=== PATIENT | female | born 1940 | race Caucasian/White ===

== ENCOUNTER 2017-02-18 14:10 | Emergency (ER) | payer MEDICARE ==
[2017-02-18 15:15] VITALS: PULSE 80
--- NOTE | 2017-02-18 15:31 | ERPHSYRPT ---
- History of Present Illness Time Seen by Provider: 02/18/17 15:26 Historian: patient Exam Limitations: no limitations Patient Subjective Stated Complaint: PT REPORTS PAIN IN LOW ABD INCREASING TODAY -REPORTS BRIGHT RED BLOOD IN URINE-DENIES DIFFICULTY WITH BOWELS-DENIES FEVER Triage Nursing Assessment: PT PALE WARM ET [id number] QUESTIONS CORRECTLY WITH EASE-ABD TENDER TO PALP-URINE NOT ASSESSED-BOWEL SOUNDS PRESENT- PT APPEARS UNCOMFORTABLE Physician History: patient with lower abdominal pain for past 2-3 days. Describes pain as crampy, localized and intermittent, which is worse with urination. Patient noted to be having more frequency, dysuria, urgency and hematuria. Patient without any fever, chills, nausea, vomiting, diarrhea, weakness or dizziness. Patient denies any previous history of urinary tract infection. Timing/Duration: day(s) (2-3), intermittent Activities at Onset: none Quality: cramping Abdominal Pain Onset Location: suprapubic Pain Radiation: no radiation Severity of Pain-Max: mild Modifying Factors: Improves With: urinating (worsens pain) Associated Symptoms: No back, No chest pain, No fever/chills, No loss of appetite, No nausea, No weakness Previous symptoms: no prior history Allergies/Adverse Reactions: Penicillins Allergy (Verified 02/18/17 14:50) Home Medications: Aspirin/Calcium Carbonate/Mag [Aspirin Buffered 325 mg Tab] 325 mg PO DAILY 01/23 [History] Atorvastatin Calcium [Lipitor 20MG Tablet] 20 mg PO DAILY 06/20/14 [History] Bumetanide 1 mg [Bumex 1 mg] 1 mg PO DAILY PRN PRN 06/20/14 [History] Fluticasone/Salmeterol [Advair 250-50 Diskus] 1 puff IH BID 06/20/14 [History] Multivitamin [Multivitamins] 1 each PO DAILY 06/20/14 [History] Prednisone 10 mg [Deltasone 10 mg] 10 mg PO DAILY 06/20/14 [History] Hx Tetanus, Diphtheria Vaccination/Date Given: Yes Hx Influenza Vaccination/Date Given: Yes Hx Pneumococcal Vaccination/Date Given: No Immunizations Up to Date: Yes - Review of Systems Constitutional: No Fever, No Chills Eyes: No Symptoms Ears, Nose, & Throat: No Symptoms Respiratory: No Cough, No Dyspnea Cardiac: No Chest Pain, No Edema, No Syncope Abdominal/Gastrointestinal: Abdominal Pain, No Nausea, No Vomiting, No Diarrhea Genitourinary Symptoms: Dysuria, Frequency, Hematuria, Urgency Musculoskeletal: No Symptoms, No Back Pain, No Neck Pain Skin: No Symptoms, No Rash Neurological: No Symptoms, No Dizziness, No Focal Weakness, No Sensory Changes Psychological: No Symptoms Endocrine: No Symptoms All Other Systems: Reviewed and Negative - Past Medical History Pertinent Past Medical History: Yes Neurological History: No Pertinent History Cardiac History: Coronary Artery Disease Respiratory History: COPD Endocrine Medical History: No Pertinent History Musculoskeletal History: Arthritis Other Medical History: ARTIFICIAL AORTIC VALVE AND 2 STENTS, INFECTED INCISION ; 2.5 L 02 @ NIGHT - Past Surgical History Past Surgical History: Yes Cardiac: CABG, Cardiac Stent Musculoskeletal: Orthopedic Surgery Female Surgical History: Hysterectomy - Social History Smoking Status: Former smoker Exposure to second hand smoke: No Drug Use: none Patient Lives Alone: Yes - Female History Hx Now: No - Nursing Vital Signs Nursing Vital Signs: Initial Vital Signs Temperature 98.0 F 02/18/17 14:51 Pulse Rate 84 02/18/17 14:51 Respiratory Rate 20 02/18/17 14:51 Blood Pressure 122/72 02/18/17 14:51 O2 Sat by Pulse Oximetry 100 02/18/17 14:51 Pain Scale Pain Intensity 8 - Physical Exam General Appearance: no apparent distress, alert Eye Exam: PERRL/EOMI, eyes nml inspection Ears, Nose, Throat Exam: normal ENT inspection, pharynx normal, moist mucous membranes Neck Exam: normal inspection, non-tender, supple, full range of motion Respiratory Exam: normal breath sounds, lungs clear, No respiratory distress Cardiovascular Exam: regular rate/rhythm, normal heart sounds Gastrointestinal/Abdomen Exam: soft, tenderness (surrounding ostomy site), other (blood noted in ostomy vent), No mass, No guarding, No rebound, No hernia Pelvic Exam: not done Rectal Exam: deferred Back Exam: normal inspection, normal range of motion, No CVA tenderness, No vertebral tenderness Extremity Exam: normal inspection, normal range of motion, pelvis stable Neurologic Exam: alert, oriented x 3, cooperative, normal mood/affect, nml cerebellar function, sensation nml, No motor deficits Skin Exam: normal color, warm, dry Lymphatic Exam: adenopathy SpO2 Interpretation: normal SpO2: 99 Oxygen Delivery: Room Air - Course Nursing assessment & vital signs reviewed: Yes Ordered Tests: Active Orders 24 hr Category Date Time Status Clean Catch Urine Specimen STAT Care 02/18/17 15:18 Active UA W/RFX UR CULTURE Stat Lab 02/18/17 15:18 Ordered - Progress Progress: improved Progress Note: 02/18/17 15:40 Dr. Buchanan, physician from [facility] was notified about patient and he agreed to accept for further care Discussed with Dr.: Other (Dr. Buchanan) Counseled pt/family regarding: diagnosis - Departure Time of Disposition: 15:41 Departure Disposition: Transfer Clinical Impression: GI bleed Condition: Stable Critical Care Time: No Referrals: ALPHONSE PEREZ MD [Primary Care Provider] -
[2017-02-18 16:27] LABS: Appearance HAZY (CLEAR)
[2017-02-18 16:28] LABS: Bacteria FEW /HPF (NEGATIVE); Bilirubin NEGATIVE (NEGATIVE); Blood 50 Ery/ul (0-5); Epithelial Cells FEW /HPF (FEW); Glucose NEGATIVE (NEGATIVE); Ketones NEGATIVE (NEGATIVE); Leukocyte Esterase 2+ (NEGATIVE); Nitrite NEGATIVE (NEGATIVE); Protein,Urine Dip NEGATIVE (Negative); Urobilinogen NORMAL mg/dL (0-1); WBC 15-25 /HPF (0-5)
[2017-02-18 18:02] VITALS: BP 137/75; O2SAT 98
== END 2017-02-18 18:02 | disposition home or self-care (01) ==
LOC: ED 14:10
DX: N39.0 Urinary tract infection, site not specified (principal); Z79.899 Other long term (current) drug therapy
CPT/HCPCS: 81000; 87086; 99283; 99284

== ENCOUNTER 2017-10-05 11:08 | Emergency (ER) | payer MEDICARE ==
[2017-10-05 11:23] VITALS: BP 123/55; PULSE 100
--- NOTE | 2017-10-05 11:43 | ERPHSYRPT ---
- History of Present Illness Time Seen by Provider: 10/05/17 11:40 Source: patient Patient Subjective Stated Complaint: was at lab getting out of wheel chair and she it right chambers on wc, and has triangle shape skin tear to leg Triage Nursing Assessment: pt has skin tear to right shib, triangle in shape, no bleeding Physician History: skin tear right lower leg today when exiting her wheel chair, no other injury, mild ache pain, ambulates w/ walker Allergies/Adverse Reactions: Penicillins Allergy (Verified 10/05/17 11:23) Home Medications: Aspirin/Calcium Carbonate/Mag [Aspirin Buffered 325 mg Tab] 325 mg PO DAILY 01/23 [History] Atorvastatin Calcium [Lipitor 20MG Tablet] 20 mg PO DAILY 06/20/14 [History] Bumetanide 1 mg [Bumex 1 mg] 1 mg PO DAILY PRN PRN 06/20/14 [History] Fluticasone/Salmeterol [Advair 250-50 Diskus] 1 puff IH BID 06/20/14 [History] Multivitamin [Multivitamins] 1 each PO DAILY 06/20/14 [History] Prednisone 10 mg [Deltasone 10 mg] 10 mg PO DAILY 06/20/14 [History] Gabapentin 300 mg TID 10/05/17 [History] Hx Tetanus, Diphtheria Vaccination/Date Given: Yes Hx Influenza Vaccination/Date Given: No Hx Pneumococcal Vaccination/Date Given: No Immunizations Up to Date: Yes - Review of Systems Constitutional: No Fever Eyes: No Vision Changes Ears, Nose, & Throat: No Mouth Pain Respiratory: No Dyspnea Cardiac: No Chest Pain Abdominal/Gastrointestinal: No Abdominal Pain Musculoskeletal: No Back Pain Skin: Skin Lesions Neurological: No Dizziness - Past Medical History Pertinent Past Medical History: Yes Neurological History: No Pertinent History Cardiac History: Coronary Artery Disease Respiratory History: COPD Endocrine Medical History: No Pertinent History Musculoskeletal History: Arthritis Other Medical History: ARTIFICIAL AORTIC VALVE AND 2 STENTS, INFECTED INCISION ; 2.5 L 02 @ NIGHT - Past Surgical History Past Surgical History: Yes Cardiac: CABG, Cardiac Stent Musculoskeletal: Orthopedic Surgery Female Surgical History: Hysterectomy - Social History Smoking Status: Former smoker Exposure to second hand smoke: No Drug Use: none Patient Lives Alone: No - Female History Hx Last Menstrual Period: post Hx Now: No - Nursing Vital Signs Nursing Vital Signs: Initial Vital Signs Pulse Rate 100 H 10/05/17 11:15 Respiratory Rate 20 10/05/17 11:15 Blood Pressure 123/55 10/05/17 11:15 O2 Sat by Pulse Oximetry 76 L 10/05/17 11:15 Pain Scale Pain Intensity 5 - Physical Exam General Appearance: no apparent distress Neurologic Exam: alert, oriented x 3, cooperative Skin Exam: other (3cm V shape anterior mid right lower leg superficial laceration, bleeding controlled) SpO2: 76 Oxygen Delivery: Nasal Cannula - Course Nursing assessment & vital signs reviewed: Yes Ordered Tests: Active Orders 24 hr Category Date Time Status Nursing [Miscellaneous Nursing Order] ROUTINE Care 10/05/17 11:39 Active Medication Summary Discontinued Medications Generic Name Dose Route Start Last Admin Trade Name Freq PRN Reason Stop Dose Admin Diphtheria/Tetanus/Acell Pertussis 0.5 ml 10/05/17 11:39 10/05/17 11:45 Adacel Vial IM 10/05/17 11:40 0.5 ml .ONCE ONE Administration Diphtheria/Tetanus/Acell Pertussis Confirm 10/05/17 11:47 Adacel Vial Administered 10/05/17 11:48 Dose 0.5 ml IM .STK-MED ONE - Progress Progress: improved Progress Note: 10/05/17 12:17 wound care, elevation, zpak, tylenol, return if worse, see your doctor - Departure Time of Disposition: 12:18 Departure Disposition: Home Clinical Impression: Laceration Condition: Stable Critical Care Time: No Referrals: ALPHONSE PEREZ MD [Primary Care Provider] - Instructions: Wound Care (DC) Prescriptions: Azithromycin 250 mg [Zithromax 250 MG TABLET] 250 mg PO ZPACK #6 tablet
[2017-10-05] MEDS: Adacel Vial IM ONE (11:45)
[2017-10-05] MEDS ORDERED: Adacel Vial IM ONE (11:47)
[2017-10-05 12:19] VITALS: O2SAT 76
== END 2017-10-05 12:43 | disposition home or self-care (01) ==
LOC: ED 11:08
DX: S81.811A Laceration without foreign body, right lower leg, initial encounter (principal); W45.8XXA Other foreign body or object entering through skin, initial encounter; W22.8XXA Striking against or struck by other objects, initial encounter; Y93.9 Activity, unspecified; Z79.82 Long term (current) use of aspirin; Z79.899 Other long term (current) drug therapy
CPT/HCPCS: 71046; 81002; 87086; 90471; 90715; 99283

== ENCOUNTER 2017-10-06 13:15 | Inpatient (IN) | payer MEDICARE ==
[2017-10-06] MEDS ORDERED: DUONEB 0.5-3 MG/3 ml Neb IH ONE ×2 (13:28→13:45)
--- NOTE | 2017-10-06 13:33 | ERPHSYRPT ---
- History of Present Illness Time Seen by Provider: 10/06/17 13:29 Source: patient, EMS Patient Subjective Stated Complaint: Pt states "I was diagnosed with pneumonia yesterday and I have been havinga harder and harder time breathing since last night." Triage Nursing Assessment: Pt alert and oriented X 3, skin pwd. Pt able to speak in full complete sentences. Pt tachypneic, arrived with dual neb tx being administered, lung sounds: rhonchi throughout. Physician History: mild to mod shortness of breath and cough for one day, getting worse, recent pneumonia, no fever, +GOULD, home oxygen 3 liters, took her steroids today, hx chronic leg pain Allergies/Adverse Reactions: Penicillins Allergy (Verified 10/05/17 11:23) Home Medications: Aspirin/Calcium Carbonate/Mag [Aspirin Buffered 325 mg Tab] 325 mg PO DAILY 01/23 [History] Atorvastatin Calcium [Lipitor 20MG Tablet] 20 mg PO DAILY 06/20/14 [History] Bumetanide 1 mg [Bumex 1 mg] 1 mg PO DAILY PRN PRN 06/20/14 [History] Fluticasone/Salmeterol [Advair 250-50 Diskus] 1 puff IH BID 06/20/14 [History] Multivitamin [Multivitamins] 1 each PO DAILY 06/20/14 [History] Prednisone 10 mg [Deltasone 10 mg] 10 mg PO DAILY 06/20/14 [History] Gabapentin 300 mg TID 10/05/17 [History] Hx Tetanus, Diphtheria Vaccination/Date Given: Yes Hx Influenza Vaccination/Date Given: Yes Hx Pneumococcal Vaccination/Date Given: Yes Immunizations Up to Date: Yes - Review of Systems Constitutional: Weakness, No Fever Eyes: No Vision Changes Ears, Nose, & Throat: No Mouth Pain Respiratory: Cough, Dyspnea, Wheezing Cardiac: No Chest Pain Abdominal/Gastrointestinal: No Abdominal Pain Genitourinary Symptoms: No Dysuria Musculoskeletal: Other (edema), No Neck Pain Skin: No Rash Neurological: No Dizziness - Past Medical History Pertinent Past Medical History: Yes Neurological History: No Pertinent History Cardiac History: Coronary Artery Disease Respiratory History: COPD Endocrine Medical History: No Pertinent History Musculoskeletal History: Arthritis Other Medical History: ARTIFICIAL AORTIC VALVE AND 2 STENTS, INFECTED INCISION ; 2.5 L 02 @ NIGHT - Past Surgical History Past Surgical History: Yes Cardiac: CABG, Cardiac Stent Musculoskeletal: Orthopedic Surgery Female Surgical History: Hysterectomy - Social History Smoking Status: Former smoker Exposure to second hand smoke: No Drug Use: none Patient Lives Alone: Yes - Female History Hx Now: No - Nursing Vital Signs Nursing Vital Signs: Initial Vital Signs Temperature 99.5 F 10/06/17 13:20 Pulse Rate 100 H 10/06/17 13:20 Respiratory Rate 20 10/06/17 13:20 Blood Pressure 120/65 10/06/17 13:20 O2 Sat by Pulse Oximetry 94 L 10/06/17 13:20 Pain Scale Pain Intensity 6 - Physical Exam General Appearance: no apparent distress Eye Exam: eyes nml inspection Ears, Nose, Throat Exam: normal pharynx Neck Exam: non-tender Respiratory Exam: wheezing Cardiovascular/Chest Exam: regular rate/rhythm, edema Abdominal/Gastrointestinal Exam: soft, other (colostomy) Extremity Exam: swelling Neurologic Exam: alert, oriented x 3 Skin Exam: warm SpO2 Interpretation: borderline oxygenation SpO2: 97 Oxygen Delivery: Nasal Cannula - Course Nursing assessment & vital signs reviewed: Yes EKG Interpreted by Me: Other (nsr 92, rbbb, no stemi) - CT Exams Chest CT Interpretation: Discussed w/radiologist, Other (no pe, +RLL infil) Ordered Tests: Active Orders 24 hr Category Date Time Status Bedrest ROUTINE Activity 10/06/17 16:44 Ordered Accucheck ACHS Care 10/06/17 16:42 Ordered Call Admit Doctor for Orders ON ADMISSION Care 10/06/17 16:43 Ordered Supervisor Sound Technician STAT Care 10/06/17 13:27 Active Code Status Order ROUTINE Care 10/06/17 16:42 Ordered EKG-ER Only STAT Care 10/06/17 13:27 Active IV Care Q6H Care 10/06/17 16:42 Ordered IV Insertion STAT Care 10/06/17 13:27 Active Oxygen-ED Only NASAL CANNULA 3 lpm Care 10/06/17 13:[address] in Observation ROUTINE Care 10/06/17 16:42 Ordered Telemetry ROUTINE Care 10/06/17 16:42 Ordered 1800 Calorie ADA Diet 10/06/17 Dinner Ordered CHEST 1 VIEW (PORTABLE) Stat Exams 10/06/17 13:27 Completed CHEST WITH CONTRAST [CT] Stat Exams 10/06/17 15:26 Completed VENOUS BILATERAL EXTREMITY [US] Stat Exams 10/06/17 16:31 Taken BLOOD CULTURE Stat Lab 10/06/17 13:45 Received CBC W DIFF AM.LAB Lab 10/07/17 04:00 Ordered CBC W DIFF Stat Lab 10/06/17 13:45 Completed CMP Stat Lab 10/06/17 13:45 Completed D-DIMER QUANTITATION Stat Lab 10/06/17 13:45 Completed Lactic Acid Stat Lab 10/06/17 13:45 Completed NT PRO BNP Stat Lab 10/06/17 13:45 Completed PROTIME WITH INR Stat Lab 10/06/17 13:45 Completed TROPONIN Q3H Lab 10/06/17 13:45 Completed TROPONIN Q3H Lab 10/06/17 16:30 Ordered TROPONIN Q3H Lab 10/06/17 19:30 Ordered TROPONIN Q3H Lab 10/06/17 22:30 Ordered TROPONIN Q3H Lab 10/07/17 01:30 Ordered Oxygen NASAL CANNULA 2 lpm RT 10/06/17 16:42 Ordered Peak Expiratory Flow Rate ONCE RT 10/06/17 13:57 Active Respiratory Nebulizer STAT RT 10/06/17 13:29 Completed Respiratory Therapy Assessment DAILY RT 10/06/17 13:57 Active Respiratory Therapy Consult ROUTINE RT 10/06/17 16:42 Ordered Medication Summary Generic Name Dose Route Start Last Admin Trade Name Freq PRN Reason Stop Dose Admin Acetaminophen 650 mg 10/06/17 16:42 Tylenol 325 Mg PO 11/05/17 16:41 Q4H PRN PRN PAIN AND/OR FEVER Albuterol Sulfate 2.5 mg 10/06/17 16:42 Proventil 2.5 Mg/3 Ml Neb IH 11/05/17 16:41 Q2H PRN PRN SHORTNESS OF BREATH/WHEEZING Levofloxacin/Dextrose 500 mg in 100 mls @ 100 mls/hr 10/06/17 16:35 Levofloxacin 500mg/100ml D5w IV 10/06/17 17:34 STAT STA Levofloxacin/Dextrose 500 mg in 100 mls @ 100 mls/hr 10/07/17 10:00 Levofloxacin 500mg/100ml D5w IV 11/06/17 09:59 Q24H10 LAURENT Insulin Aspart 0 unit 10/06/17 16:42 Novolog Insulin SQ 11/05/17 16:41 UD PRN HYPERGLYCEMIA Discontinued Medications Generic Name Dose Route Start Last Admin Trade Name Chris PRN Reason Stop Dose Admin Hydrocodone Bitart/Acetaminophen 1 tab 10/06/17 14:02 10/06/17 14:10 [place] 5/325 Mg PO 10/06/17 14:03 1 tab STAT ONE Administration Hydrocodone Bitart/Acetaminophen Confirm 10/06/17 14:04 [place] 5/325 Mg Administered 10/06/17 14:05 Dose 1 tab .ROUTE .STK-MED ONE Albuterol/Ipratropium 3 ml 10/06/17 13:28 10/06/17 13:52 [place]one[place] 0.5-3 Mg/3 Ml Neb IH 10/06/17 13:29 3 ml STAT ONE Administration Albuterol/Ipratropium Confirm 10/06/17 13:45 Duoneb 0.5-3 Mg/3 Ml Neb Administered 10/06/17 13:46 Dose 3 ml IH .STK-MED ONE Lab/Rad Data: Laboratory Result Diagrams 10/06/17 13:45 10/06/17 13:45 Laboratory Results 10/06/17 10/06/17 10/06/17 Range/Units 13:45 13:45 13:45 WBC (4.0-10.5) K/mm3 RBC (4.1-5.4) M/mm3 Hgb (12.0-16.0) gm/dl Hct (35-47) % MCV (78-100) fl MCH (26-32) pg MCHC (32-36) g/dl RDW (11.5-14.0) % Plt Count (150-450) K/mm3 MPV (6-9.5) fl Gran % (36.0-66.0) % Eos # (Auto) (0-0.5) Absolute Lymphs (auto) (1.0-4.6) Absolute Monos (auto) (0.0-1.3) Lymphocytes % (24.0-44.0) % Monocytes % (0.0-12.0) % Eosinophils % (0.00-5.0) % Basophils % (0.0-0.4) % Absolute Granulocytes (1.4-6.9) Basophils # (0-0.4) PT 11.8 (9.95-12.35) SECONDS INR 1.01 (0.8-3.0) D-Dimer 1121 H* (215-500) ng/mL Sodium (137-145) mmol/L Potassium (3.5-5.1) mmol/L Chloride (98-107) mmol/L Carbon Dioxide (22-30) mmol/L Anion Gap (5-15) MEQ/L BUN (7-17) mg/dL Creatinine (0.52-1.04) mg/dL Estimated GFR ML/MIN Glucose (74-106) mg/dL Lactic Acid 1.5 (0.4-2.0) Calcium (8.4-10.2) mg/dL Total Bilirubin (0.2-1.3) mg/dL AST (14-36) U/L ALT (0-35) U/L Alkaline Phosphatase (38-126) U/L Troponin I < 0.012 (0.000-0.034) ng/mL NT-Pro-B Natriuret Pep (0-1800) pg/mL Serum Total Protein (6.3-8.2) g/dL Albumin (3.5-5.0) g/dL 10/06/17 10/06/17 Range/Units 13:45 13:45 WBC 13.2 H (4.0-10.5) K/mm3 RBC 3.64 L (4.1-5.4) M/mm3 Hgb 10.5 L (12.0-16.0) gm/dl Hct 35.3 (35-47) % MCV 97.0 (78-100) fl MCH 28.8 (26-32) pg MCHC 29.7 L (32-36) g/dl RDW 14.2 H (11.5-14.0) % Plt Count 207 (150-450) K/mm3 MPV 10.0 H (6-9.5) fl Gran % 88.4 H (36.0-66.0) % Eos # (Auto) 0.06 (0-0.5) Absolute Lymphs (auto) 0.78 L (1.0-4.6) Absolute Monos (auto) 0.67 (0.0-1.3) Lymphocytes % 5.9 L (24.0-44.0) % Monocytes % 5.1 (0.0-12.0) % Eosinophils % 0.5 (0.00-5.0) % Basophils % 0.1 (0.0-0.4) % Absolute Granulocytes 11.70 H (1.4-6.9) Basophils # 0.01 (0-0.4) PT (9.95-12.35) SECONDS INR (0.8-3.0) D-Dimer (215-500) ng/mL Sodium 141 (137-145) mmol/L Potassium 4.5 (3.5-5.1) mmol/L Chloride 94 L (98-107) mmol/L Carbon Dioxide 41 H (22-30) mmol/L Anion Gap 10.1 (5-15) MEQ/L BUN 15 (7-17) mg/dL Creatinine 0.64 (0.52-1.04) mg/dL Estimated GFR > 60.0 ML/MIN Glucose 128 H (74-106) mg/dL Lactic Acid (0.4-2.0) Calcium 9.0 (8.4-10.2) mg/dL Total Bilirubin 0.30 (0.2-1.3) mg/dL AST 18 (14-36) U/L ALT 16 (0-35) U/L Alkaline Phosphatase 87 (38-126) U/L Troponin I (0.000-0.034) ng/mL NT-Pro-B Natriuret Pep 431 (0-1800) pg/mL Serum Total Protein 6.3 (6.3-8.2) g/dL Albumin 3.5 (3.5-5.0) g/dL - Progress Progress: improved Air Movement: fair Blood Culture(s) Obtained: Yes Antibiotics given: Yes Discussed with : Yasir Will see patient in: hospital (observation) Counseled pt/family regarding: lab results, diagnosis, rad results - Departure Time of Disposition: 16:47 Departure Disposition: Observation Clinical Impression: Pneumonia Qualifiers: Pneumonia type: due to unspecified organism Laterality: right Lung location: lower lobe of lung Qualified Code(s): J18.1 - Lobar pneumonia, unspecified organism COPD (chronic obstructive pulmonary disease) Qualifiers: COPD type: COPD with acute exacerbation Qualified Code(s): J44.1 - Chronic obstructive pulmonary disease with (acute) exacerbation Condition: Stable Critical Care Time: No Referrals: ALPHONSE PEREZ MD [Primary Care Provider] - Instructions: Chronic Obstructive Pulmonary Disease
--- NOTE | 2017-10-06 13:56 | XRAY ---
Indication: Cough. Comparison: One day earlier. Portable chest remains hyperinflated and clear with incidental right lung/subcarinal calcified granulomas and cardiothoracic surgery. Heart is not enlarged. No new/acute findings.
[2017-10-06] MEDS ORDERED: NORCO 5/325 MG PO ONE (14:02)
[2017-10-06 14:03] LABS: BASOPHIL % 0.1 % (0.0-0.4); Basophil (Absolute #) 0.01 (0-0.4); Eosinophil % 0.5 % (0.00-5.0); Eosinophil (Absolute #) 0.06 (0-0.5); Granulocytes % 88.4 % (36.0-66.0); Hematocrit 35.3 % (35-47); Hemoglobin 10.5 gm/dl (12.0-16.0); Lymphocyte (Absolute #) 0.78 (1.0-4.6); Lymphocytes % 5.9 % (24.0-44.0); Mean Corpuscular Hemoglobin 28.8 pg (26-32); Mean Corpuscular Hgb Concent. 29.7 g/dl (32-36); Monocyte (Absolute #) 0.67 (0.0-1.3); Monocytes % 5.1 % (0.0-12.0); Platelet Count 207 K/mm3 (150-450); Red Blood Count 3.64 M/mm3 (4.1-5.4); Red Cell Distribution Width 14.2 % (11.5-14.0); White Blood Count 13.2 K/mm3 (4.0-10.5)
[2017-10-06] MEDS ORDERED: NORCO 5/325 MG ONE (14:04)
[2017-10-06 14:32] LABS: INR 1.01 (0.8-3.0)
[2017-10-06 14:47] LABS: ALBUMIN 3.5 g/dL (3.5-5.0); ALKALINE PHOSPHATASE 87 U/L (38-126); BLOOD UREA NITROGEN 15 mg/dL (7-17); CHLORIDE 94 mmol/L (98-107); Creatinine 1 0.64 mg/dL (0.52-1.04); Glucose 128 mg/dL (74-106); NT PRO BNP 431 pg/mL (0-1800); Potassium 4.5 mmol/L (3.5-5.1); SGOT/AST 18 U/L (14-36); SGPT/ALT 16 U/L (0-35); SODIUM 141 mmol/L (137-145); Total Protein 6.3 g/dL (6.3-8.2)
[2017-10-06 14:48] LABS: ANION GAP 10.1 MEQ/L (5-15); Carbon Dioxide 41 mmol/L (22-30)
[2017-10-06] MEDS ORDERED: HOLD METFORMIN PRODUCTS FOR 48 HOURS MC SCH (16:00)
--- NOTE | 2017-10-06 16:32 | XRAY ---
Indication: Short of breath. Elevated d-dimer. Multiple contiguous axial images obtained through the chest using 80 cc Isovue 370 contrast and PE protocol. Comparison: None There is satisfactory opacification of the pulmonary arteries to include the lobar and segmental branches. No filling defect or pulmonary embolus. Heart is not enlarged. Aorta is mildly arteriosclerotic without aneurysm/dissection. Previous aortic valve replacement surgery. [place] subcarinal calcified node. No pathologic mediastinal/hilar lymphadenopathy. Examination of the lung parenchyma demonstrates right lower lobe [id number] opacities favoring pneumonitis. A few of these opacities appear consolidating. No effusion. Small right middle lobe calcified granuloma and minimal fibrosis/scarring in the left lung. Bony thorax intact with mild degenerative changes throughout the spine and sternotomy wires. Superior endplates of T12 and L1 demonstrates concave deformities either remote endplate fractures versus prominent Schmorl nodes. Limited upper abdomen demonstrates mild fatty liver. Impression: 1. Negative pulmonary embolus. 2. Right lower lobe [id number] opacities favoring pneumonitis, some appearing consolidating. 3. Evidence for old granulomatous disease. 4. Incidental fatty liver and T12/L1 remote endplate fractures versus Schmorl nodes. CTDI 10.00
[2017-10-06] MEDS ORDERED: Levofloxacin 500MG/100ML D5W 500 MG/100 ML BAG IV STA (16:35)
[2017-10-06] MEDS ORDERED: PROVENTIL 2.5 MG/3 ML NEB IH PRN (16:42)
--- NOTE | 2017-10-06 16:47 | XRAY ---
Indication: Leg pain. DVT. Two-dimensional sonogram and color Doppler imaging of the major venous vessels of the left and right leg was performed. Comparison: None No thrombus seen in the examined deep venous vessels of the left and right leg including greater saphenous veins. Veins demonstrate normal compressibility. Venous waveforms are normal with and without augmentation. Impression: Left and right legs negative for DVT.
[2017-10-06] MEDS ORDERED: Levofloxacin 500MG/100ML D5W 500 MG/100 ML BAG IV ONE (17:10)
[2017-10-06] MEDS: NovoLOG Insulin SQ PRN (18:43)
[2017-10-06] MEDS ORDERED: Nitrostat 0.4 MG Tablet SL PRN (20:28)
[2017-10-06] MEDS: PROVENTIL 2.5 MG/3 ML NEB IH SCH (20:40)
[2017-10-06] MEDS: Advair Hfa 115/21 Common canister IH SCH (20:42)
[2017-10-06] MEDS: NEURONTIN 300 MG PO SCH (21:18)
[2017-10-06] MEDS: Norco 10/325 MG Tablet PO PRN (21:19)
[2017-10-06] MEDS: xanAX 0.25 MG PO PRN (21:26)
[2017-10-07 04:22] LABS: BASOPHIL % 0.1 % (0.0-0.4); Basophil (Absolute #) 0.01 (0-0.4); Eosinophil % 0.5 % (0.00-5.0); Eosinophil (Absolute #) 0.04 (0-0.5); Granulocyte Absolute (ANC) 6.92 (1.4-6.9); Granulocytes % 81.1 % (36.0-66.0); Hemoglobin 9.1 gm/dl (12.0-16.0); Lymphocyte (Absolute #) 0.79 (1.0-4.6); Lymphocytes % 9.3 % (24.0-44.0); Mean Cell Volume 95.5 fl (78-100); Mean Corpuscular Hgb Concent. 30.3 g/dl (32-36); Mean Platelet Volume 10.2 fl (6-9.5); Monocyte (Absolute #) 0.77 (0.0-1.3); Platelet Count 185 K/mm3 (150-450); Red Blood Count 3.14 M/mm3 (4.1-5.4); Red Cell Distribution Width 13.9 % (11.5-14.0); White Blood Count 8.5 K/mm3 (4.0-10.5)
[2017-10-07 05:33] LABS: Mean Corpuscular Hemoglobin 28.9 pg (26-32)
[2017-10-07] MEDS: Norco 10/325 MG Tablet PO PRN ×4 (06:24→21:19)
[2017-10-07] MEDS ORDERED: BUMEX 1 MG PO PRN (07:12)
[2017-10-07] MEDS: Advair Hfa 115/21 Common canister IH SCH ×2 (07:33→19:53)
[2017-10-07] MEDS: PROVENTIL 2.5 MG/3 ML NEB IH SCH ×4 (07:33→19:50)
--- NOTE | 2017-10-07 08:19 | PCM.HP ---
History of Present Illness - Chief Complaint Chief Complaint: Shortness of Breath History of Present Illness: is a 77 year old female who presented to the ER with pain all over, shortness of breath and feeling poorly. She was found to have early pneumonia on cta chest. Had a fall in the ER and felt unsteady, she has chronic lower extremity edema. - Review of Systems Constitutional: No Fever, No Chills Respiratory: No Cough, No Short Of Breath Cardiac: No Chest Pain, No Edema, No Syncope Abdominal/Gastrointestinal: No Symptoms Skin: Cellulitis All Other Systems: Reviewed and Negative Medications & Allergies Home Medications: Home Medication List Aspirin/Calcium Carbonate/Mag [Aspirin Buffered 325 mg Tab] 325 mg PO DAILY 01/23 [History Confirmed 10/06/17] Atorvastatin Calcium [Lipitor 20MG Tablet] 20 mg PO DAILY 06/20/14 [History Confirmed 10/06/17] Bumetanide 1 mg [Bumex 1 mg] 1 mg PO DAILY PRN PRN 06/20/14 [History Confirmed 10/06/17] Fluticasone/Salmeterol [Advair 250-50 Diskus] 1 puff IH BID 06/20/14 [History Confirmed 10/06/17] Hydrocodone/APAP 10/325 mg [[place] 10/325 MG Tablet] 1 tab PO Q4H PRN PRN # 15 tablet 06/20/14 [Rx Confirmed 10/06/17] Multivitamin [Multivitamins] 1 each PO DAILY 06/20/14 [History Confirmed ] Prednisone 10 mg [Deltasone 10 mg] 10 mg PO DAILY 06/20/14 [History Confirmed 10/06/17] Azithromycin 250 mg [Zithromax 250 MG TABLET] 250 mg PO ZPACK #6 tablet [Rx Confirmed 10/06/17] Gabapentin 300 mg TID 10/05/17 [History Confirmed 10/06/17] ALPRAZolam [Alprazolam] 0.25 mg PO Q12H PRN PRN 10/06/17 [History Confirmed ] Aspirin 81 mg PO DAILY 10/06/17 [History Confirmed 10/06/17] Calcium Carbonate/Vitamin D3 [Calcium 600 + Vit D Caplet] 1 tab PO DAILY [History Confirmed 10/06/17] Clopidogrel Bisulfate [Clopidogrel] 75 mg PO DAILY 10/06/17 [History Confirmed 10/06/17] Cyanocobalamin (Vitamin B-12) [Vitamin B-12] 500 mcg PO DAILY 10/06/17 [History Confirmed 10/06/17] Gabapentin 300 mg PO TID 10/06/17 [History Confirmed 10/06/17] Metformin HCl [Metformin HCl ER] 500 mg PO DAILY 10/06/17 [History Confirmed ] Nitroglycerin 0.4 mg Tablet [Nitrostat 0.4 MG Tablet] 0.4 mg PO Q5MIN PRN MR X 3 PRN 10/06/17 [History Confirmed 10/06/17] Potassium Chloride 20 Meq [Klor-Con 20 MEQ] 20 meq PO DAILY 10/06/17 [History Confirmed 10/06/17] Vitamin E 400 unit PO DAILY 10/06/17 [History Confirmed 10/06/17] Allergies/Adverse Reactions: Allergies Allergy/AdvReac Type Severity Reaction Status Date / Time Penicillins Allergy Verified 10/05/17 11:23 - Past Medical History Past Medical History: Yes Neurological History: No Pertinent History Cardiac History: Coronary Artery Disease Respiratory History: COPD Endocrine Medical History: No Pertinent History Musculoskelatal History: Arthritis GI Medical History: Other History: No Pertinent History Pyscho-Social History: No Pertinent History Reproductive Disorders: No Pertinent History Comment: 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, 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 - Female History Are you now?: No - Past Surgical History Past Surgical History: Yes Neuro Surgical History: No Pertinent History Cardiac History: CABG, Cardiac Stent, Valve Replacement Respiratory Surgery: No Pertinent History Musculskeletal Surgical Hx: Orthopedic Surgery Female Surgical History: Hysterectomy - Social History Smoking Status: Never smoker Exposure to second hand smoke: No Alcohol: None Drug Use: none - Physical Exam Vital Signs: Vital Signs - 24 hr Temp Pulse Resp BP Pulse Ox 10/07/17 07:36 72 18 93 L 10/07/17 07:11 97.6 F 72 16 135/61 98 10/07/17 04:00 97.6 F 79 14 118/58 100 10/07/17 00:00 97.9 F 84 16 112/59 98 10/06/17 20:40 88 22 95 10/06/17 20:00 98.9 F 93 H 17 86/52 98 10/06/17 17:51 93 L 10/06/17 17:45 98.1 F 93 H 20 109/55 93 L 10/06/17 17:06 99.0 F 92 H 22 112/59 97 10/06/17 16:48 97 10/06/17 16:05 99.0 F 88 20 114/62 95 10/06/17 14:52 99.2 F 90 23 110/56 96 10/06/17 14:08 99.5 F 104 H 20 118/62 94 L 10/06/17 13:57 96 H 22 95 10/06/17 13:20 99.5 F 100 H 20 120/65 97 Oxygen-Last 24 hours O2 Percentage 3 Liters = 32% O2 Percentage 3 Liters = 32% O2 Percentage 3 Liters = 32% O2 Percentage 2 Liters = 28% O2 Percentage 3 Liters = 32% O2 Percentage 3 Liters = 32% O2 Percentage 3 Liters = 32% O2 Percentage 3 Liters = 32% O2 Percentage 3 Liters = 32% O2 Percentage 3 Liters = 32% O2 Percentage 3 Liters = 32% O2 Percentage 3 Liters = 32% General Appearance: no apparent distress, alert Neurologic Exam: alert, oriented x 3, cooperative, normal mood/affect, nml cerebellar function, nml station & gait, sensation nml, No motor deficits Respiratory Exam: normal breath sounds, lungs clear, No respiratory distress Cardiovascular Exam: regular rate/rhythm, normal heart sounds, normal peripheral pulses Gastrointestinal/Abdomen Exam: soft, normal bowel sounds, No tenderness, No mass Extremity Exam: pedal edema, swelling, other (erythema and warmth to left lower leg to just below the knee) Results - Labs Lab/Micro Results: Accuchecks Date 10/07/17 Date 10/06/17 Time 07:34 Time 22:00 Accucheck Value: 104 Accucheck Value: 188 Lab Results-Last 24 Hours 10/06/17 10/06/17 10/06/17 Range/Units 13:45 13:45 13:45 WBC 13.2 H (4.0-10.5) K/mm3 RBC 3.64 L (4.1-5.4) M/mm3 Hgb 10.5 L (12.0-16.0) gm/dl Hct 35.3 (35-47) % MCV 97.0 (78-100) fl MCH 28.8 (26-32) pg MCHC 29.7 L (32-36) g/dl RDW 14.2 H (11.5-14.0) % Plt Count 207 (150-450) K/mm3 MPV 10.0 H (6-9.5) fl Gran % 88.4 H (36.0-66.0) % Eos # (Auto) 0.06 (0-0.5) Absolute Lymphs (auto) 0.78 L (1.0-4.6) Absolute Monos (auto) 0.67 (0.0-1.3) Lymphocytes % 5.9 L (24.0-44.0) % Monocytes % 5.1 (0.0-12.0) % Eosinophils % 0.5 (0.00-5.0) % Basophils % 0.1 (0.0-0.4) % Absolute Granulocytes 11.70 H (1.4-6.9) Basophils # 0.01 (0-0.4) PT 11.8 (9.95-12.35) SECONDS INR 1.01 (0.8-3.0) D-Dimer 1121 H* (215-500) ng/mL Sodium 141 (137-145) mmol/L Potassium 4.5 (3.5-5.1) mmol/L Chloride 94 L (98-107) mmol/L Carbon Dioxide 41 H (22-30) mmol/L Anion Gap 10.1 (5-15) MEQ/L BUN 15 (7-17) mg/dL Creatinine 0.64 (0.52-1.04) mg/dL Estimated GFR > 60.0 ML/MIN Glucose 128 H (74-106) mg/dL Hemoglobin A1c (4.5-6.0) % Lactic Acid (0.4-2.0) Calcium 9.0 (8.4-10.2) mg/dL Total Bilirubin 0.30 (0.2-1.3) mg/dL AST 18 (14-36) U/L ALT 16 (0-35) U/L Alkaline Phosphatase 87 (38-126) U/L Troponin I (0.000-0.034) ng/mL NT-Pro-B Natriuret Pep 431 (0-1800) pg/mL Serum Total Protein 6.3 (6.3-8.2) g/dL Albumin 3.5 (3.5-5.0) g/dL 10/06/17 10/06/17 10/06/17 Range/Units 13:45 13:45 16:45 WBC (4.0-10.5) K/mm3 RBC (4.1-5.4) M/mm3 Hgb (12.0-16.0) gm/dl Hct (35-47) % MCV (78-100) fl MCH (26-32) pg MCHC (32-36) g/dl RDW (11.5-14.0) % Plt Count (150-450) K/mm3 MPV (6-9.5) fl Gran % (36.0-66.0) % Eos # (Auto) (0-0.5) Absolute Lymphs (auto) (1.0-4.6) Absolute Monos (auto) (0.0-1.3) Lymphocytes % (24.0-44.0) % Monocytes % (0.0-12.0) % Eosinophils % (0.00-5.0) % Basophils % (0.0-0.4) % Absolute Granulocytes (1.4-6.9) Basophils # (0-0.4) PT (9.95-12.35) SECONDS INR (0.8-3.0) D-Dimer (215-500) ng/mL Sodium (137-145) mmol/L Potassium (3.5-5.1) mmol/L Chloride (98-107) mmol/L Carbon Dioxide (22-30) mmol/L Anion Gap (5-15) MEQ/L BUN (7-17) mg/dL Creatinine (0.52-1.04) mg/dL Estimated GFR ML/MIN Glucose (74-106) mg/dL Hemoglobin A1c (4.5-6.0) % Lactic Acid 1.5 (0.4-2.0) Calcium (8.4-10.2) mg/dL Total Bilirubin (0.2-1.3) mg/dL AST (14-36) U/L ALT (0-35) U/L Alkaline Phosphatase (38-126) U/L Troponin I < 0.012 < 0.012 (0.000-0.034) ng/mL NT-Pro-B Natriuret Pep (0-1800) pg/mL Serum Total Protein (6.3-8.2) g/dL Albumin (3.5-5.0) g/dL 10/06/17 10/06/17 10/06/17 Range/Units 18:00 19:13 22:45 WBC (4.0-10.5) K/mm3 RBC (4.1-5.4) M/mm3 Hgb (12.0-16.0) gm/dl Hct (35-47) % MCV (78-100) fl MCH (26-32) pg MCHC (32-36) g/dl RDW (11.5-14.0) % Plt Count (150-450) K/mm3 MPV (6-9.5) fl Gran % (36.0-66.0) % Eos # (Auto) (0-0.5) Absolute Lymphs (auto) (1.0-4.6) Absolute Monos (auto) (0.0-1.3) Lymphocytes % (24.0-44.0) % Monocytes % (0.0-12.0) % Eosinophils % (0.00-5.0) % Basophils % (0.0-0.4) % Absolute Granulocytes (1.4-6.9) Basophils # (0-0.4) PT (9.95-12.35) SECONDS INR (0.8-3.0) D-Dimer (215-500) ng/mL Sodium (137-145) mmol/L Potassium (3.5-5.1) mmol/L Chloride (98-107) mmol/L Carbon Dioxide (22-30) mmol/L Anion Gap (5-15) MEQ/L BUN (7-17) mg/dL Creatinine (0.52-1.04) mg/dL Estimated GFR ML/MIN Glucose (74-106) mg/dL Hemoglobin A1c 5.44 (4.5-6.0) % Lactic Acid (0.4-2.0) Calcium (8.4-10.2) mg/dL Total Bilirubin (0.2-1.3) mg/dL AST (14-36) U/L ALT (0-35) U/L Alkaline Phosphatase (38-126) U/L Troponin I < 0.012 < 0.012 (0.000-0.034) ng/mL NT-Pro-B Natriuret Pep (0-1800) pg/mL Serum Total Protein (6.3-8.2) g/dL Albumin (3.5-5.0) g/dL 10/07/17 10/07/17 Range/Units 02:12 02:12 WBC 8.5 (4.0-10.5) K/mm3 RBC 3.14 L (4.1-5.4) M/mm3 Hgb 9.1 L (12.0-16.0) gm/dl Hct 30.0 L (35-47) % MCV 95.5 (78-100) fl MCH 28.9 (26-32) pg MCHC 30.3 L (32-36) g/dl RDW 13.9 (11.5-14.0) % Plt Count 185 (150-450) K/mm3 MPV 10.2 H (6-9.5) fl Gran % 81.1 H (36.0-66.0) % Eos # (Auto) 0.04 (0-0.5) Absolute Lymphs (auto) 0.79 L (1.0-4.6) Absolute Monos (auto) 0.77 (0.0-1.3) Lymphocytes % 9.3 L (24.0-44.0) % Monocytes % 9.0 (0.0-12.0) % Eosinophils % 0.5 (0.00-5.0) % Basophils % 0.1 (0.0-0.4) % Absolute Granulocytes 6.92 H (1.4-6.9) Basophils # 0.01 (0-0.4) PT (9.95-12.35) SECONDS INR (0.8-3.0) D-Dimer (215-500) ng/mL Sodium (137-145) mmol/L Potassium (3.5-5.1) mmol/L Chloride (98-107) mmol/L Carbon Dioxide (22-30) mmol/L Anion Gap (5-15) MEQ/L BUN (7-17) mg/dL Creatinine (0.52-1.04) mg/dL Estimated GFR ML/MIN Glucose (74-106) mg/dL Hemoglobin A1c (4.5-6.0) % Lactic Acid (0.4-2.0) Calcium (8.4-10.2) mg/dL Total Bilirubin (0.2-1.3) mg/dL AST (14-36) U/L ALT (0-35) U/L Alkaline Phosphatase (38-126) U/L Troponin I < 0.012 (0.000-0.034) ng/mL NT-Pro-B Natriuret Pep (0-1800) pg/mL Serum Total Protein (6.3-8.2) g/dL Albumin (3.5-5.0) g/dL Accuchecks Date 10/07/17 Date 10/06/17 Time 07:34 Time 22:00 Accucheck Value: 104 Accucheck Value: 188 - Radiology Impressions Radiology Exams & Impressions: Radiology Procedures Category Date Time Status CHEST 1 VIEW (PORTABLE) Stat Exams 10/06/17 13:27 Completed CHEST WITH CONTRAST [CT] Stat Exams 10/06/17 15:26 Completed VENOUS BILATERAL EXTREMITY [US] Stat Exams 10/06/17 16:31 Completed - Other Procedures and Tests Respiratory Therapy 10/06/17 13:57 Peak Expiratory Flow Rate ONCE Respiratory Therapy Assessment DAILY 10/06/17 16:42 Oxygen NASAL CANNULA 2 lpm Assessment/Plan (1) Cellulitis Current Visit: Yes Status: Acute Assessment & Plan: currently on levaquin Code(s): L03.90 - CELLULITIS, UNSPECIFIED (2) COPD (chronic obstructive pulmonary disease) Current Visit: Yes Status: Acute Qualifiers: COPD type: COPD with acute exacerbation Qualified Code(s): J44.1 - Chronic obstructive pulmonary disease with (acute) exacerbation Assessment & Plan: continue levaquin and nebs (3) Pneumonia Current Visit: Yes Status: Acute Qualifiers: Pneumonia type: due to unspecified organism Laterality: right Lung location: lower lobe of lung Qualified Code(s): J18.1 - Lobar pneumonia, unspecified organism Assessment & Plan: on levaquin, nebs Code(s): J18.9 - PNEUMONIA, UNSPECIFIED ORGANISM
[2017-10-07] MEDS: Levofloxacin 500MG/100ML D5W 500 MG/100 ML BAG IV SCH (09:18)
[2017-10-07] MEDS: Pepcid 20 MG VIAL IV SCH (09:21)
[2017-10-07] MEDS: DELTASONE 10 MG PO SCH (09:22)
[2017-10-07] MEDS: NEURONTIN 300 MG PO SCH ×3 (09:22→21:20)
[2017-10-07] MEDS: PLAVIX 75 MG Tablet PO SCH (09:22)
[2017-10-07] MEDS: Calcium 500MG W/Vit D Tablet PO SCH (09:22)
[2017-10-07] MEDS: ZOCOR 20MG PO SCH (09:22)
[2017-10-07] MEDS: Klor Con 10 MEQ PO SCH (09:22)
[2017-10-07] MEDS: Vitamin B-12 500 MCG PO SCH (09:23)
[2017-10-07] MEDS: ECOTRIN 81 MG PO SCH (09:23)
[2017-10-07] MEDS: xanAX 0.25 MG PO PRN ×2 (09:25→21:19)
[2017-10-07] MEDS ORDERED: NON-FORMULARY ITEM (Calcium Carbonate/Vitamin D3 [Calcium 600 + Vit D Caplet] 1 TAB) PO SCH (10:00)
[2017-10-07] MEDS ORDERED: NON-FORMULARY ITEM (Atorvastatin Calcium 20 MG) PO SCH (10:00)
[2017-10-07] MEDS ORDERED: NON-FORMULARY ITEM (Potassium Chloride 20 Meq [Klor-Con 20 Meq] 20 MEQ) PO SCH (10:00)
[2017-10-08] MEDS: Norco 10/325 MG Tablet PO PRN ×4 (05:21→21:10)
[2017-10-08 05:48] LABS: BASOPHIL % 0.1 % (0.0-0.4); Basophil (Absolute #) 0.01 (0-0.4); Eosinophil % 1.3 % (0.00-5.0); Eosinophil (Absolute #) 0.11 (0-0.5); Granulocyte Absolute (ANC) 6.78 (1.4-6.9); Granulocytes % 78.6 % (36.0-66.0); Hematocrit 30.7 % (35-47); Hemoglobin 9.1 gm/dl (12.0-16.0); Lymphocyte (Absolute #) 1.07 (1.0-4.6); Lymphocytes % 12.4 % (24.0-44.0); Mean Cell Volume 96.5 fl (78-100); Mean Corpuscular Hemoglobin 28.6 pg (26-32); Mean Corpuscular Hgb Concent. 29.6 g/dl (32-36); Mean Platelet Volume 9.9 fl (6-9.5); Monocyte (Absolute #) 0.66 (0.0-1.3); Monocytes % 7.6 % (0.0-12.0); Platelet Count 183 K/mm3 (150-450); Red Blood Count 3.18 M/mm3 (4.1-5.4); White Blood Count 8.6 K/mm3 (4.0-10.5)
[2017-10-08 06:11] LABS: ALBUMIN 3.1 g/dL (3.5-5.0); ALKALINE PHOSPHATASE 73 U/L (38-126); BLOOD UREA NITROGEN 12 mg/dL (7-17); CHLORIDE 95 mmol/L (98-107); Calcium 8.8 mg/dL (8.4-10.2); Creatinine 1 0.67 mg/dL (0.52-1.04); Glucose 105 mg/dL (74-106); NT PRO BNP 382 pg/mL (0-1800); Potassium 4.6 mmol/L (3.5-5.1); SGOT/AST 14 U/L (14-36); SGPT/ALT 14 U/L (0-35); SODIUM 140 mmol/L (137-145); Total Protein 5.7 g/dL (6.3-8.2)
[2017-10-08 06:15] LABS: Carbon Dioxide 43 mmol/L (22-30)
[2017-10-08 06:20] LABS: ANION GAP 6.6 MEQ/L (5-15)
[2017-10-08] MEDS: PROVENTIL 2.5 MG/3 ML NEB IH SCH (07:06)
[2017-10-08] MEDS: Advair Hfa 115/21 Common canister IH SCH ×2 (07:50→19:46)
--- NOTE | 2017-10-08 08:38 | PCM.NOTE ---
Date and Time: 10/08/17835 Subjective Assessment: patient continues to complain of pain to [place] lower extremities, no better than yesterday. denies much cough, denies shortnes of breath Objective Exam General Appearance: no apparent distress, alert Respiratory Exam: wheezing Cardiovascular Exam: regular rate/rhythm, normal heart sounds Gastrointestinal/Abdomen Exam: soft, No tenderness, No mass Extremity Exam: pedal edema, other (erythema to BLE, left greater than right. warmth to palpation) OBJECTIVE DATA Vital Signs: Vital Signs - 24 hr Temp Pulse Resp BP Pulse Ox 10/08/17 07:23 97.8 F 77 18 110/58 94 L 10/08/17 07:08 74 20 90 L 10/08/17 04:00 97.9 F 65 20 115/60 96 10/08/17 00:00 98.5 F 81 18 105/51 98 10/07/17 20:00 98.0 F 73 18 107/55 97 10/07/17 19:50 77 18 100 10/07/17 16:00 98.7 F 80 16 119/59 96 10/07/17 14:44 84 18 96 10/07/17 11:28 98.1 F 88 16 104/55 97 10/07/17 10:57 87 20 99 Oxygen-Last 24 hours O2 Percentage 3 Liters = 32% O2 Percentage 3 Liters = 32% O2 Percentage 3 Liters = 32% O2 Percentage 3 Liters = 32% O2 Percentage 3 Liters = 32% O2 Percentage 3 Liters = 32% Pain Assessment - Last Documented Pain Intensity 10 Pain Scale Used 0-10 Pain Scale Intake and Output: Intake & Output 10/05/17 10/06/17 10/07/17 10/08/17 11:59 11:59 11:59 11:59 Intake Total 700 1100 Output Total 1300 1100 Balance -600 0 Weight 64.2 kg Lab Results: Accuchecks Date 10/08/17 Date 10/07/17 Date 10/07/17 Date 10/07/17 Time 07:30 Time 21:00 Time 16:25 Time 11:59 Accucheck Value: 103 Accucheck Value: 125 Accucheck Value: 153 Accucheck Value: 83 Lab Results-Last 24 Hours 10/07/17 10/08/17 10/08/17 Range/Units 05:41 05:25 05:25 WBC 8.6 (4.0-10.5) K/mm3 RBC 3.18 L (4.1-5.4) M/mm3 Hgb 9.1 L (12.0-16.0) gm/dl Hct 30.7 L (35-47) % MCV 96.5 (78-100) fl MCH 28.6 (26-32) pg MCHC 29.6 L (32-36) g/dl RDW 14.0 (11.5-14.0) % Plt Count 183 (150-450) K/mm3 MPV 9.9 H (6-9.5) fl Gran % 78.6 H (36.0-66.0) % Eos # (Auto) 0.11 (0-0.5) Absolute Lymphs (auto) 1.07 (1.0-4.6) Absolute Monos (auto) 0.66 (0.0-1.3) Lymphocytes % 12.4 L (24.0-44.0) % Monocytes % 7.6 (0.0-12.0) % Eosinophils % 1.3 (0.00-5.0) % Basophils % 0.1 (0.0-0.4) % Absolute Granulocytes 6.78 (1.4-6.9) Basophils # 0.01 (0-0.4) Sodium 140 (137-145) mmol/L Potassium 4.6 (3.5-5.1) mmol/L Chloride 95 L (98-107) mmol/L Carbon Dioxide 43 H (22-30) mmol/L Anion Gap 6.6 (5-15) MEQ/L BUN 12 (7-17) mg/dL Creatinine 0.67 (0.52-1.04) mg/dL Estimated GFR > 60.0 ML/MIN Glucose 105 (74-106) mg/dL Calcium 8.8 (8.4-10.2) mg/dL Total Bilirubin 0.10 L (0.2-1.3) mg/dL AST 14 (14-36) U/L ALT 14 (0-35) U/L Alkaline Phosphatase 73 (38-126) U/L NT-Pro-B Natriuret Pep 382 (0-1800) pg/mL Serum Total Protein 5.7 L (6.3-8.2) g/dL Albumin 3.1 L (3.5-5.0) g/dL Stool Occult Bld Scrn NEGATIVE Radiology Exams: Radiology Procedures Category Date Time Status CHEST 1 VIEW (PORTABLE) Stat Exams 10/06/17 13:27 Completed CHEST WITH CONTRAST [CT] Stat Exams 10/06/17 15:26 Completed VENOUS BILATERAL EXTREMITY [US] Stat Exams 10/06/17 16:31 Completed Assessment/Plan (1) Cellulitis Current Visit: Yes Status: Acute Onset Date: ~10/07/17 Assessment & Plan: add vancomycin, pharmacy to dose Code(s): L03.90 - CELLULITIS, UNSPECIFIED (2) COPD (chronic obstructive pulmonary disease) Current Visit: Yes Status: Acute Onset Date: ~10/06/17 Qualifiers: COPD type: COPD with acute exacerbation Qualified Code(s): J44.1 - Chronic obstructive pulmonary disease with (acute) exacerbation Assessment & Plan: on levaquin/albuterol. change to scheduled duoneb qid due to wheezing today (3) Pneumonia Current Visit: Yes Status: Acute Onset Date: ~10/06/17 Qualifiers: Pneumonia type: due to unspecified organism Laterality: right Lung location: lower lobe of lung Qualified Code(s): J18.1 - Lobar pneumonia, unspecified organism Assessment & Plan: on levaquin Code(s): J18.9 - PNEUMONIA, UNSPECIFIED ORGANISM
[2017-10-08] MEDS ORDERED: VANCOCIN 1 GM VIAL*** 1 GM in Sodium Chloride 0.9% 250 ML 250 ML IV SCH (09:00)
[2017-10-08] MEDS: Levofloxacin 500MG/100ML D5W 500 MG/100 ML BAG IV SCH (09:28)
[2017-10-08] MEDS: DELTASONE 10 MG PO SCH (09:29)
[2017-10-08] MEDS: Calcium 500MG W/Vit D Tablet PO SCH (09:29)
[2017-10-08] MEDS: Pepcid 20 MG VIAL IV SCH (09:29)
[2017-10-08] MEDS: NEURONTIN 300 MG PO SCH ×3 (09:29→21:10)
[2017-10-08] MEDS: ECOTRIN 81 MG PO SCH (09:29)
[2017-10-08] MEDS: PLAVIX 75 MG Tablet PO SCH (09:29)
[2017-10-08] MEDS: ZOCOR 20MG PO SCH (09:29)
[2017-10-08] MEDS: Klor Con 10 MEQ PO SCH (09:29)
[2017-10-08] MEDS: VANCOCIN 1 GM VIAL*** 0.75 GM in Sodium Chloride 0.9% 250 ML 250 ML IV SCH ×2 (09:30→21:10)
[2017-10-08] MEDS: xanAX 0.25 MG PO PRN ×2 (09:30→21:11)
[2017-10-08] MEDS: Vitamin B-12 500 MCG PO SCH (09:31)
[2017-10-08] MEDS: DUONEB 0.5-3 MG/3 ml Neb IH SCH ×2 (13:48→19:43)
[2017-10-09] MEDS: DUONEB 0.5-3 MG/3 ml Neb IH SCH ×4 (01:05→19:44)
[2017-10-09] MEDS: Norco 10/325 MG Tablet PO PRN ×4 (04:13→21:35)
[2017-10-09] MEDS: Advair Hfa 115/21 Common canister IH SCH ×2 (06:28→19:45)
[2017-10-09] MEDS ORDERED: TROUGH DRUG LEVELS IJ ONE (08:30)
[2017-10-09 08:55] LABS: BASOPHIL % 0.2 % (0.0-0.4); Basophil (Absolute #) 0.02 (0-0.4); Eosinophil % 1.2 % (0.00-5.0); Granulocyte Absolute (ANC) 6.17 (1.4-6.9); Granulocytes % 76.6 % (36.0-66.0); Hematocrit 30.5 % (35-47); Hemoglobin 8.8 gm/dl (12.0-16.0); Lymphocyte (Absolute #) 1.07 (1.0-4.6); Lymphocytes % 13.3 % (24.0-44.0); Mean Cell Volume 98.7 fl (78-100); Mean Corpuscular Hemoglobin 28.4 pg (26-32); Mean Corpuscular Hgb Concent. 28.9 g/dl (32-36); Mean Platelet Volume 9.8 fl (6-9.5); Monocytes % 8.7 % (0.0-12.0); Platelet Count 195 K/mm3 (150-450); Red Blood Count 3.09 M/mm3 (4.1-5.4); Red Cell Distribution Width 14.1 % (11.5-14.0); White Blood Count 8.1 K/mm3 (4.0-10.5)
[2017-10-09] MEDS: VANCOCIN 1 GM VIAL*** 0.75 GM in Sodium Chloride 0.9% 250 ML 250 ML IV SCH (09:12)
[2017-10-09] MEDS: DELTASONE 10 MG PO SCH (09:12)
[2017-10-09] MEDS: PLAVIX 75 MG Tablet PO SCH (09:13)
[2017-10-09] MEDS: Calcium 500MG W/Vit D Tablet PO SCH (09:13)
[2017-10-09] MEDS: ZOCOR 20MG PO SCH (09:13)
[2017-10-09] MEDS: NEURONTIN 300 MG PO SCH ×3 (09:13→21:31)
[2017-10-09] MEDS: ECOTRIN 81 MG PO SCH (09:13)
[2017-10-09] MEDS: Klor Con 10 MEQ PO SCH (09:13)
[2017-10-09] MEDS: Vitamin B-12 500 MCG PO SCH (09:13)
[2017-10-09] MEDS: Pepcid 20 MG VIAL IV SCH (09:14)
[2017-10-09] MEDS: Levofloxacin 500MG/100ML D5W 500 MG/100 ML BAG IV SCH (09:16)
[2017-10-09 09:46] LABS: ALKALINE PHOSPHATASE 68 U/L (38-126); BILIRUBIN,TOTAL < 0.10 mg/dL (0.2-1.3); BLOOD UREA NITROGEN 11 mg/dL (7-17); CHLORIDE 96 mmol/L (98-107); Calcium 8.2 mg/dL (8.4-10.2); Creatinine 1 0.69 mg/dL (0.52-1.04); Glucose 97 mg/dL (74-106); Potassium 4.2 mmol/L (3.5-5.1); SGOT/AST 15 U/L (14-36); SGPT/ALT 15 U/L (0-35); SODIUM 142 mmol/L (137-145); Total Protein 5.7 g/dL (6.3-8.2)
[2017-10-09 09:55] LABS: ANION GAP 9.2 MEQ/L (5-15); Carbon Dioxide 41 mmol/L (22-30)
[2017-10-09] MEDS: xanAX 0.25 MG PO PRN (13:40)
[2017-10-09] MEDS: VANCOCIN 1 GM VIAL*** 1 GM in Sodium Chloride 0.9% 250 ML 250 ML IV SCH (18:05)
[2017-10-10] MEDS: MORPHINE SULFATE 4 MG INJ IV PRN (00:42)
[2017-10-10] MEDS: DUONEB 0.5-3 MG/3 ml Neb IH SCH ×4 (01:42→19:57)
[2017-10-10] MEDS: VANCOCIN 1 GM VIAL*** 1 GM in Sodium Chloride 0.9% 250 ML 250 ML IV SCH ×2 (05:14→18:23)
[2017-10-10] MEDS: Advair Hfa 115/21 Common canister IH SCH ×2 (06:30→19:57)
[2017-10-10] MEDS: Norco 10/325 MG Tablet PO PRN ×4 (07:53→22:29)
[2017-10-10] MEDS: NEURONTIN 300 MG PO SCH ×3 (11:08→21:14)
[2017-10-10] MEDS: PLAVIX 75 MG Tablet PO SCH (11:08)
[2017-10-10] MEDS: Klor Con 10 MEQ PO SCH (11:08)
[2017-10-10] MEDS: Calcium 500MG W/Vit D Tablet PO SCH (11:08)
[2017-10-10] MEDS: ZOCOR 20MG PO SCH (11:08)
[2017-10-10] MEDS: DELTASONE 10 MG PO SCH (11:08)
[2017-10-10] MEDS: ECOTRIN 81 MG PO SCH (11:08)
[2017-10-10] MEDS: Vitamin B-12 500 MCG PO SCH (11:09)
[2017-10-10] MEDS: Pepcid 20 MG VIAL IV SCH (11:09)
[2017-10-10] MEDS: Levofloxacin 500MG/100ML D5W 500 MG/100 ML BAG IV SCH (11:25)
[2017-10-10] MEDS: xanAX 0.25 MG PO PRN (21:13)
[2017-10-10] MEDS: NovoLOG Insulin SQ PRN (21:14)
[2017-10-11] MEDS: DUONEB 0.5-3 MG/3 ml Neb IH SCH ×4 (01:46→19:54)
[2017-10-11] MEDS: MORPHINE SULFATE 4 MG INJ IV PRN (03:32)
[2017-10-11] MEDS: Norco 10/325 MG Tablet PO PRN ×3 (06:04→16:46)
[2017-10-11] MEDS: VANCOCIN 1 GM VIAL*** 1 GM in Sodium Chloride 0.9% 250 ML 250 ML IV SCH ×2 (06:05→17:43)
[2017-10-11] MEDS: Advair Hfa 115/21 Common canister IH SCH ×2 (07:42→19:58)
[2017-10-11] MEDS: ECOTRIN 81 MG PO SCH (09:59)
[2017-10-11] MEDS: NEURONTIN 300 MG PO SCH ×3 (09:59→21:15)
[2017-10-11] MEDS: ZOCOR 20MG PO SCH (09:59)
[2017-10-11] MEDS: Calcium 500MG W/Vit D Tablet PO SCH (09:59)
[2017-10-11] MEDS: Klor Con 10 MEQ PO SCH (09:59)
[2017-10-11] MEDS: PLAVIX 75 MG Tablet PO SCH (09:59)
[2017-10-11] MEDS: Vitamin B-12 500 MCG PO SCH (10:00)
[2017-10-11] MEDS: Pepcid 20 MG VIAL IV SCH (10:00)
[2017-10-11] MEDS: Levofloxacin 500MG/100ML D5W 500 MG/100 ML BAG IV SCH (10:00)
[2017-10-11] MEDS: DELTASONE 10 MG PO SCH (10:00)
[2017-10-11] MEDS: xanAX 0.25 MG PO PRN (11:05)
[2017-10-12] MEDS: DUONEB 0.5-3 MG/3 ml Neb IH SCH ×4 (01:13→19:39)
[2017-10-12] MEDS: xanAX 0.25 MG PO PRN ×2 (01:33→22:18)
[2017-10-12] MEDS: Norco 10/325 MG Tablet PO PRN ×4 (01:33→22:18)
[2017-10-12] MEDS ORDERED: TROUGH DRUG LEVELS IJ ONE (05:30)
[2017-10-12 06:15] LABS: Hematocrit 27.7 % (35-47); Mean Corpuscular Hgb Concent. 28.9 g/dl (32-36); Mean Platelet Volume 9.7 fl (6-9.5); Platelet Count 183 K/mm3 (150-450); Red Blood Count 2.77 M/mm3 (4.1-5.4); Red Cell Distribution Width 14.2 % (11.5-14.0); White Blood Count 7.4 K/mm3 (4.0-10.5)
[2017-10-12 06:18] LABS: Mean Corpuscular Hemoglobin 28.8 pg (26-32)
[2017-10-12 06:20] LABS: ALBUMIN 2.7 g/dL (3.5-5.0); ALKALINE PHOSPHATASE 58 U/L (38-126); BILIRUBIN,TOTAL < 0.10 mg/dL (0.2-1.3); BLOOD UREA NITROGEN 14 mg/dL (7-17); CHLORIDE 100 mmol/L (98-107); Calcium 8.2 mg/dL (8.4-10.2); Creatinine 1 0.72 mg/dL (0.52-1.04); Glucose 101 mg/dL (74-106); Potassium 4.4 mmol/L (3.5-5.1); SGOT/AST 17 U/L (14-36); SGPT/ALT 17 U/L (0-35); SODIUM 141 mmol/L (137-145); Total Protein 5.1 g/dL (6.3-8.2)
[2017-10-12 06:27] LABS: Carbon Dioxide 39 mmol/L (22-30)
[2017-10-12 06:28] LABS: ANION GAP 6.4 MEQ/L (5-15)
[2017-10-12 07:32] LABS: Slide Review YES
[2017-10-12] MEDS: VANCOCIN 1 GM VIAL*** 1 GM in Sodium Chloride 0.9% 250 ML 250 ML IV SCH (08:32)
[2017-10-12] MEDS: Advair Hfa 115/21 Common canister IH SCH ×2 (08:57→19:41)
[2017-10-12] MEDS: Calcium 500MG W/Vit D Tablet PO SCH (09:18)
[2017-10-12] MEDS: ECOTRIN 81 MG PO SCH (09:18)
[2017-10-12] MEDS: DELTASONE 10 MG PO SCH (09:18)
[2017-10-12] MEDS: NEURONTIN 300 MG PO SCH ×3 (09:18→22:17)
[2017-10-12] MEDS: Levofloxacin 500MG/100ML D5W 500 MG/100 ML BAG IV SCH (09:18)
[2017-10-12] MEDS: ZOCOR 20MG PO SCH (09:18)
[2017-10-12] MEDS: PLAVIX 75 MG Tablet PO SCH (09:18)
[2017-10-12] MEDS: Klor Con 10 MEQ PO SCH (09:18)
[2017-10-12] MEDS: Vitamin B-12 500 MCG PO SCH (09:18)
[2017-10-12] MEDS: Pepcid 20 MG VIAL IV SCH (09:19)
[2017-10-12] MEDS: TYLENOL 325 MG PO PRN (09:21)
[2017-10-12] MEDS: MORPHINE SULFATE 4 MG INJ IV PRN (10:57)
--- NOTE | 2017-10-12 15:22 | PCM.NOTE ---
Date and Time: 10/12/17 1518 Subjective Assessment: Pt with no new complaints. Has been requiring norco q4h. Her erythema is better in her legs. Christiano po. - Review of Systems Constitutional: No Fever Cardiac: Edema (LE bilat) Skin: Cellulitis Objective Exam General Appearance: no apparent distress, alert Neurologic Exam: oriented x 3, cooperative Skin Exam: other (erythema distal 1/3 lower legs bilat. 2+ edema LE bilat. RLE anteriorly with bandaged skin tear, steri strips intact and no active bleeding.) Neck Exam: normal inspection Respiratory Exam: diminished breath sounds (good air exchange), wheezing (faint exp wheeze RUL), No crackles/rales, No rhonchi Cardiovascular Exam: regular rate/rhythm, normal heart sounds, No murmur OBJECTIVE DATA Vital Signs: Vital Signs - 24 hr Temp Pulse Resp BP Pulse Ox 10/12/17 13:39 82 18 93 L 10/12/17 12:00 98.2 F 85 18 108/56 95 10/12/17 08:00 18 10/12/17 07:21 98.2 F 67 18 129/56 98 10/12/17 06:56 68 16 97 10/12/17 04:15 97.7 F 88 20 140/93 94 L 10/12/17 04:00 22 10/12/17 00:02 98.4 F 95 H 22 119/62 94 L 10/12/17 00:00 22 10/11/17 19:54 87 19 94 L 10/11/17 19:39 18 10/11/17 19:35 98.1 F 101 H 20 156/65 96 10/11/17 16:16 97.6 F 78 20 110/66 96 10/11/17 16:00 20 Oxygen-Last 24 hours O2 Percentage 2 Liters = 28% O2 Percentage 2 Liters = 28% O2 Percentage 2 Liters = 28% O2 Percentage 2 Liters = 28% Pain Assessment - Last Documented Pain Intensity 5 Pain Scale Used 0-10 Pain Scale Intake and Output: Intake & Output 10/10/17 10/11/17 10/12/17 10/13/17 11:59 11:59 11:59 11:59 Intake Total 2030 1480 1660 360 Output Total 950 1150 2000 Balance 1080 330 -340 360 Weight 64.2 kg Lab Results: Accuchecks Date 10/12/17 Date 10/12/17 Date 10/11/17 Date 10/11/17 Time 11:30 Time 07:30 Time 22:00 Time 16:30 Accucheck Value: 95 Accucheck Value: 103 Accucheck Value: 160 Accucheck Value: 182 Lab Results-Last 24 Hours 10/12/17 10/12/17 10/12/17 Range/Units 05:15 05:15 05:15 WBC 7.4 (4.0-10.5) K/mm3 RBC 2.77 L (4.1-5.4) M/mm3 Hgb 8.0 L (12.0-16.0) gm/dl Hct 27.7 L (35-47) % MCV 100.0 (78-100) fl MCH 28.8 (26-32) pg MCHC 28.9 L (32-36) g/dl RDW 14.2 H (11.5-14.0) % Plt Count 183 (150-450) K/mm3 MPV 9.7 H (6-9.5) fl Sodium 141 (137-145) mmol/L Potassium 4.4 (3.5-5.1) mmol/L Chloride 100 (98-107) mmol/L Carbon Dioxide 39 H (22-30) mmol/L Anion Gap 6.4 (5-15) MEQ/L BUN 14 (7-17) mg/dL Creatinine 0.72 (0.52-1.04) mg/dL Estimated GFR > 60.0 ML/MIN Glucose 101 (74-106) mg/dL Calcium 8.2 L (8.4-10.2) mg/dL Total Bilirubin < 0.10 L (0.2-1.3) mg/dL AST 17 (14-36) U/L ALT 17 (0-35) U/L Alkaline Phosphatase 58 (38-126) U/L Serum Total Protein 5.1 L (6.3-8.2) g/dL Albumin 2.7 L (3.5-5.0) g/dL Vancomycin Trough 20.32 H (10-20) ug/mL Slides for Path Review YES Assessment/Plan (1) COPD exacerbation Current Visit: Yes Status: Acute Assessment & Plan: On Levaquin day #6. Her respiratory status has improved. Her O2 requirement has decreased. Code(s): J44.1 - CHRONIC OBSTRUCTIVE PULMONARY DISEASE W (ACUTE) EXACERBATION (2) Cellulitis Current Visit: Yes Status: Acute Onset Date: ~10/07/17 Qualifiers: Site of cellulitis: extremity Site of cellulitis of extremity: lower extremity Laterality: unspecified laterality Qualified Code(s): L03.119 - Cellulitis of unspecified part of limb Assessment & Plan: On vancomycin day #4 with slow improvement. she did get up in the chair today. Code(s): L03.90 - CELLULITIS, UNSPECIFIED (3) Pneumonia Current Visit: Yes Status: Acute Onset Date: ~10/06/17 Qualifiers: Pneumonia type: due to unspecified organism Laterality: right Lung location: lower lobe of lung Qualified Code(s): J18.1 - Lobar pneumonia, unspecified organism Code(s): J18.9 - PNEUMONIA, UNSPECIFIED ORGANISM
[2017-10-12] MEDS: VANCOCIN 1 GM VIAL*** 0.75 GM in Sodium Chloride 0.9% 250 ML 250 ML IV SCH (18:35)
[2017-10-13] MEDS: MORPHINE SULFATE 4 MG INJ IV PRN (00:08)
[2017-10-13] MEDS: DUONEB 0.5-3 MG/3 ml Neb IH SCH ×4 (01:14→19:44)
[2017-10-13 05:39] LABS: BASOPHIL % 0.3 % (0.0-0.4); Basophil (Absolute #) 0.02 (0-0.4); Eosinophil (Absolute #) 0.08 (0-0.5); Granulocyte Absolute (ANC) 6.36 (1.4-6.9); Granulocytes % 80.7 % (36.0-66.0); Hematocrit 27.1 % (35-47); Hemoglobin 7.9 gm/dl (12.0-16.0); Lymphocytes % 10.2 % (24.0-44.0); Mean Cell Volume 99.3 fl (78-100); Mean Corpuscular Hemoglobin 28.9 pg (26-32); Mean Corpuscular Hgb Concent. 29.2 g/dl (32-36); Mean Platelet Volume 9.3 fl (6-9.5); Monocyte (Absolute #) 0.61 (0.0-1.3); Monocytes % 7.8 % (0.0-12.0); Platelet Count 196 K/mm3 (150-450); Red Blood Count 2.73 M/mm3 (4.1-5.4); Red Cell Distribution Width 14.4 % (11.5-14.0); White Blood Count 7.9 K/mm3 (4.0-10.5)
[2017-10-13 05:53] LABS: BLOOD UREA NITROGEN 15 mg/dL (7-17); CHLORIDE 100 mmol/L (98-107); Calcium 8.1 mg/dL (8.4-10.2); Creatinine 1 0.73 mg/dL (0.52-1.04); Glucose 106 mg/dL (74-106); Potassium 4.5 mmol/L (3.5-5.1); SODIUM 142 mmol/L (137-145)
[2017-10-13] MEDS: VANCOCIN 1 GM VIAL*** 0.75 GM in Sodium Chloride 0.9% 250 ML 250 ML IV SCH ×2 (05:58→17:33)
[2017-10-13 06:00] LABS: Carbon Dioxide 40 mmol/L (22-30)
[2017-10-13 06:04] LABS: ANION GAP 6.5 MEQ/L (5-15)
[2017-10-13] MEDS: Advair Hfa 115/21 Common canister IH SCH ×2 (06:53→19:44)
[2017-10-13] MEDS: Norco 10/325 MG Tablet PO PRN ×3 (07:15→21:37)
--- NOTE | 2017-10-13 09:11 | PCM.NOTE ---
Date and Time: 10/13/17906 Subjective Assessment: Her breathing is improved. She doesn't think her legs have improved much since yesterday. Christiano po very well. - Review of Systems Constitutional: No Fever Respiratory: Short Of Breath Objective Exam General Appearance: no apparent distress, alert Neurologic Exam: oriented x 3, cooperative Skin Exam: warm, dry, other (bilat LE wiht erythema, L>R. R ant lower leg with steri strips and dressing in place. L lower leg is quite erythematous down to the sock line, where the foot is pale/fleshy. 1+ edema bilat.) OBJECTIVE DATA Vital Signs: Vital Signs - 24 hr Temp Pulse Resp BP Pulse Ox 10/13/17 07:36 98 F 68 18 110/60 97 10/13/17 06:56 70 18 93 L 10/13/17 04:00 98.3 F 78 20 106/56 93 L 10/13/17 00:00 98.7 F 78 16 105/57 94 L 10/12/17 20:00 98.3 F 82 21 98/55 92 L 10/12/17 19:39 82 21 100 10/12/17 16:10 18 10/12/17 15:48 98.1 F 91 H 18 97/55 93 L 10/12/17 13:39 82 18 93 L 10/12/17 12:00 98.2 F 85 18 108/56 95 Oxygen-Last 24 hours O2 Percentage 2 Liters = 28% O2 Percentage 2 Liters = 28% O2 Percentage 2 Liters = 28% O2 Percentage 2 Liters = 28% Pain Assessment - Last Documented Pain Intensity 5 Pain Scale Used 0-10 Pain Scale Intake and Output: Intake & Output 10/10/17 10/11/17 10/12/17 10/13/17 11:59 11:59 11:59 11:59 Intake Total 2030 1480 1660 1800 Output Total 950 1150 2000 400 Balance 1080 330 -340 1400 Weight 64.2 kg Lab Results: Accuchecks Date 10/12/17 Date 10/12/17 Date 10/12/17 Time 16:30 Time 11:30 Accucheck Value: 159 Accucheck Value: 135 Accucheck Value: 95 Lab Results-Last 24 Hours 10/13/17 10/13/17 Range/Units 05:30 05:30 WBC 7.9 (4.0-10.5) K/mm3 RBC 2.73 L (4.1-5.4) M/mm3 Hgb 7.9 L (12.0-16.0) gm/dl Hct 27.1 L (35-47) % MCV 99.3 (78-100) fl MCH 28.9 (26-32) pg MCHC 29.2 L (32-36) g/dl RDW 14.4 H (11.5-14.0) % Plt Count 196 (150-450) K/mm3 MPV 9.3 (6-9.5) fl Gran % 80.7 H (36.0-66.0) % Eos # (Auto) 0.08 (0-0.5) Absolute Lymphs (auto) 0.80 L (1.0-4.6) Absolute Monos (auto) 0.61 (0.0-1.3) Lymphocytes % 10.2 L (24.0-44.0) % Monocytes % 7.8 (0.0-12.0) % Eosinophils % 1.0 (0.00-5.0) % Basophils % 0.3 (0.0-0.4) % Absolute Granulocytes 6.36 (1.4-6.9) Basophils # 0.02 (0-0.4) Sodium 142 (137-145) mmol/L Potassium 4.5 (3.5-5.1) mmol/L Chloride 100 (98-107) mmol/L Carbon Dioxide 40 H (22-30) mmol/L Anion Gap 6.5 (5-15) MEQ/L BUN 15 (7-17) mg/dL Creatinine 0.73 (0.52-1.04) mg/dL Estimated GFR > 60.0 ML/MIN Glucose 106 (74-106) mg/dL Calcium 8.1 L (8.4-10.2) mg/dL Assessment/Plan (1) COPD exacerbation Current Visit: Yes Status: Acute Assessment & Plan: breathing has improved. On day #7 of levaquin. Code(s): J44.1 - CHRONIC OBSTRUCTIVE PULMONARY DISEASE W (ACUTE) EXACERBATION (2) Cellulitis Current Visit: Yes Status: Acute Onset Date: ~10/07/17 Qualifiers: Site of cellulitis: extremity Site of cellulitis of extremity: lower extremity Laterality: unspecified laterality Qualified Code(s): L03.119 - Cellulitis of unspecified part of limb Assessment & Plan: Will discuss with PT, may benefit from some wrapping as I'm certain there is osme chronic venous stasis change that the cellulitis is superimposed upon. On Vancomycin day #5. Code(s): L03.90 - CELLULITIS, UNSPECIFIED (3) Pneumonia Current Visit: Yes Status: Acute Onset Date: ~10/06/17 Qualifiers: Pneumonia type: due to unspecified organism Laterality: right Lung location: lower lobe of lung Qualified Code(s): J18.1 - Lobar pneumonia, unspecified organism Code(s): J18.9 - PNEUMONIA, UNSPECIFIED ORGANISM
[2017-10-13] MEDS: Pepcid 20 MG VIAL IV SCH (10:28)
[2017-10-13] MEDS: Calcium 500MG W/Vit D Tablet PO SCH (10:34)
[2017-10-13] MEDS: ECOTRIN 81 MG PO SCH (10:34)
[2017-10-13] MEDS: NEURONTIN 300 MG PO SCH ×3 (10:34→21:37)
[2017-10-13] MEDS: Klor Con 10 MEQ PO SCH (10:34)
[2017-10-13] MEDS: PLAVIX 75 MG Tablet PO SCH (10:34)
[2017-10-13] MEDS: DELTASONE 10 MG PO SCH (10:34)
[2017-10-13] MEDS: ZOCOR 20MG PO SCH (10:34)
[2017-10-13] MEDS: Vitamin B-12 500 MCG PO SCH (10:35)
[2017-10-13] MEDS: Levofloxacin 500MG/100ML D5W 500 MG/100 ML BAG IV SCH (10:48)
[2017-10-13] MEDS: xanAX 0.25 MG PO PRN (21:39)
[2017-10-14] MEDS: DUONEB 0.5-3 MG/3 ml Neb IH SCH ×4 (01:09→19:24)
[2017-10-14] MEDS: Norco 10/325 MG Tablet PO PRN ×4 (03:27→23:32)
[2017-10-14] MEDS: TYLENOL 325 MG PO PRN (05:24)
[2017-10-14] MEDS: VANCOCIN 1 GM VIAL*** 0.75 GM in Sodium Chloride 0.9% 250 ML 250 ML IV SCH ×2 (05:28→18:05)
[2017-10-14] MEDS: Advair Hfa 115/21 Common canister IH SCH ×2 (06:03→19:25)
[2017-10-14] MEDS: ECOTRIN 81 MG PO SCH (09:16)
[2017-10-14] MEDS: PLAVIX 75 MG Tablet PO SCH (09:16)
[2017-10-14] MEDS: Calcium 500MG W/Vit D Tablet PO SCH (09:16)
[2017-10-14] MEDS: ZOCOR 20MG PO SCH (09:16)
[2017-10-14] MEDS: Vitamin B-12 500 MCG PO SCH (09:16)
[2017-10-14] MEDS: NEURONTIN 300 MG PO SCH ×3 (09:16→21:17)
[2017-10-14] MEDS: DELTASONE 10 MG PO SCH (09:16)
[2017-10-14] MEDS: Klor Con 10 MEQ PO SCH (09:16)
[2017-10-14] MEDS: Levofloxacin 500MG/100ML D5W 500 MG/100 ML BAG IV SCH (09:16)
[2017-10-14] MEDS: Pepcid 20 MG VIAL IV SCH (09:17)
--- NOTE | 2017-10-14 09:53 | PCM.NOTE ---
Date and Time: 10/14/17950 Subjective Assessment: breathing has improved, legs are still painful and red. no new complaints today Objective Exam General Appearance: no apparent distress, alert Skin Exam: normal color, warm, dry Respiratory Exam: rhonchi, No respiratory distress Cardiovascular Exam: regular rate/rhythm, normal heart sounds Extremity Exam: pedal edema, other (erythema left greater than right, warmth to just below the knee/mid-calf region) OBJECTIVE DATA Vital Signs: Vital Signs - 24 hr Temp Pulse Resp BP Pulse Ox 10/14/17 07:52 97.5 F 79 20 121/58 98 10/14/17 06:06 3 L 10/14/17 06:05 90 20 96 10/14/17 04:15 97.6 F 87 24 113/55 94 L 10/14/17 01:21 58 L 18 97 10/14/17 00:15 98.2 F 91 H 20 116/66 98 10/13/17 22:44 99 H 22 100 10/13/17 20:30 98.1 F 99 H 22 112/58 100 10/13/17 15:37 98.1 F 97 H 20 125/59 98 10/13/17 15:04 98 10/13/17 13:35 77 20 90 L 10/13/17 12:21 97.7 F 89 20 98/50 Oxygen-Last 24 hours O2 Percentage 2 Liters = 28% O2 Percentage 3 Liters = 32% O2 Percentage 3 Liters = 32% O2 Percentage 3 Liters = 32% O2 Percentage 2 Liters = 28% O2 Percentage 2 Liters = 28% Pain Assessment - Last Documented Pain Intensity 8 Pain Scale Used 0-10 Pain Scale Intake and Output: Intake & Output 10/11/17 10/12/17 10/13/17 10/14/17 11:59 11:59 11:59 11:59 Intake Total 1480 1660 1860 1360 Output Total 1150 2000 400 Balance 330 -340 1460 1360 Lab Results: Accuchecks Date 10/14/17 Time 07:30 Accucheck Value: 90 Accucheck Value: 135 Accucheck Value: 167 Accucheck Value: 88 Assessment/Plan (1) Cellulitis Current Visit: Yes Status: Acute Onset Date: ~10/07/17 Qualifiers: Site of cellulitis: extremity Site of cellulitis of extremity: lower extremity Laterality: unspecified laterality Qualified Code(s): L03.119 - Cellulitis of unspecified part of limb Assessment & Plan: continue vanc Code(s): L03.90 - CELLULITIS, UNSPECIFIED (2) COPD (chronic obstructive pulmonary disease) Current Visit: Yes Status: Acute Onset Date: ~10/06/17 Qualifiers: COPD type: COPD with acute exacerbation Qualified Code(s): J44.1 - Chronic obstructive pulmonary disease with (acute) exacerbation (3) Pneumonia Current Visit: Yes Status: Acute Onset Date: ~10/06/17 Qualifiers: Pneumonia type: due to unspecified organism Laterality: right Lung location: lower lobe of lung Qualified Code(s): J18.1 - Lobar pneumonia, unspecified organism Assessment & Plan: improved, receiving levaquin Code(s): J18.9 - PNEUMONIA, UNSPECIFIED ORGANISM
[2017-10-14] MEDS: xanAX 0.25 MG PO PRN (22:16)
[2017-10-15] MEDS: MORPHINE SULFATE 4 MG INJ IV PRN (00:16)
[2017-10-15] MEDS: Norco 10/325 MG Tablet PO PRN ×3 (03:34→19:40)
[2017-10-15] MEDS: DUONEB 0.5-3 MG/3 ml Neb IH SCH ×4 (03:59→20:10)
[2017-10-15 05:42] LABS: Granulocyte Absolute (ANC) 5.65 (1.4-6.9); Hematocrit 28.6 % (35-47); Hemoglobin 8.1 gm/dl (12.0-16.0); Mean Cell Volume 100.4 fl (78-100); Mean Corpuscular Hemoglobin 28.4 pg (26-32); Mean Corpuscular Hgb Concent. 28.3 g/dl (32-36); Mean Platelet Volume 9.6 fl (6-9.5); Platelet Count 218 K/mm3 (150-450); Red Blood Count 2.85 M/mm3 (4.1-5.4); Red Cell Distribution Width 14.5 % (11.5-14.0); White Blood Count 7.3 K/mm3 (4.0-10.5)
[2017-10-15 06:04] LABS: BLOOD UREA NITROGEN 17 mg/dL (7-17); CHLORIDE 98 mmol/L (98-107); Calcium 8.2 mg/dL (8.4-10.2); Creatinine 1 0.68 mg/dL (0.52-1.04); Glucose 101 mg/dL (74-106); Potassium 4.8 mmol/L (3.5-5.1); SODIUM 141 mmol/L (137-145)
[2017-10-15 06:07] LABS: Carbon Dioxide > 40 mmol/L (22-30)
[2017-10-15] MEDS: VANCOCIN 1 GM VIAL*** 0.75 GM in Sodium Chloride 0.9% 250 ML 250 ML IV SCH ×2 (06:20→19:39)
[2017-10-15] MEDS ORDERED: HYLENEX 150 UNITS INJECTION SQ ONE (07:38)
[2017-10-15 08:18] LABS: Eosinophil 1 % (0.00-3.0); Lymphocytes 11 % (24-44); Monocyte 1 % (0.0-12.0); Neutrophils 87 % (36.0-66.0); Total Cells Counted 100
[2017-10-15 08:19] LABS: Platelet Estimate NORMAL (NORMAL); Toxic Granulation 1+
[2017-10-15] MEDS: Klor Con 10 MEQ PO SCH (08:56)
[2017-10-15] MEDS: Calcium 500MG W/Vit D Tablet PO SCH (08:56)
[2017-10-15] MEDS: ZOCOR 20MG PO SCH (08:56)
[2017-10-15] MEDS: NEURONTIN 300 MG PO SCH ×3 (08:57→21:53)
[2017-10-15] MEDS: DELTASONE 10 MG PO SCH (08:57)
[2017-10-15] MEDS: ECOTRIN 81 MG PO SCH (08:57)
[2017-10-15] MEDS: PLAVIX 75 MG Tablet PO SCH (08:57)
[2017-10-15] MEDS: Vitamin B-12 500 MCG PO SCH (08:57)
[2017-10-15] MEDS: Advair Hfa 115/21 Common canister IH SCH ×2 (09:19→20:10)
[2017-10-15] MEDS: Pepcid 20 MG VIAL IV SCH ×2 (09:19→13:47)
[2017-10-15] MEDS: Levofloxacin 500MG/100ML D5W 500 MG/100 ML BAG IV SCH ×2 (09:19→13:47)
--- NOTE | 2017-10-15 09:35 | PCM.NOTE ---
Date and Time: 10/15/17933 Subjective Assessment: patient continues to complain of pain in her legs, redness seems improved. she feels swelling is worse today Objective Exam General Appearance: no apparent distress, alert Respiratory Exam: normal breath sounds, lungs clear, No respiratory distress Cardiovascular Exam: regular rate/rhythm, normal heart sounds Gastrointestinal/Abdomen Exam: soft, No tenderness, No mass Extremity Exam: other (redness, warmth to left calf to mid-level) OBJECTIVE DATA Vital Signs: Vital Signs - 24 hr Temp Pulse Resp BP Pulse Ox 10/15/17 09:33 96 10/15/17 08:00 20 10/15/17 07:54 97.9 F 72 20 121/58 98 10/15/17 07:00 77 16 96 10/15/17 04:00 98.5 F 84 24 122/62 95 10/15/17 00:05 98.2 F 83 20 117/58 98 10/14/17 20:10 98.7 F 91 H 22 128/63 96 10/14/17 19:27 96 H 20 91 L 10/14/17 16:00 97.8 F 89 20 107/55 93 L 10/14/17 13:11 72 20 97 10/14/17 12:00 97.6 F 93 H 20 110/56 96 Oxygen-Last 24 hours O2 Percentage 3 Liters = 32% O2 Percentage 3 Liters = 32% O2 Percentage 3 Liters = 32% O2 Percentage 3 Liters = 32% Pain Assessment - Last Documented Pain Intensity 3 Pain Scale Used 0-10 Pain Scale Intake and Output: Intake & Output 10/12/17 10/13/17 10/14/17 10/15/17 11:59 11:59 11:59 11:59 Intake Total 1660 1860 1360 1820 Output Total 2000 400 Balance -340 1460 1360 1820 Lab Results: Accuchecks Date 10/15/17 Date 10/14/17 Date 10/14/17 Time 07:30 Time 16:30 Time 11:30 Accucheck Value: 98 Accucheck Value: 136 Accucheck Value: 168 Accucheck Value: 72 Lab Results-Last 24 Hours 10/15/17 10/15/17 Range/Units 05:05 05:05 WBC 7.3 (4.0-10.5) K/mm3 RBC 2.85 L (4.1-5.4) M/mm3 Hgb 8.1 L (12.0-16.0) gm/dl Hct 28.6 L (35-47) % MCV 100.4 H (78-100) fl MCH 28.4 (26-32) pg MCHC 28.3 L (32-36) g/dl RDW 14.5 H (11.5-14.0) % Plt Count 218 (150-450) K/mm3 MPV 9.6 H (6-9.5) fl Absolute Granulocytes 5.65 (1.4-6.9) Segmented Neutrophils 87 H (36.0-66.0) % Lymphocytes (Manual) 11 L (24-44) % Monocytes (Manual) 1 (0.0-12.0) % Eosinophils (Manual) 1 (0.00-3.0) % Toxic Granulation 1+ Platelet Estimate NORMAL (NORMAL) RBC Morphology NORMAL Sodium 141 (137-145) mmol/L Potassium 4.8 (3.5-5.1) mmol/L Chloride 98 (98-107) mmol/L Carbon Dioxide > 40 H (22-30) mmol/L BUN 17 (7-17) mg/dL Creatinine 0.68 (0.52-1.04) mg/dL Estimated GFR > 60.0 ML/MIN Glucose 101 (74-106) mg/dL Calcium 8.2 L (8.4-10.2) mg/dL Multi-Disciplinary Progress Notes: Multi-Disciplinary Progress Notes 10/14/17 10:25 (created 10/14/17 13:06) Case Management Note by Amira Thompson VISITED WITH PT AND REVIEWED DISCHARGE PLAN. PT HAD PREVIOUSLY BEEN INTERESTED IN POSSIBLY HAVING SOME REHAB PRIOR TO RETURNING HOME, OR AT THE VERY LEAST [facility] FOR NURSING AND P.T. TODAY, PT VERBALIZED THAT HER PLAN WILL BE TO RETURN HOME. REPORTS THAT SHE HAS A VERY GOOD FRIEND AND NEIGHBOR THAT HAS BEEN A NURSE FOR 20+ YEARS, AND THAT HER NEIGHBOR HAS OFFERED TO STAY WITH HER FOR A FEW DAYS ONCE SHE IS DISCHARGED TO HOME. REPORTS THAT SHE HAS ALSO OFFERED TO DO ALL SKIN/CARE AND DRESSING CHANGES TO BLE THAT IS ORDERED/NEEDED. ALSO, PT REPORTS THAT SHE IS FEELING STRONGER, HAS BEEN UP WALKING WITH WALKER. PT HAS ALL NECESSARY DME AT HOME AND USES A ROLLATOR WALKER, WHEELCHAIR , AND CANE PRN. ALSO, HAS [employer] THAT SUPPLIES ALL HOME OXYGEN EQUIPMENT. DENIES [facility] NEEDS FOR DISCHARGE. REPORTS THAT SHE IS NORMALLY INDEPENDENT AND DRIVES, BUT HAD NOT BEEN DRIVING PRIOR TO COMING TO THE HOSPITAL BECAUSE HER LEGS HAD BEEN SO TENDER. REPORTS PRIOR TO COMING IN SHE HAD NOT BEEN GETTING AROUND WELL AT ALL. PT FEELS CONFIDENT AT THIS TIME, THAT WITH THE HELP OF HER FRIEND SHE WILL NOT REQUIRE ANY [facility] SERVICES ON DISCHARGE. Initialized on 10/14/17 13:06 - END OF NOTE Assessment/Plan (1) Cellulitis Current Visit: Yes Status: Acute Onset Date: ~10/07/17 Qualifiers: Site of cellulitis: extremity Site of cellulitis of extremity: lower extremity Laterality: unspecified laterality Qualified Code(s): L03.119 - Cellulitis of unspecified part of limb Assessment & Plan: continue vanc Code(s): L03.90 - CELLULITIS, UNSPECIFIED (2) COPD (chronic obstructive pulmonary disease) Current Visit: Yes Status: Acute Onset Date: ~10/06/17 Qualifiers: COPD type: COPD with acute exacerbation Qualified Code(s): J44.1 - Chronic obstructive pulmonary disease with (acute) exacerbation Assessment & Plan: on erin rawls (3) Pneumonia Current Visit: Yes Status: Acute Onset Date: ~10/06/17 Qualifiers: Pneumonia type: due to unspecified organism Laterality: right Lung location: lower lobe of lung Qualified Code(s): J18.1 - Lobar pneumonia, unspecified organism Code(s): J18.9 - PNEUMONIA, UNSPECIFIED ORGANISM
[2017-10-15] MEDS: xanAX 0.25 MG PO PRN (21:53)
[2017-10-16] MEDS: Norco 10/325 MG Tablet PO PRN ×3 (00:02→10:09)
[2017-10-16] MEDS: DUONEB 0.5-3 MG/3 ml Neb IH SCH ×2 (01:24→07:44)
[2017-10-16] MEDS: MORPHINE SULFATE 4 MG INJ IV PRN (01:41)
[2017-10-16] MEDS: VANCOCIN 1 GM VIAL*** 0.75 GM in Sodium Chloride 0.9% 250 ML 250 ML IV SCH (05:56)
[2017-10-16] MEDS: Advair Hfa 115/21 Common canister IH SCH (07:43)
--- NOTE | 2017-10-16 08:00 | PCM.DS ---
Discharge Summary Date of Admission: 10/08/17 08:36 Admitting Physician: ALPHONSE PEREZ Primary Care Provider: ALPHONSE PEREZ Allergies Allergies Penicillins Allergy (Verified 10/05/17 11:23) Hospital Summary - Hospital Course Hospital Course: patient was admitted with pneumonia, cellulitis left lower extremity. has had complications following knee replacments. she has improved, her function is not great but she refuses rehab stay adamantly. has received 9 days of antibiotics for pneumonia and cellulitis. has severe pain in the knees - Vitals & Intake/Output Vital Signs: Vital Signs Temperature 97.8 F 10/16/17 04:00 Pulse Rate 81 10/16/17 04:00 Respiratory Rate 20 10/16/17 04:00 Blood Pressure 118/55 10/16/17 04:00 O2 Sat by Pulse Oximetry 96 10/16/17 04:00 Oxygen-Last Documented O2 Percentage 3 Liters = 32% Intake & Output: Intake & Output 10/13/17 10/14/17 10/15/17 10/16/17 11:59 11:59 11:59 11:59 Intake Total 1860 1360 1820 1400 Output Total 400 Balance 1460 1360 1820 1400 - Lab Result Diagrams: 10/15/17 05:05 10/15/17 05:05 Lab Results-Last 24 Hrs: Accuchecks Date 10/15/17 Date 10/15/17 Time 16:30 Time 11:30 Accucheck Value: 137 Accucheck Value: 121 Accucheck Value: 98 Lab Results-Last 24 Hours 10/15/17 Range/Units 05:05 Segmented Neutrophils 87 H (36.0-66.0) % Lymphocytes (Manual) 11 L (24-44) % Monocytes (Manual) 1 (0.0-12.0) % Eosinophils (Manual) 1 (0.00-3.0) % Toxic Granulation 1+ Platelet Estimate NORMAL (NORMAL) RBC Morphology NORMAL Micro Results-Entire Visit: Microbiology 10/06/17 14:00 Blood Culture Gram Stain - Final Blood Not Reportable Blood Culture - Final NO GROWTH 10/06/17 13:45 Blood Culture Gram Stain - Final Blood Not Reportable Blood Culture - Final NO GROWTH Accuchecks Date 10/15/17 Date 10/15/17 Time 16:30 Time 11:30 Accucheck Value: 137 Accucheck Value: 121 Accucheck Value: 98 - Procedures and Test Procedures and Tests throughout Hospitalization: Therapy Orders & Screens 10/06/17 13:29 Respiratory Nebulizer STAT Comment: Diagnosis: Shortness of Breath 10/06/17 13:57 Peak Expiratory Flow Rate ONCE Comment: Reason For Exam: Diagnosis: Shortness of Breath Respiratory Therapy Assessment DAILY Comment: Diagnosis: Shortness of Breath 10/06/17 16:42 Oxygen NASAL CANNULA 2 lpm Comment: Diagnosis: Shortness of Breath Respiratory Therapy Consult ROUTINE Comment: Reason For Exam: Diagnosis: Shortness of Breath 10/06/17 18:25 OT Screen per Nursing Assess Comment: Protocol Order Physician Instructions: Greater than 3 points order OT Admission Screening Reason For Exam: Triggered on Admission Diagnosis: Shortness of Breath Open Wound/Cellutlitis/Pressure Ulcers: No Acute Fx/ORIF/Change in wt bearing status: No Severe MUSCULOSKELETAL pain: No ADL Dysfunction: Yes Acute CVA w/Hemiparesis/Hemiplegia: No Decreased Functional Mobility/Strength: Yes Total Points: 4 PT Screen per Nursing Assess Comment: Protocol Order Physician Instructions: Greater than 3 points order PT Admission Screenin Reason For Exam: Triggered on Admission Diagnosis: Shortness of Breath Open Wound/Cellutlitis/Pressure Ulcers: No Acute Fx/ORIF/Change in wt bearing status: No Severe MUSCULOSKELETAL pain: No ADL Dysfunction: Yes Acute CVA w/Hemiparesis/Hemiplegia: No Decreased Functional Mobility/Strength: Yes Total Points: 4 RT Screen per Nursing Assess ONCE Comment: Protocol Order Physician Instructions: Greater than 3 points order RT Admission Screen Reason For Exam: Triggered on Admission Diagnosis: Shortness of Breath Diagnosis: Shortness of Breath Pneumonia: No Home O2: Yes Asthma: No CHF: No Home CPAP/BIPAP: No Home Nebs/MDI: Yes Total Points: 10 10/06/17 19:00 Respiratory MDI BID Comment: ADV 115/21 BID Diagnosis: Shortness of Breath 10/10/17 11:01 OT Eval and Treat ( Order) ROUTINE Comment: Consulting Provider: Physician Instructions: Reason For Exam: Diagnosis: SOB, PNEUMONIA RLL, FAILED OUTPATIENT PT Eval & Treat (MD Order) ROUTINE Reason for Eval:: cellulitis bilateral lower legs skin tears to right leg difficulty ambulating Diagnosis: SOB, PNEUMONIA RLL, FAILED OUTPATIENT Discharge Exam General Appearance: no apparent distress, alert Skin Exam: normal color, warm, dry Respiratory Exam: normal breath sounds, lungs clear, No respiratory distress Cardiovascular Exam: regular rate/rhythm, normal heart sounds Gastrointestinal/Abdomen Exam: soft, No tenderness, No mass Extremity Exam: other (mild erythme LLE, warmth improved) Final Diagnosis/Problem List - Final Discharge Diagnosis/Problem (1) Cellulitis Current Visit: Yes Status: Acute Onset Date: ~10/07/17 Assessment & Plan: home on doxycycline x 5 more days (2) COPD (chronic obstructive pulmonary disease) Current Visit: Yes Status: Acute Onset Date: ~10/06/17 (3) Pneumonia Current Visit: Yes Status: Acute Onset Date: ~10/06/17 - Discharge Disposition: Home, Self-Care Condition: Stable Prescriptions: New Doxycycline Hyclate 100 mg PO BID #10 tablet Hydrocodone/APAP 10/325 mg [[place]co[place] 10/325 MG Tablet] 1 tab PO Q4H PRN PRN #30 tablet MDD 6 PRN Reason: Pain Continue Bumetanide 1 mg [Bumex 1 mg] 1 mg PO DAILY PRN PRN PRN Reason: WATER Atorvastatin Calcium [Lipitor 20MG Tablet] 20 mg PO DAILY Aspirin/Calcium Carbonate/Mag [Aspirin Buffered 325 mg Tab] 325 mg PO DAILY Prednisone 10 mg [Deltasone 10 mg] 10 mg PO DAILY Multivitamin [Multivitamins] 1 each PO DAILY Fluticasone/Salmeterol [Advair 250-50 Diskus] 1 puff IH BID Hydrocodone/APAP 10/325 mg [[place]a 10/325 MG Tablet] 1 tab PO Q4H PRN PRN #15 tablet PRN Reason: Pain Gabapentin 300 mg TID Metformin HCl [Metformin HCl ER] 500 mg PO DAILY Clopidogrel Bisulfate [Clopidogrel] 75 mg PO DAILY ALPRAZolam [Alprazolam] 0.25 mg PO Q12H PRN PRN PRN Reason: Anxiety Nitroglycerin 0.4 mg Tablet [Nitrostat 0.4 MG Tablet] 0.4 mg PO Q5MIN PRN MR X 3 PRN PRN Reason: Chest Pain Aspirin 81 mg PO DAILY Potassium Chloride 20 Meq [Klor-Con 20 MEQ] 20 meq PO DAILY Gabapentin 300 mg PO TID Cyanocobalamin (Vitamin B-12) [Vitamin B-12] 500 mcg PO DAILY Vitamin E 400 unit PO DAILY Calcium Carbonate/Vitamin D3 [Calcium 600 + Vit D Caplet] 1 tab PO DAILY Discontinued Azithromycin 250 mg [Zithromax 250 MG TABLET] 250 mg PO ZPACK #6 tablet Follow up with: ALPHONES PEREZ MD [Primary Care Provider] - 1 Week
[2017-10-16] MEDS: Klor Con 10 MEQ PO SCH (08:50)
[2017-10-16] MEDS: ZOCOR 20MG PO SCH (08:50)
[2017-10-16] MEDS: PLAVIX 75 MG Tablet PO SCH (08:50)
[2017-10-16] MEDS: ECOTRIN 81 MG PO SCH (08:50)
[2017-10-16] MEDS: NEURONTIN 300 MG PO SCH (08:50)
[2017-10-16] MEDS: Calcium 500MG W/Vit D Tablet PO SCH (08:50)
[2017-10-16] MEDS: Pepcid 20 MG VIAL IV SCH (08:50)
[2017-10-16] MEDS: DELTASONE 10 MG PO SCH (08:50)
[2017-10-16] MEDS: Vitamin B-12 500 MCG PO SCH (08:51)
[2017-10-16 12:51] VITALS: BP 127/59; PULSE 91; O2SAT 94
== END 2017-10-16 13:50 | disposition home or self-care (01) | DRG 190 ==
LOC: ED 13:15 → MED SURG 17:31 → OBSVTOIN 10-08 08:36
PROVIDERS: ADMIT Family Medicine; ATTEND Family Medicine
DX: J44.1 Chronic obstructive pulmonary disease with (acute) exacerbation (principal); J18.1 Lobar pneumonia, unspecified organism; I25.810 Atherosclerosis of coronary artery bypass graft(s) without angina pectoris; L03.90 Cellulitis, unspecified; M19.90 Unspecified osteoarthritis, unspecified site; F41.9 Anxiety disorder, unspecified; Z93.3 Colostomy status; M79.605 Pain in left leg; M79.604 Pain in right leg; Z79.899 Other long term (current) drug therapy; Z23 Encounter for immunization; I25.10 Atherosclerotic heart disease of native coronary artery without angina pectoris
CPT/HCPCS: 36000; 36415; 71045; 71260; 80048; 80053; 80202; 82270; 82962; 83036; 83605; 83880; 84484; 85025; 85027; 85379; 85610; 87040; 93005; 93041; 93268; 93970; 94150; 94640; 94760; 96365; 97110; 97161; 97165; 97530; 99285; J7609; 90686; A6457; G0008; J1956; J2270; J3370; J3470; A9270-GY; G0378

== ENCOUNTER 2018-03-14 10:30 | Inpatient (IN) | payer MEDICARE ==
[2018-03-14] MEDS ORDERED: DUONEB 0.5-3 MG/3 ml Neb IH ONE ×2 (11:17→11:36)
[2018-03-14] MEDS ORDERED: solu-MEDROL 125 MG IV ONE (11:17)
[2018-03-14 11:26] LABS: BASOPHIL % 0.1 % (0.0-0.4); Basophil (Absolute #) 0.02 (0-0.4); Eosinophil % 1.6 % (0.00-5.0); Eosinophil (Absolute #) 0.24 (0-0.5); Granulocyte Absolute (ANC) 13.14 (1.4-6.9); Granulocytes % 88.7 % (36.0-66.0); Hematocrit 37.5 % (35-47); Hemoglobin 10.5 gm/dl (12.0-16.0); Lymphocyte (Absolute #) 0.74 (1.0-4.6); Mean Cell Volume 92.4 fl (78-100); Mean Platelet Volume 9.8 fl (6-9.5); Monocyte (Absolute #) 0.68 (0.0-1.3); Monocytes % 4.6 % (0.0-12.0); Platelet Count 251 K/mm3 (150-450); Red Blood Count 4.06 M/mm3 (4.1-5.4); Red Cell Distribution Width 17.8 % (11.5-14.0); White Blood Count 14.8 K/mm3 (4.0-10.5)
[2018-03-14] MEDS ORDERED: Sodium Chloride 0.9% 1000 ML 1,000 ML IV SCH (11:30)
[2018-03-14 11:39] LABS: ALBUMIN 3.3 g/dL (3.5-5.0); ALKALINE PHOSPHATASE 118 U/L (38-126); BLOOD UREA NITROGEN 23 mg/dL (7-17); CHLORIDE 91 mmol/L (98-107); Calcium 8.6 mg/dL (8.4-10.2); Creatinine 1 0.65 mg/dL (0.52-1.04); Glucose 75 mg/dL (74-106); MAGNESIUM 1.8 mg/dL (1.6-2.3); NT PRO BNP 624 pg/mL (0-1800); Potassium 5.2 mmol/L (3.5-5.1); SGOT/AST 47 U/L (14-36); SGPT/ALT 14 U/L (0-35); SODIUM 138 mmol/L (137-145); Total Protein 6.5 g/dL (6.3-8.2)
[2018-03-14] MEDS ORDERED: Sodium Chloride 0.9% 1000 ML 1,000 ML ONE (11:49)
[2018-03-14] MEDS ORDERED: solu-MEDROL 125 MG ONE (11:49)
--- NOTE | 2018-03-14 11:58 | ERPHSYRPT ---
- History of Present Illness Time Seen by Provider: 03/14/18 10:45 Source: patient Patient Subjective Stated Complaint: Pt states "I started to have trouble breathing last night and now I have this horrible cough. My legs are really hurting now as well." Triage Nursing Assessment: Pt alert and oriented X 3, skin pwd Pt able to speak in clear full sentences. PT in no apparent respiratory distress at this time. Pt has intermittant wet cough, not coughing anything up. pt has +2 pitting edema noted to bilat lower extremeties. Physician History: PATIENT WITH A HISTORY OF PNEUMONIA, COPD, CHF, AORTIC VALVE REPLACEMENT COMPLAINS OF DIFFICULTY BREATHING SINCE LAST NIGHT, A NONPRODUCTIVE COUGH FOR 1 WEEK, ASSOCIATED WITH DYSPNEA. DENIES CHEST PAIN, FEVER, DIAPHORESIS. Timing/Duration: day(s) Activities at Onset: none Severity of Dyspnea-Max: moderate Severity of Dyspnea-Current: moderate Possible Cause: occasional episodes Modifying Factors: Improves With: activity, coughing Associated Symptoms: constant (WEAKNESS) International travel in last 2 weeks: No Allergies/Adverse Reactions: Penicillins Allergy (Verified 10/05/17 11:23) Home Medications: Aspirin/Calcium Carbonate/Mag [Aspirin Buffered 325 mg Tab] 325 mg PO DAILY 01/23 [History] Atorvastatin Calcium [Lipitor 20MG Tablet] 20 mg PO DAILY 06/20/14 [History] Bumetanide 1 mg [Bumex 1 mg] 1 mg PO DAILY PRN PRN 06/20/14 [History] Fluticasone/Salmeterol [Advair 250-50 Diskus] 1 puff IH BID 06/20/14 [History] Multivitamin [Multivitamins] 1 each PO DAILY 06/20/14 [History] Prednisone 10 mg [Deltasone 10 mg] 10 mg PO DAILY 06/20/14 [History] Gabapentin 600 mg PO HS 10/05/17 [History] Aspirin 81 mg PO DAILY 10/06/17 [History] Calcium Carbonate/Vitamin D3 [Calcium 600 + Vit D Caplet] 1 tab PO DAILY [History] Clopidogrel Bisulfate [Clopidogrel] 75 mg PO DAILY 10/06/17 [History] Cyanocobalamin (Vitamin B-12) [Vitamin B-12] 500 mcg PO DAILY 10/06/17 [History] Gabapentin 300 mg PO BID 10/06/17 [History] Metformin HCl [Metformin ER Osmotic] 500 mg PO DAILY 10/06/17 [History] Nitroglycerin 0.4 mg Tablet [Nitrostat 0.4 MG Tablet] 0.4 mg PO Q5MIN PRN MR X 3 PRN 10/06/17 [History] Potassium Chloride 20 Meq [Klor-Con 20 MEQ] 20 meq PO DAILY 10/06/17 [History] Vitamin E 400 unit PO DAILY 10/06/17 [History] Hydroxyzine HCl 25 mg [Atarax 25 mg] 25 mg PO DAILY 03/14/18 [History] Hx Tetanus, Diphtheria Vaccination/Date Given: Yes Hx Influenza Vaccination/Date Given: Yes Hx Pneumococcal Vaccination/Date Given: Yes Immunizations Up to Date: Yes - Review of Systems Constitutional: No Fever, No Chills Eyes: No Symptoms Ears, Nose, & Throat: No Symptoms Respiratory: Cough, Dyspnea Cardiac: No Symptoms, No Chest Pain, No Edema, No Syncope Abdominal/Gastrointestinal: No Symptoms, No Abdominal Pain, No Nausea, No Vomiting, No Diarrhea Genitourinary Symptoms: No Symptoms, No Dysuria Musculoskeletal: No Symptoms, No Back Pain, No Neck Pain Skin: No Rash Neurological: No Dizziness, No Focal Weakness, No Sensory Changes Psychological: No Symptoms Endocrine: No Symptoms All Other Systems: Reviewed and Negative - Past Medical History Pertinent Past Medical History: Yes Neurological History: No Pertinent History Cardiac History: Coronary Artery Disease Respiratory History: COPD Endocrine Medical History: No Pertinent History Musculoskeletal History: Arthritis GI Medical History: Other History: No Pertinent History Psycho-Social History: No Pertinent History Female Reproductive Disorders: No Pertinent History 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, 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 - Past Surgical History Past Surgical History: Yes Neuro Surgical History: No Pertinent History Cardiac: CABG, Cardiac Stent, Valve Replacement Respiratory: No Pertinent History Musculoskeletal: Orthopedic Surgery Female Surgical History: Hysterectomy - Social History Smoking Status: Former smoker Exposure to second hand smoke: Yes Drug Use: none Patient Lives Alone: Yes - Female History Hx Now: No - Nursing Vital Signs Nursing Vital Signs: Initial Vital Signs Temperature 98.8 F 03/14/18 10:33 Pulse Rate 96 H 03/14/18 10:33 Respiratory Rate 21 03/14/18 10:33 Blood Pressure 138/69 03/14/18 10:33 O2 Sat by Pulse Oximetry 94 L 03/14/18 10:33 Pain Scale Pain Intensity 8 - Physical Exam General Appearance: no apparent distress, alert Eye Exam: PERRL/EOMI Ears, Nose, Throat Exam: hearing grossly normal Neck Exam: normal inspection, supple Respiratory Exam: diminished breath sounds (RIGHT BASE WITH INSPIRATORY CRACKLES , TERMINAL EXPIRATORY WHEEZES) Cardiovascular/Chest Exam: normal heart sounds, regular rate/rhythm Abdominal/Gastrointestinal Exam: soft, normal bowel sounds, No tenderness, No distention, No mass Extremity Exam: non-tender, normal range of motion, normal inspection, no calf tenderness, no pedal edema Peripheral Pulses Exam: carotid (R): 2+, carotid (L): 2+, femoral (R): 2+, femoral (L): 2+, dorsalis-pedis (R): 2+, dorsalis-pedis (L): 2+ Neurologic Exam: alert, oriented x 3, cooperative, animal nurse II-XII nml as tested, sensation nml, No motor deficits Skin Exam: normal color, warm, No dry SpO2 Interpretation: borderline oxygenation SpO2: 90 - Course EKG Interpreted by Me: RATE, Sinus Rhythm, Left [place] Deviation, Right Bundle Branch Block - Radiology Exams Chest X-ray Interpretation: Interpreted by me (RIGHT MIDDLE/LOWER LOBE INFILTRATES) Ordered Tests: Active Orders 24 hr Category Date Time Status Up With Assistance ROUTINE Activity 03/14/18 13:21 Ordered Accucheck ACHS Care 03/14/18 13:21 Ordered Coverage Specialist STAT Care 03/14/18 11:18 Active Clean Catch Urine Specimen STAT Care 03/14/18 11:17 Active Code Status Order ROUTINE Care 03/14/18 13:21 Ordered EKG-ER Only STAT Care 03/14/18 11:17 Active IV Care Q6H Care 03/14/18 13:21 Ordered IV Insertion STAT Care 03/14/18 11:17 Active Intake and Output Q12H Care 03/14/18 13:21 Ordered Oxygen-ED Only Nasal Cannula 2 lpm Care 03/14/18 11:[address] in Observation ROUTINE Care 03/14/18 13:22 Ordered [place] Hose, Apply ROUTINE Care 03/14/18 13:21 Ordered Vital Signs Q4H Care 03/14/18 13:21 Ordered Weight,Daily 0600 Care 03/14/18 13:21 Ordered 1800 Calorie ADA Diet 03/14/18 Dinner Ordered CHEST 1 VIEW (PORTABLE) Stat Exams 03/14/18 11:18 Taken BLOOD CULTURE Stat Lab 03/14/18 11:59 Received BMP Stat Lab 03/14/18 21:00 Ordered BMP Stat Lab 03/15/18 07:00 Ordered CBC W DIFF Stat Lab 03/14/18 11:17 Completed CMP Stat Lab 03/14/18 11:17 Completed MAGNESIUM Stat Lab 03/14/18 11:17 Completed NT PRO BNP Stat Lab 03/14/18 11:17 Completed PROTIME WITH INR Stat Lab 03/14/18 11:17 Completed TROPONIN Q3H Lab 03/14/18 11:30 Completed TROPONIN Q3H Lab 03/14/18 14:30 Ordered TROPONIN Q3H Lab 03/14/18 17:30 Ordered TROPONIN Q3H Lab 03/14/18 20:30 Ordered TROPONIN Q3H Lab 03/14/18 23:30 Ordered UA W/RFX UR CULTURE Stat Lab 03/14/18 11:36 Completed Oxygen Nasal Cannula 2 lpm RT 03/14/18 13:21 Ordered Peak Expiratory Flow Rate ONCE RT 03/14/18 11:34 Completed Pulse Oximetry CONTINUOUS RT 03/14/18 13:24 Ordered Respiratory Nebulizer Q4H RT 03/14/18 13:21 Ordered Respiratory Therapy Assessment DAILY RT 03/14/18 11:34 Completed Respiratory Therapy Consult ROUTINE RT 03/14/18 13:21 Ordered Transfer Order Routine Transfer 03/14/18 Ordered Medication Summary Generic Name Dose Route Start Last Admin Trade Name Freq PRN Reason Stop Dose Admin Sodium Chloride 1,000 mls @ 20 mls/hr 03/14/18 11:30 03/14/18 11:50 Sodium Chloride 0.9% 1000 Ml IV 04/13/18 11:29 20 mls/hr .Q24H LAURENT Administration Sodium Chloride 100 mls @ 100 mls/hr 03/14/18 13:02 03/14/18 13:03 Sodium Chloride 0.9% 100 Ml Ivpb IV 03/14/18 14:01 100 mls/hr STAT ONE Administration Discontinued Medications Generic Name Dose Route Start Last Admin Trade Name Freq PRN Reason Stop Dose Admin Albuterol/Ipratropium 3 ml 03/14/18 11:17 03/14/18 11:40 Duoneb 0.5-3 Mg/3 Ml Neb IH 03/14/18 11:18 3 ml STAT ONE Administration Albuterol/Ipratropium Confirm 03/14/18 11:36 Duoneb 0.5-3 Mg/3 Ml Neb Administered 03/14/18 11:37 Dose 3 ml IH .STK-MED ONE Calcium Gluconate 1,000 mg 03/14/18 12:23 03/14/18 13:01 Calcium Gluconate 10% 1000 Mg IV 03/14/18 12:24 1,000 mg STAT ONE Administration Calcium Gluconate Confirm 03/14/18 12:24 Calcium Gluconate 10% 1000 Mg Administered 03/14/18 12:25 Dose 1,000 mg IV .STK-MED ONE Levofloxacin/Dextrose 500 mg in 100 mls @ 100 mls/hr 03/14/18 12:22 03/14/18 13:01 Levofloxacin 500mg/100ml D5w IV 03/14/18 13:21 100 mls/hr STAT STA 100 mls/hr Administration Sodium Chloride Confirm 03/14/18 12:32 Sodium Chloride 0.9% 100 Ml Ivpb Administered 03/14/18 12:33 Dose 100 mls @ ud IV .STK-MED ONE Levofloxacin/Dextrose Confirm 03/14/18 12:33 Levofloxacin 500mg/100ml D5w Administered 03/14/18 12:34 Dose 500 mg in 100 mls @ ud IV .STK-MED ONE Methylprednisolone Sodium Succinate 125 mg 03/14/18 11:17 03/14/18 11:50 Solu-Medrol 125 Mg IV 03/14/18 11:18 125 mg STAT ONE Administration Methylprednisolone Sodium Succinate Confirm 03/14/18 11:49 Solu-Medrol 125 Mg Administered 03/14/18 11:50 Dose 125 mg .ROUTE .STK-MED ONE Sodium Polystyrene Sulfonate 15 g 03/14/18 12:23 03/14/18 13:01 Kayexylate 15 Gm/60 Ml PO 03/14/18 12:24 15 g STAT ONE Administration Lab/Rad Data: Laboratory Result Diagrams 03/14/18 11:17 03/14/18 11:17 Laboratory Results 03/14/18 03/14/18 03/14/18 Range/Units 12:00 11:36 11:30 WBC (4.0-10.5) K/mm3 RBC (4.1-5.4) M/mm3 Hgb (12.0-16.0) gm/dl Hct (35-47) % MCV (78-100) fl MCH (26-32) pg MCHC (32-36) g/dl RDW (11.5-14.0) % Plt Count (150-450) K/mm3 MPV (6-9.5) fl Gran % (36.0-66.0) % Eos # (Auto) (0-0.5) Absolute Lymphs (auto) (1.0-4.6) Absolute Monos (auto) (0.0-1.3) Lymphocytes % (24.0-44.0) % Monocytes % (0.0-12.0) % Eosinophils % (0.00-5.0) % Basophils % (0.0-0.4) % Absolute Granulocytes (1.4-6.9) Basophils # (0-0.4) PT (9.95-12.35) SECONDS INR (0.8-3.0) Sodium (137-145) mmol/L Potassium (3.5-5.1) mmol/L Chloride (98-107) mmol/L Carbon Dioxide (22-30) mmol/L Anion Gap (5-15) MEQ/L BUN (7-17) mg/dL Creatinine (0.52-1.04) mg/dL Estimated GFR ML/MIN Glucose (74-106) mg/dL Calcium (8.4-10.2) mg/dL Magnesium (1.6-2.3) mg/dL Total Bilirubin (0.2-1.3) mg/dL AST (14-36) U/L ALT (0-35) U/L Alkaline Phosphatase (38-126) U/L Troponin I < 0.012 (0.000-0.034) ng/mL NT-Pro-B Natriuret Pep (0-1800) pg/mL Serum Total Protein (6.3-8.2) g/dL Albumin (3.5-5.0) g/dL Urine Color STRAW (YELLOW) Urine Appearance CLEAR (CLEAR) Urine pH 6.0 (5-6) Ur Specific [place] 1.005 (1.005-1.025) Urine Protein NEGATIVE (Negative) Urine Ketones SMALL (NEGATIVE) Urine Blood NEGATIVE (0-5) Paul/ul Urine Nitrite NEGATIVE (NEGATIVE) Urine Bilirubin NEGATIVE (NEGATIVE) Urine Urobilinogen NEGATIVE (0-1) mg/dL Ur Leukocyte Esterase NEGATIVE (NEGATIVE) Urine WBC (Auto) 3-5 (0-5) /HPF Urine RBC (Auto) NONE (0-2) /HPF U Epithel Cells (Auto) NONE (FEW) /HPF Urine Bacteria (Auto) FEW (NEGATIVE) /HPF Urine Mucus (Auto) SLIGHT (NEGATIVE) /HPF Urine Culture Reflexed NO (NO) Urine Glucose NEGATIVE (NEGATIVE) mg/dL Influenza Type A Ag NEGATIVE (NEGATIVE) Influenza Type B Ag NEGATIVE (NEGATIVE) RSV (PCR) NEGATIVE (Negative) Slides for Path Review 03/14/18 03/14/18 03/14/18 Range/Units 11:17 11:17 11:17 WBC 14.8 H (4.0-10.5) K/mm3 RBC 4.06 L (4.1-5.4) M/mm3 Hgb 10.5 L (12.0-16.0) gm/dl Hct 37.5 (35-47) % MCV 92.4 (78-100) fl MCH 25.8 L (26-32) pg MCHC 28.0 L (32-36) g/dl RDW 17.8 H (11.5-14.0) % Plt Count 251 (150-450) K/mm3 MPV 9.8 H (6-9.5) fl Gran % 88.7 H (36.0-66.0) % Eos # (Auto) 0.24 (0-0.5) Absolute Lymphs (auto) 0.74 L (1.0-4.6) Absolute Monos (auto) 0.68 (0.0-1.3) Lymphocytes % 5.0 L (24.0-44.0) % Monocytes % 4.6 (0.0-12.0) % Eosinophils % 1.6 (0.00-5.0) % Basophils % 0.1 (0.0-0.4) % Absolute Granulocytes 13.14 H (1.4-6.9) Basophils # 0.02 (0-0.4) PT 13.4 H (9.95-12.35) SECONDS INR 1.15 (0.8-3.0) Sodium 138 (137-145) mmol/L Potassium 5.2 H (3.5-5.1) mmol/L Chloride 91 L (98-107) mmol/L Carbon Dioxide 39 H (22-30) mmol/L Anion Gap 13.2 (5-15) MEQ/L BUN 23 H (7-17) mg/dL Creatinine 0.65 (0.52-1.04) mg/dL Estimated GFR > 60.0 ML/MIN Glucose 75 (74-106) mg/dL Calcium 8.6 (8.4-10.2) mg/dL Magnesium 1.8 (1.6-2.3) mg/dL Total Bilirubin 0.70 (0.2-1.3) mg/dL AST 47 H (14-36) U/L ALT 14 (0-35) U/L Alkaline Phosphatase 118 (38-126) U/L Troponin I (0.000-0.034) ng/mL NT-Pro-B Natriuret Pep 624 (0-1800) pg/mL Serum Total Protein 6.5 (6.3-8.2) g/dL Albumin 3.3 L (3.5-5.0) g/dL Urine Color (YELLOW) Urine Appearance (CLEAR) Urine pH (5-6) Ur Specific [place] (1.005-1.025) Urine Protein (Negative) Urine Ketones (NEGATIVE) Urine Blood (0-5) Paul/ul Urine Nitrite (NEGATIVE) Urine Bilirubin (NEGATIVE) Urine Urobilinogen (0-1) mg/dL Ur Leukocyte Esterase (NEGATIVE) Urine WBC (Auto) (0-5) /HPF Urine RBC (Auto) (0-2) /HPF U Epithel Cells (Auto) (FEW) /HPF Urine Bacteria (Auto) (NEGATIVE) /HPF Urine Mucus (Auto) (NEGATIVE) /HPF Urine Culture Reflexed (NO) Urine Glucose (NEGATIVE) mg/dL Influenza Type A Ag (NEGATIVE) Influenza Type B Ag (NEGATIVE) RSV (PCR) (Negative) Slides for Path Review YES - Progress Progress Note: 03/14/18 13:16 IV NORMAL SALINE 30ML/HR, CALCIUM GLUCONATE 1GM INFUSED OVER 1 HOUR ADMINISTERED , FOR SERUM K-5.2 FOLLOWED BY NA POLYSYRENE 15GM ORALLY, AFTER 2 SETS OF BLOOD CULTURE ADMINISTERED LEVAQUIN 500MG IVPB Blood Culture(s) Obtained: Yes Antibiotics given: Yes Discussed with Dr.: Marrufo (DISCUSSED WITH DR MARRUFO AT 1320 FOR OBSERVATION) - Departure Time of Disposition: 13:35 Departure Disposition: Observation Clinical Impression: COMMUNITY ACQUIRED PNEUMONIA, HYPERKALEMIA Condition: Stable Critical Care Time: No Referrals: ALPHONSE PEREZ MD [Primary Care Provider] -
[2018-03-14 12:01] LABS: Mean Corpuscular Hemoglobin 25.8 pg (26-32)
[2018-03-14 12:04] LABS: INR 1.15 (0.8-3.0); PROTIME 13.4 SECONDS (9.95-12.35)
[2018-03-14 12:06] LABS: Slide Review 1 YES
[2018-03-14 12:08] LABS: Carbon Dioxide 39 mmol/L (22-30)
[2018-03-14 12:09] LABS: ANION GAP 13.2 MEQ/L (5-15)
[2018-03-14 12:18] LABS: Appearance CLEAR (CLEAR); Bacteria FEW /HPF (NEGATIVE); Bilirubin NEGATIVE (NEGATIVE); Blood NEGATIVE Ery/ul (0-5); Glucose NEGATIVE (NEGATIVE); Ketones SMALL (NEGATIVE); Leukocyte Esterase NEGATIVE (NEGATIVE); Mucus SLIGHT /HPF (NEGATIVE); Nitrite NEGATIVE (NEGATIVE); Protein,Urine Dip NEGATIVE (Negative); Specific Gravity 1.005 (1.005-1.025); Urobilinogen NEGATIVE mg/dL (0-1)
[2018-03-14] MEDS ORDERED: Levofloxacin 500MG/100ML D5W 500 MG/100 ML BAG IV STA (12:22)
[2018-03-14] MEDS ORDERED: Calcium Gluconate 10% 1000 MG IV ONE ×2 (12:23→12:24)
[2018-03-14] MEDS ORDERED: Kayexylate 15 GM/60 ML PO ONE (12:23)
[2018-03-14] MEDS ORDERED: Sodium Chloride 0.9% 100 ML IVPB 100 ML IV ONE ×2 (12:32→13:02)
[2018-03-14] MEDS ORDERED: Levofloxacin 500MG/100ML D5W 500 MG/100 ML BAG IV ONE (12:33)
[2018-03-14 12:34] LABS: INFLUENZA A NEGATIVE (NEGATIVE); INFLUENZA B NEGATIVE (NEGATIVE); RESPIRATORY SYNCTIAL VIRUS NEGATIVE (Negative)
[2018-03-14] MEDS ORDERED: DUONEB 0.5-3 MG/3 ml Neb IH PRN (13:25)
[2018-03-14] MEDS ORDERED: Nitrostat 0.4 MG Tablet SL PRN (13:26)
[2018-03-14] MEDS ORDERED: TYLENOL 325 MG PO PRN (15:02)
--- NOTE | 2018-03-14 16:07 | XRAY ---
Indication: Cough. Comparison: October 06, 2017. Portable chest demonstrates new right mid to lower base infiltrate/atelectasis with small effusion. Remaining heart and lungs unremarkable again with mediastinal calcified nodes and previous cardiothoracic surgery.
[2018-03-14] MEDS: Norco 10/325 MG Tablet PO PRN ×2 (16:16→23:48)
[2018-03-14] MEDS: solu-MEDROL 125 MG IV SCH ×2 (17:16→23:49)
[2018-03-14] MEDS ORDERED: Kayexylate 15 GM/60 ML PO SCH (18:00)
[2018-03-14] MEDS: DUONEB 0.5-3 MG/3 ml Neb IH SCH ×2 (19:01→23:23)
[2018-03-14] MEDS: Advair Hfa 115/21 Common canister IH SCH (19:04)
[2018-03-14] MEDS: ATARAX 25 MG PO SCH (21:26)
[2018-03-14] MEDS ORDERED: NEURONTIN 300 MG PO SCH (22:00)
[2018-03-15] MEDS: DUONEB 0.5-3 MG/3 ml Neb IH SCH ×6 (03:14→23:14)
[2018-03-15] MEDS: solu-MEDROL 125 MG IV SCH ×3 (05:31→18:14)
[2018-03-15] MEDS: Norco 10/325 MG Tablet PO PRN ×5 (05:46→22:44)
[2018-03-15] MEDS ORDERED: Norco 10/325 MG Tablet ONE (05:46)
[2018-03-15] MEDS ORDERED: DUONEB 0.5-3 MG/3 ml Neb IH ONE (06:33)
[2018-03-15] MEDS: Advair Hfa 115/21 Common canister IH SCH ×2 (06:37→20:16)
[2018-03-15 07:32] LABS: BLOOD UREA NITROGEN 24 mg/dL (7-17); CHLORIDE 87 mmol/L (98-107); Calcium 8.1 mg/dL (8.4-10.2); Creatinine 1 0.85 mg/dL (0.52-1.04); Glucose 176 mg/dL (74-106); Potassium 4.1 mmol/L (3.5-5.1); SODIUM 135 mmol/L (137-145)
[2018-03-15 07:39] LABS: ANION GAP 10.1 MEQ/L (5-15); Carbon Dioxide 42 mmol/L (22-30)
[2018-03-15] MEDS ORDERED: Glucophage 500 MG PO SCH (08:00)
[2018-03-15] MEDS: NEURONTIN 300 MG PO SCH ×3 (08:12→21:56)
[2018-03-15] MEDS: Glucophage XR 500 MG PO SCH (08:12)
--- NOTE | 2018-03-15 08:27 | PCM.HP ---
History of Present Illness - Chief Complaint Chief Complaint: pneumonia. Hyperkalemia. History of Present Illness: is a 77 year old female who reported to the ER with acute onset of shortness of breath, she also complains of leg pain which is chronic. She has chronic lower extremity edema. She denies chest pain, has had some cough but not much, no fever. - Review of Systems Constitutional: No Fever, No Chills Respiratory: Cough, Short Of Breath Cardiac: Edema, No Chest Pain, No Syncope Abdominal/Gastrointestinal: No Abdominal Pain, No Nausea, No Vomiting, No Diarrhea Genitourinary Symptoms: No Dysuria Skin: No Rash All Other Systems: Reviewed and Negative Medications & Allergies Home Medications: Home Medication List Bumetanide 1 mg [Bumex 1 mg] 1 mg PO DAILY 06/20/14 [History Confirmed 04/27] Fluticasone/Salmeterol [Advair 250-50 Diskus] 1 puff IH BID 06/20/14 [History Confirmed 03/14/18] Multivitamin [Multivitamins] 1 each PO DAILY 06/20/14 [History Confirmed ] Prednisone 10 mg [Deltasone 10 mg] 10 mg PO DAILY 06/20/14 [History Confirmed 03/14/18] Gabapentin 600 mg PO BID 10/05/17 [History Confirmed 03/14/18] Aspirin 81 mg PO DAILY 10/06/17 [History Confirmed 03/14/18] Calcium Carbonate/Vitamin D3 [Calcium 600 + Vit D Caplet] 1 tab PO DAILY [History Confirmed 03/14/18] Clopidogrel Bisulfate [Clopidogrel] 75 mg PO DAILY 10/06/17 [History Confirmed 03/14/18] Cyanocobalamin (Vitamin B-12) [Vitamin B-12] 500 mcg PO DAILY 10/06/17 [History Confirmed 03/14/18] Gabapentin 300 mg PO DAILY 10/06/17 [History Confirmed 03/14/18] Metformin HCl [Metformin ER Osmotic] 500 mg PO DAILY 10/06/17 [History Confirmed 03/14/18] Nitroglycerin 0.4 mg Tablet [Nitrostat 0.4 MG Tablet] 0.4 mg PO Q5MIN PRN MR X 3 PRN 10/06/17 [History Confirmed 03/14/18] Potassium Chloride 20 Meq [Klor-Con 20 MEQ] 20 meq PO DAILY 10/06/17 [History Confirmed 03/14/18] Vitamin E 400 unit PO DAILY 10/06/17 [History Confirmed 03/14/18] Hydrocodone/APAP 10/325 mg [[place] 10/325 MG Tablet] 1 tab PO Q4H PRN PRN # 30 tablet MDD 6 10/16/17 [Rx Confirmed 03/14/18] Hydroxyzine Pamoate [Vistaril] 25 mg PO HS 03/14/18 [History Confirmed 03/14/18] Ipratropium/Albuterol Sulfate [Combivent Respimat 20-100 Mcg] 4 gm IH BID PRN PRN 03/14/18 [History Confirmed 03/14/18] Allergies/Adverse Reactions: Allergies Allergy/AdvReac Type Severity Reaction Status Date / Time Penicillins Allergy Verified 10/05/17 11:23 - Past Medical History Past Medical History: Yes Neurological History: No Pertinent History ENT History: No Pertinent History Cardiac History: Coronary Artery Disease Respiratory History: COPD Endocrine Medical History: Diabetes Type II Musculoskelatal History: Arthritis GI Medical History: Other History: No Pertinent History Pyscho-Social History: No Pertinent History Reproductive Disorders: No Pertinent History Comment: 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, 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 - Female History Are you now?: No - Past Surgical History Past Surgical History: Yes Neuro Surgical History: No Pertinent History Cardiac History: CABG, Cardiac Stent, Valve Replacement Respiratory Surgery: No Pertinent History Musculskeletal Surgical Hx: Orthopedic Surgery Female Surgical History: Hysterectomy - Social History Smoking Status: Former smoker Exposure to second hand smoke: Yes Alcohol: None Drug Use: none - Physical Exam Vital Signs: Vital Signs - 24 hr Temp Pulse Resp BP Pulse Ox 03/15/18 07:43 98.7 F 89 18 103/57 92 L 03/15/18 06:43 86 20 90 L 03/15/18 04:00 99 F 94 H 22 108/53 92 L 03/15/18 03:14 94 H 22 92 L 03/15/18 00:13 98.2 F 97 H 20 102/58 91 L 03/15/18 00:00 20 03/14/18 23:23 97 H 20 91 L 03/14/18 20:00 20 03/14/18 19:49 98/52 03/14/18 19:34 98.7 F 101 H 20 87/54 95 03/14/18 19:01 101 H 20 95 03/14/18 16:00 106 H 20 105/57 94 L 03/14/18 15:16 76 22 94 L 03/14/18 14:33 99.3 F 105 H 22 103/55 88 L 03/14/18 13:33 90 L 03/14/18 13:24 88 L 03/14/18 13:23 98.1 F 100 H 22 104/60 96 03/14/18 12:39 98.0 F 94 H 18 101/64 90 L 03/14/18 11:43 92 H 18 90 L 03/14/18 11:36 98.1 F 98 H 20 101/64 90 L 03/14/18 10:33 98.8 F 96 H 21 138/69 94 L Oxygen-Last 24 hours O2 Percentage 4 Liters = 36% O2 Percentage 4 Liters = 36% O2 Percentage 4 Liters = 36% O2 Percentage 4 Liters = 36% O2 Percentage 4 Liters = 36% O2 Percentage 4 Liters = 36% O2 Percentage 4 Liters = 36% O2 Percentage 4 Liters = 36% O2 Percentage 3 Liters = 32% O2 Percentage 3 Liters = 32% General Appearance: no apparent distress, alert Neurologic Exam: alert, oriented x 3 Eye Exam: PERRL/EOMI, eyes nml inspection Respiratory Exam: rhonchi (right) Cardiovascular Exam: regular rate/rhythm, normal heart sounds, normal peripheral pulses Gastrointestinal/Abdomen Exam: soft, normal bowel sounds, No tenderness, No mass Extremity Exam: pedal edema (1+ edema BLE to knee) Results - Labs Lab/Micro Results: Accuchecks Date 03/14/18 Date 03/14/18 Time 22:00 Time 16:30 Accucheck Value: 125 Accucheck Value: 87 Lab Results-Last 24 Hours 03/14/18 03/14/18 03/14/18 Range/Units 11:00 11:17 11:17 WBC 14.8 H (4.0-10.5) K/mm3 RBC 4.06 L (4.1-5.4) M/mm3 Hgb 10.5 L (12.0-16.0) gm/dl Hct 37.5 (35-47) % MCV 92.4 (78-100) fl MCH 25.8 L (26-32) pg MCHC 28.0 L (32-36) g/dl RDW 17.8 H (11.5-14.0) % Plt Count 251 (150-450) K/mm3 MPV 9.8 H (6-9.5) fl Gran % 88.7 H (36.0-66.0) % Eos # (Auto) 0.24 (0-0.5) Absolute Lymphs (auto) 0.74 L (1.0-4.6) Absolute Monos (auto) 0.68 (0.0-1.3) Lymphocytes % 5.0 L (24.0-44.0) % Monocytes % 4.6 (0.0-12.0) % Eosinophils % 1.6 (0.00-5.0) % Basophils % 0.1 (0.0-0.4) % Absolute Granulocytes 13.14 H (1.4-6.9) Basophils # 0.02 (0-0.4) PT (9.95-12.35) SECONDS INR (0.8-3.0) Sodium 138 (137-145) mmol/L Potassium 5.2 H (3.5-5.1) mmol/L Chloride 91 L (98-107) mmol/L Carbon Dioxide 39 H (22-30) mmol/L Anion Gap 13.2 (5-15) MEQ/L BUN 23 H (7-17) mg/dL Creatinine 0.65 (0.52-1.04) mg/dL Estimated GFR > 60.0 ML/MIN Glucose 75 (74-106) mg/dL Hemoglobin A1c 5.65 (4.5-6.0) % Calcium 8.6 (8.4-10.2) mg/dL Magnesium 1.8 (1.6-2.3) mg/dL Total Bilirubin 0.70 (0.2-1.3) mg/dL AST 47 H (14-36) U/L ALT 14 (0-35) U/L Alkaline Phosphatase 118 (38-126) U/L Troponin I (0.000-0.034) ng/mL NT-Pro-B Natriuret Pep 624 (0-1800) pg/mL Serum Total Protein 6.5 (6.3-8.2) g/dL Albumin 3.3 L (3.5-5.0) g/dL Urine Color (YELLOW) Urine Appearance (CLEAR) Urine pH (5-6) Ur Specific [place] (1.005-1.025) Urine Protein (Negative) Urine Ketones (NEGATIVE) Urine Blood (0-5) Paul/ul Urine Nitrite (NEGATIVE) Urine Bilirubin (NEGATIVE) Urine Urobilinogen (0-1) mg/dL Ur Leukocyte Esterase (NEGATIVE) Urine WBC (Auto) (0-5) /HPF Urine RBC (Auto) (0-2) /HPF U Epithel Cells (Auto) (FEW) /HPF Urine Bacteria (Auto) (NEGATIVE) /HPF Urine Mucus (Auto) (NEGATIVE) /HPF Urine Culture Reflexed (NO) Urine Glucose (NEGATIVE) mg/dL Influenza Type A Ag (NEGATIVE) Influenza Type B Ag (NEGATIVE) RSV (PCR) (Negative) Slides for Path Review YES 03/14/18 03/14/18 03/14/18 Range/Units 11:17 11:30 11:36 WBC (4.0-10.5) K/mm3 RBC (4.1-5.4) M/mm3 Hgb (12.0-16.0) gm/dl Hct (35-47) % MCV (78-100) fl MCH (26-32) pg MCHC (32-36) g/dl RDW (11.5-14.0) % Plt Count (150-450) K/mm3 MPV (6-9.5) fl Gran % (36.0-66.0) % Eos # (Auto) (0-0.5) Absolute Lymphs (auto) (1.0-4.6) Absolute Monos (auto) (0.0-1.3) Lymphocytes % (24.0-44.0) % Monocytes % (0.0-12.0) % Eosinophils % (0.00-5.0) % Basophils % (0.0-0.4) % Absolute Granulocytes (1.4-6.9) Basophils # (0-0.4) PT 13.4 H (9.95-12.35) SECONDS INR 1.15 (0.8-3.0) Sodium (137-145) mmol/L Potassium (3.5-5.1) mmol/L Chloride (98-107) mmol/L Carbon Dioxide (22-30) mmol/L Anion Gap (5-15) MEQ/L BUN (7-17) mg/dL Creatinine (0.52-1.04) mg/dL Estimated GFR ML/MIN Glucose (74-106) mg/dL Hemoglobin A1c (4.5-6.0) % Calcium (8.4-10.2) mg/dL Magnesium (1.6-2.3) mg/dL Total Bilirubin (0.2-1.3) mg/dL AST (14-36) U/L ALT (0-35) U/L Alkaline Phosphatase (38-126) U/L Troponin I < 0.012 (0.000-0.034) ng/mL NT-Pro-B Natriuret Pep (0-1800) pg/mL Serum Total Protein (6.3-8.2) g/dL Albumin (3.5-5.0) g/dL Urine Color STRAW (YELLOW) Urine Appearance CLEAR (CLEAR) Urine pH 6.0 (5-6) Ur Specific [place] 1.005 (1.005-1.025) Urine Protein NEGATIVE (Negative) Urine Ketones SMALL (NEGATIVE) Urine Blood NEGATIVE (0-5) Paul/ul Urine Nitrite NEGATIVE (NEGATIVE) Urine Bilirubin NEGATIVE (NEGATIVE) Urine Urobilinogen NEGATIVE (0-1) mg/dL Ur Leukocyte Esterase NEGATIVE (NEGATIVE) Urine WBC (Auto) 3-5 (0-5) /HPF Urine RBC (Auto) NONE (0-2) /HPF U Epithel Cells (Auto) NONE (FEW) /HPF Urine Bacteria (Auto) FEW (NEGATIVE) /HPF Urine Mucus (Auto) SLIGHT (NEGATIVE) /HPF Urine Culture Reflexed NO (NO) Urine Glucose NEGATIVE (NEGATIVE) mg/dL Influenza Type A Ag (NEGATIVE) Influenza Type B Ag (NEGATIVE) RSV (PCR) (Negative) Slides for Path Review 03/14/18 03/14/18 03/14/18 Range/Units 12:00 14:18 17:20 WBC (4.0-10.5) K/mm3 RBC (4.1-5.4) M/mm3 Hgb (12.0-16.0) gm/dl Hct (35-47) % MCV (78-100) fl MCH (26-32) pg MCHC (32-36) g/dl RDW (11.5-14.0) % Plt Count (150-450) K/mm3 MPV (6-9.5) fl Gran % (36.0-66.0) % Eos # (Auto) (0-0.5) Absolute Lymphs (auto) (1.0-4.6) Absolute Monos (auto) (0.0-1.3) Lymphocytes % (24.0-44.0) % Monocytes % (0.0-12.0) % Eosinophils % (0.00-5.0) % Basophils % (0.0-0.4) % Absolute Granulocytes (1.4-6.9) Basophils # (0-0.4) PT (9.95-12.35) SECONDS INR (0.8-3.0) Sodium (137-145) mmol/L Potassium (3.5-5.1) mmol/L Chloride (98-107) mmol/L Carbon Dioxide (22-30) mmol/L Anion Gap (5-15) MEQ/L BUN (7-17) mg/dL Creatinine (0.52-1.04) mg/dL Estimated GFR ML/MIN Glucose (74-106) mg/dL Hemoglobin A1c (4.5-6.0) % Calcium (8.4-10.2) mg/dL Magnesium (1.6-2.3) mg/dL Total Bilirubin (0.2-1.3) mg/dL AST (14-36) U/L ALT (0-35) U/L Alkaline Phosphatase (38-126) U/L Troponin I < 0.012 < 0.012 (0.000-0.034) ng/mL NT-Pro-B Natriuret Pep (0-1800) pg/mL Serum Total Protein (6.3-8.2) g/dL Albumin (3.5-5.0) g/dL Urine Color (YELLOW) Urine Appearance (CLEAR) Urine pH (5-6) Ur Specific [place] (1.005-1.025) Urine Protein (Negative) Urine Ketones (NEGATIVE) Urine Blood (0-5) Paul/ul Urine Nitrite (NEGATIVE) Urine Bilirubin (NEGATIVE) Urine Urobilinogen (0-1) mg/dL Ur Leukocyte Esterase (NEGATIVE) Urine WBC (Auto) (0-5) /HPF Urine RBC (Auto) (0-2) /HPF U Epithel Cells (Auto) (FEW) /HPF Urine Bacteria (Auto) (NEGATIVE) /HPF Urine Mucus (Auto) (NEGATIVE) /HPF Urine Culture Reflexed (NO) Urine Glucose (NEGATIVE) mg/dL Influenza Type A Ag NEGATIVE (NEGATIVE) Influenza Type B Ag NEGATIVE (NEGATIVE) RSV (PCR) NEGATIVE (Negative) Slides for Path Review 03/14/18 03/14/18 03/15/18 Range/Units 21:00 23:30 07:10 WBC (4.0-10.5) K/mm3 RBC (4.1-5.4) M/mm3 Hgb (12.0-16.0) gm/dl Hct (35-47) % MCV (78-100) fl MCH (26-32) pg MCHC (32-36) g/dl RDW (11.5-14.0) % Plt Count (150-450) K/mm3 MPV (6-9.5) fl Gran % (36.0-66.0) % Eos # (Auto) (0-0.5) Absolute Lymphs (auto) (1.0-4.6) Absolute Monos (auto) (0.0-1.3) Lymphocytes % (24.0-44.0) % Monocytes % (0.0-12.0) % Eosinophils % (0.00-5.0) % Basophils % (0.0-0.4) % Absolute Granulocytes (1.4-6.9) Basophils # (0-0.4) PT (9.95-12.35) SECONDS INR (0.8-3.0) Sodium 135 L (137-145) mmol/L Potassium 4.1 D (3.5-5.1) mmol/L Chloride 87 L (98-107) mmol/L Carbon Dioxide 42 H (22-30) mmol/L Anion Gap 10.1 (5-15) MEQ/L BUN 24 H (7-17) mg/dL Creatinine 0.85 (0.52-1.04) mg/dL Estimated GFR > 60.0 ML/MIN Glucose 176 H (74-106) mg/dL Hemoglobin A1c (4.5-6.0) % Calcium 8.1 L (8.4-10.2) mg/dL Magnesium (1.6-2.3) mg/dL Total Bilirubin (0.2-1.3) mg/dL AST (14-36) U/L ALT (0-35) U/L Alkaline Phosphatase (38-126) U/L Troponin I < 0.012 < 0.012 (0.000-0.034) ng/mL NT-Pro-B Natriuret Pep (0-1800) pg/mL Serum Total Protein (6.3-8.2) g/dL Albumin (3.5-5.0) g/dL Urine Color (YELLOW) Urine Appearance (CLEAR) Urine pH (5-6) Ur Specific [place] (1.005-1.025) Urine Protein (Negative) Urine Ketones (NEGATIVE) Urine Blood (0-5) Paul/ul Urine Nitrite (NEGATIVE) Urine Bilirubin (NEGATIVE) Urine Urobilinogen (0-1) mg/dL Ur Leukocyte Esterase (NEGATIVE) Urine WBC (Auto) (0-5) /HPF Urine RBC (Auto) (0-2) /HPF U Epithel Cells (Auto) (FEW) /HPF Urine Bacteria (Auto) (NEGATIVE) /HPF Urine Mucus (Auto) (NEGATIVE) /HPF Urine Culture Reflexed (NO) Urine Glucose (NEGATIVE) mg/dL Influenza Type A Ag (NEGATIVE) Influenza Type B Ag (NEGATIVE) RSV (PCR) (Negative) Slides for Path Review Accuchecks Date 03/14/18 Date 03/14/18 Time 22:00 Time 16:30 Accucheck Value: 125 Accucheck Value: 87 - Radiology Impressions Radiology Exams & Impressions: Radiology Procedures Category Date Time Status CHEST 1 VIEW (PORTABLE) Stat Exams 03/14/18 11:18 Completed - Other Procedures and Tests Respiratory Therapy 03/14/18 14:26 Oxygen Nasal Cannula 4 lpm Respiratory Therapy Assessment DAILY 03/14/18 15:14 Peak Expiratory Flow Rate ONCE 03/15/18 06:43 Flutter Therapy UD Assessment/Plan (1) Pneumonia Current Visit: No Status: Acute Onset Date: ~10/06/17 Assessment & Plan: continue levaquin and nebulizer therapy at this time Code(s): J18.9 - PNEUMONIA, UNSPECIFIED ORGANISM (2) Lymphedema Current Visit: Yes Status: Acute Code(s): I89.0 - LYMPHEDEMA, NOT ELSEWHERE CLASSIFIED (3) SOB (shortness of breath) Current Visit: No Status: Acute Code(s): R06.02 - SHORTNESS OF BREATH
[2018-03-15] MEDS: Levofloxacin 500MG/100ML D5W 500 MG/100 ML BAG IV SCH (09:50)
[2018-03-15] MEDS: BUMEX 1 MG PO SCH (09:51)
[2018-03-15] MEDS: ECOTRIN 81 MG PO SCH (09:51)
[2018-03-15] MEDS: Calcium 500MG W/Vit D Tablet PO SCH (09:51)
[2018-03-15] MEDS: THERAGRAN MULTIVITAMIN PO SCH (09:52)
[2018-03-15] MEDS: PLAVIX 75 MG Tablet PO SCH (09:52)
[2018-03-15] MEDS: Vitamin E 400 UNIT SOFTGEL PO SCH (09:53)
[2018-03-15] MEDS: Vitamin B-12 500 MCG PO SCH (09:53)
[2018-03-15] MEDS ORDERED: NON-FORMULARY ITEM (Potassium Chloride 20 Meq [Klor-Con 20 Meq] 20 MEQ) PO SCH (10:00)
[2018-03-15] MEDS ORDERED: NON-FORMULARY ITEM (Multivitamin [Multivitamins] 1 EACH) PO SCH (10:00)
[2018-03-15] MEDS ORDERED: NON-FORMULARY ITEM (Calcium Carbonate/Vitamin D3 [Calcium 600 + Vit D Caplet] 1 TAB) PO SCH (10:00)
[2018-03-15] MEDS: ATARAX 25 MG PO SCH (21:56)
[2018-03-16] MEDS: Norco 10/325 MG Tablet PO PRN ×5 (02:51→22:23)
[2018-03-16] MEDS: DUONEB 0.5-3 MG/3 ml Neb IH SCH ×6 (03:20→22:57)
[2018-03-16] MEDS: solu-MEDROL 125 MG IV SCH ×4 (06:10→22:24)
[2018-03-16 06:15] LABS: Basophil (Absolute #) 0 (0-0.4); Eosinophil % 0.1 % (0.00-5.0); Eosinophil (Absolute #) 0.01 (0-0.5); Granulocyte Absolute (ANC) 10.38 (1.4-6.9); Granulocytes % 94.7 % (36.0-66.0); Hemoglobin 8.6 gm/dl (12.0-16.0); Lymphocyte (Absolute #) 0.18 (1.0-4.6); Lymphocytes % 1.6 % (24.0-44.0); Mean Cell Volume 90.1 fl (78-100); Mean Corpuscular Hemoglobin 25.8 pg (26-32); Mean Corpuscular Hgb Concent. 28.7 g/dl (32-36); Mean Platelet Volume 10.2 fl (6-9.5); Monocyte (Absolute #) 0.39 (0.0-1.3); Monocytes % 3.6 % (0.0-12.0); Platelet Count 233 K/mm3 (150-450); Red Blood Count 3.33 M/mm3 (4.1-5.4); Red Cell Distribution Width 17.4 % (11.5-14.0)
[2018-03-16 06:23] LABS: ALBUMIN 2.9 g/dL (3.5-5.0); BILIRUBIN,TOTAL 0.3 mg/dL (0.2-1.3); Creatinine 1 1.02 mg/dL (0.52-1.04); Potassium 3.7 mmol/L (3.5-5.1); Total Protein 5.8 g/dL (6.3-8.2)
[2018-03-16 06:36] LABS: ANION GAP 8.7 MEQ/L (5-15)
[2018-03-16] MEDS: Advair Hfa 115/21 Common canister IH SCH ×2 (06:41→19:02)
[2018-03-16] MEDS: NEURONTIN 300 MG PO SCH ×3 (07:55→22:30)
[2018-03-16] MEDS: Glucophage XR 500 MG PO SCH (07:55)
[2018-03-16 08:19] LABS: Slide Review 1 YES
[2018-03-16] MEDS: THERAGRAN MULTIVITAMIN PO SCH (09:14)
[2018-03-16] MEDS: PLAVIX 75 MG Tablet PO SCH (09:14)
[2018-03-16] MEDS: Levofloxacin 500MG/100ML D5W 500 MG/100 ML BAG IV SCH (09:15)
[2018-03-16] MEDS: Vitamin E 400 UNIT SOFTGEL PO SCH (09:15)
[2018-03-16] MEDS: Calcium 500MG W/Vit D Tablet PO SCH (09:15)
[2018-03-16] MEDS: Vitamin B-12 500 MCG PO SCH (09:15)
[2018-03-16] MEDS: BUMEX 1 MG PO SCH (09:15)
[2018-03-16] MEDS: ECOTRIN 81 MG PO SCH (09:19)
[2018-03-16] MEDS: NovoLOG Insulin SQ PRN ×2 (11:55→22:25)
--- NOTE | 2018-03-16 14:32 | PCM.NOTE ---
Date and Time: 03/16/181426 Subjective Assessment: Pt's cough is non-productive. She c/o 6/10 leg pain but it is her chronic leg pain. She is alvin po well. - Review of Systems Constitutional: No Fever Respiratory: Cough Objective Exam General Appearance: no apparent distress, alert Neurologic Exam: oriented x 3, cooperative Skin Exam: normal color, warm, dry, No rash Ears, Nose, Throat Exam: moist mucous membranes Respiratory Exam: normal breath sounds, lungs clear, No crackles/rales, No rhonchi, No wheezing Cardiovascular Exam: regular rate/rhythm, normal heart sounds, No murmur Gastrointestinal/Abdomen Exam: soft, normal bowel sounds, No tenderness, No distention, No mass, No guarding, No rebound Extremity Exam: other (LE wrapped bilat (Unna boot)) OBJECTIVE DATA Vital Signs: Vital Signs - 24 hr Temp Pulse Resp BP Pulse Ox 03/16/18 11:41 98.5 F 85 18 91/54 92 L 03/16/18 11:16 80 18 94 L 03/16/18 07:16 98.5 F 82 18 100/54 85 L 03/16/18 06:42 72 16 95 03/16/18 04:00 98.7 F 92 H 18 105/83 91 L 03/16/18 03:21 87 19 90 L 03/16/18 00:00 98.6 F 89 21 101/53 93 L 03/15/18 23:15 91 H 18 90 L 03/15/18 20:17 77 18 92 L 03/15/18 19:33 98.4 F 78 18 90/52 97 03/15/18 16:00 97.9 F 85 18 105/56 94 L 03/15/18 14:58 78 20 95 Oxygen-Last 24 hours O2 Percentage 4 Liters = 36% O2 Percentage 4 Liters = 36% O2 Percentage 4 Liters = 36% O2 Percentage 4 Liters = 36% O2 Percentage 4 Liters = 36% O2 Percentage 4 Liters = 36% Pain Assessment - Last Documented Pain Intensity 6 Pain Scale Used 0-10 Pain Scale Intake and Output: Intake & Output 03/14/18 03/15/18 03/16/18 03/17/18 11:59 11:59 11:59 11:59 Intake Total 1140 1860 240 Output Total 1850 1475 550 Balance -710 385 -310 Weight 58.967 kg 59.6 kg 59.8 kg Lab Results: Accuchecks Date 03/15/18 Time 16:30 Accucheck Value: 166 Accucheck Value: 185 Accucheck Value: 178 Lab Results-Last 24 Hours 03/16/18 03/16/18 Range/Units 05:35 05:35 WBC 11.0 H (4.0-10.5) K/mm3 RBC 3.33 L (4.1-5.4) M/mm3 Hgb 8.6 L (12.0-16.0) gm/dl Hct 30.0 L (35-47) % MCV 90.1 (78-100) fl MCH 25.8 L (26-32) pg MCHC 28.7 L (32-36) g/dl RDW 17.4 H (11.5-14.0) % Plt Count 233 (150-450) K/mm3 MPV 10.2 H (6-9.5) fl Gran % 94.7 H (36.0-66.0) % Eos # (Auto) 0.01 (0-0.5) Absolute Lymphs (auto) 0.18 L (1.0-4.6) Absolute Monos (auto) 0.39 (0.0-1.3) Lymphocytes % 1.6 L (24.0-44.0) % Monocytes % 3.6 (0.0-12.0) % Eosinophils % 0.1 (0.00-5.0) % Basophils % 0.0 (0.0-0.4) % Absolute Granulocytes 10.38 H (1.4-6.9) Basophils # 0 (0-0.4) Sodium 136 L (137-145) mmol/L Potassium 3.7 (3.5-5.1) mmol/L Chloride 88 L (98-107) mmol/L Carbon Dioxide 43 H (22-30) mmol/L Anion Gap 8.7 (5-15) MEQ/L BUN 28 H (7-17) mg/dL Creatinine 1.02 (0.52-1.04) mg/dL Estimated GFR 56.0 ML/MIN Glucose 166 H (74-106) mg/dL Calcium 8.0 L (8.4-10.2) mg/dL Total Bilirubin 0.30 (0.2-1.3) mg/dL AST 23 (14-36) U/L ALT 14 (0-35) U/L Alkaline Phosphatase 103 (38-126) U/L Serum Total Protein 5.8 L (6.3-8.2) g/dL Albumin 2.9 L (3.5-5.0) g/dL Slides for Path Review YES Assessment/Plan (1) Pneumonia Current Visit: No Status: Acute Onset Date: ~10/06/17 Qualifiers: Pneumonia type: due to unspecified organism Laterality: left Lung location: lower lobe of lung Qualified Code(s): J18.1 - Lobar pneumonia, unspecified organism Assessment & Plan: On Levaquin IV day #3. Still c/o cough but unable to bring up any sputum. Add mucinex. Code(s): J18.9 - PNEUMONIA, UNSPECIFIED ORGANISM (2) Lymphedema Current Visit: Yes Status: Chronic Code(s): I89.0 - LYMPHEDEMA, NOT ELSEWHERE CLASSIFIED (3) SOB (shortness of breath) Current Visit: No Status: Acute Code(s): R06.02 - SHORTNESS OF BREATH (4) Anemia Current Visit: Yes Status: Acute Qualifiers: Anemia type: iron deficiency Iron deficiency anemia type: chronic blood loss Qualified Code(s): D50.0 - Iron deficiency anemia secondary to blood loss (chronic) Assessment & Plan: Hgb 8.6 today, down from 10.5. WIll recheck again in the morning. Code(s): D64.9 - ANEMIA, UNSPECIFIED
[2018-03-16] MEDS: Mucinex 600MG ER Tabs PO SCH ×2 (15:49→22:23)
[2018-03-16] MEDS: ATARAX 25 MG PO SCH (22:23)
[2018-03-17] MEDS: Norco 10/325 MG Tablet PO PRN ×3 (02:36→23:06)
[2018-03-17] MEDS: DUONEB 0.5-3 MG/3 ml Neb IH SCH ×6 (03:03→23:38)
[2018-03-17] MEDS: solu-MEDROL 125 MG IV SCH (06:12)
[2018-03-17] MEDS: Advair Hfa 115/21 Common canister IH SCH ×2 (06:43→19:25)
[2018-03-17] MEDS: Glucophage XR 500 MG PO SCH (07:48)
[2018-03-17] MEDS: NEURONTIN 300 MG PO SCH ×3 (07:48→21:31)
--- NOTE | 2018-03-17 09:09 | PCM.NOTE ---
Date and Time: 03/17/18907 Subjective Assessment: patient reports improvement in her breathing, not having much cough. tolerating po, leg pain is controlled with norco currently. Objective Exam General Appearance: no apparent distress, alert Skin Exam: normal color, warm, dry Respiratory Exam: rhonchi Cardiovascular Exam: regular rate/rhythm, normal heart sounds Gastrointestinal/Abdomen Exam: soft, No tenderness, No mass Extremity Exam: pedal edema, swelling OBJECTIVE DATA Vital Signs: Vital Signs - 24 hr Temp Pulse Resp BP Pulse Ox 03/17/18 07:11 97.8 F 74 20 119/59 98 03/17/18 07:00 20 03/17/18 06:47 74 20 98 03/17/18 03:47 97.3 F 77 18 115/57 99 03/17/18 03:05 75 18 95 03/16/18 23:52 98.5 F 83 20 109/53 94 L 03/16/18 23:00 83 18 94 L 03/16/18 19:15 98.6 F 77 20 121/56 99 03/16/18 19:08 77 20 99 03/16/18 16:19 97.6 F 69 20 107/57 98 03/16/18 15:20 77 18 94 L 03/16/18 11:41 98.5 F 85 18 91/54 92 L 03/16/18 11:16 80 18 94 L Oxygen-Last 24 hours O2 Percentage 4 Liters = 36% O2 Percentage 4 Liters = 36% O2 Percentage 4 Liters = 36% O2 Percentage 4 Liters = 36% O2 Percentage 4 Liters = 36% O2 Percentage 4 Liters = 36% Pain Assessment - Last Documented Pain Intensity 7 Pain Scale Used 0-10 Pain Scale Intake and Output: Intake & Output 03/14/18 03/15/18 03/16/18 03/17/18 11:59 11:59 11:59 11:59 Intake Total 1140 1860 1720 Output Total 1850 1475 2500 Balance -710 385 -780 Weight 58.967 kg 59.6 kg 59.8 kg 60.6 kg Lab Results: Accuchecks Date 03/17/18 Time 07:30 Accucheck Value: 178 Accucheck Value: 223 Accucheck Value: 187 Accucheck Value: 277 Assessment/Plan (1) Pneumonia Current Visit: No Status: Acute Onset Date: ~10/06/17 Qualifiers: Pneumonia type: due to unspecified organism Laterality: left Lung location: lower lobe of lung Qualified Code(s): J18.1 - Lobar pneumonia, unspecified organism Assessment & Plan: continue levaquin Code(s): J18.9 - PNEUMONIA, UNSPECIFIED ORGANISM (2) COPD exacerbation Current Visit: No Status: Acute Assessment & Plan: wheezing not heart today, will wean steroids Code(s): J44.1 - CHRONIC OBSTRUCTIVE PULMONARY DISEASE W (ACUTE) EXACERBATION (3) Lymphedema Current Visit: Yes Status: Chronic Code(s): I89.0 - LYMPHEDEMA, NOT ELSEWHERE CLASSIFIED (4) SOB (shortness of breath) Current Visit: No Status: Acute Code(s): R06.02 - SHORTNESS OF BREATH
[2018-03-17] MEDS: Vitamin B-12 500 MCG PO SCH (09:16)
[2018-03-17] MEDS: ECOTRIN 81 MG PO SCH (09:16)
[2018-03-17] MEDS: Calcium 500MG W/Vit D Tablet PO SCH (09:16)
[2018-03-17] MEDS: THERAGRAN MULTIVITAMIN PO SCH (09:17)
[2018-03-17] MEDS: BUMEX 1 MG PO SCH (09:17)
[2018-03-17] MEDS: PLAVIX 75 MG Tablet PO SCH (09:17)
[2018-03-17] MEDS: Mucinex 600MG ER Tabs PO SCH ×2 (09:18→21:28)
[2018-03-17] MEDS: Vitamin E 400 UNIT SOFTGEL PO SCH (09:18)
[2018-03-17] MEDS: Levofloxacin 500MG/100ML D5W 500 MG/100 ML BAG IV SCH (09:19)
[2018-03-17] MEDS: NovoLOG Insulin SQ PRN ×2 (11:45→21:28)
[2018-03-17] MEDS: solu-MEDROL 40 MG IV SCH ×2 (12:57→21:28)
[2018-03-17] MEDS: ATARAX 25 MG PO SCH (21:28)
[2018-03-18] MEDS: DUONEB 0.5-3 MG/3 ml Neb IH SCH ×6 (03:32→22:48)
[2018-03-18] MEDS: Norco 10/325 MG Tablet PO PRN ×3 (05:49→21:51)
[2018-03-18] MEDS: solu-MEDROL 40 MG IV SCH (05:49)
[2018-03-18 05:54] LABS: Hemoglobin 8.2 gm/dl (12.0-16.0); Mean Cell Volume 90.9 fl (78-100); Mean Corpuscular Hemoglobin 25.7 pg (26-32); Mean Corpuscular Hgb Concent. 28.3 g/dl (32-36); Mean Platelet Volume 9.2 fl (6-9.5); Platelet Count 212 K/mm3 (150-450); Red Blood Count 3.19 M/mm3 (4.1-5.4); Red Cell Distribution Width 17.9 % (11.5-14.0); White Blood Count 11.8 K/mm3 (4.0-10.5)
[2018-03-18 06:17] LABS: ALBUMIN 2.7 g/dL (3.5-5.0); ALKALINE PHOSPHATASE 75 U/L (38-126); BLOOD UREA NITROGEN 27 mg/dL (7-17); CHLORIDE 90 mmol/L (98-107); Calcium 7.9 mg/dL (8.4-10.2); Creatinine 1 0.69 mg/dL (0.52-1.04); Glucose 136 mg/dL (74-106); Potassium 3.5 mmol/L (3.5-5.1); SGOT/AST 23 U/L (14-36); SGPT/ALT 17 U/L (0-35); SODIUM 140 mmol/L (137-145); Total Protein 5.3 g/dL (6.3-8.2)
[2018-03-18 06:27] LABS: ANION GAP 8.5 MEQ/L (5-15); Carbon Dioxide 45 mmol/L (22-30)
[2018-03-18 06:32] LABS: Lymphocytes 2 % (24-44); Neutrophils 98 % (36.0-66.0); Platelet Estimate NORMAL (NORMAL); Total Cells Counted 100
[2018-03-18] MEDS: Advair Hfa 115/21 Common canister IH SCH ×2 (06:40→18:59)
[2018-03-18] MEDS: NEURONTIN 300 MG PO SCH ×3 (08:05→21:51)
[2018-03-18] MEDS: Glucophage XR 500 MG PO SCH (08:05)
--- NOTE | 2018-03-18 08:46 | PCM.NOTE ---
Date and Time: 03/18/18 0845 Subjective Assessment: patient reports her breathing is improving, she is tolerating po but concerned per nursing about decreased ostomy output. overall she is feeling better today Objective Exam General Appearance: no apparent distress, alert Respiratory Exam: rhonchi Cardiovascular Exam: regular rate/rhythm, normal heart sounds Gastrointestinal/Abdomen Exam: soft, No tenderness, No mass Extremity Exam: normal inspection, normal range of motion OBJECTIVE DATA Vital Signs: Vital Signs - 24 hr Temp Pulse Resp BP Pulse Ox 03/18/18 08:00 98.6 F 68 18 132/59 98 03/18/18 07:00 18 03/18/18 06:53 74 20 97 03/18/18 04:04 98.3 F 77 20 139/63 98 03/18/18 03:32 72 18 95 03/17/18 23:30 98.6 F 79 20 119/59 96 03/17/18 23:15 76 18 96 03/17/18 19:35 98.8 F 88 20 107/54 95 03/17/18 19:29 86 18 94 L 03/17/18 18:47 20 03/17/18 16:14 98.2 F 86 20 146/67 95 03/17/18 15:00 18 03/17/18 14:41 78 16 96 03/17/18 12:06 98 F 78 20 120/62 96 03/17/18 11:00 20 03/17/18 10:31 96 H 20 92 L Oxygen-Last 24 hours O2 Percentage 3 Liters = 32% O2 Percentage 4 Liters = 36% O2 Percentage 4 Liters = 36% O2 Percentage 4 Liters = 36% O2 Percentage 4 Liters = 36% O2 Percentage 4 Liters = 36% Pain Assessment - Last Documented Pain Intensity 6 Pain Scale Used 0-10 Pain Scale Intake and Output: Intake & Output 03/15/18 03/16/18 03/17/18 03/18/18 11:59 11:59 11:59 11:59 Intake Total 1140 1860 1720 1400 Output Total 1850 1475 2500 1550 Balance -710 842 -835 -006 Weight 59.6 kg 59.8 kg 60.6 kg 61.5 kg Lab Results: Accuchecks Date 03/18/18 Date 03/17/18 Date 03/17/18 Date 02/06/19 Time 07:30 Time 22:00 Time 16:30 Time 11:30 Accucheck Value: 233 Accucheck Value: 136 Accucheck Value: 295 Lab Results-Last 24 Hours 03/18/18 03/18/18 Range/Units 05:42 05:42 WBC 11.8 H (4.0-10.5) K/mm3 RBC 3.19 L (4.1-5.4) M/mm3 Hgb 8.2 L (12.0-16.0) gm/dl Hct 29.0 L (35-47) % MCV 90.9 (78-100) fl MCH 25.7 L (26-32) pg MCHC 28.3 L (32-36) g/dl RDW 17.9 H (11.5-14.0) % Plt Count 212 (150-450) K/mm3 MPV 9.2 (6-9.5) fl Segmented Neutrophils 98 H (36.0-66.0) % Lymphocytes (Manual) 2 L (24-44) % Platelet Estimate NORMAL (NORMAL) RBC Morphology NORMAL Sodium 140 (137-145) mmol/L Potassium 3.5 (3.5-5.1) mmol/L Chloride 90 L (98-107) mmol/L Carbon Dioxide 45 H (22-30) mmol/L Anion Gap 8.5 (5-15) MEQ/L BUN 27 H (7-17) mg/dL Creatinine 0.69 (0.52-1.04) mg/dL Estimated GFR > 60.0 ML/MIN Glucose 136 H (74-106) mg/dL Calcium 7.9 L (8.4-10.2) mg/dL Total Bilirubin 0.30 (0.2-1.3) mg/dL AST 23 (14-36) U/L ALT 17 (0-35) U/L Alkaline Phosphatase 75 (38-126) U/L Serum Total Protein 5.3 L (6.3-8.2) g/dL Albumin 2.7 L (3.5-5.0) g/dL Radiology Exams: Radiology Procedures Category Date Time Status KUB Urgent Exams 03/18/18 Ordered Assessment/Plan (1) Pneumonia Current Visit: No Status: Acute Onset Date: ~10/06/17 Qualifiers: Pneumonia type: due to unspecified organism Laterality: left Lung location: lower lobe of lung Qualified Code(s): J18.1 - Lobar pneumonia, unspecified organism Assessment & Plan: continue levaquin, nebs, improving oxygenation Code(s): J18.9 - PNEUMONIA, UNSPECIFIED ORGANISM (2) COPD exacerbation Current Visit: No Status: Acute Assessment & Plan: d/c solu medrol and change to po prednisone Code(s): J44.1 - CHRONIC OBSTRUCTIVE PULMONARY DISEASE W (ACUTE) EXACERBATION (3) Lymphedema Current Visit: Yes Status: Chronic Code(s): I89.0 - LYMPHEDEMA, NOT ELSEWHERE CLASSIFIED (4) SOB (shortness of breath) Current Visit: No Status: Acute Code(s): R06.02 - SHORTNESS OF BREATH
--- NOTE | 2018-03-18 09:34 | XRAY ---
Indication: No bowel movement for days. Comparison: None KUB demonstrates nonspecific nonobstructed bowel gas pattern with little scattered colonic fecal debris. Solid organs unremarkable. Heavy scattered vascular calcifications. Osseous structures intact with moderate/advanced multilevel degenerative spondylosis and right hip advanced degenerative arthropathy. Small right lung base effusion. Impression: 1. Nonacute nonobstructed abdomen with chronic features. 2. Small right effusion.
[2018-03-18] MEDS: Levofloxacin 500MG/100ML D5W 500 MG/100 ML BAG IV SCH (10:27)
[2018-03-18] MEDS: BUMEX 1 MG PO SCH (10:27)
[2018-03-18] MEDS: Vitamin B-12 500 MCG PO SCH (10:27)
[2018-03-18] MEDS: Vitamin E 400 UNIT SOFTGEL PO SCH (10:27)
[2018-03-18] MEDS: Mucinex 600MG ER Tabs PO SCH ×2 (10:28→21:51)
[2018-03-18] MEDS: PLAVIX 75 MG Tablet PO SCH (10:28)
[2018-03-18] MEDS: THERAGRAN MULTIVITAMIN PO SCH (10:29)
[2018-03-18] MEDS: Calcium 500MG W/Vit D Tablet PO SCH (10:29)
[2018-03-18] MEDS: ECOTRIN 81 MG PO SCH (10:29)
[2018-03-18] MEDS: DELTASONE 20 MG PO SCH (12:11)
[2018-03-18] MEDS: ATARAX 25 MG PO SCH (21:51)
[2018-03-19] MEDS: DUONEB 0.5-3 MG/3 ml Neb IH SCH ×3 (02:55→10:45)
[2018-03-19] MEDS: Norco 10/325 MG Tablet PO PRN ×2 (03:57→08:06)
[2018-03-19 06:04] LABS: Hematocrit 31.7 % (35-47); Hemoglobin 8.9 gm/dl (12.0-16.0); Mean Cell Volume 91.1 fl (78-100); Mean Corpuscular Hgb Concent. 28.1 g/dl (32-36); Mean Platelet Volume 9.6 fl (6-9.5); Platelet Count 229 K/mm3 (150-450); Red Blood Count 3.48 M/mm3 (4.1-5.4); Red Cell Distribution Width 17.9 % (11.5-14.0); White Blood Count 11.3 K/mm3 (4.0-10.5)
[2018-03-19 06:05] LABS: Mean Corpuscular Hemoglobin 25.5 pg (26-32)
[2018-03-19 06:10] LABS: ALBUMIN 2.8 g/dL (3.5-5.0); ALKALINE PHOSPHATASE 75 U/L (38-126); BLOOD UREA NITROGEN 27 mg/dL (7-17); CHLORIDE 89 mmol/L (98-107); Creatinine 1 0.72 mg/dL (0.52-1.04); Glucose 86 mg/dL (74-106); Potassium 3.5 mmol/L (3.5-5.1); SGOT/AST 23 U/L (14-36); SGPT/ALT 19 U/L (0-35); SODIUM 140 mmol/L (137-145); Total Protein 5.6 g/dL (6.3-8.2)
[2018-03-19 06:38] LABS: Carbon Dioxide 51 mmol/L (22-30)
[2018-03-19 06:39] LABS: ANION GAP 3.5 MEQ/L (5-15)
[2018-03-19] MEDS: Advair Hfa 115/21 Common canister IH SCH (06:40)
[2018-03-19 06:44] VITALS: O2SAT 98
[2018-03-19 07:12] LABS: ANISOCYTOSIS 1+; BAND 2 % (0.0-2.0); Hypochromia 1+; Lymphocytes 6 % (24-44); Monocyte 7 % (0.0-12.0); Neutrophils 85 % (36.0-66.0); Platelet Estimate NORMAL (NORMAL); Total Cells Counted 100
[2018-03-19 07:13] LABS: Granulocyte Absolute (ANC) 9.6 (1.4-6.9)
[2018-03-19] MEDS: Glucophage XR 500 MG PO SCH (07:58)
[2018-03-19] MEDS: Calcium 500MG W/Vit D Tablet PO SCH (08:01)
[2018-03-19] MEDS: BUMEX 1 MG PO SCH (08:01)
[2018-03-19] MEDS: PLAVIX 75 MG Tablet PO SCH (08:02)
[2018-03-19] MEDS: Mucinex 600MG ER Tabs PO SCH (08:02)
[2018-03-19] MEDS: ECOTRIN 81 MG PO SCH (08:02)
[2018-03-19] MEDS: Vitamin B-12 500 MCG PO SCH (08:03)
[2018-03-19] MEDS: THERAGRAN MULTIVITAMIN PO SCH (08:03)
[2018-03-19] MEDS: NEURONTIN 300 MG PO SCH ×2 (08:04→11:54)
[2018-03-19] MEDS: Vitamin E 400 UNIT SOFTGEL PO SCH (08:05)
[2018-03-19] MEDS: DELTASONE 20 MG PO SCH (08:09)
--- NOTE | 2018-03-19 08:40 | PCM.DS ---
Discharge Summary Date of Admission: 03/15/18 08:24 Admitting Physician: LINA MARRUFO Primary Care Provider: ALPHONSE PEREZ FLO Allergies Allergies Penicillins Allergy (Verified 10/05/17 11:23) Hospital Summary - Hospital Course Hospital Course: patient was admitted with a fall and altered mental status, found to have pneumonia. she is doing much better now, tolerating po, pneumonia is clearing, cough improved, no fever and oxygen requirement has decreased during stay. she is back to her baseline functional status and wants to return to home. - Vitals & Intake/Output Vital Signs: Vital Signs Temperature 98.8 F 03/19/18 06:44 Pulse Rate 73 03/19/18 06:44 Respiratory Rate 18 03/19/18 06:44 Blood Pressure 144/63 03/19/18 06:44 O2 Sat by Pulse Oximetry 98 03/19/18 06:44 Oxygen-Last Documented O2 Percentage 3 Liters = 32% Intake & Output: Intake & Output 03/16/18 03/17/18 03/18/18 03/19/18 11:59 11:59 11:59 11:59 Intake Total 1860 1720 1880 1720 Output Total 1475 2500 2125 2075 Balance 332 -989 -536 -182 Weight 59.8 kg 60.6 kg 61.5 kg 59.6 kg - Lab Result Diagrams: 03/19/18 05:40 03/19/18 05:40 Lab Results-Last 24 Hrs: Accuchecks Date 03/18/18 Date 03/18/18 Date 03/18/18 Time 22:00 Time 16:30 Time 11:30 Accucheck Value: 176 Accucheck Value: 140 Accucheck Value: 172 Lab Results-Last 24 Hours 03/19/18 03/19/18 Range/Units 05:40 05:40 WBC 11.3 H (4.0-10.5) K/mm3 RBC 3.48 L (4.1-5.4) M/mm3 Hgb 8.9 L (12.0-16.0) gm/dl Hct 31.7 L (35-47) % MCV 91.1 (78-100) fl MCH 25.5 L (26-32) pg MCHC 28.1 L (32-36) g/dl RDW 17.9 H (11.5-14.0) % Plt Count 229 (150-450) K/mm3 MPV 9.6 H (6-9.5) fl Absolute Granulocytes 9.6 H (1.4-6.9) Segmented Neutrophils 85 H (36.0-66.0) % Band Neutrophils 2 (0.0-2.0) % Lymphocytes (Manual) 6 L (24-44) % Monocytes (Manual) 7 (0.0-12.0) % Hypochromia 1+ Platelet Estimate NORMAL (NORMAL) RBC Morphology ABNORMAL Anisocytosis 1+ Sodium 140 (137-145) mmol/L Potassium 3.5 (3.5-5.1) mmol/L Chloride 89 L (98-107) mmol/L Carbon Dioxide 51 H (22-30) mmol/L Anion Gap 3.5 L (5-15) MEQ/L BUN 27 H (7-17) mg/dL Creatinine 0.72 (0.52-1.04) mg/dL Estimated GFR > 60.0 ML/MIN Glucose 86 (74-106) mg/dL Calcium 8.0 L (8.4-10.2) mg/dL Total Bilirubin 0.40 (0.2-1.3) mg/dL AST 23 (14-36) U/L ALT 19 (0-35) U/L Alkaline Phosphatase 75 (38-126) U/L Serum Total Protein 5.6 L (6.3-8.2) g/dL Albumin 2.8 L (3.5-5.0) g/dL Micro Results-Entire Visit: Microbiology 03/14/18 11:59 Blood Culture Gram Stain - Final Blood Not Reportable Blood Culture - Final NO GROWTH 03/14/18 10:50 Blood Culture Gram Stain - Final Blood Not Reportable Blood Culture - Final NO GROWTH Accuchecks Date 03/18/18 Date 03/18/18 Date 03/18/18 Time 22:00 Time 16:30 Time 11:30 Accucheck Value: 176 Accucheck Value: 140 Accucheck Value: 172 - Radiology Exams Ordered Rad Exams-Entire Visit: Radiology Procedures Category Date Time Status KUB Urgent Exams 03/18/18 09:20 Completed - Procedures and Test Procedures and Tests throughout Hospitalization: Therapy Orders & Screens 03/14/18 11:34 Peak Expiratory Flow Rate ONCE Comment: Reason For Exam: Diagnosis: Shortness of Breath Respiratory Therapy Assessment DAILY Comment: Diagnosis: Shortness of Breath 03/14/18 13:21 Respiratory Therapy Consult ROUTINE Comment: Reason For Exam: Diagnosis: Shortness of Breath 03/14/18 14:26 Oxygen Nasal Cannula 4 lpm Comment: Diagnosis: Shortness of Breath Respiratory Therapy Assessment DAILY Comment: Diagnosis: Shortness of Breath 03/14/18 14:52 OT Screen per Nursing Assess Comment: Protocol Order Physician Instructions: Greater than 3 points order OT Admission Screening Reason For Exam: Triggered on Admission Diagnosis: pneumonia. Hyperkalemia. Open Wound/Cellutlitis/Pressure Ulcers: Yes Acute Fx/ORIF/Change in wt bearing status: Yes Severe MUSCULOSKELETAL pain: Yes ADL Dysfunction: Yes Acute CVA w/Hemiparesis/Hemiplegia: No Sprain/Strain: No Acute Post-op Mobility Dysfunction: No Total Points: 18 PT Screen per Nursing Assess Comment: Protocol Order Physician Instructions: Greater than 3 points order PT Admission Screenin Reason For Exam: Triggered on Admission Diagnosis: pneumonia. Hyperkalemia. Open Wound/Cellutlitis/Pressure Ulcers: Yes Acute Fx/ORIF/Change in wt bearing status: Yes Severe MUSCULOSKELETAL pain: Yes ADL Dysfunction: Yes Acute CVA w/Hemiparesis/Hemiplegia: No Sprain/Strain: No Acute Post-op Mobility Dysfunction: No Total Points: 18 03/14/18 15:14 Peak Expiratory Flow Rate ONCE Comment: Reason For Exam: Diagnosis: pneumonia. Hyperkalemia. 03/15/18 06:43 Flutter Therapy UD Comment: Diagnosis: pneumonia. Hyperkalemia. Discharge Exam General Appearance: no apparent distress, alert Neurologic Exam: alert, oriented x 3 Respiratory Exam: normal breath sounds, lungs clear, No respiratory distress Cardiovascular Exam: regular rate/rhythm, normal heart sounds Gastrointestinal/Abdomen Exam: soft, No tenderness, No mass Extremity Exam: normal inspection, normal range of motion, swelling Final Diagnosis/Problem List - Final Discharge Diagnosis/Problem (1) Pneumonia Current Visit: No Status: Acute Onset Date: ~10/06/17 (2) COPD exacerbation Current Visit: No Status: Acute (3) Lymphedema Current Visit: Yes Status: Chronic (4) SOB (shortness of breath) Current Visit: No Status: Acute - Discharge Disposition: Home, Self-Care Condition: Stable Prescriptions: New Levofloxacin [Levofloxacin 500 MG Tablet] 500 mg PO DAILY #5 tablet Continue Bumetanide 1 mg [Bumex 1 mg] 1 mg PO DAILY Prednisone 10 mg [Deltasone 10 mg] 10 mg PO DAILY Multivitamin [Multivitamins] 1 each PO DAILY Fluticasone/Salmeterol [Advair 250-50 Diskus] 1 puff IH BID Gabapentin 600 mg PO BID Metformin HCl [Metformin ER Osmotic] 500 mg PO DAILY Clopidogrel Bisulfate [Clopidogrel] 75 mg PO DAILY Nitroglycerin 0.4 mg Tablet [Nitrostat 0.4 MG Tablet] 0.4 mg PO Q5MIN PRN MR X 3 PRN PRN Reason: Chest Pain Aspirin 81 mg PO DAILY Potassium Chloride 20 Meq [Klor-Con 20 MEQ] 20 meq PO DAILY Gabapentin 300 mg PO DAILY Cyanocobalamin (Vitamin B-12) [Vitamin B-12] 500 mcg PO DAILY Vitamin E 400 unit PO DAILY Calcium Carbonate/Vitamin D3 [Calcium 600 + Vit D Caplet] 1 tab PO DAILY Hydrocodone/APAP 10/325 mg [Gaylord 10/325 MG Tablet] 1 tab PO Q4H PRN PRN #30 tablet MDD 6 PRN Reason: Pain Hydroxyzine Pamoate [Vistaril] 25 mg PO HS Ipratropium/Albuterol Sulfate [Combivent Respimat 20-100 Mcg] 4 gm IH BID PRN PRN PRN Reason: Shortness Of Breath Instructions: Pneumonia, Adult (DC), Lymphedema (DC) Follow up with: ALPHONSE PEREZ MD [Primary Care Provider] - 1 Week Forms: Discharge Instructions
[2018-03-19] MEDS: Levofloxacin 500MG/100ML D5W 500 MG/100 ML BAG IV SCH (10:42)
[2018-03-19 11:31] VITALS: BP 124/86; PULSE 88
== END 2018-03-19 13:30 | disposition home or self-care (01) | DRG 194 ==
LOC: ED 10:30 → MED SURG 13:45 → OBSVTOIN 03-15 08:24
PROVIDERS: ADMIT Internal Medicine; ATTEND Family Medicine
DX: J18.9 Pneumonia, unspecified organism (principal); J44.1 Chronic obstructive pulmonary disease with (acute) exacerbation; D64.9 Anemia, unspecified; J44.9 Chronic obstructive pulmonary disease, unspecified; E87.5 Hyperkalemia; I89.0 Lymphedema, not elsewhere classified; E11.9 Type 2 diabetes mellitus without complications; R41.82 Altered mental status, unspecified; R53.1 Weakness; Z79.899 Other long term (current) drug therapy; Z79.84 Long term (current) use of oral hypoglycemic drugs; W19.XXXA Unspecified fall, initial encounter; I25.810 Atherosclerosis of coronary artery bypass graft(s) without angina pectoris; R06.02 Shortness of breath
CPT/HCPCS: 36000; 36415; 71045; 74018; 80048; 80053; 81001; 82962; 83036; 83735; 83880; 84484; 85025; 85610; 87040; 87631; 93005; 93041; 94150; 94640; 94667; 94668; 94760; 96360; 96361; 96365; 96367; 96374; 99285; G0378; 96375; A6457; J0610; J1956; J2920; J2930; A9270-GY

== ENCOUNTER 2018-03-25 21:49 | Inpatient (IN) | payer MEDICARE ==
[2018-03-25] MEDS ORDERED: LEVOFLOXACIN 750MG/150ML D5W 750 MG/150 ML BAG IV STA (22:43)
[2018-03-25] MEDS ORDERED: DUONEB 0.5-3 MG/3 ml Neb IH ONE (22:46)
[2018-03-25] MEDS ORDERED: LEVOFLOXACIN 750MG/150ML D5W 750 MG/150 ML BAG IV ONE (22:58)
[2018-03-25 23:11] LABS: BASOPHIL % 0.1 % (0.0-0.4); Basophil (Absolute #) 0.02 (0-0.4); Eosinophil % 0.6 % (0.00-5.0); Eosinophil (Absolute #) 0.11 (0-0.5); Granulocyte Absolute (ANC) 15.39 (1.4-6.9); Granulocytes % 87.5 % (36.0-66.0); Hematocrit 31.1 % (35-47); Hemoglobin 8.8 gm/dl (12.0-16.0); Lymphocyte (Absolute #) 0.84 (1.0-4.6); Lymphocytes % 4.8 % (24.0-44.0); Mean Cell Volume 91.2 fl (78-100); Mean Corpuscular Hemoglobin 25.8 pg (26-32); Mean Corpuscular Hgb Concent. 28.3 g/dl (32-36); Mean Platelet Volume 9.3 fl (6-9.5); Monocyte (Absolute #) 1.24 (0.0-1.3); Platelet Count 227 K/mm3 (150-450); Red Blood Count 3.41 M/mm3 (4.1-5.4); Red Cell Distribution Width 17.7 % (11.5-14.0); White Blood Count 17.6 K/mm3 (4.0-10.5)
[2018-03-25 23:23] LABS: ALKALINE PHOSPHATASE 82 U/L (38-126); BLOOD UREA NITROGEN 19 mg/dL (7-17); CHLORIDE 84 mmol/L (98-107); Calcium 8.7 mg/dL (8.4-10.2); Creatinine 1 0.86 mg/dL (0.52-1.04); Glucose 72 mg/dL (74-106); Potassium 4.8 mmol/L (3.5-5.1); SGOT/AST 15 U/L (14-36); SGPT/ALT 14 U/L (0-35); SODIUM 136 mmol/L (137-145)
[2018-03-25 23:32] LABS: Carbon Dioxide 44 mmol/L (22-30)
[2018-03-25 23:33] LABS: ANION GAP 12.8 MEQ/L (5-15)
[2018-03-25 23:45] LABS: Group A Strep NEGATIVE (NEGATIVE); INFLUENZA A NEGATIVE (NEGATIVE); INFLUENZA B NEGATIVE (NEGATIVE); RESPIRATORY SYNCTIAL VIRUS NEGATIVE (Negative)
[2018-03-25] MEDS ORDERED: Vancomycin 1GM/ Ns 250ML*** 1 GM/250 ML IVPB IV ONE (23:46)
[2018-03-26] MEDS ORDERED: MORPHINE SULFATE 2 MG INJ IV ONE
[2018-03-26] MEDS ORDERED: MORPHINE SULFATE 2 MG INJ ONE (00:01)
[2018-03-26 01:07] LABS: A-aADO2 113; ABG HEMOGLOBIN 8.3; ABG POTASSIUM 4.3 (3.5-5.1); ABG SITE RIGHT BRACHIAL; ARTERIAL BLD GAS O2 SATURATION 90.8 % (95-100); ARTERIAL BLOOD GAS BASE EXCESS 23.2 (-2.0-2.0); ARTERIAL BLOOD GAS FIO2 36 %; ARTERIAL BLOOD GAS PCO2 74 mmHg (35-45); ARTERIAL BLOOD GAS PO2 51 mmHg (75-100); ARTERIAL BLOOD GAS pH 7.44 (7.35-7.45); CARBOXYHEMOGLOBIN 2.5 % THgb (0.0-6.9); HCO3- 50.3 (22-28); HGB O2 SAT 87.6 g/dF (94-100); paO2 pAO1 0.31
[2018-03-26] MEDS ORDERED: DUONEB 0.5-3 MG/3 ml Neb IH ONE (01:13)
[2018-03-26 01:32] LABS: Appearance CLEAR (CLEAR); Bacteria RARE /HPF (NEGATIVE); Bilirubin NEGATIVE (NEGATIVE); Blood NEGATIVE Ery/ul (0-5); Epithelial Cells RARE /HPF (FEW); Glucose NEGATIVE (NEGATIVE); Hyaline Casts 0-2 /LPF (0-2); Ketones SMALL (NEGATIVE); Leukocyte Esterase TRACE (NEGATIVE); Mucus SLIGHT /HPF (NEGATIVE); Nitrite NEGATIVE (NEGATIVE); Protein,Urine Dip NEGATIVE (Negative); RBC 0-2 /HPF (0-2); Specific Gravity 1.015 (1.005-1.025); Urobilinogen NEGATIVE mg/dL (0-1)
--- NOTE | 2018-03-26 01:32 | ERPHSYRPT ---
- History of Present Illness Source: patient Exam Limitations: no limitations Patient Subjective Stated Complaint: pt is alert and oriented x3. pt comes in via ambulance. pt has been having increased SOB since 3-4 hours ago after waking up. pt was just admitted inpatient with pneumonia. pt lung sounds coarse anteriorly. lung songs rubbing and coarse bilat lower and middle (right) lobe, right slightly worse than left. pt has colostomy LLQ. pt is on 4L all the time. pt denies chest pain, nausea, vomiting, dizziness. pt states her mucous is "orange-josé". pt has bilat 4+ pitting edema to lower legs. lower legs are red and warm. Triage Nursing Assessment: see above Physician History: Pt is a 77 y/o female that presented to the ED secondary to SOB. Pt was hospitalized in the hospital for 3 days, for PNA and was d/c to home. Pt is living alone, and today got very SOB, and called EMS. Pt states, coughing and SOB, having a wheeze. Pt is on 3 lit NC 01/09. Pt complains of severe leg pain b/l, and has echimosis on both LEs, as well as edema and erythema. Timing/Duration: day(s) Activities at Onset: none Severity of Dyspnea-Max: severe Severity of Dyspnea-Current: severe Possible Cause: frequent episodes, chronic episodes Modifying Factors: Improves With: albuterol nebulizer, exertion, oxygen Associated Symptoms: cough, wheezing, weakness, ankle swelling, leg swelling International travel in last 2 weeks: Yes (Pt was d/c about 10D) Allergies/Adverse Reactions: Penicillins Allergy (Verified 10/05/17 11:23) Home Medications: Bumetanide 1 mg [Bumex 1 mg] 1 mg PO DAILY 06/20/14 [History] Fluticasone/Salmeterol [Advair 250-50 Diskus] 1 puff IH BID 06/20/14 [History] Multivitamin [Multivitamins] 1 each PO DAILY 06/20/14 [History] Prednisone 10 mg [Deltasone 10 mg] 10 mg PO DAILY 06/20/14 [History] Gabapentin 600 mg PO BID 10/05/17 [History] Aspirin 81 mg PO DAILY 10/06/17 [History] Calcium Carbonate/Vitamin D3 [Calcium 600 + Vit D Caplet] 1 tab PO DAILY [History] Clopidogrel Bisulfate [Clopidogrel] 75 mg PO DAILY 10/06/17 [History] Cyanocobalamin (Vitamin B-12) [Vitamin B-12] 500 mcg PO DAILY 10/06/17 [History] Gabapentin 300 mg PO DAILY 10/06/17 [History] Metformin HCl [Metformin ER Osmotic] 500 mg PO DAILY 10/06/17 [History] Nitroglycerin 0.4 mg Tablet [Nitrostat 0.4 MG Tablet] 0.4 mg PO Q5MIN PRN MR X 3 PRN 10/06/17 [History] Potassium Chloride 20 Meq [Klor-Con 20 MEQ] 20 meq PO DAILY 10/06/17 [History] Vitamin E 400 unit PO DAILY 10/06/17 [History] Hydroxyzine Pamoate [Vistaril] 25 mg PO HS 03/14/18 [History] Ipratropium/Albuterol Sulfate [Combivent Respimat 20-100 Mcg] 4 gm IH BID PRN PRN 03/14/18 [History] Hx Tetanus, Diphtheria Vaccination/Date Given: Yes Hx Influenza Vaccination/Date Given: Yes Hx Pneumococcal Vaccination/Date Given: Yes Immunizations Up to Date: Yes - Review of Systems Constitutional: Fatigue, Lethargy, Malaise Eyes: No Symptoms Ears, Nose, & Throat: No Symptoms Respiratory: Cough, Dyspnea, Wheezing Cardiac: Chest Pain, Edema, Orthopnea Abdominal/Gastrointestinal: No Abdominal Pain, No Nausea, No Vomiting, No Diarrhea Genitourinary Symptoms: No Dysuria Musculoskeletal: Arthralgias, Myalgias (LEs b/l) Skin: Other (venous stasis vs Cellulitis) Neurological: No Dizziness, No Focal Weakness, No Sensory Changes - Past Medical History Pertinent Past Medical History: Yes Neurological History: No Pertinent History ENT History: No Pertinent History Cardiac History: Coronary Artery Disease Respiratory History: COPD Endocrine Medical History: Diabetes Type II Musculoskeletal History: Arthritis GI Medical History: Other History: No Pertinent History Psycho-Social History: No Pertinent History Female Reproductive Disorders: No Pertinent History 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, 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 - Past Surgical History Past Surgical History: Yes Neuro Surgical History: No Pertinent History Cardiac: CABG, Cardiac Stent, Valve Replacement Respiratory: No Pertinent History Musculoskeletal: Orthopedic Surgery Female Surgical History: Hysterectomy - Social History Smoking Status: Former smoker Exposure to second hand smoke: Yes Drug Use: none Patient Lives Alone: Yes - Nursing Vital Signs Nursing Vital Signs: Initial Vital Signs Temperature 99.1 F 03/25/18 21:52 Pulse Rate 101 H 03/25/18 21:52 Respiratory Rate 28 H 03/25/18 21:52 Blood Pressure 108/64 03/25/18 21:52 O2 Sat by Pulse Oximetry 98 03/25/18 21:52 Pain Scale Pain Intensity 10 - Physical Exam General Appearance: severe distress Eye Exam: PERRL/EOMI Ears, Nose, Throat Exam: hearing grossly normal, normal ENT inspection Neck Exam: normal inspection, supple Respiratory Exam: respiratory distress, accessory muscle use, rhonchi, wheezing Cardiovascular/Chest Exam: normal heart sounds, regular rate/rhythm, edema Abdominal/Gastrointestinal Exam: soft, No tenderness, No distention, No mass Extremity Exam: inflammation, pedal edema Neurologic Exam: alert, oriented x 3, cooperative, bacteriology research assistant II-XII nml as tested, sensation nml, No motor deficits Skin Exam: decubitus (sacrum), ecchymosis SpO2 Interpretation: hypoxic, O2 applied SpO2: 96 O2 Delivery: Venti-Mask - Course Nursing assessment & vital signs reviewed: Yes EKG Interpreted by Me: RATE (95bpm), prolonged QT interval, Right Bundle Branch Block Ordered Tests: Active Orders 24 hr Category Date Time Status Oxygen-ED Only Nasal Cannula 3 lpm Care 03/25/18 22:43 Active CHEST WITH CONTRAST [CT] Stat Exams 03/25/18 23:45 Taken ABG [ARTERIAL BLOOD GASES] Stat Lab 03/25/18 23:48 Completed BLOOD CULTURE Stat Lab 03/25/18 23:07 Received CBC W DIFF Stat Lab 03/25/18 23:07 Completed CMP Stat Lab 03/25/18 23:07 Completed CULTURE,URINE Stat Lab 03/26/18 00:00 Received D-DIMER QUANTITATION Stat Lab 03/25/18 23:07 Completed Lactic Acid Stat Lab 03/25/18 22:43 Completed Sputum Culture [CULTURE,SPUTUM] Stat Lab 03/26/18 01:33 Received UA W/RFX UR CULTURE Stat Lab 03/26/18 00:00 Completed Oxygen Oxymask LPM 6% RT 03/26/18 01:39 Active Respiratory Nebulizer STAT RT 03/25/18 22:46 Completed Respiratory Therapy Assessment DAILY RT 03/26/18 01:34 Active Medication Summary Discontinued Medications Generic Name Dose Route Start Last Admin Trade Name Chris PRN Reason Stop Dose Admin Albuterol/Ipratropium 3 ml 03/25/18 22:46 03/26/18 01:16 Duoneb 0.5-3 Mg/3 Ml Neb IH 03/25/18 22:47 3 ml STAT ONE Administration Albuterol/Ipratropium Confirm 03/26/18 01:13 Duoneb 0.5-3 Mg/3 Ml Neb Administered 03/26/18 01:14 Dose 3 ml IH .STK-MED ONE Levofloxacin/Dextrose 750 mg in 150 mls @ 100 mls/hr 03/25/18 22:43 03/25/18 23:03 Levofloxacin 750mg/150ml D5w IV 03/26/18 00:12 100 mls/hr STAT STA 100 mls/hr Administration Levofloxacin/Dextrose Confirm 03/25/18 22:58 Levofloxacin 750mg/150ml D5w Administered 03/25/18 22:59 Dose 750 mg in 150 mls @ ud IV .STK-MED ONE Vancomycin HCl 1 gm in 250 mls @ 167 mls/hr 03/25/18 23:46 03/26/18 01:38 Vancomycin 1gm/ Ns 250ml IV 03/26/18 01:15 167 mls/hr STAT ONE Administration Vancomycin HCl Confirm 03/26/18 01:33 Vancomycin 1gm/ Ns 250ml Administered 03/26/18 01:34 Dose 250 mls @ ud IV .STK-MED ONE Morphine Sulfate 2 mg 03/26/18 00:00 03/26/18 00:57 Morphine Sulfate 2 Mg Inj IV 03/26/18 00:01 2 mg STAT ONE Administration Morphine Sulfate Confirm 03/26/18 00:01 Morphine Sulfate 2 Mg Inj Administered 03/26/18 00:02 Dose 2 mg .ROUTE .STK-MED ONE Lab/Rad Data: Laboratory Result Diagrams 03/25/18 23:07 03/25/18 23:07 Laboratory Results 03/26/18 03/26/18 03/26/18 Range/Units 01:00 01:00 00:00 WBC (4.0-10.5) K/mm3 RBC (4.1-5.4) M/mm3 Hgb (12.0-16.0) gm/dl Hct (35-47) % MCV (78-100) fl MCH (26-32) pg MCHC (32-36) g/dl RDW (11.5-14.0) % Plt Count (150-450) K/mm3 MPV (6-9.5) fl Gran % (36.0-66.0) % Eos # (Auto) (0-0.5) Absolute Lymphs (auto) (1.0-4.6) Absolute Monos (auto) (0.0-1.3) Lymphocytes % (24.0-44.0) % Monocytes % (0.0-12.0) % Eosinophils % (0.00-5.0) % Basophils % (0.0-0.4) % Absolute Granulocytes (1.4-6.9) Basophils # (0-0.4) D-Dimer (215-500) ng/mL Puncture Site RIGHT BRACHIAL pCO2 74 H* (35-45) mmHg pO2 51 L (75-100) mmHg Base Excess 23.2 H (-2.0-2.0) O2 Saturation 87.6 L (94-100) g/dF ABG pH 7.44 (7.35-7.45) ABG HCO3 50.3 H* (22-28) ABG O2 Sat (Measured) 90.8 L (95-100) % Charli Test NOT APPLICABLE A-a Gradient 113 a/A Ratio 0.31 Hemoglobin 8.3 Carboxyhemoglobin 2.5 (0.0-6.9) % THgb Methemoglobin 1.0 L (1.4-1.5) % Temperature 37.0 C POC O2 Flow Rate 36 % Sodium (137-145) mmol/L Potassium 4.3 (3.5-5.1) mmol/L Chloride (98-107) mmol/L Carbon Dioxide (22-30) mmol/L Anion Gap (5-15) MEQ/L BUN (7-17) mg/dL Creatinine (0.52-1.04) mg/dL Estimated GFR ML/MIN Glucose (74-106) mg/dL Lactic Acid 0.5 (0.4-2.0) Calcium (8.4-10.2) mg/dL Total Bilirubin (0.2-1.3) mg/dL AST (14-36) U/L ALT (0-35) U/L Alkaline Phosphatase (38-126) U/L Serum Total Protein (6.3-8.2) g/dL Albumin (3.5-5.0) g/dL Urine Color YELLOW (YELLOW) Urine Appearance CLEAR (CLEAR) Urine pH 8.0 (5-6) Ur Specific Gilman 1.015 (1.005-1.025) Urine Protein NEGATIVE (Negative) Urine Ketones SMALL (NEGATIVE) Urine Blood NEGATIVE (0-5) Paul/ul Urine Nitrite NEGATIVE (NEGATIVE) Urine Bilirubin NEGATIVE (NEGATIVE) Urine Urobilinogen NEGATIVE (0-1) mg/dL Ur Leukocyte Esterase TRACE (NEGATIVE) Urine WBC (Auto) 16-25 (0-5) /HPF Urine RBC (Auto) 0-2 (0-2) /HPF U Hyaline Cast (Auto) 0-2 (0-2) /LPF U Epithel Cells (Auto) RARE (FEW) /HPF Urine Bacteria (Auto) RARE (NEGATIVE) /HPF Other Casts (Auto) NEGATIVE (NEGATIVE) /LPF Urine Mucus (Auto) SLIGHT (NEGATIVE) /HPF Urine Culture Reflexed YES (NO) Urine Glucose NEGATIVE (NEGATIVE) mg/dL Influenza Type A Ag (NEGATIVE) Influenza Type B Ag (NEGATIVE) RSV (PCR) (Negative) Group A Strep Antibody (NEGATIVE) 03/25/18 03/25/18 03/25/18 Range/Units 23:07 23:07 23:07 WBC (4.0-10.5) K/mm3 RBC (4.1-5.4) M/mm3 Hgb (12.0-16.0) gm/dl Hct (35-47) % MCV (78-100) fl MCH (26-32) pg MCHC (32-36) g/dl RDW (11.5-14.0) % Plt Count (150-450) K/mm3 MPV (6-9.5) fl Gran % (36.0-66.0) % Eos # (Auto) (0-0.5) Absolute Lymphs (auto) (1.0-4.6) Absolute Monos (auto) (0.0-1.3) Lymphocytes % (24.0-44.0) % Monocytes % (0.0-12.0) % Eosinophils % (0.00-5.0) % Basophils % (0.0-0.4) % Absolute Granulocytes (1.4-6.9) Basophils # (0-0.4) D-Dimer 783 H* (215-500) ng/mL Puncture Site pCO2 (35-45) mmHg pO2 (75-100) mmHg Base Excess (-2.0-2.0) O2 Saturation (94-100) g/dF ABG pH (7.35-7.45) ABG HCO3 (22-28) ABG O2 Sat (Measured) (95-100) % Charli Test A-a Gradient a/A Ratio Hemoglobin Carboxyhemoglobin (0.0-6.9) % THgb Methemoglobin (1.4-1.5) % Temperature C POC O2 Flow Rate % Sodium 136 L (137-145) mmol/L Potassium 4.8 (3.5-5.1) mmol/L Chloride 84 L (98-107) mmol/L Carbon Dioxide 44 H (22-30) mmol/L Anion Gap 12.8 (5-15) MEQ/L BUN 19 H (7-17) mg/dL Creatinine 0.86 (0.52-1.04) mg/dL Estimated GFR > 60.0 ML/MIN Glucose 72 L (74-106) mg/dL Lactic Acid (0.4-2.0) Calcium 8.7 (8.4-10.2) mg/dL Total Bilirubin 0.60 (0.2-1.3) mg/dL AST 15 (14-36) U/L ALT 14 (0-35) U/L Alkaline Phosphatase 82 (38-126) U/L Serum Total Protein 6.0 L (6.3-8.2) g/dL Albumin 3.0 L (3.5-5.0) g/dL Urine Color (YELLOW) Urine Appearance (CLEAR) Urine pH (5-6) Ur Specific Gilman (1.005-1.025) Urine Protein (Negative) Urine Ketones (NEGATIVE) Urine Blood (0-5) Paul/ul Urine Nitrite (NEGATIVE) Urine Bilirubin (NEGATIVE) Urine Urobilinogen (0-1) mg/dL Ur Leukocyte Esterase (NEGATIVE) Urine WBC (Auto) (0-5) /HPF Urine RBC (Auto) (0-2) /HPF U Hyaline Cast (Auto) (0-2) /LPF U Epithel Cells (Auto) (FEW) /HPF Urine Bacteria (Auto) (NEGATIVE) /HPF Other Casts (Auto) (NEGATIVE) /LPF Urine Mucus (Auto) (NEGATIVE) /HPF Urine Culture Reflexed (NO) Urine Glucose (NEGATIVE) mg/dL Influenza Type A Ag NEGATIVE (NEGATIVE) Influenza Type B Ag NEGATIVE (NEGATIVE) RSV (PCR) NEGATIVE (Negative) Group A Strep Antibody NEGATIVE (NEGATIVE) 03/25/18 Range/Units 23:07 WBC 17.6 H (4.0-10.5) K/mm3 RBC 3.41 L (4.1-5.4) M/mm3 Hgb 8.8 L (12.0-16.0) gm/dl Hct 31.1 L (35-47) % MCV 91.2 (78-100) fl MCH 25.8 L (26-32) pg MCHC 28.3 L (32-36) g/dl RDW 17.7 H (11.5-14.0) % Plt Count 227 (150-450) K/mm3 MPV 9.3 (6-9.5) fl Gran % 87.5 H (36.0-66.0) % Eos # (Auto) 0.11 (0-0.5) Absolute Lymphs (auto) 0.84 L (1.0-4.6) Absolute Monos (auto) 1.24 (0.0-1.3) Lymphocytes % 4.8 L (24.0-44.0) % Monocytes % 7.0 (0.0-12.0) % Eosinophils % 0.6 (0.00-5.0) % Basophils % 0.1 (0.0-0.4) % Absolute Granulocytes 15.39 H (1.4-6.9) Basophils # 0.02 (0-0.4) D-Dimer (215-500) ng/mL Puncture Site pCO2 (35-45) mmHg pO2 (75-100) mmHg Base Excess (-2.0-2.0) O2 Saturation (94-100) g/dF ABG pH (7.35-7.45) ABG HCO3 (22-28) ABG O2 Sat (Measured) (95-100) % Charli Test A-a Gradient a/A Ratio Hemoglobin Carboxyhemoglobin (0.0-6.9) % THgb Methemoglobin (1.4-1.5) % Temperature C POC O2 Flow Rate % Sodium (137-145) mmol/L Potassium (3.5-5.1) mmol/L Chloride (98-107) mmol/L Carbon Dioxide (22-30) mmol/L Anion Gap (5-15) MEQ/L BUN (7-17) mg/dL Creatinine (0.52-1.04) mg/dL Estimated GFR ML/MIN Glucose (74-106) mg/dL Lactic Acid (0.4-2.0) Calcium (8.4-10.2) mg/dL Total Bilirubin (0.2-1.3) mg/dL AST (14-36) U/L ALT (0-35) U/L Alkaline Phosphatase (38-126) U/L Serum Total Protein (6.3-8.2) g/dL Albumin (3.5-5.0) g/dL Urine Color (YELLOW) Urine Appearance (CLEAR) Urine pH (5-6) Ur Specific Gilman (1.005-1.025) Urine Protein (Negative) Urine Ketones (NEGATIVE) Urine Blood (0-5) Paul/ul Urine Nitrite (NEGATIVE) Urine Bilirubin (NEGATIVE) Urine Urobilinogen (0-1) mg/dL Ur Leukocyte Esterase (NEGATIVE) Urine WBC (Auto) (0-5) /HPF Urine RBC (Auto) (0-2) /HPF U Hyaline Cast (Auto) (0-2) /LPF U Epithel Cells (Auto) (FEW) /HPF Urine Bacteria (Auto) (NEGATIVE) /HPF Other Casts (Auto) (NEGATIVE) /LPF Urine Mucus (Auto) (NEGATIVE) /HPF Urine Culture Reflexed (NO) Urine Glucose (NEGATIVE) mg/dL Influenza Type A Ag (NEGATIVE) Influenza Type B Ag (NEGATIVE) RSV (PCR) (Negative) Group A Strep Antibody (NEGATIVE) - Progress Progress: unchanged Air Movement: poor Progress Note: Pt is a 77 y/o female that presented to the ED with exacerbation of her previous PNA. Her labs show hypercapnea, PNA, leukocytosis. She is on a venti mask. Pt did get Levaquin and Vancomycin, as well as a neb treatment. Dr Hess was contacted, and accepted pt as an admit. 03/26/18 02:30 Blood Culture(s) Obtained: Yes Antibiotics given: Yes Discussed with .: Deshawn Will see patient in: hospital (full admit) - Departure Time of Disposition: 02:32 Departure Disposition: In-patient Admission Clinical Impression: HCAP (healthcare-associated pneumonia), Pneumonia Condition: Poor Critical Care Time: No Referrals: ALPHONSE PEREZ MD [Primary Care Provider] - Additional Instructions: Pt will be admitted to tele. Dr Hess accepted.
[2018-03-26] MEDS ORDERED: Vancomycin 1GM/ Ns 250ML*** 250 ML IV ONE (01:33)
[2018-03-26] MEDS ORDERED: Zofran 4 MG/2 ML VIAL IV PRN (02:34)
[2018-03-26] MEDS ORDERED: PHARMACY DOSING REQUIRED: VANCOMYCIN IV ONE (02:34)
[2018-03-26] MEDS ORDERED: MORPHINE SULFATE 2 MG INJ IV PRN (02:34)
[2018-03-26] MEDS ORDERED: solu-MEDROL 125 MG IV SCH (03:00)
[2018-03-26] MEDS: Norco 10/325 MG Tablet PO PRN ×4 (03:25→22:08)
[2018-03-26] MEDS: DUONEB 0.5-3 MG/3 ml Neb IH SCH ×6 (03:39→23:22)
[2018-03-26 06:05] LABS: BASOPHIL % 0.1 % (0.0-0.4); Basophil (Absolute #) 0.02 (0-0.4); Eosinophil % 0.7 % (0.00-5.0); Eosinophil (Absolute #) 0.09 (0-0.5); Granulocyte Absolute (ANC) 11.43 (1.4-6.9); Granulocytes % 83.2 % (36.0-66.0); Hematocrit 32.6 % (35-47); Hemoglobin 9.1 gm/dl (12.0-16.0); Lymphocyte (Absolute #) 1.29 (1.0-4.6); Lymphocytes % 9.4 % (24.0-44.0); Mean Cell Volume 91.8 fl (78-100); Mean Corpuscular Hemoglobin 25.6 pg (26-32); Mean Corpuscular Hgb Concent. 27.9 g/dl (32-36); Mean Platelet Volume 9.3 fl (6-9.5); Monocytes % 6.6 % (0.0-12.0); Platelet Count 241 K/mm3 (150-450); Red Blood Count 3.55 M/mm3 (4.1-5.4); Red Cell Distribution Width 17.5 % (11.5-14.0); White Blood Count 13.7 K/mm3 (4.0-10.5)
[2018-03-26 06:20] LABS: BLOOD UREA NITROGEN 17 mg/dL (7-17); CHLORIDE 84 mmol/L (98-107); Calcium 8.6 mg/dL (8.4-10.2); Creatinine 1 0.85 mg/dL (0.52-1.04); Glucose 63 mg/dL (74-106); Potassium 4.8 mmol/L (3.5-5.1); SODIUM 134 mmol/L (137-145)
[2018-03-26 06:49] LABS: ANION GAP 14.8 MEQ/L (5-15); Carbon Dioxide 42 mmol/L (22-30)
[2018-03-26] MEDS: Advair Hfa 115/21 Common canister IH SCH ×2 (06:54→20:02)
--- NOTE | 2018-03-26 08:59 | PCM.HP ---
History of Present Illness - Chief Complaint Chief Complaint: Shortness of Breath History of Present Illness: is a 77 year old female who was recently admitted and treated for pneumonia, she had improved and went home on oral antibiotics and has gradually worsened. She is coughing with little sputum production, no known fever but progressively more short of breath. aching and has no energy. - Review of Systems Constitutional: No Symptoms Respiratory: Cough, Short Of Breath Cardiac: No Chest Pain, No Edema, No Syncope Abdominal/Gastrointestinal: No Abdominal Pain, No Nausea, No Vomiting, No Diarrhea Musculoskeletal: Arthralgias Skin: No Rash All Other Systems: Reviewed and Negative Medications & Allergies Home Medications: Home Medication List Bumetanide 1 mg [Bumex 1 mg] 1 mg PO DAILY 06/20/14 [History Confirmed ] Fluticasone/Salmeterol [Advair 250-50 Diskus] 1 puff IH BID 06/20/14 [History Confirmed 03/26/18] Multivitamin [Multivitamins] 1 each PO DAILY 06/20/14 [History Confirmed ] Prednisone 10 mg [Deltasone 10 mg] 10 mg PO DAILY 06/20/14 [History Confirmed 03/26/18] Gabapentin 600 mg PO BID 10/05/17 [History Confirmed 03/26/18] Aspirin 81 mg PO DAILY 10/06/17 [History Confirmed 03/26/18] Calcium Carbonate/Vitamin D3 [Calcium 600 + Vit D Caplet] 1 tab PO DAILY [History Confirmed 03/26/18] Clopidogrel Bisulfate [Clopidogrel] 75 mg PO DAILY 10/06/17 [History Confirmed 03/26/18] Cyanocobalamin (Vitamin B-12) [Vitamin B-12] 500 mcg PO DAILY 10/06/17 [History Confirmed 03/26/18] Gabapentin 300 mg PO DAILY 10/06/17 [History Confirmed 03/26/18] Metformin HCl [Metformin ER Osmotic] 500 mg PO DAILY 10/06/17 [History Confirmed 03/26/18] Nitroglycerin 0.4 mg Tablet [Nitrostat 0.4 MG Tablet] 0.4 mg PO Q5MIN PRN MR X 3 PRN 10/06/17 [History Confirmed 03/26/18] Potassium Chloride 20 Meq [Klor-Con 20 MEQ] 20 meq PO DAILY 10/06/17 [History Confirmed 03/26/18] Vitamin E 400 unit PO DAILY 10/06/17 [History Confirmed 03/26/18] Hydrocodone/APAP 10/325 mg [[place] 10/325 MG Tablet] 1 tab PO Q4H PRN PRN # 30 tablet MDD 6 10/16/17 [Rx Confirmed 03/26/18] Hydroxyzine Pamoate [Vistaril] 25 mg PO HS 03/14/18 [History Confirmed 03/26/18] Ipratropium/Albuterol Sulfate [Combivent Respimat 20-100 Mcg] 4 gm IH BID PRN PRN 03/14/18 [History Confirmed 03/26/18] Allergies/Adverse Reactions: Allergies Allergy/AdvReac Type Severity Reaction Status Date / Time Penicillins Allergy Verified 10/05/17 11:23 - Past Medical History Past Medical History: Yes Neurological History: No Pertinent History ENT History: No Pertinent History Cardiac History: Coronary Artery Disease Respiratory History: COPD Endocrine Medical History: Diabetes Type II Musculoskelatal History: Arthritis GI Medical History: Other History: No Pertinent History Pyscho-Social History: No Pertinent History Reproductive Disorders: No Pertinent History Comment: 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, 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 - Female History Are you now?: No - Past Surgical History Past Surgical History: Yes Neuro Surgical History: No Pertinent History Cardiac History: CABG, Cardiac Stent, Valve Replacement Respiratory Surgery: No Pertinent History Genitourinary Surgical Hx: No Pertinent History Musculskeletal Surgical Hx: Orthopedic Surgery Female Surgical History: Hysterectomy Other Surgical History: beverly knees replaced, beverly wrist, beverly ankles, colostomy - Social History Smoking Status: Former smoker Exposure to second hand smoke: Yes Alcohol: None Drug Use: none - Physical Exam Vital Signs: Vital Signs - 24 hr Temp Pulse Resp BP Pulse Ox 03/26/18 08:00 20 03/26/18 07:15 98 F 84 20 122/68 96 03/26/18 07:00 94 H 20 96 03/26/18 03:42 95 H 20 95 03/26/18 03:31 97.9 F 88 18 102/58 95 03/26/18 02:34 96 03/26/18 01:40 84 20 110/57 91 L 03/26/18 01:16 94 H 22 91 L 03/26/18 00:50 90 18 98 03/25/18 23:50 94 H 17 96 03/25/18 23:29 94 H 28 H 93/53 94 L 03/25/18 22:39 97 H 16 96/59 91 L 03/25/18 21:52 99.1 F 101 H 28 H 108/64 94 L Oxygen-Last 24 hours O2 Percentage 50% O2 Percentage 6 Liters = 44% O2 Percentage 4 Liters = 36% O2 Percentage 4 Liters = 36% O2 Percentage 4 Liters = 36% O2 Percentage 4 Liters = 36% O2 Percentage 4 Liters = 36% O2 Percentage 4 Liters = 36% Oxygen Flowrate (L/min)-RT 6 General Appearance: no apparent distress Neurologic Exam: alert, oriented x 3 Respiratory Exam: crackles/rales, rhonchi Cardiovascular Exam: regular rate/rhythm, normal heart sounds, normal peripheral pulses Gastrointestinal/Abdomen Exam: soft, normal bowel sounds, No tenderness, No mass Extremity Exam: swelling (chronic lymphedema, venous stasis changes. no redness) Results - Labs Lab/Micro Results: Lab Results-Last 24 Hours 03/25/18 03/25/18 03/25/18 Range/Units 23:07 23:07 23:07 WBC 17.6 H (4.0-10.5) K/mm3 RBC 3.41 L (4.1-5.4) M/mm3 Hgb 8.8 L (12.0-16.0) gm/dl Hct 31.1 L (35-47) % MCV 91.2 (78-100) fl MCH 25.8 L (26-32) pg MCHC 28.3 L (32-36) g/dl RDW 17.7 H (11.5-14.0) % Plt Count 227 (150-450) K/mm3 MPV 9.3 (6-9.5) fl Gran % 87.5 H (36.0-66.0) % Eos # (Auto) 0.11 (0-0.5) Absolute Lymphs (auto) 0.84 L (1.0-4.6) Absolute Monos (auto) 1.24 (0.0-1.3) Lymphocytes % 4.8 L (24.0-44.0) % Monocytes % 7.0 (0.0-12.0) % Eosinophils % 0.6 (0.00-5.0) % Basophils % 0.1 (0.0-0.4) % Absolute Granulocytes 15.39 H (1.4-6.9) Basophils # 0.02 (0-0.4) D-Dimer (215-500) ng/mL Puncture Site pCO2 (35-45) mmHg pO2 (75-100) mmHg Base Excess (-2.0-2.0) O2 Saturation (94-100) g/dF ABG pH (7.35-7.45) ABG HCO3 (22-28) ABG O2 Sat (Measured) (95-100) % Charli Test A-a Gradient a/A Ratio Hemoglobin Carboxyhemoglobin (0.0-6.9) % THgb Methemoglobin (1.4-1.5) % Temperature C POC O2 Flow Rate % Sodium 136 L (137-145) mmol/L Potassium 4.8 (3.5-5.1) mmol/L Chloride 84 L (98-107) mmol/L Carbon Dioxide 44 H (22-30) mmol/L Anion Gap 12.8 (5-15) MEQ/L BUN 19 H (7-17) mg/dL Creatinine 0.86 (0.52-1.04) mg/dL Estimated GFR > 60.0 ML/MIN Glucose 72 L (74-106) mg/dL Lactic Acid (0.4-2.0) Calcium 8.7 (8.4-10.2) mg/dL Total Bilirubin 0.60 (0.2-1.3) mg/dL AST 15 (14-36) U/L ALT 14 (0-35) U/L Alkaline Phosphatase 82 (38-126) U/L Serum Total Protein 6.0 L (6.3-8.2) g/dL Albumin 3.0 L (3.5-5.0) g/dL Urine Color (YELLOW) Urine Appearance (CLEAR) Urine pH (5-6) Ur Specific [place] (1.005-1.025) Urine Protein (Negative) Urine Ketones (NEGATIVE) Urine Blood (0-5) Paul/ul Urine Nitrite (NEGATIVE) Urine Bilirubin (NEGATIVE) Urine Urobilinogen (0-1) mg/dL Ur Leukocyte Esterase (NEGATIVE) Urine WBC (Auto) (0-5) /HPF Urine RBC (Auto) (0-2) /HPF U Hyaline Cast (Auto) (0-2) /LPF U Epithel Cells (Auto) (FEW) /HPF Urine Bacteria (Auto) (NEGATIVE) /HPF Other Casts (Auto) (NEGATIVE) /LPF Urine Mucus (Auto) (NEGATIVE) /HPF Urine Culture Reflexed (NO) Urine Glucose (NEGATIVE) mg/dL Influenza Type A Ag NEGATIVE (NEGATIVE) Influenza Type B Ag NEGATIVE (NEGATIVE) RSV (PCR) NEGATIVE (Negative) Group A Strep Antibody NEGATIVE (NEGATIVE) Slides for Path Review 03/25/18 03/26/18 03/26/18 Range/Units 23:07 00:00 01:00 WBC (4.0-10.5) K/mm3 RBC (4.1-5.4) M/mm3 Hgb (12.0-16.0) gm/dl Hct (35-47) % MCV (78-100) fl MCH (26-32) pg MCHC (32-36) g/dl RDW (11.5-14.0) % Plt Count (150-450) K/mm3 MPV (6-9.5) fl Gran % (36.0-66.0) % Eos # (Auto) (0-0.5) Absolute Lymphs (auto) (1.0-4.6) Absolute Monos (auto) (0.0-1.3) Lymphocytes % (24.0-44.0) % Monocytes % (0.0-12.0) % Eosinophils % (0.00-5.0) % Basophils % (0.0-0.4) % Absolute Granulocytes (1.4-6.9) Basophils # (0-0.4) D-Dimer 783 H* (215-500) ng/mL Puncture Site pCO2 (35-45) mmHg pO2 (75-100) mmHg Base Excess (-2.0-2.0) O2 Saturation (94-100) g/dF ABG pH (7.35-7.45) ABG HCO3 (22-28) ABG O2 Sat (Measured) (95-100) % Charli Test A-a Gradient a/A Ratio Hemoglobin Carboxyhemoglobin (0.0-6.9) % THgb Methemoglobin (1.4-1.5) % Temperature C POC O2 Flow Rate % Sodium (137-145) mmol/L Potassium (3.5-5.1) mmol/L Chloride (98-107) mmol/L Carbon Dioxide (22-30) mmol/L Anion Gap (5-15) MEQ/L BUN (7-17) mg/dL Creatinine (0.52-1.04) mg/dL Estimated GFR ML/MIN Glucose (74-106) mg/dL Lactic Acid 0.5 (0.4-2.0) Calcium (8.4-10.2) mg/dL Total Bilirubin (0.2-1.3) mg/dL AST (14-36) U/L ALT (0-35) U/L Alkaline Phosphatase (38-126) U/L Serum Total Protein (6.3-8.2) g/dL Albumin (3.5-5.0) g/dL Urine Color YELLOW (YELLOW) Urine Appearance CLEAR (CLEAR) Urine pH 8.0 (5-6) Ur Specific [place] 1.015 (1.005-1.025) Urine Protein NEGATIVE (Negative) Urine Ketones SMALL (NEGATIVE) Urine Blood NEGATIVE (0-5) Paul/ul Urine Nitrite NEGATIVE (NEGATIVE) Urine Bilirubin NEGATIVE (NEGATIVE) Urine Urobilinogen NEGATIVE (0-1) mg/dL Ur Leukocyte Esterase TRACE (NEGATIVE) Urine WBC (Auto) 16-25 (0-5) /HPF Urine RBC (Auto) 0-2 (0-2) /HPF U Hyaline Cast (Auto) 0-2 (0-2) /LPF U Epithel Cells (Auto) RARE (FEW) /HPF Urine Bacteria (Auto) RARE (NEGATIVE) /HPF Other Casts (Auto) NEGATIVE (NEGATIVE) /LPF Urine Mucus (Auto) SLIGHT (NEGATIVE) /HPF Urine Culture Reflexed YES (NO) Urine Glucose NEGATIVE (NEGATIVE) mg/dL Influenza Type A Ag (NEGATIVE) Influenza Type B Ag (NEGATIVE) RSV (PCR) (Negative) Group A Strep Antibody (NEGATIVE) Slides for Path Review 03/26/18 03/26/18 03/26/18 Range/Units 01:00 05:42 05:42 WBC 13.7 H (4.0-10.5) K/mm3 RBC 3.55 L (4.1-5.4) M/mm3 Hgb 9.1 L (12.0-16.0) gm/dl Hct 32.6 L (35-47) % MCV 91.8 (78-100) fl MCH 25.6 L (26-32) pg MCHC 27.9 L (32-36) g/dl RDW 17.5 H (11.5-14.0) % Plt Count 241 (150-450) K/mm3 MPV 9.3 (6-9.5) fl Gran % 83.2 H (36.0-66.0) % Eos # (Auto) 0.09 (0-0.5) Absolute Lymphs (auto) 1.29 (1.0-4.6) Absolute Monos (auto) 0.90 (0.0-1.3) Lymphocytes % 9.4 L (24.0-44.0) % Monocytes % 6.6 (0.0-12.0) % Eosinophils % 0.7 (0.00-5.0) % Basophils % 0.1 (0.0-0.4) % Absolute Granulocytes 11.43 H (1.4-6.9) Basophils # 0.02 (0-0.4) D-Dimer (215-500) ng/mL Puncture Site RIGHT BRACHIAL pCO2 74 H* (35-45) mmHg pO2 51 L (75-100) mmHg Base Excess 23.2 H (-2.0-2.0) O2 Saturation 87.6 L (94-100) g/dF ABG pH 7.44 (7.35-7.45) ABG HCO3 50.3 H* (22-28) ABG O2 Sat (Measured) 90.8 L (95-100) % Charli Test NOT APPLICABLE A-a Gradient 113 a/A Ratio 0.31 Hemoglobin 8.3 Carboxyhemoglobin 2.5 (0.0-6.9) % THgb Methemoglobin 1.0 L (1.4-1.5) % Temperature 37.0 C POC O2 Flow Rate 36 % Sodium 134 L (137-145) mmol/L Potassium 4.3 4.8 (3.5-5.1) mmol/L Chloride 84 L (98-107) mmol/L Carbon Dioxide 42 H (22-30) mmol/L Anion Gap 14.8 (5-15) MEQ/L BUN 17 (7-17) mg/dL Creatinine 0.85 (0.52-1.04) mg/dL Estimated GFR > 60.0 ML/MIN Glucose 63 L (74-106) mg/dL Lactic Acid (0.4-2.0) Calcium 8.6 (8.4-10.2) mg/dL Total Bilirubin (0.2-1.3) mg/dL AST (14-36) U/L ALT (0-35) U/L Alkaline Phosphatase (38-126) U/L Serum Total Protein (6.3-8.2) g/dL Albumin (3.5-5.0) g/dL Urine Color (YELLOW) Urine Appearance (CLEAR) Urine pH (5-6) Ur Specific [place] (1.005-1.025) Urine Protein (Negative) Urine Ketones (NEGATIVE) Urine Blood (0-5) Paul/ul Urine Nitrite (NEGATIVE) Urine Bilirubin (NEGATIVE) Urine Urobilinogen (0-1) mg/dL Ur Leukocyte Esterase (NEGATIVE) Urine WBC (Auto) (0-5) /HPF Urine RBC (Auto) (0-2) /HPF U Hyaline Cast (Auto) (0-2) /LPF U Epithel Cells (Auto) (FEW) /HPF Urine Bacteria (Auto) (NEGATIVE) /HPF Other Casts (Auto) (NEGATIVE) /LPF Urine Mucus (Auto) (NEGATIVE) /HPF Urine Culture Reflexed (NO) Urine Glucose (NEGATIVE) mg/dL Influenza Type A Ag (NEGATIVE) Influenza Type B Ag (NEGATIVE) RSV (PCR) (Negative) Group A Strep Antibody (NEGATIVE) Slides for Path Review - Radiology Impressions Radiology Exams & Impressions: Radiology Procedures Category Date Time Status CHEST WITH CONTRAST [CT] Stat Exams 03/25/18 23:45 Taken - Other Procedures and Tests Respiratory Therapy 03/26/18 01:34 Respiratory Therapy Assessment DAILY 03/26/18 01:39 Oxygen Oxymask LPM 6% 03/26/18 02:34 Oxygen Venti-Mask 35% 03/26/18 06:59 Peak Expiratory Flow Rate ONCE 03/26/18 07:00 Respiratory MDI BID 03/26/18 08:00 RT Screen per Nursing Assess ONCE Assessment/Plan (1) HCAP (healthcare-associated pneumonia) Current Visit: Yes Status: Acute Assessment & Plan: patient with recent admission, will treat with levaquin and vanc at this time, nebs and IV steroids ordered. prognosis is guarded, code status SCO Code(s): J18.9 - PNEUMONIA, UNSPECIFIED ORGANISM (2) Pneumonia Current Visit: Yes Status: Acute Onset Date: ~10/06/17 Qualifiers: Code(s): J18.9 - PNEUMONIA, UNSPECIFIED ORGANISM (3) COPD (chronic obstructive pulmonary disease) Current Visit: No Status: Acute Onset Date: ~10/06/17 (4) Failure of outpatient treatment Current Visit: No Status: Acute Code(s): Z78.9 - OTHER SPECIFIED HEALTH STATUS
--- NOTE | 2018-03-26 09:25 | XRAY ---
Indication: Short of breath. Elevated d-dimer. COPD. Multiple contiguous axial images obtained through the chest using 80 cc Isovue 370 contrast and PE protocol. Comparison: October 06, 2017. There is satisfactory opacification of the pulmonary arteries including lobar and segmental branches. Again no filling defect or pulmonary embolus. Heart is not enlarged again with aortic valve replacement surgery. Aorta remains mildly arteriosclerotic without aneurysm/dissection. Stable chunky subcarinal calcified node. No pathologic mediastinal/hilar lymphadenopathy. Examination of the lung parenchyma demonstrates worsening right mid to lower lung [id number] opacities again favor pneumonitis. Also new small right effusion, medial right middle lobe subsegmental atelectasis, and moderate right base dependent atelectasis. Stable right middle lobe calcified granuloma and left lung fibrosis/scarring. Bony thorax intact again with mild degenerative changes throughout the spine, T12/L1 superior endplate concave deformities, and sternotomy wires. Limited upper abdomen again demonstrates mild fatty liver. Impression: 1. Again negative pulmonary embolus. 2. Worsening right mid to lower lung [id number] opacities again favor pneumonitis. Also new right mid to lower lung subsegmental atelectasis and small right effusion. 3. Again evidence for old granulomatous disease. Comment: Preliminary interpretation was made by [facility]. No discrepancy. CTDI 10.00
[2018-03-26] MEDS ORDERED: Nitrostat 0.4 MG Tablet SL PRN (09:42)
[2018-03-26] MEDS ORDERED: Vancomycin 1GM/ Ns 250ML*** 1 GM/250 ML IVPB IV SCH (10:00)
[2018-03-26] MEDS ORDERED: NEURONTIN 300 MG PO SCH ×2 (10:00)
[2018-03-26] MEDS ORDERED: NON-FORMULARY ITEM (Potassium Chloride 20 Meq [Klor-Con 20 Meq] 20 MEQ) PO SCH (10:00)
[2018-03-26] MEDS: VANCOCIN 500 MG VIAL*** 500 MG in Sodium Chloride 100ML MINI-BAG PLUS 100 ML IV SCH ×2 (10:08→21:08)
[2018-03-26] MEDS: ECOTRIN 81 MG PO SCH (11:54)
[2018-03-26] MEDS: Klor Con 10 MEQ PO SCH (11:54)
[2018-03-26] MEDS: PLAVIX 75 MG Tablet PO SCH (11:54)
[2018-03-26] MEDS: BUMEX 1 MG PO SCH (11:54)
[2018-03-26] MEDS: ENOXAPARIN SODIUM SQ SCH (11:55)
[2018-03-26] MEDS: solu-MEDROL 125 MG IV SCH ×3 (11:55→23:11)
[2018-03-26] MEDS: NovoLOG Insulin SQ PRN ×2 (16:32→21:09)
[2018-03-26] MEDS: NEURONTIN 300 MG PO SCH ×2 (16:33→21:08)
[2018-03-26] MEDS ORDERED: NovoLOG Insulin SQ PRN (17:00)
[2018-03-26] MEDS: Levofloxacin 500MG/100ML D5W 500 MG/100 ML BAG IV SCH (22:08)
[2018-03-27] MEDS: DUONEB 0.5-3 MG/3 ml Neb IH SCH ×6 (03:31→23:51)
[2018-03-27] MEDS: solu-MEDROL 125 MG IV SCH ×4 (05:08→23:45)
[2018-03-27 05:16] LABS: Hematocrit 30.1 % (35-47); Hemoglobin 8.6 gm/dl (12.0-16.0); Mean Cell Volume 90.1 fl (78-100); Mean Corpuscular Hemoglobin 25.7 pg (26-32); Mean Corpuscular Hgb Concent. 28.6 g/dl (32-36); Mean Platelet Volume 9.6 fl (6-9.5); Platelet Count 247 K/mm3 (150-450); Red Blood Count 3.34 M/mm3 (4.1-5.4); Red Cell Distribution Width 17.4 % (11.5-14.0); White Blood Count 16.1 K/mm3 (4.0-10.5)
[2018-03-27 05:17] LABS: BASOPHIL % 0.1 % (0.0-0.4); Basophil (Absolute #) 0.02 (0-0.4); Eosinophil (Absolute #) 0 (0-0.5); Granulocyte Absolute (ANC) 15.66 (1.4-6.9); Granulocytes % 97.2 % (36.0-66.0); Lymphocyte (Absolute #) 0.26 (1.0-4.6); Lymphocytes % 1.6 % (24.0-44.0); Monocyte (Absolute #) 0.18 (0.0-1.3); Monocytes % 1.1 % (0.0-12.0)
[2018-03-27 05:40] LABS: ALBUMIN 3.2 g/dL (3.5-5.0); ALKALINE PHOSPHATASE 84 U/L (38-126); BLOOD UREA NITROGEN 19 mg/dL (7-17); CHLORIDE 86 mmol/L (98-107); Calcium 8.5 mg/dL (8.4-10.2); Creatinine 1 0.84 mg/dL (0.52-1.04); Glucose 161 mg/dL (74-106); Potassium 4.7 mmol/L (3.5-5.1); SGOT/AST 14 U/L (14-36); SGPT/ALT 15 U/L (0-35); SODIUM 137 mmol/L (137-145); Total Protein 6.3 g/dL (6.3-8.2)
[2018-03-27 05:47] LABS: ANION GAP 13.7 MEQ/L (5-15); Carbon Dioxide 42 mmol/L (22-30)
[2018-03-27 07:35] LABS: Slide Review 1 YES
[2018-03-27] MEDS: Norco 10/325 MG Tablet PO PRN ×4 (08:19→23:46)
[2018-03-27] MEDS: Advair Hfa 115/21 Common canister IH SCH ×2 (08:36→20:25)
[2018-03-27] MEDS: ECOTRIN 81 MG PO SCH (10:05)
[2018-03-27] MEDS: BUMEX 1 MG PO SCH (10:05)
[2018-03-27] MEDS: Klor Con 10 MEQ PO SCH (10:05)
[2018-03-27] MEDS: NEURONTIN 300 MG PO SCH ×3 (10:05→21:34)
[2018-03-27] MEDS: PLAVIX 75 MG Tablet PO SCH ×2 (10:06→10:45)
[2018-03-27] MEDS: ENOXAPARIN SODIUM SQ SCH (10:45)
[2018-03-27] MEDS: VANCOCIN 500 MG VIAL*** 500 MG in Sodium Chloride 100ML MINI-BAG PLUS 100 ML IV SCH ×2 (11:19→21:34)
[2018-03-27] MEDS: NovoLOG Insulin SQ PRN ×2 (12:10→23:46)
--- NOTE | 2018-03-27 15:07 | PCM.NOTE ---
Date and Time: 03/27/18 1501 Subjective Assessment: Pt states she is doing "terrible - I still have this croupy cough" but states her breathing is OK. Appetite is decreased but tolerating po. Still has leg pain, this is chronic, but it is somewhat better. She does NOT want to be on a low salt diet. Objective Exam General Appearance: no apparent distress, alert Neurologic Exam: oriented x 3, cooperative Skin Exam: warm, dry, No rash Respiratory Exam: diminished breath sounds (fair air exchange), rhonchi ( throughout), No crackles/rales, No wheezing Cardiovascular Exam: regular rate/rhythm, normal heart sounds, No murmur Gastrointestinal/Abdomen Exam: soft, normal bowel sounds, No tenderness, No distention, No mass, No guarding, No rebound Extremity Exam: swelling (bilat LE edema - 2+ on L, 1+ on R. there is erythema of the mid lower legs bilat but sparing the feet.) OBJECTIVE DATA Vital Signs: Vital Signs - 24 hr Temp Pulse Resp BP Pulse Ox 03/27/18 12:12 90 18 91 L 03/27/18 11:43 98.4 F 91 H 18 91/52 91 L 03/27/18 08:43 101 H 18 93 L 03/27/18 08:00 97.8 F 78 19 122/58 90 L 03/27/18 04:00 97.7 F 87 20 131/61 91 L 03/27/18 03:36 72 18 87 L 03/27/18 00:09 98.6 F 84 18 125/61 93 L 03/27/18 00:00 18 03/26/18 23:00 84 18 88 L 03/26/18 20:15 87 18 94 L 03/26/18 20:00 18 03/26/18 19:15 98.9 F 85 20 101/58 94 L 03/26/18 16:24 98 F 97 H 20 98/52 91 L 03/26/18 16:00 20 Oxygen-Last 24 hours O2 Percentage 6 Liters = 44% O2 Percentage 6 Liters = 44% O2 Percentage 6 Liters = 44% O2 Percentage 6 Liters = 44% O2 Percentage 6 Liters = 44% O2 Percentage 50% Pain Assessment - Last Documented Pain Intensity 6 Pain Scale Used 0-10 Pain Scale Intake and Output: Intake & Output 0203/26/18 03/27/18 03/28/18 11:59 11:59 11:59 11:59 Intake Total 510 1580 240 Output Total 1800 300 Balance 510 -220 -60 Weight 56.8 kg Lab Results: Accuchecks Date 03/26/18 Date 03/26/18 Time 21:30 Time 16:30 Accucheck Value: 323 Accucheck Value: 290 Accucheck Value: 268 Lab Results-Last 24 Hours 03/27/18 03/27/18 Range/Units 05:00 05:00 WBC 16.1 H (4.0-10.5) K/mm3 RBC 3.34 L (4.1-5.4) M/mm3 Hgb 8.6 L (12.0-16.0) gm/dl Hct 30.1 L (35-47) % MCV 90.1 (78-100) fl MCH 25.7 L (26-32) pg MCHC 28.6 L (32-36) g/dl RDW 17.4 H (11.5-14.0) % Plt Count 247 (150-450) K/mm3 MPV 9.6 H (6-9.5) fl Gran % 97.2 H (36.0-66.0) % Eos # (Auto) 0 (0-0.5) Absolute Lymphs (auto) 0.26 L (1.0-4.6) Absolute Monos (auto) 0.18 (0.0-1.3) Lymphocytes % 1.6 L (24.0-44.0) % Monocytes % 1.1 (0.0-12.0) % Eosinophils % 0.0 (0.00-5.0) % Basophils % 0.1 (0.0-0.4) % Absolute Granulocytes 15.66 H (1.4-6.9) Basophils # 0.02 (0-0.4) Sodium 137 (137-145) mmol/L Potassium 4.7 (3.5-5.1) mmol/L Chloride 86 L (98-107) mmol/L Carbon Dioxide 42 H (22-30) mmol/L Anion Gap 13.7 (5-15) MEQ/L BUN 19 H (7-17) mg/dL Creatinine 0.84 (0.52-1.04) mg/dL Estimated GFR > 60.0 ML/MIN Glucose 161 H (74-106) mg/dL Calcium 8.5 (8.4-10.2) mg/dL Total Bilirubin 0.30 (0.2-1.3) mg/dL AST 14 (14-36) U/L ALT 15 (0-35) U/L Alkaline Phosphatase 84 (38-126) U/L Serum Total Protein 6.3 (6.3-8.2) g/dL Albumin 3.2 L (3.5-5.0) g/dL Slides for Path Review YES Radiology Exams: Radiology Procedures Category Date Time Status CHEST WITH CONTRAST [CT] Stat Exams 03/25/18 23:45 Completed Assessment/Plan (1) HCAP (healthcare-associated pneumonia) Current Visit: Yes Status: Acute Assessment & Plan: On IV vancomycin and levaquin, day #3. Also on solumedrol IV 80mg q6h - will not change currently as her lung exam is still only fair. Code(s): J18.9 - PNEUMONIA, UNSPECIFIED ORGANISM (2) COPD (chronic obstructive pulmonary disease) Current Visit: No Status: Acute Onset Date: ~10/06/17 Qualifiers: COPD type: unspecified COPD Qualified Code(s): J44.9 - Chronic obstructive pulmonary disease, unspecified (3) Lymphedema Current Visit: No Status: Chronic Code(s): I89.0 - LYMPHEDEMA, NOT ELSEWHERE CLASSIFIED (4) Leg pain Current Visit: Yes Status: Acute Qualifiers: Laterality: bilateral Qualified Code(s): M79.604 - Pain in right leg; M79.605 - Pain in left leg Assessment & Plan: In light of her recent elevated d-dimer, will go ahead and check u/s veins on legs bilat to r/o DVT.
[2018-03-27] MEDS: Levofloxacin 500MG/100ML D5W 500 MG/100 ML BAG IV SCH (22:44)
--- NOTE | 2018-03-28 00:13 | XRAY ---
Indication: Bilateral leg pain. Swelling. Elevated d-dimer. Two-dimensional sonogram and color Doppler imaging of the major venous vessels of the left and right leg was performed. Comparison: October 06, 2017. No thrombus seen in the examined deep venous vessels of the left and right leg including greater saphenous veins. Veins demonstrate normal compressibility. Venous waveforms are normal with and without augmentation. Incidental new 2.0 x 1.1 x 1.4 cm curvilinear right Yang's cyst. Impression: Left and right legs again negative for DVT. Incidental new right Yang cyst. Comment: Preliminary report was given.
[2018-03-28] MEDS: DUONEB 0.5-3 MG/3 ml Neb IH SCH ×6 (03:26→23:37)
[2018-03-28] MEDS: Norco 10/325 MG Tablet PO PRN ×5 (03:53→23:35)
[2018-03-28] MEDS: solu-MEDROL 125 MG IV SCH ×4 (05:56→23:34)
[2018-03-28] MEDS: Advair Hfa 115/21 Common canister IH SCH ×2 (07:21→19:09)
[2018-03-28] MEDS ORDERED: TROUGH DRUG LEVELS IJ ONE (09:30)
[2018-03-28 09:56] LABS: Hematocrit 30.1 % (35-47); Hemoglobin 8.5 gm/dl (12.0-16.0); Mean Cell Volume 90.7 fl (78-100); Mean Corpuscular Hemoglobin 25.6 pg (26-32); Mean Corpuscular Hgb Concent. 28.2 g/dl (32-36); Platelet Count 280 K/mm3 (150-450); Red Blood Count 3.32 M/mm3 (4.1-5.4); Red Cell Distribution Width 17.7 % (11.5-14.0); White Blood Count 21.4 K/mm3 (4.0-10.5)
[2018-03-28 10:03] LABS: BLOOD UREA NITROGEN 23 mg/dL (7-17); CHLORIDE 89 mmol/L (98-107); Calcium 8.6 mg/dL (8.4-10.2); Glucose 216 mg/dL (74-106); Potassium 4.4 mmol/L (3.5-5.1); SODIUM 138 mmol/L (137-145)
[2018-03-28 10:09] LABS: Carbon Dioxide 39 mmol/L (22-30)
[2018-03-28 10:14] LABS: ANION GAP 14.4 MEQ/L (5-15)
[2018-03-28] MEDS: ECOTRIN 81 MG PO SCH (10:15)
[2018-03-28] MEDS: NEURONTIN 300 MG PO SCH ×3 (10:15→21:46)
[2018-03-28] MEDS: PLAVIX 75 MG Tablet PO SCH (10:15)
[2018-03-28] MEDS: Klor Con 10 MEQ PO SCH (10:15)
[2018-03-28] MEDS: BUMEX 1 MG PO SCH (10:15)
[2018-03-28] MEDS: ENOXAPARIN SODIUM SQ SCH (10:15)
[2018-03-28 11:27] LABS: BAND 7 % (0.0-2.0); Lymphocytes 1 % (24-44); Monocyte 1 % (0.0-12.0); Neutrophils 91 % (36.0-66.0); Platelet Estimate NORMAL (NORMAL); Total Cells Counted 100
[2018-03-28 11:28] LABS: Hypochromia 2+; Polychromasia 1+; Toxic Granulation 1+
[2018-03-28] MEDS: VANCOCIN 500 MG VIAL*** 500 MG in Sodium Chloride 100ML MINI-BAG PLUS 100 ML IV SCH (11:50)
[2018-03-28] MEDS: NovoLOG Insulin SQ PRN (11:52)
--- NOTE | 2018-03-28 12:50 | PCM.NOTE ---
Date and Time: 03/28/18 1246 Subjective Assessment: Pt's sputum culture returned E. coli, susceptible to rocephin, resistant to levaquin. She is feeling somewhat better, using her flutter falve, coughing up a lot of sputum. Her O2 was just decreased from 6L NC to 5L NC. She is tolerating po. Her IV is leaking from her L arm. - Review of Systems Constitutional: No Fever Respiratory: Cough, Short Of Breath Objective Exam General Appearance: no apparent distress, alert, thin Neurologic Exam: oriented x 3, cooperative Skin Exam: normal color, warm, dry, No rash Respiratory Exam: diminished breath sounds (poor air exchange), rhonchi (mild, scattered), No crackles/rales, No wheezing Cardiovascular Exam: regular rate/rhythm, normal heart sounds, No murmur Gastrointestinal/Abdomen Exam: soft, normal bowel sounds, No tenderness, No distention, No mass, No guarding, No rebound Extremity Exam: pedal edema, swelling (bilat. legs covered in lotion bilat.) Back Exam: normal inspection, No rash OBJECTIVE DATA Vital Signs: Vital Signs - 24 hr Temp Pulse Resp BP Pulse Ox 03/28/18 11:58 18 03/28/18 11:34 98.0 F 87 18 104/54 98 03/28/18 10:45 79 20 98 03/28/18 08:00 16 03/28/18 07:59 78 16 95 03/28/18 07:35 97.7 F 74 18 122/58 93 L 03/28/18 04:11 97.6 F 94 H 18 127/62 98 03/28/18 04:00 18 03/28/18 03:27 81 18 98 03/28/18 00:15 97.7 F 77 18 103/51 99 03/28/18 00:00 18 03/27/18 23:51 77 18 99 03/27/18 20:27 82 18 95 03/27/18 20:00 98.5 F 93 H 18 116/57 95 03/27/18 16:00 97.9 F 87 18 112/57 90 L 03/27/18 15:53 88 18 91 L Oxygen-Last 24 hours O2 Percentage 6 Liters = 44% O2 Percentage 6 Liters = 44% O2 Percentage 6 Liters = 44% O2 Percentage 6 Liters = 44% O2 Percentage 6 Liters = 44% O2 Percentage 6 Liters = 44% Pain Assessment - Last Documented Pain Intensity 3 Pain Scale Used 0-10 Pain Scale Intake and Output: Intake & Output 03/26/18 03/27/18 03/28/18 03/29/18 11:59 11:59 11:59 11:59 Intake Total 510 1580 1870 Output Total 1800 1250 Balance 510 -220 620 Weight 56.8 kg Lab Results: Accuchecks Date 03/28/18 Date 03/28/18 Date 03/27/18 Time 11:30 Time 07:30 Time 22:00 Accucheck Value: 229 Accucheck Value: 187 Accucheck Value: 275 Accucheck Value: 147 Lab Results-Last 24 Hours 03/28/18 03/28/18 03/28/18 Range/Units 09:30 09:30 09:30 WBC 21.4 H (4.0-10.5) K/mm3 RBC 3.32 L (4.1-5.4) M/mm3 Hgb 8.5 L (12.0-16.0) gm/dl Hct 30.1 L (35-47) % MCV 90.7 (78-100) fl MCH 25.6 L (26-32) pg MCHC 28.2 L (32-36) g/dl RDW 17.7 H (11.5-14.0) % Plt Count 280 (150-450) K/mm3 MPV 10.0 H (6-9.5) fl Segmented Neutrophils 91 H (36.0-66.0) % Band Neutrophils 7 H (0.0-2.0) % Lymphocytes (Manual) 1 L (24-44) % Monocytes (Manual) 1 (0.0-12.0) % Hypochromia 2+ Toxic Granulation 1+ Platelet Estimate NORMAL (NORMAL) RBC Morphology ABNORMAL Polychromasia 1+ Sodium 138 (137-145) mmol/L Potassium 4.4 (3.5-5.1) mmol/L Chloride 89 L (98-107) mmol/L Carbon Dioxide 39 H (22-30) mmol/L Anion Gap 14.4 (5-15) MEQ/L BUN 23 H (7-17) mg/dL Creatinine 0.80 (0.52-1.04) mg/dL Estimated GFR > 60.0 ML/MIN Glucose 216 H (74-106) mg/dL Calcium 8.6 (8.4-10.2) mg/dL Vancomycin Trough 13.36 (10-20) ug/mL Radiology Exams: Radiology Procedures Category Date Time Status CHEST 2 VIEWS (PA AND LAT) Routine Exams 03/28/18 Ordered VENOUS BILATERAL EXTREMITY [US] Stat Exams 03/27/18 17:09 Completed Assessment/Plan (1) HCAP (healthcare-associated pneumonia) Current Visit: Yes Status: Acute Assessment & Plan: She was empirically on IV vancomycin and levaquin, day #4, but after sputum culture results I have discontinued those and started IV rocephin. Will leave her on current dose of steroid for now, IV solumedrol 80mg q6h. She is being tried on 5L [place] O2 instead of 6L. Her home O2 is 4L [place]. Code(s): J18.9 - PNEUMONIA, UNSPECIFIED ORGANISM (2) COPD (chronic obstructive pulmonary disease) Current Visit: No Status: Chronic Onset Date: ~10/06/17 Qualifiers: COPD type: unspecified COPD Qualified Code(s): J44.9 - Chronic obstructive pulmonary disease, unspecified (3) Lymphedema Current Visit: No Status: Chronic Code(s): I89.0 - LYMPHEDEMA, NOT ELSEWHERE CLASSIFIED (4) Leg pain Current Visit: Yes Status: Chronic Qualifiers: Laterality: bilateral Qualified Code(s): M79.604 - Pain in right leg; M79.605 - Pain in left leg
[2018-03-28] MEDS: ROCEPHIN 1 Gm-D5w 50 ml Bag** 1 G/50 ML IVPB IV SCH (15:15)
[2018-03-29] MEDS: DUONEB 0.5-3 MG/3 ml Neb IH SCH ×6 (03:47→23:12)
[2018-03-29] MEDS: Norco 10/325 MG Tablet PO PRN ×5 (03:48→23:48)
[2018-03-29] MEDS: solu-MEDROL 125 MG IV SCH (05:32)
[2018-03-29 06:03] LABS: Basophil (Absolute #) 0 (0-0.4); Eosinophil (Absolute #) 0 (0-0.5); Granulocyte Absolute (ANC) 15.31 (1.4-6.9); Hematocrit 25.9 % (35-47); Lymphocyte (Absolute #) 0.15 (1.0-4.6); Mean Cell Volume 90.2 fl (78-100); Mean Corpuscular Hgb Concent. 28.6 g/dl (32-36); Mean Platelet Volume 9.9 fl (6-9.5); Monocyte (Absolute #) 0.31 (0.0-1.3); Platelet Count 247 K/mm3 (150-450); Red Blood Count 2.87 M/mm3 (4.1-5.4); White Blood Count 15.8 K/mm3 (4.0-10.5)
[2018-03-29 06:15] LABS: BLOOD UREA NITROGEN 25 mg/dL (7-17); CHLORIDE 93 mmol/L (98-107); Calcium 8.1 mg/dL (8.4-10.2); Creatinine 1 0.69 mg/dL (0.52-1.04); Glucose 161 mg/dL (74-106); Potassium 4.1 mmol/L (3.5-5.1); SODIUM 139 mmol/L (137-145)
[2018-03-29 06:31] LABS: Carbon Dioxide 42 mmol/L (22-30)
[2018-03-29 06:32] LABS: ANION GAP 8.1 MEQ/L (5-15)
[2018-03-29 06:33] LABS: Mean Corpuscular Hemoglobin 25.7 pg (26-32)
[2018-03-29 06:34] LABS: Hemoglobin 7.4 gm/dl (12.0-16.0)
[2018-03-29] MEDS: Advair Hfa 115/21 Common canister IH SCH ×2 (07:27→18:59)
[2018-03-29 07:41] LABS: Slide Review 1 YES
--- NOTE | 2018-03-29 08:39 | XRAY ---
Indication: Follow-up pneumonia. Comparison: March 14, 2018. Portable chest demonstrates mild improvement of the previous right base infiltrate/atelectasis again with small effusion. Remaining heart and left lung unremarkable with stable mediastinal calcified nodes and cardiothoracic surgery.
--- NOTE | 2018-03-29 09:01 | PCM.NOTE ---
Date and Time: 03/29/18 08 Subjective Assessment: patient feeling better, leg pain improving. she is less short of breath and has had some decrease in oxygen requirement. Objective Exam General Appearance: no apparent distress, alert Skin Exam: normal color, warm, dry Respiratory Exam: rhonchi Cardiovascular Exam: regular rate/rhythm, normal heart sounds Gastrointestinal/Abdomen Exam: soft, No tenderness, No mass Extremity Exam: normal inspection, normal range of motion OBJECTIVE DATA Vital Signs: Vital Signs - 24 hr Temp Pulse Resp BP Pulse Ox 03/29/18 07:57 97.8 F 93 H 20 97/54 90 L 03/29/18 07:28 88 20 90 L 03/29/18 04:20 98.0 F 86 20 129/62 96 03/29/18 04:00 20 03/29/18 03:49 87 20 96 03/28/18 23:52 98.5 F 85 19 112/55 92 L 03/28/18 23:38 85 19 92 L 03/28/18 23:30 19 03/28/18 20:00 98.1 F 81 18 121/66 92 L 03/28/18 19:11 81 18 92 L 03/28/18 16:00 98.4 F 83 18 119/56 93 L 03/28/18 15:45 54 L 20 98 03/28/18 11:58 18 03/28/18 11:34 98.0 F 87 18 104/54 98 03/28/18 10:45 79 20 98 Oxygen-Last 24 hours O2 Percentage 4 Liters = 36% O2 Percentage 4 Liters = 36% O2 Percentage 4 Liters = 36% O2 Percentage 4 Liters = 36% O2 Percentage 6 Liters = 44% Oxygen Flowrate (L/min)-RT 4 Pain Assessment - Last Documented Pain Intensity 9 Pain Scale Used 0-10 Pain Scale Intake and Output: Intake & Output 03/26/18 03/27/18 03/28/18 03/29/18 11:59 11:59 11:59 11:59 Intake Total 510 1580 1870 1010 Output Total 1800 1250 1050 Balance 510 -220 620 -40 Weight 56.8 kg Lab Results: Accuchecks Date 03/28/18 Date 03/28/18 Date 03/28/18 Time 21:00 Time 16:30 Time 11:30 Accucheck Value: 223 Accucheck Value: 182 Accucheck Value: 229 Lab Results-Last 24 Hours 03/28/18 03/28/18 03/28/18 Range/Units 09:30 09:30 09:30 WBC 21.4 H (4.0-10.5) K/mm3 RBC 3.32 L (4.1-5.4) M/mm3 Hgb 8.5 L (12.0-16.0) gm/dl Hct 30.1 L (35-47) % MCV 90.7 (78-100) fl MCH 25.6 L (26-32) pg MCHC 28.2 L (32-36) g/dl RDW 17.7 H (11.5-14.0) % Plt Count 280 (150-450) K/mm3 MPV 10.0 H (6-9.5) fl Gran % (36.0-66.0) % Eos # (Auto) (0-0.5) Absolute Lymphs (auto) (1.0-4.6) Absolute Monos (auto) (0.0-1.3) Lymphocytes % (24.0-44.0) % Monocytes % (0.0-12.0) % Eosinophils % (0.00-5.0) % Basophils % (0.0-0.4) % Absolute Granulocytes (1.4-6.9) Segmented Neutrophils 91 H (36.0-66.0) % Band Neutrophils 7 H (0.0-2.0) % Lymphocytes (Manual) 1 L (24-44) % Monocytes (Manual) 1 (0.0-12.0) % Basophils # (0-0.4) Hypochromia 2+ Toxic Granulation 1+ Platelet Estimate NORMAL (NORMAL) RBC Morphology ABNORMAL Polychromasia 1+ Sodium 138 (137-145) mmol/L Potassium 4.4 (3.5-5.1) mmol/L Chloride 89 L (98-107) mmol/L Carbon Dioxide 39 H (22-30) mmol/L Anion Gap 14.4 (5-15) MEQ/L BUN 23 H (7-17) mg/dL Creatinine 0.80 (0.52-1.04) mg/dL Estimated GFR > 60.0 ML/MIN Glucose 216 H (74-106) mg/dL Calcium 8.6 (8.4-10.2) mg/dL Vancomycin Trough 13.36 (10-20) ug/mL Slides for Path Review 03/29/18 03/29/18 Range/Units 05:27 05:27 WBC 15.8 H (4.0-10.5) K/mm3 RBC 2.87 L (4.1-5.4) M/mm3 Hgb 7.4 L (12.0-16.0) gm/dl Hct 25.9 L (35-47) % MCV 90.2 (78-100) fl MCH 25.7 L (26-32) pg MCHC 28.6 L (32-36) g/dl RDW 18.0 H (11.5-14.0) % Plt Count 247 (150-450) K/mm3 MPV 9.9 H (6-9.5) fl Gran % 97.0 H (36.0-66.0) % Eos # (Auto) 0 (0-0.5) Absolute Lymphs (auto) 0.15 L (1.0-4.6) Absolute Monos (auto) 0.31 (0.0-1.3) Lymphocytes % 1.0 L (24.0-44.0) % Monocytes % 2.0 (0.0-12.0) % Eosinophils % 0.0 (0.00-5.0) % Basophils % 0.0 (0.0-0.4) % Absolute Granulocytes 15.31 H (1.4-6.9) Segmented Neutrophils (36.0-66.0) % Band Neutrophils (0.0-2.0) % Lymphocytes (Manual) (24-44) % Monocytes (Manual) (0.0-12.0) % Basophils # 0 (0-0.4) Hypochromia Toxic Granulation Platelet Estimate (NORMAL) RBC Morphology Polychromasia Sodium 139 (137-145) mmol/L Potassium 4.1 (3.5-5.1) mmol/L Chloride 93 L (98-107) mmol/L Carbon Dioxide 42 H (22-30) mmol/L Anion Gap 8.1 (5-15) MEQ/L BUN 25 H (7-17) mg/dL Creatinine 0.69 (0.52-1.04) mg/dL Estimated GFR > 60.0 ML/MIN Glucose 161 H (74-106) mg/dL Calcium 8.1 L (8.4-10.2) mg/dL Vancomycin Trough (10-20) ug/mL Slides for Path Review YES Radiology Exams: Radiology Procedures Category Date Time Status CHEST 2 VIEWS (PA AND LAT) Routine Exams 03/28/18 14:35 Completed VENOUS BILATERAL EXTREMITY [US] Stat Exams 03/27/18 17:09 Completed Assessment/Plan (1) HCAP (healthcare-associated pneumonia) Current Visit: Yes Status: Acute Assessment & Plan: sputum e coli, on rocephin Code(s): J18.9 - PNEUMONIA, UNSPECIFIED ORGANISM (2) Pneumonia Current Visit: Yes Status: Acute Onset Date: ~10/06/17 Qualifiers: Assessment & Plan: improving, continue current management Code(s): J18.9 - PNEUMONIA, UNSPECIFIED ORGANISM (3) COPD (chronic obstructive pulmonary disease) Current Visit: No Status: Chronic Onset Date: ~10/06/17 Qualifiers: COPD type: unspecified COPD Qualified Code(s): J44.9 - Chronic obstructive pulmonary disease, unspecified (4) Failure of outpatient treatment Current Visit: No Status: Acute Code(s): Z78.9 - OTHER SPECIFIED HEALTH STATUS
[2018-03-29] MEDS: ENOXAPARIN SODIUM SQ SCH (09:17)
[2018-03-29] MEDS: PLAVIX 75 MG Tablet PO SCH (09:18)
[2018-03-29] MEDS: Klor Con 10 MEQ PO SCH (09:18)
[2018-03-29] MEDS: BUMEX 1 MG PO SCH (09:18)
[2018-03-29] MEDS: ECOTRIN 81 MG PO SCH (09:18)
[2018-03-29] MEDS: NEURONTIN 300 MG PO SCH ×3 (09:18→21:01)
[2018-03-29] MEDS: ROCEPHIN 1 Gm-D5w 50 ml Bag** 1 G/50 ML IVPB IV SCH (11:25)
[2018-03-29] MEDS: solu-MEDROL 40 MG IV SCH ×4 (11:37→23:48)
[2018-03-29] MEDS: NovoLOG Insulin SQ PRN (11:37)
[2018-03-30] MEDS: DUONEB 0.5-3 MG/3 ml Neb IH SCH ×6 (03:14→23:32)
[2018-03-30] MEDS: Norco 10/325 MG Tablet PO PRN ×4 (04:12→20:02)
[2018-03-30] MEDS: solu-MEDROL 40 MG IV SCH ×3 (05:58→18:04)
[2018-03-30 06:10] LABS: Hematocrit 27.1 % (35-47); Hemoglobin 7.7 gm/dl (12.0-16.0); Mean Corpuscular Hgb Concent. 28.4 g/dl (32-36); Mean Platelet Volume 9.7 fl (6-9.5); Platelet Count 246 K/mm3 (150-450); Red Blood Count 3.01 M/mm3 (4.1-5.4); Red Cell Distribution Width 18.4 % (11.5-14.0); White Blood Count 12.6 K/mm3 (4.0-10.5)
[2018-03-30 06:13] LABS: Mean Corpuscular Hemoglobin 25.5 pg (26-32)
[2018-03-30] MEDS: Advair Hfa 115/21 Common canister IH SCH ×2 (06:32→18:46)
[2018-03-30 06:34] LABS: ALBUMIN 2.8 g/dL (3.5-5.0); ALKALINE PHOSPHATASE 58 U/L (38-126); BLOOD UREA NITROGEN 28 mg/dL (7-17); CHLORIDE 93 mmol/L (98-107); Glucose 149 mg/dL (74-106); Potassium 4.4 mmol/L (3.5-5.1); SGOT/AST 17 U/L (14-36); SGPT/ALT 17 U/L (0-35); SODIUM 137 mmol/L (137-145); Total Protein 5.3 g/dL (6.3-8.2)
[2018-03-30 07:05] LABS: Carbon Dioxide 41 mmol/L (22-30)
[2018-03-30 07:06] LABS: ANION GAP 7.4 MEQ/L (5-15)
[2018-03-30 07:22] LABS: ANISOCYTOSIS 1+; BAND 2 % (0.0-2.0); Hypochromia 1+; Lymphocytes 2 % (24-44); Neutrophils 96 % (36.0-66.0); Platelet Estimate NORMAL (NORMAL); Total Cells Counted 100; Toxic Granulation 2+
--- NOTE | 2018-03-30 09:22 | PCM.NOTE ---
Date and Time: 03/30/18919 Subjective Assessment: Pt has been coughing up sputum. Feeling better. Still c/o leg pain. Christiano po. - Review of Systems Constitutional: No Fever Respiratory: Cough, Short Of Breath Objective Exam General Appearance: no apparent distress, alert Neurologic Exam: oriented x 3, cooperative Skin Exam: warm, dry, No rash Respiratory Exam: diminished breath sounds (fair air exchange), wheezing ( throughout), No crackles/rales, No rhonchi Cardiovascular Exam: regular rate/rhythm, normal heart sounds, No murmur Extremity Exam: other (bilat LE edema, nonpitting, with mild erythema of lower legs bilat) OBJECTIVE DATA Vital Signs: Vital Signs - 24 hr Temp Pulse Resp BP Pulse Ox 03/30/18 08:00 98.1 F 81 19 136/62 92 L 03/30/18 06:33 77 20 94 L 03/30/18 04:00 97.8 F 78 18 134/62 96 03/30/18 03:00 71 18 96 03/29/18 23:54 18 03/29/18 23:40 98.3 F 75 18 133/62 94 L 03/29/18 23:00 75 18 94 L 03/29/18 20:00 26 H 03/29/18 19:02 98.3 F 84 26 H 95/53 92 L 03/29/18 19:00 84 18 96 03/29/18 16:00 98.2 F 92 H 18 139/62 98 03/29/18 15:14 77 18 96 03/29/18 12:00 98.4 F 81 20 127/58 98 03/29/18 11:22 73 20 97 Oxygen-Last 24 hours O2 Percentage 4 Liters = 36% O2 Percentage 4 Liters = 36% O2 Percentage 4 Liters = 36% O2 Percentage 4 Liters = 36% O2 Percentage 4 Liters = 36% Pain Assessment - Last Documented Pain Intensity 7 Pain Scale Used 0-10 Pain Scale Intake and Output: Intake & Output 03/27/18 03/28/18 03/29/18 03/30/18 11:59 11:59 11:59 11:59 Intake Total 1580 1870 1010 1400 Output Total 1800 1250 1250 1300 Balance -220 620 -240 100 Lab Results: Accuchecks Date 03/29/18 Date 03/29/18 Date 03/29/18 Time 21:50 Time 16:49 Time 11:40 Accucheck Value: 149 Accucheck Value: 186 Accucheck Value: 149 Accucheck Value: 283 Lab Results-Last 24 Hours 03/30/18 03/30/18 Range/Units 05:50 05:50 WBC 12.6 H (4.0-10.5) K/mm3 RBC 3.01 L (4.1-5.4) M/mm3 Hgb 7.7 L (12.0-16.0) gm/dl Hct 27.1 L (35-47) % MCV 90.0 (78-100) fl MCH 25.5 L (26-32) pg MCHC 28.4 L (32-36) g/dl RDW 18.4 H (11.5-14.0) % Plt Count 246 (150-450) K/mm3 MPV 9.7 H (6-9.5) fl Segmented Neutrophils 96 H (36.0-66.0) % Band Neutrophils 2 (0.0-2.0) % Lymphocytes (Manual) 2 L (24-44) % Hypochromia 1+ Toxic Granulation 2+ Platelet Estimate NORMAL (NORMAL) RBC Morphology ABNORMAL Anisocytosis 1+ Sodium 137 (137-145) mmol/L Potassium 4.4 (3.5-5.1) mmol/L Chloride 93 L (98-107) mmol/L Carbon Dioxide 41 H (22-30) mmol/L Anion Gap 7.4 (5-15) MEQ/L BUN 28 H (7-17) mg/dL Creatinine 0.70 (0.52-1.04) mg/dL Estimated GFR > 60.0 ML/MIN Glucose 149 H (74-106) mg/dL Calcium 8.0 L (8.4-10.2) mg/dL Total Bilirubin 0.30 (0.2-1.3) mg/dL AST 17 (14-36) U/L ALT 17 (0-35) U/L Alkaline Phosphatase 58 (38-126) U/L Serum Total Protein 5.3 L (6.3-8.2) g/dL Albumin 2.8 L (3.5-5.0) g/dL Radiology Exams: Radiology Procedures Category Date Time Status CHEST 2 VIEWS (PA AND LAT) Routine Exams 03/28/18 14:35 Completed Assessment/Plan (1) HCAP (healthcare-associated pneumonia) Current Visit: Yes Status: Acute Assessment & Plan: on rocephin day #3. sputum culture E. coli + Code(s): J18.9 - PNEUMONIA, UNSPECIFIED ORGANISM (2) COPD (chronic obstructive pulmonary disease) Current Visit: No Status: Chronic Onset Date: ~10/06/17 Qualifiers: COPD type: unspecified COPD Qualified Code(s): J44.9 - Chronic obstructive pulmonary disease, unspecified Assessment & Plan: Her steroids were decreased yesterday to 40mg IV q6h - no decrease today, she is quite wheezy on exam. O2 at 5L NC. (3) Lymphedema Current Visit: No Status: Chronic Code(s): I89.0 - LYMPHEDEMA, NOT ELSEWHERE CLASSIFIED (4) Leg pain Current Visit: Yes Status: Chronic Qualifiers: Laterality: bilateral Qualified Code(s): M79.604 - Pain in right leg; M79.605 - Pain in left leg
[2018-03-30] MEDS: PLAVIX 75 MG Tablet PO SCH (09:31)
[2018-03-30] MEDS: ECOTRIN 81 MG PO SCH (09:31)
[2018-03-30] MEDS: ENOXAPARIN SODIUM SQ SCH (09:31)
[2018-03-30] MEDS: NEURONTIN 300 MG PO SCH ×3 (09:31→22:13)
[2018-03-30] MEDS: BUMEX 1 MG PO SCH (09:31)
[2018-03-30] MEDS: Klor Con 10 MEQ PO SCH (09:31)
[2018-03-30] MEDS: ROCEPHIN 1 Gm-D5w 50 ml Bag** 1 G/50 ML IVPB IV SCH (09:31)
[2018-03-30] MEDS: NovoLOG Insulin SQ PRN ×2 (11:50→23:10)
[2018-03-31] MEDS: Norco 10/325 MG Tablet PO PRN ×4 (00:05→20:05)
[2018-03-31] MEDS: solu-MEDROL 40 MG IV SCH ×4 (00:05→17:28)
[2018-03-31] MEDS: DUONEB 0.5-3 MG/3 ml Neb IH SCH ×6 (03:25→23:02)
[2018-03-31] MEDS: Advair Hfa 115/21 Common canister IH SCH ×2 (06:53→20:02)
--- NOTE | 2018-03-31 08:40 | PCM.NOTE ---
Date and Time: 03/31/18837 Subjective Assessment: patient continues to improve, still requiring oxygen at 4L, cough persists but improving and she is less short of breath Objective Exam General Appearance: no apparent distress Neurologic Exam: alert, oriented x 3 Skin Exam: normal color, warm, dry Respiratory Exam: crackles/rales, rhonchi Gastrointestinal/Abdomen Exam: soft Extremity Exam: normal range of motion, swelling OBJECTIVE DATA Vital Signs: Vital Signs - 24 hr Temp Pulse Resp BP Pulse Ox 03/31/18 07:28 98 F 84 20 135/61 96 03/31/18 07:00 95 H 18 94 L 03/31/18 04:10 98.1 F 86 20 125/62 96 03/31/18 03:25 20 03/30/18 23:32 94 H 21 94 L 03/30/18 23:31 98.6 F 104 H 20 123/63 94 L 03/30/18 19:38 98.3 F 74 20 123/58 96 03/30/18 18:44 84 20 95 03/30/18 16:00 98.3 F 85 19 138/63 95 03/30/18 15:02 92 H 20 92 L 03/30/18 12:00 98.3 F 98 H 18 126/60 97 03/30/18 10:45 90 20 94 L Oxygen-Last 24 hours O2 Percentage 4 Liters = 36% O2 Percentage 4 Liters = 36% O2 Percentage 4 Liters = 36% O2 Percentage 4 Liters = 36% O2 Percentage 4 Liters = 36% O2 Percentage 4 Liters = 36% Pain Assessment - Last Documented Pain Intensity 4 Pain Scale Used 0-10 Pain Scale Intake and Output: Intake & Output 03/28/18 03/29/18 03/30/18 03/31/18 11:59 11:59 11:59 11:59 Intake Total 1870 1010 1400 1320 Output Total 1250 1250 1300 1100 Balance 620 -240 100 220 Lab Results: Accuchecks Accucheck Value: 240 Accucheck Value: 196 Accucheck Value: 224 Assessment/Plan (1) HCAP (healthcare-associated pneumonia) Current Visit: Yes Status: Acute Code(s): J18.9 - PNEUMONIA, UNSPECIFIED ORGANISM (2) Pneumonia Current Visit: Yes Status: Acute Onset Date: ~10/06/17 Qualifiers: Assessment & Plan: continue rocephin, e coli in sputum Code(s): J18.9 - PNEUMONIA, UNSPECIFIED ORGANISM (3) COPD (chronic obstructive pulmonary disease) Current Visit: No Status: Chronic Onset Date: ~10/06/17 Qualifiers: COPD type: unspecified COPD Qualified Code(s): J44.9 - Chronic obstructive pulmonary disease, unspecified Assessment & Plan: continue nebs, IV solu medrol and fluids. improving. (4) Failure of outpatient treatment Current Visit: No Status: Acute Code(s): Z78.9 - OTHER SPECIFIED HEALTH STATUS
[2018-03-31] MEDS: ENOXAPARIN SODIUM SQ SCH (09:34)
[2018-03-31] MEDS: NEURONTIN 300 MG PO SCH ×3 (09:35→21:10)
[2018-03-31] MEDS: BUMEX 1 MG PO SCH (09:35)
[2018-03-31] MEDS: Klor Con 10 MEQ PO SCH (09:35)
[2018-03-31] MEDS: PLAVIX 75 MG Tablet PO SCH (09:35)
[2018-03-31] MEDS: ECOTRIN 81 MG PO SCH (09:35)
[2018-03-31] MEDS: ROCEPHIN 1 Gm-D5w 50 ml Bag** 1 G/50 ML IVPB IV SCH (09:35)
[2018-03-31] MEDS: NovoLOG Insulin SQ PRN (21:41)
[2018-04-01] MEDS: Norco 10/325 MG Tablet PO PRN ×3 (00:06→08:30)
[2018-04-01] MEDS: solu-MEDROL 40 MG IV SCH ×3 (00:06→11:55)
[2018-04-01] MEDS: DUONEB 0.5-3 MG/3 ml Neb IH SCH ×3 (03:30→10:42)
[2018-04-01 05:38] LABS: Hematocrit 27.7 % (35-47); Hemoglobin 7.9 gm/dl (12.0-16.0); Mean Cell Volume 90.8 fl (78-100); Mean Corpuscular Hemoglobin 25.9 pg (26-32); Mean Corpuscular Hgb Concent. 28.5 g/dl (32-36); Mean Platelet Volume 9.5 fl (6-9.5); Platelet Count 231 K/mm3 (150-450); Red Blood Count 3.05 M/mm3 (4.1-5.4); Red Cell Distribution Width 18.4 % (11.5-14.0); White Blood Count 11.7 K/mm3 (4.0-10.5)
[2018-04-01 06:26] LABS: BLOOD UREA NITROGEN 30 mg/dL (7-17); CHLORIDE 91 mmol/L (98-107); Calcium 7.7 mg/dL (8.4-10.2); Creatinine 1 0.59 mg/dL (0.52-1.04); Glucose 122 mg/dL (74-106); Potassium 4.9 mmol/L (3.5-5.1); SODIUM 138 mmol/L (137-145)
[2018-04-01] MEDS: Advair Hfa 115/21 Common canister IH SCH (06:32)
[2018-04-01 06:55] LABS: ANION GAP 9.9 MEQ/L (5-15); Carbon Dioxide 42 mmol/L (22-30)
[2018-04-01 07:45] VITALS: BP 121/60
--- NOTE | 2018-04-01 08:27 | PCM.DS ---
Discharge Summary Date of Admission: 03/26/18 02:58 Admitting Physician: ALPHONSE PEREZ Primary Care Provider: ALPHONSE PEREZ Allergies Allergies Penicillins Allergy (Verified 10/05/17 11:23) Hospital Summary - Hospital Course Hospital Course: patient was admitted with recurrent pneumonia, readmitted after discharge. she is tolerating po and feeling better but weak. she is taking rocephin at this time - Vitals & Intake/Output Vital Signs: Vital Signs Temperature 98 F 04/01/18 07:44 Pulse Rate 87 04/01/18 07:44 Respiratory Rate 15 04/01/18 07:44 Blood Pressure 121/60 04/01/18 07:44 O2 Sat by Pulse Oximetry 97 04/01/18 07:44 Oxygen-Last Documented O2 Percentage 4 Liters = 36% Intake & Output: Intake & Output 03/29/18 03/30/18 03/31/18 04/01/18 11:59 11:59 11:59 11:59 Intake Total 1010 1400 1320 1220 Output Total 1250 1300 1100 1600 Balance -240 100 220 -380 - Lab Result Diagrams: 04/01/18 05:08 04/01/18 05:08 Lab Results-Last 24 Hrs: Accuchecks Date 03/31/18 Date 03/31/18 Time 16:30 Time 11:30 Accucheck Value: 282 Accucheck Value: 190 Accucheck Value: 224 Lab Results-Last 24 Hours 04/01/18 04/01/18 Range/Units 05:08 05:08 WBC 11.7 H (4.0-10.5) K/mm3 RBC 3.05 L (4.1-5.4) M/mm3 Hgb 7.9 L (12.0-16.0) gm/dl Hct 27.7 L (35-47) % MCV 90.8 (78-100) fl MCH 25.9 L (26-32) pg MCHC 28.5 L (32-36) g/dl RDW 18.4 H (11.5-14.0) % Plt Count 231 (150-450) K/mm3 MPV 9.5 (6-9.5) fl Sodium 138 (137-145) mmol/L Potassium 4.9 (3.5-5.1) mmol/L Chloride 91 L (98-107) mmol/L Carbon Dioxide 42 H (22-30) mmol/L Anion Gap 9.9 (5-15) MEQ/L BUN 30 H (7-17) mg/dL Creatinine 0.59 (0.52-1.04) mg/dL Estimated GFR > 60.0 ML/MIN Glucose 122 H (74-106) mg/dL Calcium 7.7 L (8.4-10.2) mg/dL Micro Results-Entire Visit: Microbiology 03/25/18 23:07 Blood Culture Gram Stain - Final Blood Not Reportable Blood Culture - Final NO GROWTH 03/25/18 23:07 Blood Culture Gram Stain - Final Blood Not Reportable Blood Culture - Final NO GROWTH 03/26/18 00:00 Urine Culture - Final Urine, Void MIXED ERNESTO; 3 OR MORE TYPES. NO PREDOMINANT ORGANISM. NO FURTHER WORKUP. PLEASE RESUBMIT IF CLINICALLY INDICATED. 03/26/18 01:33 Gram Stain - Final Sputum - Expectorant Sputum Culture - Final Escherichia Coli Accuchecks Date 03/31/18 Date 03/31/18 Time 16:30 Time 11:30 Accucheck Value: 282 Accucheck Value: 190 Accucheck Value: 224 - Procedures and Test Procedures and Tests throughout Hospitalization: Therapy Orders & Screens 03/25/18 22:46 Respiratory Nebulizer STAT Comment: Diagnosis: Shortness of Breath 03/26/18 01:34 Respiratory Therapy Assessment DAILY Comment: Diagnosis: Shortness of Breath 03/26/18 01:39 Oxygen Oxymask LPM 6% Comment: Diagnosis: Shortness of Breath 03/26/18 02:34 Oxygen Venti-Mask 35% Comment: Diagnosis: Shortness of Breath 03/26/18 06:59 Peak Expiratory Flow Rate ONCE Comment: Reason For Exam: Diagnosis: Shortness of Breath 03/26/18 07:00 Respiratory MDI Comment: Diagnosis: Shortness of Breath 03/26/18 08:00 OT Screen per Nursing Assess ONCE Comment: Protocol Order Physician Instructions: Greater than 3 points order OT Admission Screening Reason For Exam: Triggered on Admission Diagnosis: Shortness of Breath Open Wound/Cellutlitis/Pressure Ulcers: Yes Acute Fx/ORIF/Change in wt bearing status: No Severe MUSCULOSKELETAL pain: No ADL Dysfunction: No Acute CVA w/Hemiparesis/Hemiplegia: No Decreased Functional Mobility/Strength: No Sprain/Strain: No Acute Post-op Mobility Dysfunction: No Total Points: 5 PT Screen per Nursing Assess ONCE Comment: Protocol Order Physician Instructions: Greater than 3 points order PT Admission Screenin Reason For Exam: Triggered on Admission Diagnosis: Shortness of Breath Open Wound/Cellutlitis/Pressure Ulcers: Yes Acute Fx/ORIF/Change in wt bearing status: No Severe MUSCULOSKELETAL pain: No ADL Dysfunction: No Acute CVA w/Hemiparesis/Hemiplegia: No Decreased Functional Mobility/Strength: No Sprain/Strain: No Acute Post-op Mobility Dysfunction: No Total Points: 5 RT Screen per Nursing Assess Comment: Protocol Order Physician Instructions: Greater than 3 points order RT Admission Screen Reason For Exam: Triggered on Admission Diagnosis: Shortness of Breath Diagnosis: Shortness of Breath Pneumonia: Yes Home O2: Yes Asthma: No CHF: No Home CPAP/BIPAP: No Home Nebs/MDI: Yes Total Points: 13 03/26/18 23:00 Flutter Therapy Q4H Comment: Diagnosis: Shortness of Breath 03/30/18 15:02 Oxygen NASAL CANNULA 4 lpm Comment: Diagnosis: Shortness of Breath Discharge Exam General Appearance: no apparent distress, alert Neurologic Exam: alert, oriented x 3, cooperative, normal mood/affect, nml cerebellar function, sensation nml, No motor deficits Skin Exam: normal color, warm, dry Respiratory Exam: rhonchi, No respiratory distress Cardiovascular Exam: regular rate/rhythm, normal heart sounds Gastrointestinal/Abdomen Exam: soft, No tenderness, No mass Extremity Exam: normal inspection, normal range of motion Final Diagnosis/Problem List - Final Discharge Diagnosis/Problem (1) Pneumonia Current Visit: Yes Status: Acute Onset Date: ~10/06/17 Assessment & Plan: continue rocephin (2) HCAP (healthcare-associated pneumonia) Current Visit: Yes Status: Acute (3) COPD (chronic obstructive pulmonary disease) Current Visit: No Status: Chronic Onset Date: ~10/06/17 (4) Failure of outpatient treatment Current Visit: No Status: Acute - Discharge Disposition: Swing Bed @ [facility] Condition: Fair Prescriptions: New Enoxaparin Sodium [Enoxaparin Sodium] 40 mg SQ DAILY #10 ml Ceftriaxone 1 GM/50 ML PREMIX* [ROCEPHIN 1 Gm-D5w 50 ml Bag] 1 g IV Q24H10 #10 ivpb Continue Bumetanide 1 mg [Bumex 1 mg] 1 mg PO DAILY Prednisone 10 mg [Deltasone 10 mg] 10 mg PO DAILY Multivitamin [Multivitamins] 1 each PO DAILY Fluticasone/Salmeterol [Advair 250-50 Diskus] 1 puff IH BID Gabapentin 600 mg PO BID Metformin HCl [Metformin ER Osmotic] 500 mg PO DAILY Clopidogrel Bisulfate [Clopidogrel] 75 mg PO DAILY Nitroglycerin 0.4 mg Tablet [Nitrostat 0.4 MG Tablet] 0.4 mg PO Q5MIN PRN MR X 3 PRN PRN Reason: Chest Pain Aspirin 81 mg PO DAILY Potassium Chloride 20 Meq [Klor-Con 20 MEQ] 20 meq PO DAILY Gabapentin 300 mg PO DAILY Cyanocobalamin (Vitamin B-12) [Vitamin B-12] 500 mcg PO DAILY Vitamin E 400 unit PO DAILY Calcium Carbonate/Vitamin D3 [Calcium 600 + Vit D Caplet] 1 tab PO DAILY Hydrocodone/APAP 10/325 mg [Lamont 10/325 MG Tablet] 1 tab PO Q4H PRN PRN #30 tablet MDD 6 PRN Reason: Pain Hydroxyzine Pamoate [Vistaril] 25 mg PO HS Ipratropium/Albuterol Sulfate [Combivent Respimat 20-100 Mcg] 4 gm IH BID PRN PRN PRN Reason: Shortness Of Breath
[2018-04-01 08:55] LABS: BAND 2 % (0.0-2.0); Lymphocytes 3 % (24-44); Monocyte 1 % (0.0-12.0); Neutrophils 94 % (36.0-66.0); Total Cells Counted 100
[2018-04-01 08:56] LABS: Platelet Estimate NORMAL (NORMAL)
[2018-04-01 08:57] LABS: Hypochromia 2+; Polychromasia 1+
[2018-04-01] MEDS: PLAVIX 75 MG Tablet PO SCH (10:02)
[2018-04-01] MEDS: Klor Con 10 MEQ PO SCH (10:03)
[2018-04-01] MEDS: ROCEPHIN 1 Gm-D5w 50 ml Bag** 1 G/50 ML IVPB IV SCH (10:03)
[2018-04-01] MEDS: BUMEX 1 MG PO SCH (10:03)
[2018-04-01] MEDS: ENOXAPARIN SODIUM SQ SCH (10:04)
[2018-04-01] MEDS: NEURONTIN 300 MG PO SCH (10:04)
[2018-04-01] MEDS: ECOTRIN 81 MG PO SCH (10:04)
[2018-04-01 10:51] VITALS: PULSE 104; O2SAT 94
[2018-04-01] MEDS: NovoLOG Insulin SQ PRN (11:55)
== END 2018-04-01 12:00 | disposition swing bed (61) | DRG 179 ==
LOC: ED 21:49 → MED SURG 03-26 02:58
PROVIDERS: ADMIT Family Medicine; ATTEND Family Medicine
DX: J18.9 Pneumonia, unspecified organism (principal); J15.5 Pneumonia due to Escherichia coli; I89.0 Lymphedema, not elsewhere classified; R79.1 Abnormal coagulation profile; R53.83 Other fatigue; R53.81 Other malaise; D64.9 Anemia, unspecified; L89.159 Pressure ulcer of sacral region, unspecified stage; I45.10 Unspecified right bundle-branch block; R60.9 Edema, unspecified; J44.9 Chronic obstructive pulmonary disease, unspecified; E11.9 Type 2 diabetes mellitus without complications; M79.605 Pain in left leg; M79.604 Pain in right leg; D72.829 Elevated white blood cell count, unspecified; Z93.3 Colostomy status; R06.89 Other abnormalities of breathing; Z99.81 Dependence on supplemental oxygen; Z79.84 Long term (current) use of oral hypoglycemic drugs; Z79.899 Other long term (current) drug therapy; Z95.1 Presence of aortocoronary bypass graft
CPT/HCPCS: 36415; 36600; 71046; 71260; 80048; 80053; 80202; 81001; 82375; 82803; 82962; 83605; 85025; 85379; 87040; 87070; 87077; 87086; 87186; 87631; 87651; 93970; 94150; 94640; 94667; 94668; 94760; 96365; 96367; 96374; 99285; J0696; J1650; J1956; J2270; J2920; J2930; J3370; A9270-GY

== ENCOUNTER 2018-04-01 11:11 | Inpatient (IN) | payer MEDICARE ==
[2018-04-01] MEDS ORDERED: Aplisol ID ONE (14:23)
[2018-04-01] MEDS ORDERED: Nitrostat 0.4 MG Tablet SL PRN (14:23)
[2018-04-01] MEDS ORDERED: Zofran 4 MG/2 ML VIAL IV PRN (14:23)
[2018-04-01] MEDS: Norco 10/325 MG Tablet PO PRN ×3 (14:36→23:28)
[2018-04-01] MEDS: DUONEB 0.5-3 MG/3 ml Neb IH SCH ×3 (14:55→23:19)
[2018-04-01] MEDS ORDERED: DUONEB 0.5-3 MG/3 ml Neb IH SCH (15:00)
[2018-04-01] MEDS: NEURONTIN 300 MG PO SCH ×2 (15:16→22:08)
[2018-04-01] MEDS: solu-MEDROL 40 MG IV SCH ×2 (17:38→23:29)
[2018-04-01] MEDS ORDERED: Advair Hfa 115/21 Common canister IH SCH (19:00)
[2018-04-01] MEDS: Advair Hfa 115/21 Common canister IH SCH (19:07)
[2018-04-01] MEDS: NovoLOG Insulin SQ PRN (22:08)
[2018-04-02] MEDS: Norco 10/325 MG Tablet PO PRN ×5 (05:42→23:53)
[2018-04-02] MEDS: solu-MEDROL 40 MG IV SCH ×4 (05:43→23:54)
[2018-04-02] MEDS: DUONEB 0.5-3 MG/3 ml Neb IH SCH ×5 (06:34→22:50)
[2018-04-02] MEDS: Advair Hfa 115/21 Common canister IH SCH ×2 (06:36→19:09)
--- NOTE | 2018-04-02 08:15 | PCM.NOTE ---
Date and Time: 04/02/18812 Subjective Assessment: patient feeling well today, having some bleeding from injection sites and skin tear on arm etc. otherwise feels well. Objective Exam General Appearance: no apparent distress, alert Neurologic Exam: alert, oriented x 3 Skin Exam: normal color, warm, dry Respiratory Exam: rhonchi Gastrointestinal/Abdomen Exam: soft, No tenderness, No mass Extremity Exam: normal inspection, normal range of motion OBJECTIVE DATA Vital Signs: Vital Signs - 24 hr Temp Pulse Resp BP BP Pulse Ox 04/02/18 07:38 98 F 56 L 21 134/61 96 04/02/18 06:38 61 18 95 04/01/18 23:00 82 20 97 04/01/18 19:18 98.6 F 84 20 120/57 97 04/01/18 19:08 94 H 20 96 04/01/18 15:31 97.8 F 91 H 22 112/58 96 04/01/18 14:14 91 H 22 96 04/01/18 12:03 97.8 F 98 H 16 112/58 98 Oxygen-Last 24 hours O2 Percentage 4 Liters = 36% O2 Percentage 3 Liters = 32% O2 Percentage 4 Liters = 36% Pain Assessment - Last Documented Pain Intensity 0 Pain Scale Used 0-10 Pain Scale Intake and Output: Intake & Output 03/30/18 03/31/18 04/01/18 04/02/18 11:59 11:59 11:59 11:59 Intake Total 852 Output Total 1000 Balance -148 Weight 56.8 kg Lab Results: Accuchecks Date 04/02/18 Date 04/01/18 Time 07:30 Time 16:30 Accucheck Value: 122 Accucheck Value: 257 Accucheck Value: 146 Assessment/Plan (1) HCAP (healthcare-associated pneumonia) Current Visit: No Status: Acute Assessment & Plan: e coli on culture, continue rocephin Code(s): J18.9 - PNEUMONIA, UNSPECIFIED ORGANISM (2) COPD exacerbation Current Visit: No Status: Acute Assessment & Plan: improving, continue IV solu medrol and nebs Code(s): J44.1 - CHRONIC OBSTRUCTIVE PULMONARY DISEASE W (ACUTE) EXACERBATION (3) Failure of outpatient treatment Current Visit: No Status: Acute Code(s): Z78.9 - OTHER SPECIFIED HEALTH STATUS (4) High risk for readmission Current Visit: No Status: Acute Code(s): Z91.89 - OTH PERSONAL RISK FACTORS , NOT ELSEWHERE CLASSIFIED (5) Bleeding Current Visit: Yes Status: Acute Assessment & Plan: will d/c lovenox at this time, patient is ambulating with assistance, will hold asa as well, continue plavix at this time
[2018-04-02] MEDS: NEURONTIN 300 MG PO SCH ×3 (09:26→21:44)
[2018-04-02] MEDS: Klor Con 10 MEQ PO SCH (09:26)
[2018-04-02] MEDS: BUMEX 1 MG PO SCH (09:26)
[2018-04-02] MEDS: PLAVIX 75 MG Tablet PO SCH (09:27)
[2018-04-02] MEDS ORDERED: ENOXAPARIN SODIUM SQ SCH (10:00)
[2018-04-02] MEDS ORDERED: Aplisol ID SCH (10:00)
[2018-04-02] MEDS: ROCEPHIN 1 Gm-D5w 50 ml Bag** 1 G/50 ML IVPB IV SCH (10:08)
[2018-04-03] MEDS: DUONEB 0.5-3 MG/3 ml Neb IH SCH ×6 (03:06→23:23)
[2018-04-03] MEDS: Norco 10/325 MG Tablet PO PRN ×5 (04:01→22:28)
[2018-04-03 05:18] LABS: Granulocyte Absolute (ANC) 13.18 (1.4-6.9); Hematocrit 30.5 % (35-47); Hemoglobin 8.6 gm/dl (12.0-16.0); Mean Cell Volume 91.3 fl (78-100); Mean Corpuscular Hemoglobin 25.7 pg (26-32); Mean Corpuscular Hgb Concent. 28.2 g/dl (32-36); Platelet Count 228 K/mm3 (150-450); Red Blood Count 3.34 M/mm3 (4.1-5.4); Red Cell Distribution Width 18.6 % (11.5-14.0); White Blood Count 13.7 K/mm3 (4.0-10.5)
[2018-04-03 05:31] LABS: BLOOD UREA NITROGEN 31 mg/dL (7-17); CHLORIDE 91 mmol/L (98-107); Calcium 8.2 mg/dL (8.4-10.2); Creatinine 1 0.55 mg/dL (0.52-1.04); Glucose 148 mg/dL (74-106); SODIUM 138 mmol/L (137-145)
[2018-04-03 05:37] LABS: Carbon Dioxide 44 mmol/L (22-30)
[2018-04-03 05:38] LABS: ANION GAP 8 MEQ/L (5-15)
[2018-04-03] MEDS: solu-MEDROL 40 MG IV SCH ×3 (05:53→17:25)
[2018-04-03] MEDS: Advair Hfa 115/21 Common canister IH SCH ×2 (07:06→19:05)
[2018-04-03] MEDS: Klor Con 10 MEQ PO SCH (07:47)
[2018-04-03] MEDS: PLAVIX 75 MG Tablet PO SCH (07:47)
[2018-04-03] MEDS: BUMEX 1 MG PO SCH (07:47)
[2018-04-03] MEDS: NEURONTIN 300 MG PO SCH ×3 (07:47→22:29)
[2018-04-03] MEDS: ROCEPHIN 1 Gm-D5w 50 ml Bag** 1 G/50 ML IVPB IV SCH (07:49)
[2018-04-03 10:37] LABS: ANISOCYTOSIS 1+; BAND 4 % (0.0-2.0); Basophilic Stippling 1+; Hypochromia 2+; Lymphocytes 5 % (24-44); Monocyte 1 % (0.0-12.0); Neutrophils 90 % (36.0-66.0); Platelet Estimate NORMAL (NORMAL); Polychromasia 1+; Total Cells Counted 100
[2018-04-04] MEDS: solu-MEDROL 40 MG IV SCH ×5 (01:27→23:33)
[2018-04-04] MEDS: Norco 10/325 MG Tablet PO PRN ×5 (02:50→23:33)
[2018-04-04] MEDS: DUONEB 0.5-3 MG/3 ml Neb IH SCH ×5 (02:54→19:10)
[2018-04-04] MEDS: Advair Hfa 115/21 Common canister IH SCH ×2 (07:05→19:20)
[2018-04-04] MEDS: PLAVIX 75 MG Tablet PO SCH (11:03)
[2018-04-04] MEDS: NEURONTIN 300 MG PO SCH ×3 (11:03→21:39)
[2018-04-04] MEDS: BUMEX 1 MG PO SCH (11:04)
[2018-04-04] MEDS: Klor Con 10 MEQ PO SCH (11:04)
[2018-04-04] MEDS: ROCEPHIN 1 Gm-D5w 50 ml Bag** 1 G/50 ML IVPB IV SCH (11:04)
[2018-04-04] MEDS: NovoLOG Insulin SQ PRN ×2 (12:57→22:17)
[2018-04-05] MEDS: DUONEB 0.5-3 MG/3 ml Neb IH SCH ×7 (00:17→22:32)
[2018-04-05] MEDS: Norco 10/325 MG Tablet PO PRN ×4 (03:35→20:34)
[2018-04-05] MEDS: solu-MEDROL 40 MG IV SCH (05:56)
[2018-04-05] MEDS: Advair Hfa 115/21 Common canister IH SCH ×2 (07:18→18:59)
[2018-04-05] MEDS: NEURONTIN 300 MG PO SCH ×3 (08:06→21:25)
[2018-04-05] MEDS: Klor Con 10 MEQ PO SCH ×2 (08:06→08:20)
[2018-04-05] MEDS: BUMEX 1 MG PO SCH (08:06)
[2018-04-05] MEDS: ROCEPHIN 1 Gm-D5w 50 ml Bag** 1 G/50 ML IVPB IV SCH (08:06)
[2018-04-05] MEDS: PLAVIX 75 MG Tablet PO SCH (08:06)
[2018-04-05] MEDS: NovoLOG Insulin SQ PRN (08:07)
--- NOTE | 2018-04-05 08:14 | PCM.NOTE ---
Date and Time: 04/05/18812 Subjective Assessment: patient feeling better each day, tolerating ambulation and breathing/cough are improved Objective Exam General Appearance: no apparent distress, alert Skin Exam: normal color, warm, dry Respiratory Exam: rhonchi Cardiovascular Exam: regular rate/rhythm, normal heart sounds Gastrointestinal/Abdomen Exam: soft, No tenderness, No mass Extremity Exam: normal inspection, normal range of motion OBJECTIVE DATA Vital Signs: Vital Signs - 24 hr Temp Pulse Resp BP Pulse Ox 04/05/18 07:57 91 L 04/05/18 07:21 77 20 99 04/05/18 07:10 98.0 F 81 18 157/67 97 04/05/18 01:15 86 20 96 04/04/18 19:50 97.7 F 100 H 18 118/57 95 04/04/18 19:19 97 04/04/18 19:13 101 H 20 97 04/04/18 15:33 86 18 95 04/04/18 11:22 84 16 95 Oxygen-Last 24 hours O2 Percentage 4 Liters = 36% O2 Percentage 4 Liters = 36% Pain Assessment - Last Documented Pain Intensity 3 Pain Scale Used 0-10 Pain Scale Intake and Output: Intake & Output 04/02/18 04/03/18 04/04/18 04/05/18 11:59 11:59 11:59 11:59 Intake Total 852 931 391 3135 Output Total 1450 1700 Balance -598 -9347 817 1600 Weight 56.8 kg Lab Results: Accuchecks Date 04/05/1804/04/18 Date 04/04/1804/04/18 Time 07:30 Time 22:00 Time 16:30 Time 11:30 Accucheck Value: 221 Accucheck Value: 228 Accucheck Value: 155 Accucheck Value: 201 Assessment/Plan (1) HCAP (healthcare-associated pneumonia) Current Visit: No Status: Acute Assessment & Plan: on rocephin for e coli, improving. Code(s): J18.9 - PNEUMONIA, UNSPECIFIED ORGANISM (2) COPD exacerbation Current Visit: No Status: Acute Assessment & Plan: change to po prednisone, improving. Code(s): J44.1 - CHRONIC OBSTRUCTIVE PULMONARY DISEASE W (ACUTE) EXACERBATION (3) Failure of outpatient treatment Current Visit: No Status: Acute Code(s): Z78.9 - OTHER SPECIFIED HEALTH STATUS (4) High risk for readmission Current Visit: No Status: Acute Code(s): Z91.89 - OTH PERSONAL RISK FACTORS , NOT ELSEWHERE CLASSIFIED (5) Bleeding Current Visit: Yes Status: Acute Assessment & Plan: h/h improving, holding lovenox and aspirin at this time
[2018-04-05] MEDS: ECOTRIN 81 MG PO SCH (09:51)
[2018-04-05] MEDS: DELTASONE 20 MG PO SCH (09:53)
[2018-04-06] MEDS: Norco 10/325 MG Tablet PO PRN ×4 (00:26→20:24)
[2018-04-06] MEDS: DUONEB 0.5-3 MG/3 ml Neb IH SCH ×6 (03:35→23:48)
[2018-04-06] MEDS: Advair Hfa 115/21 Common canister IH SCH ×2 (07:00→20:38)
[2018-04-06] MEDS: ROCEPHIN 1 Gm-D5w 50 ml Bag** 1 G/50 ML IVPB IV SCH (09:50)
[2018-04-06] MEDS: PLAVIX 75 MG Tablet PO SCH (09:51)
[2018-04-06] MEDS: Klor Con 10 MEQ PO SCH (09:52)
[2018-04-06] MEDS: BUMEX 1 MG PO SCH (09:52)
[2018-04-06] MEDS: ECOTRIN 81 MG PO SCH (09:52)
[2018-04-06] MEDS: DELTASONE 20 MG PO SCH (09:52)
[2018-04-06] MEDS: NEURONTIN 300 MG PO SCH ×3 (09:53→20:24)
[2018-04-07] MEDS: Norco 10/325 MG Tablet PO PRN ×5 (00:28→20:25)
[2018-04-07] MEDS: DUONEB 0.5-3 MG/3 ml Neb IH SCH ×6 (03:08→22:31)
[2018-04-07] MEDS: Advair Hfa 115/21 Common canister IH SCH ×2 (07:30→22:32)
--- NOTE | 2018-04-07 08:45 | PCM.NOTE ---
Date and Time: 04/07/18 0843 Subjective Assessment: patient is doing well, improving her functional status. breathing has improved and cough is lessening. she is requiring 4L oxygen and normally is on 3L at home continuously. Objective Exam General Appearance: no apparent distress, alert Skin Exam: normal color, warm, dry Respiratory Exam: rhonchi (left lower lung) Cardiovascular Exam: regular rate/rhythm, normal heart sounds Gastrointestinal/Abdomen Exam: soft, No tenderness, No mass Extremity Exam: normal inspection, normal range of motion OBJECTIVE DATA Vital Signs: Vital Signs - 24 hr Temp Pulse Resp BP Pulse Ox 04/07/18 07:33 70 20 95 04/07/18 07:24 98.0 F 62 18 114/57 96 04/07/18 03:08 82 16 97 04/06/18 23:48 94 H 18 95 04/06/18 22:52 97.8 F 94 H 18 106/57 95 04/06/18 20:38 102 H 22 97 04/06/18 11:00 98.2 F 65 18 148/66 4 L 04/06/18 10:32 96 Oxygen-Last 24 hours O2 Percentage 4 Liters = 36% O2 Percentage 4 Liters = 36% Pain Assessment - Last Documented Pain Intensity 10 Pain Scale Used 0-10 Pain Scale Intake and Output: Intake & Output 04/04/18 04/05/18 04/06/18 04/07/18 11:59 11:59 11:59 11:59 Intake Total 480 2120 580 380 Balance 480 2120 580 380 Weight 56.8 kg Lab Results: Accuchecks Date 04/06/18 Date 04/06/18 Date 04/06/18 Time 20:00 Time 16:30 Time 11:30 Accucheck Value: 178 Accucheck Value: 79 Accucheck Value: 74 Multi-Disciplinary Progress Notes: Multi-Disciplinary Progress Notes 04/06/18 15:28 Physical Therapy Note by Leeanne Escudero PATIENT OVERALL FUNCTIONAL STRENGTH IMPROVING IN TRANSFERS AND GAIT WITH [employer]. AMBULATING 100' IN HALLWAY TID AND TO/FROM BATHROOM IN ROUTINE CARE. RESPIRATORY EXERTION TOLERANCE FAIR + WITH SUPPLEMENTAL O2 AT 4L NC AT ALL TIMES. PEDAL EDEMA AND DISCOLORATION CONTROLLED WITH LIGHT COMPRESSION STOCKINETTE. LE INTACT EPIDERMIS DEMOS IMPROVED HYDRATION AND CONDITIONING WITH ROUTINE CLEANSING AND TOPICAL BARRIER OINTMENT TX. WILL CONTINUE TO MAXIMIZE POTENTIAL FOR SAFE RETURN HOME. Initialized on 04/06/18 15:28 - END OF NOTE Assessment/Plan (1) HCAP (healthcare-associated pneumonia) Current Visit: No Status: Acute Code(s): J18.9 - PNEUMONIA, UNSPECIFIED ORGANISM (2) COPD exacerbation Current Visit: No Status: Acute Assessment & Plan: continues to improve, still receiving rocephin and po prednisone, nebs and PT. likely will be able to return to home Code(s): J44.1 - CHRONIC OBSTRUCTIVE PULMONARY DISEASE W (ACUTE) EXACERBATION (3) Failure of outpatient treatment Current Visit: No Status: Acute Code(s): Z78.9 - OTHER SPECIFIED HEALTH STATUS (4) High risk for readmission Current Visit: No Status: Acute Code(s): Z91.89 - OTH PERSONAL RISK FACTORS , NOT ELSEWHERE CLASSIFIED (5) Bleeding Current Visit: Yes Status: Acute
[2018-04-07] MEDS: Klor Con 10 MEQ PO SCH (09:44)
[2018-04-07] MEDS: PLAVIX 75 MG Tablet PO SCH (09:44)
[2018-04-07] MEDS: BUMEX 1 MG PO SCH (09:44)
[2018-04-07] MEDS: DELTASONE 20 MG PO SCH (09:45)
[2018-04-07] MEDS: ECOTRIN 81 MG PO SCH (09:45)
[2018-04-07] MEDS: NEURONTIN 300 MG PO SCH ×3 (09:45→20:24)
[2018-04-07] MEDS: ROCEPHIN 1 Gm-D5w 50 ml Bag** 1 G/50 ML IVPB IV SCH (09:46)
[2018-04-07] MEDS: NovoLOG Insulin SQ PRN (17:06)
[2018-04-08] MEDS: Norco 10/325 MG Tablet PO PRN ×6 (00:20→23:59)
[2018-04-08] MEDS: DUONEB 0.5-3 MG/3 ml Neb IH SCH ×6 (02:48→22:55)
[2018-04-08 05:51] LABS: Hemoglobin 8.1 gm/dl (12.0-16.0); Mean Cell Volume 92.4 fl (78-100); Mean Corpuscular Hgb Concent. 27.9 g/dl (32-36); Mean Platelet Volume 9.4 fl (6-9.5); Platelet Count 198 K/mm3 (150-450); Red Blood Count 3.14 M/mm3 (4.1-5.4); Red Cell Distribution Width 19.3 % (11.5-14.0); White Blood Count 13.6 K/mm3 (4.0-10.5)
[2018-04-08 05:54] LABS: Mean Corpuscular Hemoglobin 25.7 pg (26-32)
[2018-04-08 06:18] LABS: BLOOD UREA NITROGEN 34 mg/dL (7-17); CHLORIDE 88 mmol/L (98-107); Calcium 8.4 mg/dL (8.4-10.2); Creatinine 1 0.53 mg/dL (0.52-1.04); Glucose 106 mg/dL (74-106); Potassium 4.7 mmol/L (3.5-5.1); SODIUM 137 mmol/L (137-145)
[2018-04-08 06:33] LABS: Carbon Dioxide 46 mmol/L (22-30)
[2018-04-08 06:34] LABS: ANION GAP 7.7 MEQ/L (5-15)
[2018-04-08] MEDS: Advair Hfa 115/21 Common canister IH SCH ×2 (07:04→18:55)
[2018-04-08 08:28] LABS: Eosinophil 3 % (0.00-3.0); Lymphocytes 2 % (24-44); Monocyte 7 % (0.0-12.0); Neutrophils 88 % (36.0-66.0); Platelet Estimate NORMAL (NORMAL); Total Cells Counted 100; Toxic Granulation 1+
[2018-04-08 08:30] LABS: ANISOCYTOSIS 1+; Poikilocytosis 1+; Polychromasia RARE
[2018-04-08] MEDS ORDERED: PROVENTIL 2.5 MG/3 ML NEB IH PRN (09:32)
[2018-04-08] MEDS: DELTASONE 20 MG PO SCH (09:33)
[2018-04-08] MEDS: BUMEX 1 MG PO SCH (09:47)
[2018-04-08] MEDS: ROCEPHIN 1 Gm-D5w 50 ml Bag** 1 G/50 ML IVPB IV SCH (10:21)
[2018-04-08] MEDS: ECOTRIN 81 MG PO SCH (10:21)
[2018-04-08] MEDS: NEURONTIN 300 MG PO SCH ×3 (10:21→21:50)
[2018-04-08] MEDS: PLAVIX 75 MG Tablet PO SCH (10:21)
[2018-04-08] MEDS: Klor Con 10 MEQ PO SCH (10:21)
--- NOTE | 2018-04-08 14:48 | XRAY ---
Exam: Two-view chest from 04/08/2018. Comparison: Two-view chest from 03/28/2018. Indication: Pneumonia. Findings: Upright frontal and lateral chest films are submitted for evaluation. The transverse heart size appears within normal limits. 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 There has also been an aortic valve replacement representing no change.. A moderate sized subcarinal lymph node calcification is seen. I also note a couple granulomatous calcifications at the lateral margin of the right hilum and the anterior central right lung base representing no change. Lungs are hyperinflated. Prior small right lung base pleural effusion has decreased with only a tiny amount of pleural fluid remaining. I still see some minimal remaining interstitial infiltrate at the right lung base as compared to 03/28/2018. I believe there is also some minimal scarring/atelectasis at the medial left lung base behind the heart. The remainder of the lung arias appears clear. No central vascular congestion or pneumothorax is seen. The bones are demineralized. I again see a mild anterior wedge compression fracture deformity of the upper aspect of the L1 vertebral body representing no change. Degenerative changes are seen within the lower thoracic spine. Impression: 1. I again see evidence of prior cardiovascular surgery, some mild hyperinflation of lungs consistent with COPD, and old healed granulomatous disease. 2. Prior small right basilar pleural effusion has decreased slightly as compared to 03/28/2018. 3. Otherwise, mild interstitial infiltrate at the right lung base appears similar to 03/28/2018. In retrospect, I believe there is also some minimal retrocardiac left lower lobe scarring or atelectasis at the left lung base which is also unchanged in retrospect. 4. No other acute lung disease is seen.
[2018-04-08] MEDS: NovoLOG Insulin SQ PRN (21:52)
[2018-04-09] MEDS: DUONEB 0.5-3 MG/3 ml Neb IH SCH ×6 (03:18→23:20)
[2018-04-09] MEDS: Advair Hfa 115/21 Common canister IH SCH ×2 (06:48→19:17)
[2018-04-09] MEDS: Norco 10/325 MG Tablet PO PRN ×3 (07:48→21:30)
--- NOTE | 2018-04-09 08:30 | PCM.NOTE ---
Date and Time: 04/09/18828 Subjective Assessment: patient had a bad day yesterday, more short of breath. her legs are hurting more and she is not tolerating activity as well at this point. Objective Exam General Appearance: no apparent distress, alert Skin Exam: normal color, warm, dry Respiratory Exam: rhonchi Cardiovascular Exam: regular rate/rhythm, normal heart sounds Gastrointestinal/Abdomen Exam: soft, No tenderness, No mass Extremity Exam: normal inspection, normal range of motion OBJECTIVE DATA Vital Signs: Vital Signs - 24 hr Temp Pulse Resp BP Pulse Ox 04/09/18 06:49 79 18 99 04/08/18 22:57 91 H 20 99 04/08/18 20:31 98.4 F 96 H 22 115/53 96 04/08/18 19:08 95 04/08/18 19:03 91 H 22 95 04/08/18 14:44 90 22 93 L 04/08/18 11:05 93 H 24 92 L 04/08/18 09:20 101 H 28 H 93 L 04/08/18 08:45 58 L 18 93 L Oxygen-Last 24 hours O2 Percentage 5 Liters = 40% Pain Assessment - Last Documented Pain Intensity 8 Pain Scale Used 0-10 Pain Scale Intake and Output: Intake & Output 04/06/18 04/07/18 04/08/18 04/09/18 11:59 11:59 11:59 11:59 Intake Total 580 806 835 2101 Output Total 1300 Balance 580 380 960 -100 Weight 56.8 kg 59.7 kg Lab Results: Accuchecks Date 04/09/18 Date 04/08/18 Date 04/08/18 Date 04/08/18 Time 07:30 Time 21:00 Time 16:30 Time 11:30 Accucheck Value: 106 Accucheck Value: 252 Accucheck Value: 167 Accucheck Value: 123 Lab Results-Last 24 Hours 04/08/18 Range/Units 05:38 Segmented Neutrophils 88 H (36.0-66.0) % Lymphocytes (Manual) 2 L (24-44) % Monocytes (Manual) 7 (0.0-12.0) % Eosinophils (Manual) 3 (0.00-3.0) % Toxic Granulation 1+ Platelet Estimate NORMAL (NORMAL) RBC Morphology ABNORMAL Polychromasia RARE Poikilocytosis 1+ Anisocytosis 1+ Radiology Exams: Radiology Procedures Category Date Time Status CHEST 2 VIEWS (PA AND LAT) Stat Exams 04/08/18 14:14 Completed Multi-Disciplinary Progress Notes: Multi-Disciplinary Progress Notes 04/08/18 14:58 Respiratory Note by Leeanne Hernandez 04/08/18 0930am Was called to patient room due to increased sob. Upon arriving in room saturation were 86 to 87% with HR 104 and RR 28 to 30 b/s were coarse wheezes. Pt was given an extra albuterol treatment and asked nurse to give the solumedrolol and the bumex. Pt saturation increased on tx to 98 % and then after being placed back on n/c were 93% with HR 100 and RR 28 but patient stated she felt like she was breathing a little better. patient instructed to call if it got worse and that we would be giving her the scheduled treatment around 1030 or 11. Initialized on 04/08/18 14:58 - END OF NOTE 04/08/18 14:49 Nutrition Note by Twyla Herrera F/u Note: Regular diet con't with 100% po intake; note no lunch today. Labs 04/08= BUN 34 , glu wnl, +fluid balance 960 mls, weight on adm 56.8 kg; current wt 59.7 kg. Goals met and ongoing. Con't to recommend NCS cardiac diet. Will con't to monitor and f/u prn. T.MS [email or web address] Initialized on 04/08/18 14:49 - END OF NOTE 04/08/18 13:45 (created 04/08/18 14:04) Respiratory Note by Emmie Kerr DR.' NURSE BACON CALLED BACK AT THIS TIME. CHEST XRAY PA/LATERAL ORDERED PER DR. PEREZ TELEPHONE ORDER. Initialized on 04/08/18 14:04 - END OF NOTE 04/08/18 13:38 (created 04/08/18 13:59) Respiratory Note by Emmie Kerr PT HAS BECAME INCREASINGLY SOB TODAY MAINLY WITH EXERTION. LUNGS SOUNDS ARE ALSO NOW COARSE WITH CRACKLES/WHEEZE'S. DR. PEREZ NURSE ARLEEN NOTIFIED. SHE WILL CALL BACK AFTER SHE SPEAKS WITH DR. PEREZ. Initialized on 04/08/18 13:59 - END OF NOTE Assessment/Plan (1) HCAP (healthcare-associated pneumonia) Current Visit: No Status: Acute Code(s): J18.9 - PNEUMONIA, UNSPECIFIED ORGANISM (2) COPD exacerbation Current Visit: No Status: Acute Assessment & Plan: increase prednisone to 60mg daily Code(s): J44.1 - CHRONIC OBSTRUCTIVE PULMONARY DISEASE W (ACUTE) EXACERBATION (3) Failure of outpatient treatment Current Visit: No Status: Acute Code(s): Z78.9 - OTHER SPECIFIED HEALTH STATUS (4) High risk for readmission Current Visit: No Status: Acute Code(s): Z91.89 - OTH PERSONAL RISK FACTORS , NOT ELSEWHERE CLASSIFIED (5) Bleeding Current Visit: Yes Status: Acute
[2018-04-09] MEDS: BUMEX 1 MG PO SCH (10:04)
[2018-04-09] MEDS: NEURONTIN 300 MG PO SCH ×3 (10:05→21:30)
[2018-04-09] MEDS: Klor Con 10 MEQ PO SCH (10:05)
[2018-04-09] MEDS: ECOTRIN 81 MG PO SCH (10:05)
[2018-04-09] MEDS: PLAVIX 75 MG Tablet PO SCH (10:06)
[2018-04-09] MEDS: DELTASONE 20 MG PO SCH (10:10)
[2018-04-09] MEDS: ROCEPHIN 1 Gm-D5w 50 ml Bag** 1 G/50 ML IVPB IV SCH (10:34)
[2018-04-09] MEDS: NovoLOG Insulin SQ PRN ×2 (15:00→21:43)
[2018-04-10] MEDS: Norco 10/325 MG Tablet PO PRN ×5 (02:27→23:39)
[2018-04-10] MEDS: DUONEB 0.5-3 MG/3 ml Neb IH SCH ×6 (03:23→23:07)
[2018-04-10] MEDS: Advair Hfa 115/21 Common canister IH SCH ×2 (07:14→19:50)
[2018-04-10] MEDS: ECOTRIN 81 MG PO SCH (09:40)
[2018-04-10] MEDS: PLAVIX 75 MG Tablet PO SCH (09:40)
[2018-04-10] MEDS: Klor Con 10 MEQ PO SCH (09:40)
[2018-04-10] MEDS: BUMEX 1 MG PO SCH (09:40)
[2018-04-10] MEDS: NEURONTIN 300 MG PO SCH ×3 (09:40→21:43)
[2018-04-10] MEDS: ROCEPHIN 1 Gm-D5w 50 ml Bag** 1 G/50 ML IVPB IV SCH (09:40)
[2018-04-10] MEDS: DELTASONE 20 MG PO SCH (09:40)
[2018-04-10] MEDS: Sodium Chloride 0.9% 10 ML FLUSH Syringe IV SCH ×2 (09:41→14:38)
[2018-04-10] MEDS: NovoLOG Insulin SQ PRN (21:43)
[2018-04-11] MEDS: Norco 10/325 MG Tablet PO PRN ×4 (03:44→23:47)
[2018-04-11] MEDS: DUONEB 0.5-3 MG/3 ml Neb IH SCH ×6 (03:53→23:00)
[2018-04-11] MEDS: Advair Hfa 115/21 Common canister IH SCH ×2 (06:46→19:02)
[2018-04-11] MEDS: DELTASONE 20 MG PO SCH (09:14)
[2018-04-11] MEDS: ECOTRIN 81 MG PO SCH (09:14)
[2018-04-11] MEDS: Klor Con 10 MEQ PO SCH (09:14)
[2018-04-11] MEDS: BUMEX 1 MG PO SCH (09:14)
[2018-04-11] MEDS: NEURONTIN 300 MG PO SCH ×3 (09:14→22:49)
[2018-04-11] MEDS: PLAVIX 75 MG Tablet PO SCH (09:14)
[2018-04-11] MEDS: KEFLEX 500 MG PO SCH ×4 (09:40→22:49)
[2018-04-11] MEDS: NovoLOG Insulin SQ PRN ×2 (12:14→22:50)
[2018-04-12] MEDS: DUONEB 0.5-3 MG/3 ml Neb IH SCH ×6 (03:10→23:27)
[2018-04-12] MEDS: Norco 10/325 MG Tablet PO PRN ×4 (05:29→20:43)
[2018-04-12 05:54] LABS: Hematocrit 26.7 % (35-47); Hemoglobin 7.5 gm/dl (12.0-16.0); Mean Cell Volume 92.4 fl (78-100); Mean Corpuscular Hgb Concent. 28.1 g/dl (32-36); Mean Platelet Volume 9.7 fl (6-9.5); Platelet Count 203 K/mm3 (150-450); Red Blood Count 2.89 M/mm3 (4.1-5.4); Red Cell Distribution Width 20.1 % (11.5-14.0); White Blood Count 13.2 K/mm3 (4.0-10.5)
[2018-04-12 05:58] LABS: Mean Corpuscular Hemoglobin 25.9 pg (26-32)
[2018-04-12 06:12] LABS: ALBUMIN 3.1 g/dL (3.5-5.0); ALKALINE PHOSPHATASE 95 U/L (38-126); BLOOD UREA NITROGEN 34 mg/dL (7-17); CHLORIDE 90 mmol/L (98-107); Calcium 8.6 mg/dL (8.4-10.2); Creatinine 1 0.46 mg/dL (0.52-1.04); Glucose 88 mg/dL (74-106); Potassium 4.6 mmol/L (3.5-5.1); SGOT/AST 62 U/L (14-36); SGPT/ALT 133 U/L (0-35); SODIUM 138 mmol/L (137-145); Total Protein 5.8 g/dL (6.3-8.2)
[2018-04-12 06:25] LABS: ANION GAP 8.6 MEQ/L (5-15); Carbon Dioxide 44 mmol/L (22-30)
[2018-04-12] MEDS: Advair Hfa 115/21 Common canister IH SCH ×2 (06:29→19:21)
[2018-04-12 06:34] LABS: ATYPICAL LYMPHS 1 %; Hypochromia 1+; Lymphocytes 13 % (24-44); Monocyte 3 % (0.0-12.0); Neutrophils 83 % (36.0-66.0); Platelet Estimate NORMAL (NORMAL); Total Cells Counted 100; Toxic Granulation 1+
[2018-04-12 06:35] LABS: ANISOCYTOSIS 2+; Poikilocytosis 1+
--- NOTE | 2018-04-12 09:10 | PCM.NOTE ---
Date and Time: 04/12/18909 Subjective Assessment: patient short of breath from going to the restroom, otherwise feeling better. legs continue to hurt Objective Exam General Appearance: no apparent distress Neurologic Exam: alert, oriented x 3 Respiratory Exam: rhonchi Cardiovascular Exam: regular rate/rhythm, normal heart sounds Gastrointestinal/Abdomen Exam: soft, No tenderness, No mass Extremity Exam: normal inspection, normal range of motion OBJECTIVE DATA Vital Signs: Vital Signs - 24 hr Temp Pulse Resp BP Pulse Ox 04/12/18 07:31 97.9 F 77 18 139/64 94 L 04/12/18 06:50 83 18 98 04/11/18 23:00 87 20 97 04/11/18 20:00 98.2 F 105 H 24 127/60 98 04/11/18 19:03 68 18 96 04/11/18 15:11 68 18 96 04/11/18 10:33 55 L 18 100 Oxygen-Last 24 hours O2 Percentage 4 Liters = 36% O2 Percentage 4 Liters = 36% Pain Assessment - Last Documented Pain Intensity 3 Pain Scale Used 0-10 Pain Scale Intake and Output: Intake & Output 04/09/18 04/10/18 04/11/18 04/12/18 11:59 11:59 11:59 11:59 Intake Total 1200 480 480 840 Output Total 1540 056 6664 1600 Balance -100 280 -1070 -760 Lab Results: Accuchecks Date 04/12/18 Date 04/11/18 Time 07:30 Time 22:00 Accucheck Value: 81 Accucheck Value: 343 Accucheck Value: 152 Accucheck Value: 358 Lab Results-Last 24 Hours 04/12/18 04/12/18 Range/Units 05:20 05:20 WBC 13.2 H (4.0-10.5) K/mm3 RBC 2.89 L (4.1-5.4) M/mm3 Hgb 7.5 L (12.0-16.0) gm/dl Hct 26.7 L (35-47) % MCV 92.4 (78-100) fl MCH 25.9 L (26-32) pg MCHC 28.1 L (32-36) g/dl RDW 20.1 H (11.5-14.0) % Plt Count 203 (150-450) K/mm3 MPV 9.7 H (6-9.5) fl Segmented Neutrophils 83 H (36.0-66.0) % Lymphocytes (Manual) 13 L (24-44) % Monocytes (Manual) 3 (0.0-12.0) % Atypical Lymphocytes 1 % Hypochromia 1+ Toxic Granulation 1+ Platelet Estimate NORMAL (NORMAL) RBC Morphology ABNORMAL Poikilocytosis 1+ Anisocytosis 2+ Sodium 138 (137-145) mmol/L Potassium 4.6 (3.5-5.1) mmol/L Chloride 90 L (98-107) mmol/L Carbon Dioxide 44 H (22-30) mmol/L Anion Gap 8.6 (5-15) MEQ/L BUN 34 H (7-17) mg/dL Creatinine 0.46 L (0.52-1.04) mg/dL Estimated GFR > 60.0 ML/MIN Glucose 88 (74-106) mg/dL Calcium 8.6 (8.4-10.2) mg/dL Total Bilirubin 0.30 (0.2-1.3) mg/dL AST 62 H (14-36) U/L ALT 133 H (0-35) U/L Alkaline Phosphatase 95 (38-126) U/L Serum Total Protein 5.8 L (6.3-8.2) g/dL Albumin 3.1 L (3.5-5.0) g/dL Assessment/Plan (1) HCAP (healthcare-associated pneumonia) Current Visit: No Status: Acute Assessment & Plan: e coli on culture, was on rocephin, now on keflex. improved Code(s): J18.9 - PNEUMONIA, UNSPECIFIED ORGANISM (2) COPD exacerbation Current Visit: No Status: Acute Code(s): J44.1 - CHRONIC OBSTRUCTIVE PULMONARY DISEASE W (ACUTE) EXACERBATION (3) Failure of outpatient treatment Current Visit: No Status: Acute Code(s): Z78.9 - OTHER SPECIFIED HEALTH STATUS (4) High risk for readmission Current Visit: No Status: Acute Code(s): Z91.89 - OTH PERSONAL RISK FACTORS , NOT ELSEWHERE CLASSIFIED (5) Bleeding Current Visit: Yes Status: Acute
[2018-04-12] MEDS: BUMEX 1 MG PO SCH (09:57)
[2018-04-12] MEDS: KEFLEX 500 MG PO SCH ×4 (09:57→21:09)
[2018-04-12] MEDS: PLAVIX 75 MG Tablet PO SCH (09:58)
[2018-04-12] MEDS: NEURONTIN 300 MG PO SCH ×3 (09:58→21:09)
[2018-04-12] MEDS: ECOTRIN 81 MG PO SCH (09:58)
[2018-04-12] MEDS: DELTASONE 20 MG PO SCH (09:58)
[2018-04-12] MEDS: Klor Con 10 MEQ PO SCH (09:58)
[2018-04-12] MEDS ORDERED: Aplisol ID SCH (10:00)
[2018-04-12] MEDS: NovoLOG Insulin SQ PRN ×2 (16:44→22:02)
[2018-04-13] MEDS: DUONEB 0.5-3 MG/3 ml Neb IH SCH ×6 (03:16→23:06)
[2018-04-13] MEDS: Norco 10/325 MG Tablet PO PRN ×3 (06:20→20:14)
[2018-04-13] MEDS: Advair Hfa 115/21 Common canister IH SCH ×2 (06:39→19:27)
[2018-04-13] MEDS: NEURONTIN 300 MG PO SCH ×3 (09:00→21:43)
[2018-04-13] MEDS: DELTASONE 20 MG PO SCH (09:00)
[2018-04-13] MEDS: PLAVIX 75 MG Tablet PO SCH (09:00)
[2018-04-13] MEDS: KEFLEX 500 MG PO SCH ×4 (09:00→21:43)
[2018-04-13] MEDS: Klor Con 10 MEQ PO SCH (09:00)
[2018-04-13] MEDS: BUMEX 1 MG PO SCH (09:01)
[2018-04-13] MEDS: ECOTRIN 81 MG PO SCH (09:01)
[2018-04-13] MEDS: NovoLOG Insulin SQ PRN ×2 (16:51→21:44)
[2018-04-14] MEDS: Norco 10/325 MG Tablet PO PRN ×4 (00:16→15:34)
[2018-04-14] MEDS: DUONEB 0.5-3 MG/3 ml Neb IH SCH ×4 (03:35→14:51)
[2018-04-14] MEDS: Advair Hfa 115/21 Common canister IH SCH (06:57)
[2018-04-14 07:14] VITALS: BP 132/63
[2018-04-14] MEDS: DELTASONE 20 MG PO SCH (08:58)
[2018-04-14] MEDS: Klor Con 10 MEQ PO SCH (08:58)
[2018-04-14] MEDS: KEFLEX 500 MG PO SCH ×3 (08:58→16:34)
[2018-04-14] MEDS: PLAVIX 75 MG Tablet PO SCH (08:58)
[2018-04-14] MEDS: BUMEX 1 MG PO SCH (08:59)
[2018-04-14] MEDS: ECOTRIN 81 MG PO SCH (08:59)
[2018-04-14] MEDS: NEURONTIN 300 MG PO SCH ×2 (08:59→14:51)
--- NOTE | 2018-04-14 08:59 | PCM.DS ---
Discharge Summary Date of Admission: 04/01/18 12:01 Admitting Physician: ALPHONSE PEREZ Primary Care Provider: ALPHONSE PEREZ Allergies Allergies Penicillins Allergy (Verified 10/05/17 11:23) Hospital Summary - Hospital Course Hospital Course: patient was admitted with pneumonia and copd exacerbation, found to have e coli on sputum culture was treated with rocephin, nebs and steroids. had been readmitted and with chronic respiratory problems was admitted to a swing bed. she is doing much better at this time and on po meds, tolerating ambulation. - Vitals & Intake/Output Vital Signs: Vital Signs Temperature 97.7 F 04/14/18 07:13 Pulse Rate 80 04/14/18 07:13 Respiratory Rate 20 04/14/18 07:13 Blood Pressure 132/63 04/14/18 07:13 O2 Sat by Pulse Oximetry 100 04/14/18 07:13 Oxygen-Last Documented O2 Percentage 4 Liters = 36% Intake & Output: Intake & Output 04/11/18 04/12/18 04/13/18 04/14/18 11:59 11:59 11:59 11:59 Intake Total 480 840 480 100 Output Total 1550 2100 1100 1301 Balance -1070 -1260 -620 -1201 - Lab Result Diagrams: 04/12/18 05:20 04/12/18 05:20 Lab Results-Last 24 Hrs: Accuchecks Date 04/14/18 Time 07:30 Accucheck Value: 106 Accucheck Value: 305 Accucheck Value: 300 Accucheck Value: 168 Micro Results-Entire Visit: Accuchecks Date 04/14/18 Time 07:30 Accucheck Value: 106 Accucheck Value: 305 Accucheck Value: 300 Accucheck Value: 168 - Procedures and Test Procedures and Tests throughout Hospitalization: Therapy Orders & Screens 04/01/18 14:14 Respiratory Therapy Assessment DAILY Comment: 04/01/18 14:23 PT Eval & Treat ( Order) ROUTINE Reason for Eval:: DECONDITIONING R/T PNEUMONIA, SOB Diagnosis: DECONDITIONING R/T PNEUMONIA, SOB Oxygen NASAL CANNULA 4 lpm Comment: Diagnosis: Shortness of Breath Peak Expiratory Flow Rate ONCE Comment: Reason For Exam: Diagnosis: Shortness of Breath Respiratory Therapy Assessment DAILY Comment: Diagnosis: Shortness of Breath 04/02/18 07:00 Oxygen Nasal Cannula 4 lpm Comment: Peak Expiratory Flow Rate ONCE Comment: Reason For Exam: Discharge Exam General Appearance: no apparent distress, alert Neurologic Exam: alert, oriented x 3 Skin Exam: normal color, warm, dry Respiratory Exam: prolonged expirations Cardiovascular Exam: regular rate/rhythm, normal heart sounds Gastrointestinal/Abdomen Exam: soft, No tenderness, No mass Extremity Exam: normal inspection, normal range of motion Final Diagnosis/Problem List - Final Discharge Diagnosis/Problem (1) HCAP (healthcare-associated pneumonia) Current Visit: No Status: Acute Assessment & Plan: will send home on keflex, advised home health consult as patient is weak and requires chronic oxygen therapy, she is home bound and absences from home require a serious and taxing effort. (2) COPD exacerbation Current Visit: No Status: Acute (3) Failure of outpatient treatment Current Visit: No Status: Acute (4) High risk for readmission Current Visit: No Status: Acute (5) Bleeding Current Visit: Yes Status: Acute - Discharge Disposition: Home, Self-Care Condition: Stable Prescriptions: New Prednisone 20 mg [Deltasone 20 mg] 40 mg PO DAILY #13 tablet Cephalexin Mh 500 mg [Keflex 500 mg] 500 mg PO QID #20 capsule Continue Bumetanide 1 mg [Bumex 1 mg] 1 mg PO DAILY Prednisone 10 mg [Deltasone 10 mg] 10 mg PO DAILY Multivitamin [Multivitamins] 1 each PO DAILY Fluticasone/Salmeterol [Advair 250-50 Diskus] 1 puff IH BID Gabapentin 600 mg PO BID Metformin HCl [Metformin ER Osmotic] 500 mg PO DAILY Clopidogrel Bisulfate [Clopidogrel] 75 mg PO DAILY Nitroglycerin 0.4 mg Tablet [Nitrostat 0.4 MG Tablet] 0.4 mg PO Q5MIN PRN MR X 3 PRN PRN Reason: Chest Pain Aspirin 81 mg PO DAILY Potassium Chloride 20 Meq [Klor-Con 20 MEQ] 20 meq PO DAILY Gabapentin 300 mg PO DAILY Cyanocobalamin (Vitamin B-12) [Vitamin B-12] 500 mcg PO DAILY Vitamin E 400 unit PO DAILY Calcium Carbonate/Vitamin D3 [Calcium 600 + Vit D Caplet] 1 tab PO DAILY Hydrocodone/APAP 10/325 mg [[place] 10/325 MG Tablet] 1 tab PO Q4H PRN PRN #30 tablet MDD 6 PRN Reason: Pain Hydroxyzine Pamoate [Vistaril] 25 mg PO HS Ipratropium/Albuterol Sulfate [Combivent Respimat 20-100 Mcg] 4 gm IH BID PRN PRN PRN Reason: Shortness Of Breath Enoxaparin Sodium [Enoxaparin Sodium] 40 mg SQ DAILY #10 ml Discontinued Ceftriaxone 1 GM/50 ML PREMIX* [ROCEPHIN 1 Gm-D5w 50 ml Bag] 1 g IV Q24H10 #10 ivpb Instructions: Pneumonia, Adult (DC) Additional Instructions: Scheduled appt with Pain Management is set for 04/14/18@1:30 p.m. Follow up with: ALPHONSE PEREZ MD [Primary Care Provider] - 04/21/18 11:15 am Forms: Discharge Instructions
[2018-04-14 10:58] VITALS: O2SAT 98
[2018-04-14] MEDS: NovoLOG Insulin SQ PRN ×2 (11:42→16:05)
[2018-04-14 14:59] VITALS: PULSE 85
== END 2018-04-14 17:42 | disposition home or self-care (01) | DRG 194 ==
LOC: MED SURG 12:01
PROVIDERS: ADMIT Family Medicine; ATTEND Family Medicine
DX: J18.9 Pneumonia, unspecified organism (principal); J44.1 Chronic obstructive pulmonary disease with (acute) exacerbation; B96.20 Unspecified Escherichia coli [E. coli] as the cause of diseases classified elsewhere; R23.3 Spontaneous ecchymoses; Z99.81 Dependence on supplemental oxygen; Z79.899 Other long term (current) drug therapy
CPT/HCPCS: 36415; 71046; 80048; 80053; 82962; 85025; 94150; 94640; 94760; A6457; J0696; J2920; J7609; 97110-GP; A9270-GY

== ENCOUNTER 2018-04-28 12:22 | Observation (INO) | payer MEDICARE ==
[2018-04-28] MEDS ORDERED: DUONEB 0.5-3 MG/3 ml Neb IH ONE ×4 (12:30→14:45)
[2018-04-28] MEDS ORDERED: Sodium Chloride 0.9% 1000 ML 1,000 ML ONE (12:44)
[2018-04-28] MEDS: Sodium Chloride 0.9% 1000 ML 1,000 ML IV SCH (12:49)
[2018-04-28] MEDS ORDERED: Levofloxacin 500MG/100ML D5W 500 MG/100 ML BAG IV STA (12:58)
[2018-04-28] MEDS ORDERED: Levofloxacin 500MG/100ML D5W 500 MG/100 ML BAG IV ONE (13:03)
--- NOTE | 2018-04-28 13:06 | ERPHSYRPT ---
- History of Present Illness Time Seen by Provider: 04/28/18 12:35 Source: patient Exam Limitations: clinical condition Patient Subjective Stated Complaint: PT states "I was recently in here for pneumonia and sent home recently. I am still having trouble breathing and I fell yesterday and my left hip and am really bruised and my butt hurts too." Triage Nursing Assessment: Pt brought in by scat. PT presented alert and oriented X 3, skin pwd Pt able to speak in clear full setences. PT slightly tachypneic with wet intermittant cough. PT lung sounds rhales noted throughout. " Physician History: PATIENT WITH A HISTORY OF CORONARY ARTERY DISEASE, PNEUMONIA, COPD, MULTIPLE ADMISSIONS FOR EXACERBATION COPE AND PNEUMONIA COMPLAINS OF DIFFICULTY BREATHING AND A NONPRODUCTIVE COUGH FOR 3 DAYS. HAS NO RELIEF IN DYSPNEA AT REST WHILE USING NEBULIZERS. DENIES FEVER OR CHILLS. Timing/Duration: day(s) Activities at Onset: activity, rest Severity of Dyspnea-Max: moderate Severity of Dyspnea-Current: moderate Possible Cause: frequent episodes Modifying Factors: Improves With: albuterol nebulizer, coughing, exertion Associated Symptoms: chest pain/discomfort International travel in last 2 weeks: No Allergies/Adverse Reactions: Penicillins Allergy (Verified 10/05/17 11:23) Home Medications: Bumetanide 1 mg [Bumex 1 mg] 1 mg PO DAILY 06/20/14 [History] Fluticasone/Salmeterol [Advair 250-50 Diskus] 1 puff IH BID 06/20/14 [History] Multivitamin [Multivitamins] 1 each PO DAILY 06/20/14 [History] Prednisone 10 mg [Deltasone 10 mg] 10 mg PO DAILY 06/20/14 [History] Gabapentin 600 mg PO BID 10/05/17 [History] Aspirin 81 mg PO DAILY 10/06/17 [History] Calcium Carbonate/Vitamin D3 [Calcium 600 + Vit D Caplet] 1 tab PO DAILY [History] Clopidogrel Bisulfate [Clopidogrel] 75 mg PO DAILY 10/06/17 [History] Cyanocobalamin (Vitamin B-12) [Vitamin B-12] 500 mcg PO DAILY 10/06/17 [History] Gabapentin 300 mg PO DAILY 10/06/17 [History] Metformin HCl [Metformin ER Osmotic] 500 mg PO DAILY 10/06/17 [History] Nitroglycerin 0.4 mg Tablet [Nitrostat 0.4 MG Tablet] 0.4 mg PO Q5MIN PRN MR X 3 PRN 10/06/17 [History] Potassium Chloride 20 Meq [Klor-Con 20 MEQ] 20 meq PO DAILY 10/06/17 [History] Vitamin E 400 unit PO DAILY 10/06/17 [History] Hydroxyzine Pamoate [Vistaril] 25 mg PO HS 03/14/18 [History] Ipratropium/Albuterol Sulfate [Combivent Respimat 20-100 Mcg] 4 gm IH BID PRN PRN 03/14/18 [History] Hx Tetanus, Diphtheria Vaccination/Date Given: Yes Hx Influenza Vaccination/Date Given: Yes Hx Pneumococcal Vaccination/Date Given: Yes Immunizations Up to Date: Yes - Review of Systems Constitutional: No Symptoms, Weakness, No Fever, No Chills Eyes: No Symptoms Ears, Nose, & Throat: No Symptoms Respiratory: Cough, No Dyspnea Cardiac: No Symptoms, No Chest Pain, No Edema, No Syncope Abdominal/Gastrointestinal: No Symptoms, No Abdominal Pain, No Nausea, No Vomiting, No Diarrhea Genitourinary Symptoms: No Symptoms, No Dysuria Musculoskeletal: No Symptoms, No Back Pain, No Neck Pain Skin: No Rash Neurological: No Dizziness, No Focal Weakness, No Sensory Changes Psychological: No Symptoms Endocrine: No Symptoms All Other Systems: Reviewed and Negative - Past Medical History Pertinent Past Medical History: Yes Neurological History: No Pertinent History ENT History: No Pertinent History Cardiac History: Coronary Artery Disease Respiratory History: COPD Endocrine Medical History: Diabetes Type II Musculoskeletal History: Arthritis GI Medical History: Other History: No Pertinent History Psycho-Social History: No Pertinent History Female Reproductive Disorders: No Pertinent History Other Medical History: 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, 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 - Past Surgical History Past Surgical History: Yes Neuro Surgical History: No Pertinent History Cardiac: CABG, Cardiac Stent, Valve Replacement Respiratory: No Pertinent History Gastrointestinal: Other Genitourinary: No Pertinent History Musculoskeletal: Orthopedic Surgery Female Surgical History: Hysterectomy Other Surgical History: beverly knees replaced, beverly wrist, beverly ankles, colostomy - Social History Smoking Status: Former smoker Exposure to second hand smoke: Yes Drug Use: none Patient Lives Alone: Yes - Nursing Vital Signs Nursing Vital Signs: Initial Vital Signs Temperature 98.2 F 04/28/18 12:27 Pulse Rate 94 H 04/28/18 12:27 Respiratory Rate 22 04/28/18 12:27 Blood Pressure 123/52 04/28/18 12:27 O2 Sat by Pulse Oximetry 82 L 04/28/18 12:27 Pain Scale Pain Intensity 8 - Physical Exam General Appearance: mild distress Eye Exam: PERRL/EOMI Neck Exam: normal inspection, supple Respiratory Exam: diminished breath sounds, wheezing (INSPIRATORY RIGHT BASE CRACKLES EXPIRATORY WHEEZES) Cardiovascular/Chest Exam: normal heart sounds, regular rate/rhythm Abdominal/Gastrointestinal Exam: soft, normal bowel sounds Extremity Exam: non-tender, normal range of motion (THERE IS TENDERNESS LEFT GREATER TROCHANTER, ECCHYMOSIS 2CM X 3CM DISTAL LEFT THIGH LATERAL THIGH ), normal inspection Peripheral Pulses Exam: carotid (R): 2+, carotid (L): 2+, femoral (R): 2+, femoral (L): 2+, dorsalis-pedis (R): 2+, dorsalis-pedis (L): 2+ Neurologic Exam: alert, oriented x 3 Skin Exam: normal color, warm Lymphatic Exam: adenopathy SpO2 Interpretation: normal SpO2: 97 O2 Delivery: Nasal Cannula - Course EKG Interpreted by Me: RATE, Sinus Rhythm, NORMAL AXIS, Right Bundle Branch Block - Radiology Exams Chest X-ray Interpretation: Discussed w/ radiologist (NONACUTE HYPERINFLATED CHEST WITH CHRONIC FEATURES, , ) Pelvis X-ray Interpretation: Discussed w/ radiologist, Negative, No Fracture Left Femur X-ray Interpretation: Discussed w/ radiologist, Negative, No Fracture Ordered Tests: Active Orders 24 hr Category Date Time Status EKG-ER Only STAT Care 04/28/18 12:30 Active IV Insertion STAT Care 04/28/18 12:30 Active Oxygen-ED Only Nasal Cannula 2 lpm Care 04/28/18 12:30 Active CHEST 1 VIEW (PORTABLE) Stat Exams 04/28/18 13:34 Completed FEMUR Stat Exams 04/28/18 12:39 Completed PELVIS (1 OR 2 VIEWS) Stat Exams 04/28/18 12:39 Completed ARTERIAL BLOOD GASES Stat Lab 04/28/18 13:00 Completed BLOOD CULTURE Stat Lab 04/28/18 12:57 Received CBC W DIFF Stat Lab 04/28/18 13:00 Completed CMP Stat Lab 04/28/18 13:00 Completed Lactic Acid Stat Lab 04/28/18 13:00 Completed MAGNESIUM Stat Lab 04/28/18 13:00 Completed NT PRO BNP Stat Lab 04/28/18 13:00 Completed PROTIME WITH INR Stat Lab 04/28/18 13:00 Completed TROPONIN Q3H Lab 04/28/18 13:00 Completed TROPONIN Q3H Lab 04/28/18 15:45 Ordered TROPONIN Q3H Lab 04/28/18 18:45 Ordered TROPONIN Q3H Lab 04/28/18 21:45 Ordered TROPONIN Q3H Lab 04/29/18 00:45 Ordered UA W/RFX UR CULTURE Stat Lab 04/28/18 14:20 Completed Peak Expiratory Flow Rate ONCE RT 04/28/18 12:30 Active Respiratory Nebulizer STAT RT 04/28/18 12:32 Completed Respiratory Nebulizer STAT RT 04/28/18 14:24 Completed Respiratory Therapy Assessment DAILY RT 04/28/18 12:44 Active Transfer Order Routine Transfer 04/28/18 Ordered Medication Summary Generic Name Dose Route Start Last Admin Trade Name Freq PRN Reason Stop Dose Admin Sodium Chloride 1,000 mls @ 30 mls/hr 04/28/18 12:30 04/28/18 12:49 Sodium Chloride 0.9% 1000 Ml IV 05/28/18 12:29 30 mls/hr .Q24H LAURENT Administration Discontinued Medications Generic Name Dose Route Start Last Admin Trade Name Freq PRN Reason Stop Dose Admin Albuterol/Ipratropium 3 ml 04/28/18 12:30 04/28/18 12:40 Duoneb 0.5-3 Mg/3 Ml Neb IH 04/28/18 12:31 3 ml STAT ONE Administration Albuterol/Ipratropium Confirm 04/28/18 12:39 Duoneb 0.5-3 Mg/3 Ml Neb Administered 04/28/18 12:40 Dose 3 ml IH .STK-MED ONE Albuterol/Ipratropium 3 ml 04/28/18 14:24 04/28/18 14:46 Duoneb 0.5-3 Mg/3 Ml Neb IH 04/28/18 14:25 3 ml STAT ONE Administration Albuterol/Ipratropium Confirm 04/28/18 14:45 Duoneb 0.5-3 Mg/3 Ml Neb Administered 04/28/18 14:46 Dose 3 ml IH .STK-MED ONE Levofloxacin/Dextrose 500 mg in 100 mls @ 100 mls/hr 04/28/18 12:58 04/28/18 13:38 Levofloxacin 500mg/100ml D5w IV 04/28/18 13:57 1 ml/hr STAT STA 1 mls/hr Administration Levofloxacin/Dextrose Confirm 04/28/18 13:03 Levofloxacin 500mg/100ml D5w Administered 04/28/18 13:04 Dose 500 mg in 100 mls @ ud IV .[facility]-MED ONE Lab/Rad Data: Laboratory Result Diagrams 04/28/18 13:00 04/28/18 13:00 Laboratory Results 04/28/18 04/28/18 04/28/18 Range/Units 14:20 13:00 13:00 WBC (4.0-10.5) K/mm3 RBC (4.1-5.4) M/mm3 Hgb (12.0-16.0) gm/dl Hct (35-47) % MCV (78-100) fl MCH (26-32) pg MCHC (32-36) g/dl RDW (11.5-14.0) % Plt Count (150-450) K/mm3 MPV (6-9.5) fl Gran % (36.0-66.0) % Eos # (Auto) (0-0.5) Absolute Lymphs (auto) (1.0-4.6) Absolute Monos (auto) (0.0-1.3) Lymphocytes % (24.0-44.0) % Monocytes % (0.0-12.0) % Eosinophils % (0.00-5.0) % Basophils % (0.0-0.4) % Absolute Granulocytes (1.4-6.9) Basophils # (0-0.4) PT (9.95-12.35) SECONDS INR (0.8-3.0) Puncture Site RIGHT RADIAL pCO2 73 H* (35-45) mmHg pO2 56 L (75-100) mmHg Base Excess 19.0 H (-2.0-2.0) O2 Saturation 90.1 L (94-100) g/dF ABG pH 7.41 (7.35-7.45) ABG HCO3 46.3 H* (22-28) ABG O2 Sat (Measured) 93.4 L (95-100) % Charli Test YES A-a Gradient 166 a/A Ratio 0.25 Hemoglobin 8.8 Carboxyhemoglobin 3.0 (0.0-6.9) % THgb Methemoglobin 0.5 L (1.4-1.5) % Potassium 4.1 (3.5-5.1) Temperature 37.0 C POC O2 Flow Rate 44 % Sodium (137-145) mmol/L Chloride (98-107) mmol/L Carbon Dioxide (22-30) mmol/L Anion Gap (5-15) MEQ/L BUN (7-17) mg/dL Creatinine (0.52-1.04) mg/dL Estimated GFR ML/MIN Glucose (74-106) mg/dL Lactic Acid 0.5 (0.4-2.0) Calcium (8.4-10.2) mg/dL Magnesium (1.6-2.3) mg/dL Total Bilirubin (0.2-1.3) mg/dL AST (14-36) U/L ALT (0-35) U/L Alkaline Phosphatase (38-126) U/L Troponin I (0.000-0.034) ng/mL NT-Pro-B Natriuret Pep (0-1800) pg/mL Serum Total Protein (6.3-8.2) g/dL Albumin (3.5-5.0) g/dL Urine Color YELLOW (YELLOW) Urine Appearance CLEAR (CLEAR) Urine pH 6.0 (5-6) Ur Specific [place] 1.014 (1.005-1.025) Urine Protein NEGATIVE (Negative) Urine Ketones SMALL (NEGATIVE) Urine Blood NEGATIVE (0-5) Paul/ul Urine Nitrite NEGATIVE (NEGATIVE) Urine Bilirubin NEGATIVE (NEGATIVE) Urine Urobilinogen NEGATIVE (0-1) mg/dL Ur Leukocyte Esterase NEGATIVE (NEGATIVE) Urine WBC (Auto) NONE (0-5) /HPF Urine RBC (Auto) NONE (0-2) /HPF U Epithel Cells (Auto) NONE (FEW) /HPF Urine Bacteria (Auto) NONE (NEGATIVE) /HPF Urine Culture Reflexed NO (NO) Urine Glucose NEGATIVE (NEGATIVE) mg/dL Influenza Type A Ag NEGATIVE (NEGATIVE) Influenza Type B Ag NEGATIVE (NEGATIVE) RSV (PCR) NEGATIVE (Negative) Slides for Path Review 04/28/18 04/28/18 04/28/18 Range/Units 13:00 13:00 13:00 WBC (4.0-10.5) K/mm3 RBC (4.1-5.4) M/mm3 Hgb (12.0-16.0) gm/dl Hct (35-47) % MCV (78-100) fl MCH (26-32) pg MCHC (32-36) g/dl RDW (11.5-14.0) % Plt Count (150-450) K/mm3 MPV (6-9.5) fl Gran % (36.0-66.0) % Eos # (Auto) (0-0.5) Absolute Lymphs (auto) (1.0-4.6) Absolute Monos (auto) (0.0-1.3) Lymphocytes % (24.0-44.0) % Monocytes % (0.0-12.0) % Eosinophils % (0.00-5.0) % Basophils % (0.0-0.4) % Absolute Granulocytes (1.4-6.9) Basophils # (0-0.4) PT 11.8 (9.95-12.35) SECONDS INR 1.01 (0.8-3.0) Puncture Site pCO2 (35-45) mmHg pO2 (75-100) mmHg Base Excess (-2.0-2.0) O2 Saturation (94-100) g/dF ABG pH (7.35-7.45) ABG HCO3 (22-28) ABG O2 Sat (Measured) (95-100) % Charli Test A-a Gradient a/A Ratio Hemoglobin Carboxyhemoglobin (0.0-6.9) % THgb Methemoglobin (1.4-1.5) % Potassium 4.1 (3.5-5.1) Temperature C POC O2 Flow Rate % Sodium 138 (137-145) mmol/L Chloride 90 L (98-107) mmol/L Carbon Dioxide 38 H (22-30) mmol/L Anion Gap 14.1 (5-15) MEQ/L BUN 21 H (7-17) mg/dL Creatinine 0.53 (0.52-1.04) mg/dL Estimated GFR > 60.0 ML/MIN Glucose 88 (74-106) mg/dL Lactic Acid (0.4-2.0) Calcium 8.8 (8.4-10.2) mg/dL Magnesium 1.6 (1.6-2.3) mg/dL Total Bilirubin 0.60 (0.2-1.3) mg/dL AST 34 (14-36) U/L ALT 19 (0-35) U/L Alkaline Phosphatase 77 (38-126) U/L Troponin I < 0.012 (0.000-0.034) ng/mL NT-Pro-B Natriuret Pep 476 (0-1800) pg/mL Serum Total Protein 5.9 L (6.3-8.2) g/dL Albumin 3.2 L (3.5-5.0) g/dL Urine Color (YELLOW) Urine Appearance (CLEAR) Urine pH (5-6) Ur Specific [place] (1.005-1.025) Urine Protein (Negative) Urine Ketones (NEGATIVE) Urine Blood (0-5) Paul/ul Urine Nitrite (NEGATIVE) Urine Bilirubin (NEGATIVE) Urine Urobilinogen (0-1) mg/dL Ur Leukocyte Esterase (NEGATIVE) Urine WBC (Auto) (0-5) /HPF Urine RBC (Auto) (0-2) /HPF U Epithel Cells (Auto) (FEW) /HPF Urine Bacteria (Auto) (NEGATIVE) /HPF Urine Culture Reflexed (NO) Urine Glucose (NEGATIVE) mg/dL Influenza Type A Ag (NEGATIVE) Influenza Type B Ag (NEGATIVE) RSV (PCR) (Negative) Slides for Path Review 04/28/18 Range/Units 13:00 WBC 7.2 (4.0-10.5) K/mm3 RBC 2.92 L (4.1-5.4) M/mm3 Hgb 8.1 L (12.0-16.0) gm/dl Hct 28.4 L (35-47) % MCV 97.3 (78-100) fl MCH 27.7 (26-32) pg MCHC 28.5 L (32-36) g/dl RDW 20.2 H (11.5-14.0) % Plt Count 208 (150-450) K/mm3 MPV 9.5 (6-9.5) fl Gran % 79.0 H (36.0-66.0) % Eos # (Auto) 0.02 (0-0.5) Absolute Lymphs (auto) 1.02 (1.0-4.6) Absolute Monos (auto) 0.46 (0.0-1.3) Lymphocytes % 14.2 L (24.0-44.0) % Monocytes % 6.4 (0.0-12.0) % Eosinophils % 0.3 (0.00-5.0) % Basophils % 0.1 (0.0-0.4) % Absolute Granulocytes 5.68 (1.4-6.9) Basophils # 0.01 (0-0.4) PT (9.95-12.35) SECONDS INR (0.8-3.0) Puncture Site pCO2 (35-45) mmHg pO2 (75-100) mmHg Base Excess (-2.0-2.0) O2 Saturation (94-100) g/dF ABG pH (7.35-7.45) ABG HCO3 (22-28) ABG O2 Sat (Measured) (95-100) % Charli Test A-a Gradient a/A Ratio Hemoglobin Carboxyhemoglobin (0.0-6.9) % THgb Methemoglobin (1.4-1.5) % Potassium (3.5-5.1) Temperature C POC O2 Flow Rate % Sodium (137-145) mmol/L Chloride (98-107) mmol/L Carbon Dioxide (22-30) mmol/L Anion Gap (5-15) MEQ/L BUN (7-17) mg/dL Creatinine (0.52-1.04) mg/dL Estimated GFR ML/MIN Glucose (74-106) mg/dL Lactic Acid (0.4-2.0) Calcium (8.4-10.2) mg/dL Magnesium (1.6-2.3) mg/dL Total Bilirubin (0.2-1.3) mg/dL AST (14-36) U/L ALT (0-35) U/L Alkaline Phosphatase (38-126) U/L Troponin I (0.000-0.034) ng/mL NT-Pro-B Natriuret Pep (0-1800) pg/mL Serum Total Protein (6.3-8.2) g/dL Albumin (3.5-5.0) g/dL Urine Color (YELLOW) Urine Appearance (CLEAR) Urine pH (5-6) Ur Specific [place] (1.005-1.025) Urine Protein (Negative) Urine Ketones (NEGATIVE) Urine Blood (0-5) Paul/ul Urine Nitrite (NEGATIVE) Urine Bilirubin (NEGATIVE) Urine Urobilinogen (0-1) mg/dL Ur Leukocyte Esterase (NEGATIVE) Urine WBC (Auto) (0-5) /HPF Urine RBC (Auto) (0-2) /HPF U Epithel Cells (Auto) (FEW) /HPF Urine Bacteria (Auto) (NEGATIVE) /HPF Urine Culture Reflexed (NO) Urine Glucose (NEGATIVE) mg/dL Influenza Type A Ag (NEGATIVE) Influenza Type B Ag (NEGATIVE) RSV (PCR) (Negative) Slides for Path Review YES - Progress Progress: improved Progress Note: 04/28/18 13:11 PATIENT RECEIVED DUO NEB AEROSOL TX IV SOLUMEDROL 125MG VIA EMS ENROUTE TO EMERGENCY. AFTER 2 SETS OF BLOOD CULTURES IV LEVAQUIN 500MG , REPEAT DUO NEB AEROSOL TX. Blood Culture(s) Obtained: Yes Antibiotics given: Yes Discussed with : Preston (DISCUSSED WITH DR PEREZ AT 1500 FOR OBSERVATION) - Departure Time of Disposition: 15:20 Departure Disposition: Observation Clinical Impression: ACUTE EXACERBATION COPD Condition: Stable Critical Care Time: No Referrals: ALPHONSE PEREZ MD [Primary Care Provider] -
[2018-04-28 13:11] LABS: BASOPHIL % 0.1 % (0.0-0.4); Basophil (Absolute #) 0.01 (0-0.4); Eosinophil % 0.3 % (0.00-5.0); Eosinophil (Absolute #) 0.02 (0-0.5); Granulocyte Absolute (ANC) 5.68 (1.4-6.9); Hematocrit 28.4 % (35-47); Hemoglobin 8.1 gm/dl (12.0-16.0); Lymphocyte (Absolute #) 1.02 (1.0-4.6); Lymphocytes % 14.2 % (24.0-44.0); Mean Cell Volume 97.3 fl (78-100); Mean Corpuscular Hemoglobin 27.7 pg (26-32); Mean Corpuscular Hgb Concent. 28.5 g/dl (32-36); Mean Platelet Volume 9.5 fl (6-9.5); Monocyte (Absolute #) 0.46 (0.0-1.3); Monocytes % 6.4 % (0.0-12.0); Platelet Count 208 K/mm3 (150-450); Red Blood Count 2.92 M/mm3 (4.1-5.4); Red Cell Distribution Width 20.2 % (11.5-14.0); White Blood Count 7.2 K/mm3 (4.0-10.5)
[2018-04-28 13:12] LABS: A-aADO2 166; ABG HEMOGLOBIN 8.8; ABG POTASSIUM 4.1 (3.5-5.1); ARTERIAL BLD GAS O2 SATURATION 93.4 % (95-100); ARTERIAL BLOOD GAS FIO2 44 %; ARTERIAL BLOOD GAS PO2 56 mmHg (75-100); ARTERIAL BLOOD GAS pH 7.41 (7.35-7.45); HCO3- 46.3 (22-28); HGB O2 SAT 90.1 g/dF (94-100); Lactic Acid 0.5 (0.4-2.0); Methhemoglobin 0.5 % (1.4-1.5); paO2 pAO1 0.25
[2018-04-28 13:13] LABS: ABG SITE RIGHT RADIAL; ALLEN TEST OK? YES; ARTERIAL BLOOD GAS PCO2 73 mmHg (35-45)
[2018-04-28 13:22] LABS: INR 1.01 (0.8-3.0); PROTIME 11.8 SECONDS (9.95-12.35)
[2018-04-28 13:41] LABS: ALBUMIN 3.2 g/dL (3.5-5.0); ALKALINE PHOSPHATASE 77 U/L (38-126); BLOOD UREA NITROGEN 21 mg/dL (7-17); CHLORIDE 90 mmol/L (98-107); Calcium 8.8 mg/dL (8.4-10.2); Creatinine 1 0.53 mg/dL (0.52-1.04); Glucose 88 mg/dL (74-106); MAGNESIUM 1.6 mg/dL (1.6-2.3); NT PRO BNP 476 pg/mL (0-1800); Potassium 4.1 mmol/L (3.5-5.1); SGOT/AST 34 U/L (14-36); SGPT/ALT 19 U/L (0-35); SODIUM 138 mmol/L (137-145); Total Protein 5.9 g/dL (6.3-8.2)
[2018-04-28 13:42] LABS: INFLUENZA A NEGATIVE (NEGATIVE); INFLUENZA B NEGATIVE (NEGATIVE); RESPIRATORY SYNCTIAL VIRUS NEGATIVE (Negative)
[2018-04-28 13:43] LABS: ANION GAP 14.1 MEQ/L (5-15); Carbon Dioxide 38 mmol/L (22-30)
--- NOTE | 2018-04-28 13:43 | XRAY ---
Indication: Cough. Comparison: January 06, 2019. Portable chest hyperinflated and clear. Again incidental right perihilar fibrosis/scarring and mediastinal/right midlung calcified granulomas. Heart is not enlarged again with previous cardiac valvular replacement surgery. Bony thorax intact again with mild osteopenia and degenerative changes. Impression: Nonacute hyperinflated chest with chronic features.
--- NOTE | 2018-04-28 13:47 | XRAY ---
Indication: Status post fall. Comparison: April 20, 2014. AP pelvis again demonstrates osteopenia with progressive worsening advanced right hip degenerative arthropathy. Stable mild left hip degenerative arthropathy, lower lumbar degenerative spondylosis, and heavy scattered vascular calcifications. No other bony, articular, or soft tissue abnormalities.
--- NOTE | 2018-04-28 13:49 | XRAY ---
Indication: Status post fall. Comparison: None 2 views of the left femur demonstrates osteopenia, total knee arthroplasty, heavy scattered vascular calcifications, and numerous posterior medial vascular clips. No other bony, articular, or soft tissue abnormalities.
[2018-04-28 13:53] LABS: Slide Review 1 YES
[2018-04-28 14:38] LABS: Appearance CLEAR (CLEAR); Bilirubin NEGATIVE (NEGATIVE); Blood NEGATIVE Ery/ul (0-5); Glucose NEGATIVE (NEGATIVE); Ketones SMALL (NEGATIVE); Leukocyte Esterase NEGATIVE (NEGATIVE); Nitrite NEGATIVE (NEGATIVE); Protein,Urine Dip NEGATIVE (Negative); Specific Gravity 1.014 (1.005-1.025); Urobilinogen NEGATIVE mg/dL (0-1)
[2018-04-28] MEDS ORDERED: Norco 10/325 MG Tablet PO ONE (15:24)
[2018-04-28] MEDS ORDERED: Norco 10/325 MG Tablet ONE (15:26)
[2018-04-28] MEDS ORDERED: Xopenex 1.25 MG/0.5 ML UD NEBULE IH PRN (15:51)
[2018-04-28] MEDS ORDERED: Nitrostat 0.4 MG Tablet SL PRN (15:51)
[2018-04-28] MEDS ORDERED: MAALOX ES 30 ML UNIT DOSE PO PRN (15:51)
[2018-04-28] MEDS ORDERED: Zofran 4 MG/2 ML VIAL IV PRN (15:51)
[2018-04-28] MEDS ORDERED: MILK OF MAGNESIA 30 ML PO PRN (15:51)
[2018-04-28] MEDS ORDERED: Senokot-S Tablet PO PRN (15:51)
[2018-04-28] MEDS ORDERED: Norco 10/325 MG Tablet PO PRN (15:51)
--- NOTE | 2018-04-28 16:43 | PCM.HP ---
History of Present Illness - Chief Complaint Chief Complaint: ACUTE EXACERBATION COPD History of Present Illness: is a 77 year old female who presented to the ER with shortness of breath and recurrent falls. she was recently hospitalized with pneumonia and copd exacerbation and had a prolonged hospital stay with swingbed stay but refused ECF placement. she is unable to care for herself at this time and unsafe to be at home alone. - Review of Systems Constitutional: Weakness, No Fever, No Chills Respiratory: Cough, Short Of Breath Cardiac: No Chest Pain, No Edema, No Syncope Abdominal/Gastrointestinal: No Abdominal Pain, No Nausea, No Vomiting, No Diarrhea Skin: Other (skin tear to right forearm), No Rash Medications & Allergies Home Medications: Home Medication List Bumetanide 1 mg [Bumex 1 mg] 1 mg PO DAILY 06/20/14 [History Confirmed ] Fluticasone/Salmeterol [Advair 250-50 Diskus] 1 puff IH BID 06/20/14 [History Confirmed 04/28/18] Multivitamin [Multivitamins] 1 each PO DAILY 06/20/14 [History Confirmed ] Prednisone 10 mg [Deltasone 10 mg] 10 mg PO DAILY 06/20/14 [History Confirmed 04/28/18] Gabapentin 600 mg PO BID 10/05/17 [History Confirmed 04/28/18] Aspirin 81 mg PO DAILY 10/06/17 [History Confirmed 04/28/18] Calcium Carbonate/Vitamin D3 [Calcium 600 + Vit D Caplet] 1 tab PO DAILY [History Confirmed 04/28/18] Clopidogrel Bisulfate [Clopidogrel] 75 mg PO DAILY 10/06/17 [History Confirmed 04/28/18] Cyanocobalamin (Vitamin B-12) [Vitamin B-12] 500 mcg PO DAILY 10/06/17 [History Confirmed 04/28/18] Metformin HCl [Metformin ER Osmotic] 500 mg PO DAILY 10/06/17 [History Confirmed 04/28/18] Nitroglycerin 0.4 mg Tablet [Nitrostat 0.4 MG Tablet] 0.4 mg PO Q5MIN PRN MR X 3 PRN 10/06/17 [History Confirmed 04/28/18] Potassium Chloride 20 Meq [Klor-Con 20 MEQ] 20 meq PO DAILY 10/06/17 [History Confirmed 04/28/18] Vitamin E 400 unit PO DAILY 10/06/17 [History Confirmed 04/28/18] Hydrocodone/APAP 10/325 mg [[place] 10/325 MG Tablet] 1 tab PO Q4H PRN PRN # 30 tablet MDD 6 10/16/17 [Rx Confirmed 04/28/18] Hydroxyzine Pamoate [Vistaril] 25 mg PO HS 03/14/18 [History Confirmed 04/28/18] Ipratropium/Albuterol Sulfate [Combivent Respimat 20-100 Mcg] 4 gm IH BID PRN PRN 03/14/18 [History Confirmed 04/28/18] Allergies/Adverse Reactions: Allergies Allergy/AdvReac Type Severity Reaction Status Date / Time Penicillins Allergy Verified 10/05/17 11:23 - Past Medical History Past Medical History: Yes Neurological History: No Pertinent History ENT History: No Pertinent History Cardiac History: Coronary Artery Disease Respiratory History: COPD Endocrine Medical History: Diabetes Type II Musculoskelatal History: Arthritis GI Medical History: Other History: No Pertinent History Pyscho-Social History: No Pertinent History Reproductive Disorders: No Pertinent History Comment: 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, 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 - Past Surgical History Past Surgical History: Yes Neuro Surgical History: No Pertinent History Cardiac History: CABG, Cardiac Stent, Valve Replacement Respiratory Surgery: No Pertinent History GI Surgical History: Other Genitourinary Surgical Hx: No Pertinent History Musculskeletal Surgical Hx: Orthopedic Surgery Female Surgical History: Hysterectomy Other Surgical History: beverly knees replaced, beverly wrist, beverly ankles, colostomy - Social History Smoking Status: Former smoker Exposure to second hand smoke: Yes Alcohol: None Drug Use: none - Physical Exam Vital Signs: Vital Signs - 24 hr Temp Pulse Resp BP Pulse Ox 04/28/18 16:05 98.3 F 92 H 20 110/52 96 04/28/18 15:38 98.2 F 96 H 20 111/54 92 L 04/28/18 15:23 97 04/28/18 14:48 93 H 28 H 98 04/28/18 14:40 90 24 110/62 98 04/28/18 13:50 86 26 H 110/62 99 04/28/18 13:12 88 16 115/54 88 L 03/20/19 12:44 88 24 97 04/28/18 12:27 98.2 F 94 H 24 123/52 95 Oxygen-Last 24 hours O2 Percentage 4 Liters = 36% O2 Percentage 4 Liters = 36% O2 Percentage 6 Liters = 44% O2 Percentage 6 Liters = 44% O2 Percentage 6 Liters = 44% O2 Percentage 6 Liters = 44% General Appearance: no apparent distress, alert Neurologic Exam: alert, oriented x 3, other (diffusely weak, no focal abnormalities) Respiratory Exam: wheezing Cardiovascular Exam: regular rate/rhythm, normal heart sounds, normal peripheral pulses Gastrointestinal/Abdomen Exam: soft, normal bowel sounds, No tenderness, No mass Extremity Exam: other (skin tear to right forearm, extensive bruising to bilateral arms, left upper back. superficial pressure ulceration to buttocks, skin excoriated c/w stage 2 ulcer) Results - Labs Lab/Micro Results: Lab Results-Last 24 Hours 04/28/18 04/28/18 04/28/18 Range/Units 13:00 13:00 13:00 WBC 7.2 (4.0-10.5) K/mm3 RBC 2.92 L (4.1-5.4) M/mm3 Hgb 8.1 L (12.0-16.0) gm/dl Hct 28.4 L (35-47) % MCV 97.3 (78-100) fl MCH 27.7 (26-32) pg MCHC 28.5 L (32-36) g/dl RDW 20.2 H (11.5-14.0) % Plt Count 208 (150-450) K/mm3 MPV 9.5 (6-9.5) fl Gran % 79.0 H (36.0-66.0) % Eos # (Auto) 0.02 (0-0.5) Absolute Lymphs (auto) 1.02 (1.0-4.6) Absolute Monos (auto) 0.46 (0.0-1.3) Lymphocytes % 14.2 L (24.0-44.0) % Monocytes % 6.4 (0.0-12.0) % Eosinophils % 0.3 (0.00-5.0) % Basophils % 0.1 (0.0-0.4) % Absolute Granulocytes 5.68 (1.4-6.9) Basophils # 0.01 (0-0.4) PT 11.8 (9.95-12.35) SECONDS INR 1.01 (0.8-3.0) Puncture Site pCO2 (35-45) mmHg pO2 (75-100) mmHg Base Excess (-2.0-2.0) O2 Saturation (94-100) g/dF ABG pH (7.35-7.45) ABG HCO3 (22-28) ABG O2 Sat (Measured) (95-100) % Charli Test A-a Gradient a/A Ratio Hemoglobin Carboxyhemoglobin (0.0-6.9) % THgb Methemoglobin (1.4-1.5) % Potassium 4.1 (3.5-5.1) Temperature C POC O2 Flow Rate % Sodium 138 (137-145) mmol/L Chloride 90 L (98-107) mmol/L Carbon Dioxide 38 H (22-30) mmol/L Anion Gap 14.1 (5-15) MEQ/L BUN 21 H (7-17) mg/dL Creatinine 0.53 (0.52-1.04) mg/dL Estimated GFR > 60.0 ML/MIN Glucose 88 (74-106) mg/dL Lactic Acid (0.4-2.0) Calcium 8.8 (8.4-10.2) mg/dL Magnesium 1.6 (1.6-2.3) mg/dL Total Bilirubin 0.60 (0.2-1.3) mg/dL AST 34 (14-36) U/L ALT 19 (0-35) U/L Alkaline Phosphatase 77 (38-126) U/L Troponin I (0.000-0.034) ng/mL NT-Pro-B Natriuret Pep 476 (0-1800) pg/mL Serum Total Protein 5.9 L (6.3-8.2) g/dL Albumin 3.2 L (3.5-5.0) g/dL Urine Color (YELLOW) Urine Appearance (CLEAR) Urine pH (5-6) Ur Specific [place] (1.005-1.025) Urine Protein (Negative) Urine Ketones (NEGATIVE) Urine Blood (0-5) Paul/ul Urine Nitrite (NEGATIVE) Urine Bilirubin (NEGATIVE) Urine Urobilinogen (0-1) mg/dL Ur Leukocyte Esterase (NEGATIVE) Urine WBC (Auto) (0-5) /HPF Urine RBC (Auto) (0-2) /HPF U Epithel Cells (Auto) (FEW) /HPF Urine Bacteria (Auto) (NEGATIVE) /HPF Urine Culture Reflexed (NO) Urine Glucose (NEGATIVE) mg/dL Influenza Type A Ag (NEGATIVE) Influenza Type B Ag (NEGATIVE) RSV (PCR) (Negative) Slides for Path Review YES 04/28/18 04/28/18 04/28/18 Range/Units 13:00 13:00 13:00 WBC (4.0-10.5) K/mm3 RBC (4.1-5.4) M/mm3 Hgb (12.0-16.0) gm/dl Hct (35-47) % MCV (78-100) fl MCH (26-32) pg MCHC (32-36) g/dl RDW (11.5-14.0) % Plt Count (150-450) K/mm3 MPV (6-9.5) fl Gran % (36.0-66.0) % Eos # (Auto) (0-0.5) Absolute Lymphs (auto) (1.0-4.6) Absolute Monos (auto) (0.0-1.3) Lymphocytes % (24.0-44.0) % Monocytes % (0.0-12.0) % Eosinophils % (0.00-5.0) % Basophils % (0.0-0.4) % Absolute Granulocytes (1.4-6.9) Basophils # (0-0.4) PT (9.95-12.35) SECONDS INR (0.8-3.0) Puncture Site RIGHT RADIAL pCO2 73 H* (35-45) mmHg pO2 56 L (75-100) mmHg Base Excess 19.0 H (-2.0-2.0) O2 Saturation 90.1 L (94-100) g/dF ABG pH 7.41 (7.35-7.45) ABG HCO3 46.3 H* (22-28) ABG O2 Sat (Measured) 93.4 L (95-100) % Charli Test YES A-a Gradient 166 a/A Ratio 0.25 Hemoglobin 8.8 Carboxyhemoglobin 3.0 (0.0-6.9) % THgb Methemoglobin 0.5 L (1.4-1.5) % Potassium 4.1 (3.5-5.1) Temperature 37.0 C POC O2 Flow Rate 44 % Sodium (137-145) mmol/L Chloride (98-107) mmol/L Carbon Dioxide (22-30) mmol/L Anion Gap (5-15) MEQ/L BUN (7-17) mg/dL Creatinine (0.52-1.04) mg/dL Estimated GFR ML/MIN Glucose (74-106) mg/dL Lactic Acid 0.5 (0.4-2.0) Calcium (8.4-10.2) mg/dL Magnesium (1.6-2.3) mg/dL Total Bilirubin (0.2-1.3) mg/dL AST (14-36) U/L ALT (0-35) U/L Alkaline Phosphatase (38-126) U/L Troponin I < 0.012 (0.000-0.034) ng/mL NT-Pro-B Natriuret Pep (0-1800) pg/mL Serum Total Protein (6.3-8.2) g/dL Albumin (3.5-5.0) g/dL Urine Color (YELLOW) Urine Appearance (CLEAR) Urine pH (5-6) Ur Specific [place] (1.005-1.025) Urine Protein (Negative) Urine Ketones (NEGATIVE) Urine Blood (0-5) Paul/ul Urine Nitrite (NEGATIVE) Urine Bilirubin (NEGATIVE) Urine Urobilinogen (0-1) mg/dL Ur Leukocyte Esterase (NEGATIVE) Urine WBC (Auto) (0-5) /HPF Urine RBC (Auto) (0-2) /HPF U Epithel Cells (Auto) (FEW) /HPF Urine Bacteria (Auto) (NEGATIVE) /HPF Urine Culture Reflexed (NO) Urine Glucose (NEGATIVE) mg/dL Influenza Type A Ag NEGATIVE (NEGATIVE) Influenza Type B Ag NEGATIVE (NEGATIVE) RSV (PCR) NEGATIVE (Negative) Slides for Path Review 04/28/18 04/28/18 Range/Units 14:20 15:35 WBC (4.0-10.5) K/mm3 RBC (4.1-5.4) M/mm3 Hgb (12.0-16.0) gm/dl Hct (35-47) % MCV (78-100) fl MCH (26-32) pg MCHC (32-36) g/dl RDW (11.5-14.0) % Plt Count (150-450) K/mm3 MPV (6-9.5) fl Gran % (36.0-66.0) % Eos # (Auto) (0-0.5) Absolute Lymphs (auto) (1.0-4.6) Absolute Monos (auto) (0.0-1.3) Lymphocytes % (24.0-44.0) % Monocytes % (0.0-12.0) % Eosinophils % (0.00-5.0) % Basophils % (0.0-0.4) % Absolute Granulocytes (1.4-6.9) Basophils # (0-0.4) PT (9.95-12.35) SECONDS INR (0.8-3.0) Puncture Site pCO2 (35-45) mmHg pO2 (75-100) mmHg Base Excess (-2.0-2.0) O2 Saturation (94-100) g/dF ABG pH (7.35-7.45) ABG HCO3 (22-28) ABG O2 Sat (Measured) (95-100) % Charli Test A-a Gradient a/A Ratio Hemoglobin Carboxyhemoglobin (0.0-6.9) % THgb Methemoglobin (1.4-1.5) % Potassium (3.5-5.1) Temperature C POC O2 Flow Rate % Sodium (137-145) mmol/L Chloride (98-107) mmol/L Carbon Dioxide (22-30) mmol/L Anion Gap (5-15) MEQ/L BUN (7-17) mg/dL Creatinine (0.52-1.04) mg/dL Estimated GFR ML/MIN Glucose (74-106) mg/dL Lactic Acid (0.4-2.0) Calcium (8.4-10.2) mg/dL Magnesium (1.6-2.3) mg/dL Total Bilirubin (0.2-1.3) mg/dL AST (14-36) U/L ALT (0-35) U/L Alkaline Phosphatase (38-126) U/L Troponin I < 0.012 (0.000-0.034) ng/mL NT-Pro-B Natriuret Pep (0-1800) pg/mL Serum Total Protein (6.3-8.2) g/dL Albumin (3.5-5.0) g/dL Urine Color YELLOW (YELLOW) Urine Appearance CLEAR (CLEAR) Urine pH 6.0 (5-6) Ur Specific [place] 1.014 (1.005-1.025) Urine Protein NEGATIVE (Negative) Urine Ketones SMALL (NEGATIVE) Urine Blood NEGATIVE (0-5) Paul/ul Urine Nitrite NEGATIVE (NEGATIVE) Urine Bilirubin NEGATIVE (NEGATIVE) Urine Urobilinogen NEGATIVE (0-1) mg/dL Ur Leukocyte Esterase NEGATIVE (NEGATIVE) Urine WBC (Auto) NONE (0-5) /HPF Urine RBC (Auto) NONE (0-2) /HPF U Epithel Cells (Auto) NONE (FEW) /HPF Urine Bacteria (Auto) NONE (NEGATIVE) /HPF Urine Culture Reflexed NO (NO) Urine Glucose NEGATIVE (NEGATIVE) mg/dL Influenza Type A Ag (NEGATIVE) Influenza Type B Ag (NEGATIVE) RSV (PCR) (Negative) Slides for Path Review - Radiology Impressions Radiology Exams & Impressions: Radiology Procedures Category Date Time Status CHEST 1 VIEW (PORTABLE) Stat Exams 04/28/18 13:34 Completed FEMUR Stat Exams 04/28/18 12:39 Completed PELVIS (1 OR 2 VIEWS) Stat Exams 04/28/18 12:39 Completed - Other Procedures and Tests Respiratory Therapy 04/28/18 15:51 Oxygen Nasal Cannula 4 lpm Assessment/Plan (1) COPD exacerbation Current Visit: No Status: Acute Assessment & Plan: levaquin ordered, IV solumedrol 60mg iv q6 hrs and nebulizer treatments. Code(s): J44.1 - CHRONIC OBSTRUCTIVE PULMONARY DISEASE W (ACUTE) EXACERBATION (2) Failure of outpatient treatment Current Visit: No Status: Acute Code(s): Z78.9 - OTHER SPECIFIED HEALTH STATUS (3) Muscular deconditioning Current Visit: No Status: Acute Code(s): R29.898 - OTH SYMPTOMS AND SIGNS INVOLVING THE MUSCULOSKELETAL SYSTEM (4) Recurrent falls Current Visit: Yes Status: Acute Assessment & Plan: patient is high risk for further falls and fracture, unsafe to live on her own independently at this time Code(s): R29.6 - REPEATED FALLS (5) Anemia Current Visit: No Status: Acute Qualifiers: Code(s): D64.9 - ANEMIA, UNSPECIFIED (6) Contusion, multiple sites Current Visit: Yes Status: Acute Code(s): T07.XXXA - UNSPECIFIED MULTIPLE INJURIES, INITIAL ENCOUNTER (7) Skin tear of forearm without complication Current Visit: Yes Status: Acute Code(s): S51.819A - LACERATION WITHOUT FOREIGN BODY OF UNSP FOREARM, INIT ENCNTR
[2018-04-28] MEDS ORDERED: Glucophage 500 MG PO SCH (17:00)
[2018-04-28] MEDS ORDERED: DUONEB 0.5-3 MG/3 ml Neb IH SCH (19:00)
[2018-04-28] MEDS: solu-MEDROL 125 MG IV SCH (19:06)
[2018-04-28] MEDS: BUMEX 1 MG PO SCH (19:08)
[2018-04-28] MEDS: PLAVIX 75 MG Tablet PO SCH (19:08)
[2018-04-28] MEDS: ECOTRIN 81 MG PO SCH (19:10)
[2018-04-28] MEDS: Klor Con 10 MEQ PO SCH (19:10)
[2018-04-28] MEDS: Advair Hfa 230/21 Mcg COMMON CANISTER IH SCH (19:14)
[2018-04-28] MEDS: Norco 10/325 MG Tablet PO PRN (20:15)
[2018-04-28] MEDS ORDERED: xanAX 0.5 MG PO PRN (21:15)
[2018-04-28] MEDS ORDERED: HYDROXYZINE PAMOATE 25 MG PO SCH (22:00)
[2018-04-28] MEDS: ATARAX 25 MG PO SCH (22:31)
[2018-04-28] MEDS: NEURONTIN 300 MG PO SCH (22:31)
[2018-04-28] MEDS: NovoLOG Insulin SQ PRN (22:32)
[2018-04-28] MEDS: DUONEB 0.5-3 MG/3 ml Neb IH SCH (22:46)
[2018-04-29] MEDS: solu-MEDROL 125 MG IV SCH ×5 (00:14→23:04)
[2018-04-29] MEDS: Norco 10/325 MG Tablet PO PRN ×4 (00:15→20:25)
[2018-04-29] MEDS: DUONEB 0.5-3 MG/3 ml Neb IH SCH ×6 (03:21→18:35)
[2018-04-29 05:50] LABS: BASOPHIL % 0.2 % (0.0-0.4); Basophil (Absolute #) 0.01 (0-0.4); Eosinophil (Absolute #) 0 (0-0.5); Granulocyte Absolute (ANC) 5.62 (1.4-6.9); Granulocytes % 94.8 % (36.0-66.0); Hematocrit 29.1 % (35-47); Hemoglobin 8.3 gm/dl (12.0-16.0); Lymphocyte (Absolute #) 0.18 (1.0-4.6); Mean Cell Volume 95.7 fl (78-100); Mean Corpuscular Hemoglobin 27.3 pg (26-32); Mean Corpuscular Hgb Concent. 28.5 g/dl (32-36); Mean Platelet Volume 9.5 fl (6-9.5); Monocyte (Absolute #) 0.12 (0.0-1.3); Platelet Count 211 K/mm3 (150-450); Red Blood Count 3.04 M/mm3 (4.1-5.4); Red Cell Distribution Width 19.7 % (11.5-14.0); White Blood Count 5.9 K/mm3 (4.0-10.5)
[2018-04-29 06:08] LABS: ALBUMIN 3.5 g/dL (3.5-5.0); ALKALINE PHOSPHATASE 79 U/L (38-126); BLOOD UREA NITROGEN 24 mg/dL (7-17); CHLORIDE 88 mmol/L (98-107); Calcium 8.7 mg/dL (8.4-10.2); Creatinine 1 0.61 mg/dL (0.52-1.04); Glucose 163 mg/dL (74-106); Potassium 4.6 mmol/L (3.5-5.1); SGOT/AST 17 U/L (14-36); SGPT/ALT 20 U/L (0-35); SODIUM 137 mmol/L (137-145); Total Protein 6.4 g/dL (6.3-8.2)
[2018-04-29 06:15] LABS: Carbon Dioxide 40 mmol/L (22-30)
[2018-04-29 06:17] LABS: ANION GAP 13.6 MEQ/L (5-15)
[2018-04-29] MEDS: Advair Hfa 230/21 Mcg COMMON CANISTER IH SCH ×2 (06:58→18:35)
--- NOTE | 2018-04-29 07:09 | PCM.NOTE ---
Date and Time: 04/29/18706 Subjective Assessment: patient only complains of chronic knee pain this morning, she is sleepy. no new problems or concerns Objective Exam General Appearance: no apparent distress Neurologic Exam: alert, oriented x 3 Skin Exam: normal color, warm, dry, other (ecchymoses multiple locations) Respiratory Exam: rhonchi Cardiovascular Exam: regular rate/rhythm, normal heart sounds Gastrointestinal/Abdomen Exam: soft, No tenderness, No mass Extremity Exam: normal inspection, normal range of motion OBJECTIVE DATA Vital Signs: Vital Signs - 24 hr Temp Pulse Resp BP Pulse Ox 04/29/18 04:00 97.8 F 69 20 134/60 99 04/29/18 03:26 118 H 18 95 04/29/18 00:00 96 04/28/18 23:58 98.0 F 94 H 18 137/63 96 04/28/18 22:48 73 18 96 04/28/18 22:17 106 H 18 92 L 04/28/18 20:00 97.7 F 91 H 20 141/65 99 04/28/18 16:57 97 04/28/18 16:05 98.3 F 92 H 20 110/52 96 04/28/18 15:51 98.3 F 92 H 20 110/52 96 04/28/18 15:38 98.2 F 96 H 20 111/54 92 L 04/28/18 15:23 97 04/28/18 14:48 93 H 28 H 98 04/28/18 14:40 90 24 110/62 98 04/28/18 13:50 86 26 H 110/62 99 04/28/18 13:12 88 16 115/54 88 L 04/28/18 12:44 88 24 97 04/28/18 12:27 98.2 F 94 H 24 123/52 95 Oxygen-Last 24 hours O2 Percentage 4 Liters = 36% O2 Percentage 4 Liters = 36% O2 Percentage 4 Liters = 36% O2 Percentage 4 Liters = 36% O2 Percentage 4 Liters = 36% O2 Percentage 4 Liters = 36% O2 Percentage 6 Liters = 44% O2 Percentage 6 Liters = 44% O2 Percentage 6 Liters = 44% O2 Percentage 6 Liters = 44% Oxygen Flowrate (L/min)-RT 4 Oxygen Flowrate (L/min)-RT 4 Oxygen Flowrate (L/min)-RT 4 Pain Assessment - Last Documented Pain Intensity 8 Pain Scale Used 0-10 Pain Scale Intake and Output: Intake & Output 04/26/18 04/27/18 04/28/18 04/29/18 11:59 11:59 11:59 11:59 Intake Total 840 Output Total 700 Balance 140 Weight 58.5 kg Lab Results: Accuchecks Accucheck Value: 221 Lab Results-Last 24 Hours 04/28/18 04/28/18 04/28/18 Range/Units 13:00 13:00 13:00 WBC 7.2 (4.0-10.5) K/mm3 RBC 2.92 L (4.1-5.4) M/mm3 Hgb 8.1 L (12.0-16.0) gm/dl Hct 28.4 L (35-47) % MCV 97.3 (78-100) fl MCH 27.7 (26-32) pg MCHC 28.5 L (32-36) g/dl RDW 20.2 H (11.5-14.0) % Plt Count 208 (150-450) K/mm3 MPV 9.5 (6-9.5) fl Gran % 79.0 H (36.0-66.0) % Eos # (Auto) 0.02 (0-0.5) Absolute Lymphs (auto) 1.02 (1.0-4.6) Absolute Monos (auto) 0.46 (0.0-1.3) Lymphocytes % 14.2 L (24.0-44.0) % Monocytes % 6.4 (0.0-12.0) % Eosinophils % 0.3 (0.00-5.0) % Basophils % 0.1 (0.0-0.4) % Absolute Granulocytes 5.68 (1.4-6.9) Basophils # 0.01 (0-0.4) PT 11.8 (9.95-12.35) SECONDS INR 1.01 (0.8-3.0) Puncture Site pCO2 (35-45) mmHg pO2 (75-100) mmHg Base Excess (-2.0-2.0) O2 Saturation (94-100) g/dF ABG pH (7.35-7.45) ABG HCO3 (22-28) ABG O2 Sat (Measured) (95-100) % Charli Test A-a Gradient a/A Ratio Hemoglobin Carboxyhemoglobin (0.0-6.9) % THgb Methemoglobin (1.4-1.5) % Potassium 4.1 (3.5-5.1) Temperature C POC O2 Flow Rate % Sodium 138 (137-145) mmol/L Chloride 90 L (98-107) mmol/L Carbon Dioxide 38 H (22-30) mmol/L Anion Gap 14.1 (5-15) MEQ/L BUN 21 H (7-17) mg/dL Creatinine 0.53 (0.52-1.04) mg/dL Estimated GFR > 60.0 ML/MIN Glucose 88 (74-106) mg/dL Lactic Acid (0.4-2.0) Calcium 8.8 (8.4-10.2) mg/dL Magnesium 1.6 (1.6-2.3) mg/dL Total Bilirubin 0.60 (0.2-1.3) mg/dL AST 34 (14-36) U/L ALT 19 (0-35) U/L Alkaline Phosphatase 77 (38-126) U/L Troponin I (0.000-0.034) ng/mL NT-Pro-B Natriuret Pep 476 (0-1800) pg/mL Serum Total Protein 5.9 L (6.3-8.2) g/dL Albumin 3.2 L (3.5-5.0) g/dL Urine Color (YELLOW) Urine Appearance (CLEAR) Urine pH (5-6) Ur Specific [place] (1.005-1.025) Urine Protein (Negative) Urine Ketones (NEGATIVE) Urine Blood (0-5) Paul/ul Urine Nitrite (NEGATIVE) Urine Bilirubin (NEGATIVE) Urine Urobilinogen (0-1) mg/dL Ur Leukocyte Esterase (NEGATIVE) Urine WBC (Auto) (0-5) /HPF Urine RBC (Auto) (0-2) /HPF U Epithel Cells (Auto) (FEW) /HPF Urine Bacteria (Auto) (NEGATIVE) /HPF Urine Culture Reflexed (NO) Urine Glucose (NEGATIVE) mg/dL Influenza Type A Ag (NEGATIVE) Influenza Type B Ag (NEGATIVE) RSV (PCR) (Negative) Slides for Path Review YES 04/28/18 04/28/18 04/28/18 Range/Units 13:00 13:00 13:00 WBC (4.0-10.5) K/mm3 RBC (4.1-5.4) M/mm3 Hgb (12.0-16.0) gm/dl Hct (35-47) % MCV (78-100) fl MCH (26-32) pg MCHC (32-36) g/dl RDW (11.5-14.0) % Plt Count (150-450) K/mm3 MPV (6-9.5) fl Gran % (36.0-66.0) % Eos # (Auto) (0-0.5) Absolute Lymphs (auto) (1.0-4.6) Absolute Monos (auto) (0.0-1.3) Lymphocytes % (24.0-44.0) % Monocytes % (0.0-12.0) % Eosinophils % (0.00-5.0) % Basophils % (0.0-0.4) % Absolute Granulocytes (1.4-6.9) Basophils # (0-0.4) PT (9.95-12.35) SECONDS INR (0.8-3.0) Puncture Site RIGHT RADIAL pCO2 73 H* (35-45) mmHg pO2 56 L (75-100) mmHg Base Excess 19.0 H (-2.0-2.0) O2 Saturation 90.1 L (94-100) g/dF ABG pH 7.41 (7.35-7.45) ABG HCO3 46.3 H* (22-28) ABG O2 Sat (Measured) 93.4 L (95-100) % Charli Test YES A-a Gradient 166 a/A Ratio 0.25 Hemoglobin 8.8 Carboxyhemoglobin 3.0 (0.0-6.9) % THgb Methemoglobin 0.5 L (1.4-1.5) % Potassium 4.1 (3.5-5.1) Temperature 37.0 C POC O2 Flow Rate 44 % Sodium (137-145) mmol/L Chloride (98-107) mmol/L Carbon Dioxide (22-30) mmol/L Anion Gap (5-15) MEQ/L BUN (7-17) mg/dL Creatinine (0.52-1.04) mg/dL Estimated GFR ML/MIN Glucose (74-106) mg/dL Lactic Acid 0.5 (0.4-2.0) Calcium (8.4-10.2) mg/dL Magnesium (1.6-2.3) mg/dL Total Bilirubin (0.2-1.3) mg/dL AST (14-36) U/L ALT (0-35) U/L Alkaline Phosphatase (38-126) U/L Troponin I < 0.012 (0.000-0.034) ng/mL NT-Pro-B Natriuret Pep (0-1800) pg/mL Serum Total Protein (6.3-8.2) g/dL Albumin (3.5-5.0) g/dL Urine Color (YELLOW) Urine Appearance (CLEAR) Urine pH (5-6) Ur Specific [place] (1.005-1.025) Urine Protein (Negative) Urine Ketones (NEGATIVE) Urine Blood (0-5) Paul/ul Urine Nitrite (NEGATIVE) Urine Bilirubin (NEGATIVE) Urine Urobilinogen (0-1) mg/dL Ur Leukocyte Esterase (NEGATIVE) Urine WBC (Auto) (0-5) /HPF Urine RBC (Auto) (0-2) /HPF U Epithel Cells (Auto) (FEW) /HPF Urine Bacteria (Auto) (NEGATIVE) /HPF Urine Culture Reflexed (NO) Urine Glucose (NEGATIVE) mg/dL Influenza Type A Ag NEGATIVE (NEGATIVE) Influenza Type B Ag NEGATIVE (NEGATIVE) RSV (PCR) NEGATIVE (Negative) Slides for Path Review 04/28/18 04/28/18 04/28/18 Range/Units 14:20 15:35 19:01 WBC (4.0-10.5) K/mm3 RBC (4.1-5.4) M/mm3 Hgb (12.0-16.0) gm/dl Hct (35-47) % MCV (78-100) fl MCH (26-32) pg MCHC (32-36) g/dl RDW (11.5-14.0) % Plt Count (150-450) K/mm3 MPV (6-9.5) fl Gran % (36.0-66.0) % Eos # (Auto) (0-0.5) Absolute Lymphs (auto) (1.0-4.6) Absolute Monos (auto) (0.0-1.3) Lymphocytes % (24.0-44.0) % Monocytes % (0.0-12.0) % Eosinophils % (0.00-5.0) % Basophils % (0.0-0.4) % Absolute Granulocytes (1.4-6.9) Basophils # (0-0.4) PT (9.95-12.35) SECONDS INR (0.8-3.0) Puncture Site pCO2 (35-45) mmHg pO2 (75-100) mmHg Base Excess (-2.0-2.0) O2 Saturation (94-100) g/dF ABG pH (7.35-7.45) ABG HCO3 (22-28) ABG O2 Sat (Measured) (95-100) % Charli Test A-a Gradient a/A Ratio Hemoglobin Carboxyhemoglobin (0.0-6.9) % THgb Methemoglobin (1.4-1.5) % Potassium (3.5-5.1) Temperature C POC O2 Flow Rate % Sodium (137-145) mmol/L Chloride (98-107) mmol/L Carbon Dioxide (22-30) mmol/L Anion Gap (5-15) MEQ/L BUN (7-17) mg/dL Creatinine (0.52-1.04) mg/dL Estimated GFR ML/MIN Glucose (74-106) mg/dL Lactic Acid (0.4-2.0) Calcium (8.4-10.2) mg/dL Magnesium (1.6-2.3) mg/dL Total Bilirubin (0.2-1.3) mg/dL AST (14-36) U/L ALT (0-35) U/L Alkaline Phosphatase (38-126) U/L Troponin I < 0.012 < 0.012 (0.000-0.034) ng/mL NT-Pro-B Natriuret Pep (0-1800) pg/mL Serum Total Protein (6.3-8.2) g/dL Albumin (3.5-5.0) g/dL Urine Color YELLOW (YELLOW) Urine Appearance CLEAR (CLEAR) Urine pH 6.0 (5-6) Ur Specific [place] 1.014 (1.005-1.025) Urine Protein NEGATIVE (Negative) Urine Ketones SMALL (NEGATIVE) Urine Blood NEGATIVE (0-5) Paul/ul Urine Nitrite NEGATIVE (NEGATIVE) Urine Bilirubin NEGATIVE (NEGATIVE) Urine Urobilinogen NEGATIVE (0-1) mg/dL Ur Leukocyte Esterase NEGATIVE (NEGATIVE) Urine WBC (Auto) NONE (0-5) /HPF Urine RBC (Auto) NONE (0-2) /HPF U Epithel Cells (Auto) NONE (FEW) /HPF Urine Bacteria (Auto) NONE (NEGATIVE) /HPF Urine Culture Reflexed NO (NO) Urine Glucose NEGATIVE (NEGATIVE) mg/dL Influenza Type A Ag (NEGATIVE) Influenza Type B Ag (NEGATIVE) RSV (PCR) (Negative) Slides for Path Review 04/28/18 04/29/18 04/29/18 Range/Units 22:34 00:45 05:20 WBC 5.9 (4.0-10.5) K/mm3 RBC 3.04 L (4.1-5.4) M/mm3 Hgb 8.3 L (12.0-16.0) gm/dl Hct 29.1 L (35-47) % MCV 95.7 (78-100) fl MCH 27.3 (26-32) pg MCHC 28.5 L (32-36) g/dl RDW 19.7 H (11.5-14.0) % Plt Count 211 (150-450) K/mm3 MPV 9.5 (6-9.5) fl Gran % 94.8 H (36.0-66.0) % Eos # (Auto) 0 (0-0.5) Absolute Lymphs (auto) 0.18 L (1.0-4.6) Absolute Monos (auto) 0.12 (0.0-1.3) Lymphocytes % 3.0 L (24.0-44.0) % Monocytes % 2.0 (0.0-12.0) % Eosinophils % 0.0 (0.00-5.0) % Basophils % 0.2 (0.0-0.4) % Absolute Granulocytes 5.62 (1.4-6.9) Basophils # 0.01 (0-0.4) PT (9.95-12.35) SECONDS INR (0.8-3.0) Puncture Site pCO2 (35-45) mmHg pO2 (75-100) mmHg Base Excess (-2.0-2.0) O2 Saturation (94-100) g/dF ABG pH (7.35-7.45) ABG HCO3 (22-28) ABG O2 Sat (Measured) (95-100) % Charli Test A-a Gradient a/A Ratio Hemoglobin Carboxyhemoglobin (0.0-6.9) % THgb Methemoglobin (1.4-1.5) % Potassium (3.5-5.1) Temperature C POC O2 Flow Rate % Sodium (137-145) mmol/L Chloride (98-107) mmol/L Carbon Dioxide (22-30) mmol/L Anion Gap (5-15) MEQ/L BUN (7-17) mg/dL Creatinine (0.52-1.04) mg/dL Estimated GFR ML/MIN Glucose (74-106) mg/dL Lactic Acid (0.4-2.0) Calcium (8.4-10.2) mg/dL Magnesium (1.6-2.3) mg/dL Total Bilirubin (0.2-1.3) mg/dL AST (14-36) U/L ALT (0-35) U/L Alkaline Phosphatase (38-126) U/L Troponin I < 0.012 < 0.012 (0.000-0.034) ng/mL NT-Pro-B Natriuret Pep (0-1800) pg/mL Serum Total Protein (6.3-8.2) g/dL Albumin (3.5-5.0) g/dL Urine Color (YELLOW) Urine Appearance (CLEAR) Urine pH (5-6) Ur Specific [place] (1.005-1.025) Urine Protein (Negative) Urine Ketones (NEGATIVE) Urine Blood (0-5) Paul/ul Urine Nitrite (NEGATIVE) Urine Bilirubin (NEGATIVE) Urine Urobilinogen (0-1) mg/dL Ur Leukocyte Esterase (NEGATIVE) Urine WBC (Auto) (0-5) /HPF Urine RBC (Auto) (0-2) /HPF U Epithel Cells (Auto) (FEW) /HPF Urine Bacteria (Auto) (NEGATIVE) /HPF Urine Culture Reflexed (NO) Urine Glucose (NEGATIVE) mg/dL Influenza Type A Ag (NEGATIVE) Influenza Type B Ag (NEGATIVE) RSV (PCR) (Negative) Slides for Path Review 04/29/18 Range/Units 05:20 WBC (4.0-10.5) K/mm3 RBC (4.1-5.4) M/mm3 Hgb (12.0-16.0) gm/dl Hct (35-47) % MCV (78-100) fl MCH (26-32) pg MCHC (32-36) g/dl RDW (11.5-14.0) % Plt Count (150-450) K/mm3 MPV (6-9.5) fl Gran % (36.0-66.0) % Eos # (Auto) (0-0.5) Absolute Lymphs (auto) (1.0-4.6) Absolute Monos (auto) (0.0-1.3) Lymphocytes % (24.0-44.0) % Monocytes % (0.0-12.0) % Eosinophils % (0.00-5.0) % Basophils % (0.0-0.4) % Absolute Granulocytes (1.4-6.9) Basophils # (0-0.4) PT (9.95-12.35) SECONDS INR (0.8-3.0) Puncture Site pCO2 (35-45) mmHg pO2 (75-100) mmHg Base Excess (-2.0-2.0) O2 Saturation (94-100) g/dF ABG pH (7.35-7.45) ABG HCO3 (22-28) ABG O2 Sat (Measured) (95-100) % Charli Test A-a Gradient a/A Ratio Hemoglobin Carboxyhemoglobin (0.0-6.9) % THgb Methemoglobin (1.4-1.5) % Potassium 4.6 (3.5-5.1) Temperature C POC O2 Flow Rate % Sodium 137 (137-145) mmol/L Chloride 88 L (98-107) mmol/L Carbon Dioxide 40 H (22-30) mmol/L Anion Gap 13.6 (5-15) MEQ/L BUN 24 H (7-17) mg/dL Creatinine 0.61 (0.52-1.04) mg/dL Estimated GFR > 60.0 ML/MIN Glucose 163 H (74-106) mg/dL Lactic Acid (0.4-2.0) Calcium 8.7 (8.4-10.2) mg/dL Magnesium (1.6-2.3) mg/dL Total Bilirubin 0.30 (0.2-1.3) mg/dL AST 17 (14-36) U/L ALT 20 (0-35) U/L Alkaline Phosphatase 79 (38-126) U/L Troponin I (0.000-0.034) ng/mL NT-Pro-B Natriuret Pep (0-1800) pg/mL Serum Total Protein 6.4 (6.3-8.2) g/dL Albumin 3.5 (3.5-5.0) g/dL Urine Color (YELLOW) Urine Appearance (CLEAR) Urine pH (5-6) Ur Specific [place] (1.005-1.025) Urine Protein (Negative) Urine Ketones (NEGATIVE) Urine Blood (0-5) Paul/ul Urine Nitrite (NEGATIVE) Urine Bilirubin (NEGATIVE) Urine Urobilinogen (0-1) mg/dL Ur Leukocyte Esterase (NEGATIVE) Urine WBC (Auto) (0-5) /HPF Urine RBC (Auto) (0-2) /HPF U Epithel Cells (Auto) (FEW) /HPF Urine Bacteria (Auto) (NEGATIVE) /HPF Urine Culture Reflexed (NO) Urine Glucose (NEGATIVE) mg/dL Influenza Type A Ag (NEGATIVE) Influenza Type B Ag (NEGATIVE) RSV (PCR) (Negative) Slides for Path Review Radiology Exams: Radiology Procedures Category Date Time Status CHEST 1 VIEW (PORTABLE) Stat Exams 04/28/18 13:34 Completed FEMUR Stat Exams 04/28/18 12:39 Completed PELVIS (1 OR 2 VIEWS) Stat Exams 04/28/18 12:39 Completed Assessment/Plan (1) COPD exacerbation Current Visit: No Status: Acute Assessment & Plan: continue levaquin and solu medrol/nebs. appears stable currently. Code(s): J44.1 - CHRONIC OBSTRUCTIVE PULMONARY DISEASE W (ACUTE) EXACERBATION (2) Failure of outpatient treatment Current Visit: No Status: Acute Code(s): Z78.9 - OTHER SPECIFIED HEALTH STATUS (3) Muscular deconditioning Current Visit: No Status: Acute Code(s): R29.898 - OTH SYMPTOMS AND SIGNS INVOLVING THE MUSCULOSKELETAL SYSTEM (4) Recurrent falls Current Visit: Yes Status: Acute Assessment & Plan: patient unsafe to live at home, will require ecf placement Code(s): R29.6 - REPEATED FALLS (5) Anemia Current Visit: No Status: Acute Qualifiers: Assessment & Plan: chronic, stable currently. Code(s): D64.9 - ANEMIA, UNSPECIFIED (6) Contusion, multiple sites Current Visit: Yes Status: Acute Code(s): T07.XXXA - UNSPECIFIED MULTIPLE INJURIES, INITIAL ENCOUNTER (7) Skin tear of forearm without complication Current Visit: Yes Status: Acute Code(s): S51.819A - LACERATION WITHOUT FOREIGN BODY OF UNSP FOREARM, INIT ENCNTR
[2018-04-29 07:59] LABS: Slide Review 1 YES
[2018-04-29] MEDS: BUMEX 1 MG PO SCH (10:17)
[2018-04-29] MEDS: Klor Con 10 MEQ PO SCH (10:17)
[2018-04-29] MEDS: PLAVIX 75 MG Tablet PO SCH (10:17)
[2018-04-29] MEDS: ECOTRIN 81 MG PO SCH (10:17)
[2018-04-29] MEDS: NEURONTIN 300 MG PO SCH ×2 (10:17→23:03)
[2018-04-29] MEDS: Levofloxacin 500MG/100ML D5W 500 MG/100 ML BAG IV SCH (10:18)
[2018-04-29] MEDS: NovoLOG Insulin SQ PRN (11:47)
[2018-04-29] MEDS: ATARAX 25 MG PO SCH (23:03)
[2018-04-29] MEDS: Sodium Chloride 0.9% 1000 ML 1,000 ML IV SCH (23:08)
[2018-04-30] MEDS: DUONEB 0.5-3 MG/3 ml Neb IH SCH ×7 (00:16→23:57)
[2018-04-30] MEDS: NovoLOG Insulin SQ PRN ×2 (00:24→12:14)
[2018-04-30] MEDS: Norco 10/325 MG Tablet PO PRN ×5 (00:27→22:51)
[2018-04-30] MEDS: Advair Hfa 230/21 Mcg COMMON CANISTER IH SCH ×2 (06:36→19:06)
[2018-04-30] MEDS ORDERED: Nitrostat 0.4 MG Tablet SL ONE (06:48)
[2018-04-30] MEDS: Nitrostat 0.4 MG Tablet SL PRN ×2 (06:49→07:15)
[2018-04-30] MEDS ORDERED: SUBLIMAZE 100 MCG/2 ML IV ONE (06:50)
[2018-04-30] MEDS ORDERED: Sodium Chloride 0.9% 250 ML 250 ML IV SCH (06:50)
[2018-04-30] MEDS ORDERED: SUBLIMAZE 100 MCG/2 ML ONE (07:09)
[2018-04-30 07:40] LABS: BASOPHIL % 0.1 % (0.0-0.4); Basophil (Absolute #) 0.01 (0-0.4); Eosinophil (Absolute #) 0 (0-0.5); Granulocyte Absolute (ANC) 9.57 (1.4-6.9); Granulocytes % 93.7 % (36.0-66.0); Hematocrit 26.7 % (35-47); Hemoglobin 7.6 gm/dl (12.0-16.0); Lymphocyte (Absolute #) 0.19 (1.0-4.6); Lymphocytes % 1.9 % (24.0-44.0); Mean Cell Volume 96.4 fl (78-100); Mean Corpuscular Hemoglobin 27.4 pg (26-32); Mean Corpuscular Hgb Concent. 28.5 g/dl (32-36); Monocyte (Absolute #) 0.44 (0.0-1.3); Monocytes % 4.3 % (0.0-12.0); Platelet Count 213 K/mm3 (150-450); Red Blood Count 2.77 M/mm3 (4.1-5.4); Red Cell Distribution Width 20.2 % (11.5-14.0); White Blood Count 10.2 K/mm3 (4.0-10.5)
--- NOTE | 2018-04-30 07:54 | PCM.NOTE ---
Date and Time: 04/30/18 0749 Subjective Assessment: Pt started having chest pressure about the time I entered her room this morning. Epigastric/bilat lower chest with 10/10 pressure. No radiation/ palpation/SOB/N/Diaphoresis. EKG without changes and no ST changes. First troponin is negative. One nitro without relief; BP 90s systolic so 250cc bolus of NS given and 12.5mcg fentanyl given. 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 O2 sat 80s when I entered room with RT; after pt rolled over her O2 sats were wnl. A.m. labs are pending. - Review of Systems Constitutional: No Fever Respiratory: Cough Cardiac: Chest Pain Objective Exam General Appearance: mild distress, alert Neurologic Exam: oriented x 3, cooperative Skin Exam: normal color, warm, dry, No rash Ears, Nose, Throat Exam: moist mucous membranes Neck Exam: normal inspection Respiratory Exam: lungs clear, wheezing (exp wheezes throughout), No normal breath sounds (fair air exchange), No crackles/rales, No rhonchi OBJECTIVE DATA Vital Signs: Vital Signs - 24 hr Temp Pulse Resp BP Pulse Ox 04/30/18 07:40 98.3 F 86 22 140/63 92 L 04/30/18 06:00 92 L 04/30/18 00:16 84 18 97 04/30/18 00:00 98.1 F 90 18 136/65 97 04/29/18 21:59 93 L 04/29/18 20:00 98.5 F 90 18 100/47 93 L 04/29/18 18:36 84 22 98 04/29/18 17:28 95 04/29/18 16:00 98.6 F 84 24 132/59 04/29/18 14:00 96 04/29/18 12:00 22 04/29/18 11:47 98 F 99 H 22 101/48 96 04/29/18 10:38 96 H 20 85 L 04/29/18 08:00 97.6 F 81 20 143/60 98 Oxygen-Last 24 hours O2 Percentage 4 Liters = 36% O2 Percentage 4 Liters = 36% O2 Percentage 4 Liters = 36% O2 Percentage 4 Liters = 36% O2 Percentage 4 Liters = 36% O2 Percentage 4 Liters = 36% Oxygen Flowrate (L/min)-RT 4 Oxygen Flowrate (L/min)-RT 4 Oxygen Flowrate (L/min)-RT 4 Pain Assessment - Last Documented Pain Intensity 7 Pain Scale Used 0-10 Pain Scale Intake and Output: Intake & Output 04/27/18 04/28/18 04/29/18 04/30/18 11:59 11:59 11:59 11:59 Intake Total 1440 1397 Output Total 1200 1400 Balance 240 -3 Weight 59.4 kg 60 kg Lab Results: Accuchecks Date 04/29/18 Date 04/29/18 Time 16:30 Time 11:30 Accucheck Value: 238 Accucheck Value: 141 Accucheck Value: 417 Lab Results-Last 24 Hours 04/29/18 04/30/18 Range/Units 05:20 06:47 Troponin I < 0.012 (0.000-0.034) ng/mL Slides for Path Review YES Radiology Exams: Radiology Procedures Category Date Time Status CHEST 1 VIEW (PORTABLE) Stat Exams 04/28/18 13:34 Completed FEMUR Stat Exams 04/28/18 12:39 Completed PELVIS (1 OR 2 VIEWS) Stat Exams 04/28/18 12:39 Completed Multi-Disciplinary Progress Notes: Multi-Disciplinary Progress Notes 04/29/18 09:00 (created 04/29/18 18:28) Case Management Note by Amira Thompson REFERRAL CALLED TO [facility] AT [facility]. Initialized on 04/29/18 18:28 - END OF NOTE 04/29/18 08:45 (created 04/29/18 18:27) Case Management Note by Amira Thompson DISCHARGE PLAN REVIEWED WITH PT, REPORTS THAT SHE UNDERSTANDS THAT SHE CAN NOT CARE FOR SELF AT HOME ANY LONGER. REPORTS THAT SHE HAS FALLEN 3 TIMES THIS WEEK. WANTS A REFERRAL TO [facility]. NO ADDNL NEEDS IDENTIFIED AT THIS TIME. WILL FOLLOW. Initialized on 04/29/18 18:27 - END OF NOTE Assessment/Plan (1) Chest pain Current Visit: Yes Status: Acute Qualifiers: Chest pain type: chest pain on breathing Qualified Code(s): R07.1 - Chest pain on breathing; R07.81 - Pleurodynia Assessment & Plan: Of sudden onset, pressure. Is exacerbated with breathing, but will rule out for CA. First troponin neg. EKG nonacute. Code(s): R07.9 - CHEST PAIN, UNSPECIFIED (2) COPD exacerbation Current Visit: No Status: Acute Assessment & Plan: On aq day #3. Solumedrol 60mg IV q6h. Failed OP tx. Code(s): J44.1 - CHRONIC OBSTRUCTIVE PULMONARY DISEASE W (ACUTE) EXACERBATION (3) Recurrent falls Current Visit: Yes Status: Chronic Code(s): R29.6 - REPEATED FALLS (4) Skin tear of forearm without complication Current Visit: Yes Status: Acute Code(s): S51.819A - LACERATION WITHOUT FOREIGN BODY OF UNSP FOREARM, INIT ENCNTR (5) Anemia Current Visit: No Status: Chronic Qualifiers: Anemia type: iron deficiency Iron deficiency anemia type: unspecified iron deficiency Qualified Code(s): D50.9 - Iron deficiency anemia, unspecified Assessment & Plan: labs pending; generally around 8.3 this stay Code(s): D64.9 - ANEMIA, UNSPECIFIED (6) Failure of outpatient treatment Current Visit: No Status: Acute Code(s): Z78.9 - OTHER SPECIFIED HEALTH STATUS (7) Physical deconditioning Current Visit: No Status: Chronic Assessment & Plan: On discharge, plan is to send to [place]. Code(s): R53.81 - OTHER [place] (8) CAD (coronary artery disease) Current Visit: Yes Status: Chronic Qualifiers: Coronary Disease-Associated Artery/Lesion type: bypass graft [place] vs. transplanted heart: [place] heart Associated angina: with unstable angina Qualified Code(s): I25.700 - Atherosclerosis of coronary artery bypass graft(s) , unspecified, with unstable angina pectoris Code(s): I25.10 - ATHSCL HEART DISEASE OF [place] CORONARY ARTERY W/O ANG PCTRS
[2018-04-30 07:57] LABS: BLOOD UREA NITROGEN 28 mg/dL (7-17); CHLORIDE 94 mmol/L (98-107); Calcium 8.5 mg/dL (8.4-10.2); Creatinine 1 0.66 mg/dL (0.52-1.04); Glucose 182 mg/dL (74-106); Potassium 4.3 mmol/L (3.5-5.1); SODIUM 141 mmol/L (137-145)
[2018-04-30 08:09] LABS: Carbon Dioxide 37 mmol/L (22-30)
[2018-04-30 08:12] LABS: ANION GAP 14.3 MEQ/L (5-15)
[2018-04-30] MEDS: solu-MEDROL 125 MG IV SCH ×3 (09:05→17:56)
[2018-04-30] MEDS: BUMEX 1 MG PO SCH (10:16)
[2018-04-30] MEDS: ECOTRIN 81 MG PO SCH (10:16)
[2018-04-30] MEDS: NEURONTIN 300 MG PO SCH ×2 (10:17→22:51)
[2018-04-30] MEDS: Klor Con 10 MEQ PO SCH (10:17)
[2018-04-30] MEDS: Levofloxacin 500MG/100ML D5W 500 MG/100 ML BAG IV SCH (10:17)
[2018-04-30] MEDS: PLAVIX 75 MG Tablet PO SCH (10:17)
[2018-04-30] MEDS: ATARAX 25 MG PO SCH (22:51)
[2018-05-01] MEDS: solu-MEDROL 125 MG IV SCH ×5 (00:09→23:28)
[2018-05-01] MEDS: DUONEB 0.5-3 MG/3 ml Neb IH SCH ×6 (03:45→23:24)
[2018-05-01] MEDS: Sodium Chloride 0.9% 1000 ML 1,000 ML IV SCH (04:57)
[2018-05-01] MEDS: Norco 10/325 MG Tablet PO PRN ×3 (05:22→23:09)
[2018-05-01] MEDS: Advair Hfa 230/21 Mcg COMMON CANISTER IH SCH ×2 (09:14→18:54)
[2018-05-01] MEDS: BUMEX 1 MG PO SCH (10:38)
[2018-05-01] MEDS: Klor Con 10 MEQ PO SCH (10:38)
[2018-05-01] MEDS: PLAVIX 75 MG Tablet PO SCH (10:38)
[2018-05-01] MEDS: NEURONTIN 300 MG PO SCH ×2 (10:38→21:59)
[2018-05-01] MEDS: ECOTRIN 81 MG PO SCH (10:38)
[2018-05-01] MEDS: Levofloxacin 500MG/100ML D5W 500 MG/100 ML BAG IV SCH (10:39)
[2018-05-01] MEDS: NovoLOG Insulin SQ PRN ×2 (12:05→21:59)
[2018-05-01] MEDS: ROCEPHIN 1 Gm-D5w 50 ml Bag** 1 G/50 ML IVPB IV SCH (12:05)
--- NOTE | 2018-05-01 21:48 | XRAY ---
Indication: Short of breath. Comparison: April 28, 2018. Portable AP/lateral chest again hyperinflated with incidental mediastinal/right lung calcified granulomas. No focal infiltrate, consolidation, or large effusion. Heart is not enlarged and demonstrating previous cardiac valve replacement surgery. Impression: Stable nonacute chest with chronic features. Comment: Preliminary interpretation was made by [facility]. No critical discrepancy.
[2018-05-01] MEDS: ATARAX 25 MG PO SCH (21:59)
[2018-05-02] MEDS: DUONEB 0.5-3 MG/3 ml Neb IH SCH ×6 (03:46→23:54)
[2018-05-02] MEDS: Norco 10/325 MG Tablet PO PRN ×4 (04:44→22:34)
[2018-05-02 06:13] LABS: ANION GAP 7.9 MEQ/L (5-15); BLOOD UREA NITROGEN 32 mg/dL (7-17); CHLORIDE 97 mmol/L (98-107); Calcium 8.4 mg/dL (8.4-10.2); Carbon Dioxide 40 mmol/L (22-30); Glucose 180 mg/dL (74-106); Potassium 4.3 mmol/L (3.5-5.1); SODIUM 141 mmol/L (137-145)
[2018-05-02 06:14] LABS: Hematocrit 25.4 % (35-47); Hemoglobin 7.1 gm/dl (12.0-16.0); Mean Cell Volume 97.7 fl (78-100); Mean Corpuscular Hemoglobin 27.3 pg (26-32); Mean Platelet Volume 10.1 fl (6-9.5); Platelet Count 204 K/mm3 (150-450); Red Cell Distribution Width 20.3 % (11.5-14.0); White Blood Count 11.2 K/mm3 (4.0-10.5)
[2018-05-02] MEDS: solu-MEDROL 125 MG IV SCH ×3 (06:34→22:36)
[2018-05-02 08:14] LABS: Lymphocytes 7 % (24-44); Monocyte 3 % (0.0-12.0); Neutrophils 90 % (36.0-66.0); Platelet Estimate NORMAL (NORMAL); Total Cells Counted 100
[2018-05-02 08:15] LABS: ANISOCYTOSIS 1+; Hypersegmented Polys 1+; Hypochromia 1+
[2018-05-02] MEDS: Advair Hfa 230/21 Mcg COMMON CANISTER IH SCH ×2 (08:20→19:33)
[2018-05-02] MEDS: ROCEPHIN 1 Gm-D5w 50 ml Bag** 1 G/50 ML IVPB IV SCH (10:07)
[2018-05-02] MEDS: NEURONTIN 300 MG PO SCH ×2 (10:10→22:35)
[2018-05-02] MEDS: BUMEX 1 MG PO SCH (10:11)
[2018-05-02] MEDS: ECOTRIN 81 MG PO SCH (10:11)
[2018-05-02] MEDS: PLAVIX 75 MG Tablet PO SCH (10:11)
[2018-05-02] MEDS: Levofloxacin 500MG/100ML D5W 500 MG/100 ML BAG IV SCH (10:12)
[2018-05-02] MEDS: Klor Con 10 MEQ PO SCH (10:12)
[2018-05-02] MEDS: NovoLOG Insulin SQ PRN ×3 (11:49→22:36)
[2018-05-02 13:06] LABS: ABO TYPING O; Antibody Screen NEGATIVE (NEGATIVE); RH TYPING POSITIVE
[2018-05-02 13:09] LABS: CROSS MATCH (PRBC) COMPATIBLE (COMPATIBLE)
[2018-05-02] MEDS: Sodium Chloride 0.9% 1000 ML 1,000 ML IV SCH ×2 (18:43→18:44)
[2018-05-02] MEDS: ATARAX 25 MG PO SCH (22:35)
[2018-05-03] LABS: Hematocrit 32.8 % (35-47); Hemoglobin 9.9 gm/dl (12.0-16.0)
[2018-05-03] MEDS: DUONEB 0.5-3 MG/3 ml Neb IH SCH ×3 (03:31→10:42)
[2018-05-03] MEDS: Norco 10/325 MG Tablet PO PRN ×2 (05:11→11:21)
[2018-05-03] MEDS: solu-MEDROL 125 MG IV SCH (06:16)
[2018-05-03] MEDS: Advair Hfa 230/21 Mcg COMMON CANISTER IH SCH (07:15)
[2018-05-03 07:51] VITALS: O2SAT 98
[2018-05-03] MEDS: ROCEPHIN 1 Gm-D5w 50 ml Bag** 1 G/50 ML IVPB IV SCH (09:34)
[2018-05-03] MEDS: NEURONTIN 300 MG PO SCH (09:38)
[2018-05-03] MEDS: PLAVIX 75 MG Tablet PO SCH (09:39)
[2018-05-03] MEDS: Klor Con 10 MEQ PO SCH (09:39)
[2018-05-03] MEDS: ECOTRIN 81 MG PO SCH (09:40)
[2018-05-03] MEDS: Levofloxacin 500MG/100ML D5W 500 MG/100 ML BAG IV SCH (09:40)
[2018-05-03] MEDS: BUMEX 1 MG PO SCH (09:40)
--- NOTE | 2018-05-03 09:57 | PCM.DS ---
Discharge Summary Date of Admission: 04/28/18 15:49 Admitting Physician: ALPHONSE PEREZ Primary Care Provider: ALPHONSE PEREZ Allergies Allergies Penicillins Allergy (Verified 10/05/17 11:23) Hospital Summary - Hospital Course Hospital Course: Pt is a 77 yo female pt of Dr. Perez with COPD, OA, CAD, hx GI hemorrhage, and aortic valve disorder who came to ER and was admitted with COPD exacerbation. She had been in the hospital recently with COPD exacerbation then was discharged to home. The plan with this admission was to send her to LTCF and indeed she is being discharged to [facility] today. She has been on Levaquin IVx 6d and IV rocephin x3d. She has also been on IV solumedrol throughout her stay. She will go home on 1 more day of levaquin and 8 more days of cefdinir. Over the weekend her Hgb decreased to 7.1 and she was given 2 units of PRBC. Three days ago she had chest pain in the morning and ruled out for HI with negative troponins x 5. She is tolerating po well and ready to discharge to home today. She is on her home O2 of 4L NC. During her stay she had a nonacute femur xray, nonacute pelvis xr, and 2 nonacute CXRs. Her renal function was normal during her stay. Blood cultures negative x 2. - Vitals & Intake/Output Vital Signs: Vital Signs Temperature 98.2 F 05/03/18 07:36 Pulse Rate 72 05/03/18 07:47 Respiratory Rate 22 05/03/18 07:47 Blood Pressure 143/64 05/03/18 07:36 O2 Sat by Pulse Oximetry 98 05/03/18 07:47 Oxygen-Last Documented O2 Percentage 4 Liters = 36% Intake & Output: Intake & Output 04/30/18 05/01/18 05/02/18 05/03/18 11:59 11:59 11:59 11:59 Intake Total 1637 2722 1518 3669 Output Total 1700 1450 1500 1700 Balance -63 1272 18 1969 Weight 60 kg 59.6 kg 59.4 kg - Lab Result Diagrams: 05/02/18 23:55 05/02/18 05:30 Lab Results-Last 24 Hrs: Accuchecks Date 05/03/18 Date 05/02/18 Date 05/02/18 Date 05/02/18 Time 07:30 Time 21:00 Time 16:30 Time 11:30 Accucheck Value: 171 Accucheck Value: 242 Accucheck Value: 214 Accucheck Value: 229 Lab Results-Last 24 Hours 05/02/18 05/02/18 05/02/18 Range/Units 11:00 11:00 11:00 Hgb (12.0-16.0) gm/dl Hct (35-47) % ABO Group O Rh Factor POSITIVE Antibody Screen NEGATIVE (NEGATIVE) Crossmatch COMPATIBLE COMPATIBLE (COMPATIBLE) 05/02/18 Range/Units 23:55 Hgb 9.9 L D (12.0-16.0) gm/dl Hct 32.8 L (35-47) % ABO Group Rh Factor Antibody Screen (NEGATIVE) Crossmatch (COMPATIBLE) Micro Results-Entire Visit: Microbiology 04/28/18 13:00 Blood Culture Gram Stain - Final Blood Not Reportable Blood Culture - Final NO GROWTH 04/28/18 12:57 Blood Culture Gram Stain - Final Blood Not Reportable Blood Culture - Final NO GROWTH Accuchecks Date 05/03/18 Date 05/02/18 Date 05/02/18 Date 05/02/18 Time 07:30 Time 21:00 Time 16:30 Time 11:30 Accucheck Value: 171 Accucheck Value: 242 Accucheck Value: 214 Accucheck Value: 229 - Radiology Exams Ordered Rad Exams-Entire Visit: Radiology Procedures Category Date Time Status CHEST 2 VIEWS (PA AND LAT) Routine Exams 05/01/18 09:55 Completed - Procedures and Test Procedures and Tests throughout Hospitalization: Therapy Orders & Screens 04/28/18 12:30 Peak Expiratory Flow Rate DAILY Comment: Reason For Exam: 04/28/18 12:32 Respiratory Nebulizer STAT Comment: Diagnosis: Shortness of Breath 04/28/18 12:44 Respiratory Therapy Assessment DAILY Comment: Diagnosis: Shortness of Breath 04/28/18 14:24 Respiratory Nebulizer STAT Comment: Diagnosis: Shortness of Breath 04/28/18 15:51 Oxygen Nasal Cannula 4 lpm Comment: Diagnosis: Shortness of Breath 04/28/18 16:57 Respiratory Therapy Assessment DAILY Comment: Diagnosis: ACUTE EXACERBATION COPD 04/28/18 18:08 PT Screen per Nursing Assess Comment: Protocol Order Physician Instructions: Greater than 3 points order PT Admission Screenin Reason For Exam: Triggered on Admission Diagnosis: ACUTE EXACERBATION COPD Open Wound/Cellutlitis/Pressure Ulcers: Yes Acute Fx/ORIF/Change in wt bearing status: No Severe MUSCULOSKELETAL pain: Yes ADL Dysfunction: Yes Acute CVA w/Hemiparesis/Hemiplegia: No Decreased Functional Mobility/Strength: Yes Sprain/Strain: No Acute Post-op Mobility Dysfunction: No Total Points: 14 04/30/18 11:04 EKG ONCE Comment: Diagnosis: ACUTE EXACERBATION COPD 05/01/18 10:36 PT Eval & Treat (MD Order) ROUTINE Reason for Eval:: for strengthening Diagnosis: ACUTE EXACERBATION COPD 05/02/18 10:42 Flutter Therapy UD Comment: Diagnosis: ACUTE EXACERBATION COPD Discharge Exam General Appearance: no apparent distress, alert, other (up in chair) Neurologic Exam: oriented x 3, cooperative Skin Exam: normal color, warm, dry, No rash Eye Exam: eyes nml inspection Ears, Nose, Throat Exam: moist mucous membranes Neck Exam: normal inspection Respiratory Exam: diminished breath sounds, prolonged expirations, wheezing ( scattered), No crackles/rales, No rhonchi Cardiovascular Exam: regular rate/rhythm, normal heart sounds, No murmur Gastrointestinal/Abdomen Exam: soft, tenderness (near ostomy) Extremity Exam: normal inspection, No pedal edema, No swelling Back Exam: normal inspection, No rash Final Diagnosis/Problem List - Final Discharge Diagnosis/Problem (1) COPD exacerbation Current Visit: No Status: Acute Assessment & Plan: Improved; on baseline O2. To [facility] on levaquin to finish 14d and 1 week of prednisone. Code(s): J44.1 - CHRONIC OBSTRUCTIVE PULMONARY DISEASE W (ACUTE) EXACERBATION (2) Chest pain Current Visit: Yes Status: Resolved Code(s): R07.9 - CHEST PAIN, UNSPECIFIED (3) Recurrent falls Current Visit: Yes Status: Chronic Assessment & Plan: to LTCF for therapy. Code(s): R29.6 - REPEATED FALLS (4) Skin tear of forearm without complication Current Visit: Yes Status: Acute Code(s): S51.819A - LACERATION WITHOUT FOREIGN BODY OF UNSP FOREARM, INIT ENCNTR (5) Anemia Current Visit: No Status: Chronic Assessment & Plan: s/p 2 units PRBC; stable. Code(s): D64.9 - ANEMIA, UNSPECIFIED (6) Failure of outpatient treatment Current Visit: No Status: Acute Code(s): Z78.9 - OTHER SPECIFIED HEALTH STATUS (7) Physical deconditioning Current Visit: No Status: Chronic Code(s): R53.81 - OTHER MALAISE (8) CAD (coronary artery disease) Current Visit: Yes Status: Chronic Code(s): I25.10 - ATHSCL HEART DISEASE OF [place] CORONARY ARTERY W/O ANG PCTRS - Discharge Disposition: Skilled Care @ [facility] Condition: Stable Prescriptions: New Prednisone 20 mg [Deltasone 20 mg] 20 mg PO DAILY #17 tablet Levofloxacin [Levaquin] 500 mg PO DAILY #1 tablet Cefdinir [Omnicef] 300 mg PO BID #16 capsule Insulin Lispro [Humalog Kwikpen U-100] 0 unit SQ QID PRN #1 insuln.pen PRN Reason: Hyperglycemia Continue Bumetanide 1 mg [Bumex 1 mg] 1 mg PO DAILY Prednisone 10 mg [Deltasone 10 mg] 10 mg PO DAILY Multivitamin [Multivitamins] 1 each PO DAILY Fluticasone/Salmeterol [Advair 250-50 Diskus] 1 puff IH BID Gabapentin 600 mg PO BID Metformin HCl [Metformin ER Osmotic] 500 mg PO DAILY Clopidogrel Bisulfate [Clopidogrel] 75 mg PO DAILY Nitroglycerin 0.4 mg Tablet [Nitrostat 0.4 MG Tablet] 0.4 mg PO Q5MIN PRN MR X 3 PRN PRN Reason: Chest Pain Aspirin 81 mg PO DAILY Potassium Chloride 20 Meq [Klor-Con 20 MEQ] 20 meq PO DAILY Cyanocobalamin (Vitamin B-12) [Vitamin B-12] 500 mcg PO DAILY Vitamin E 400 unit PO DAILY Calcium Carbonate/Vitamin D3 [Calcium 600 + Vit D Caplet] 1 tab PO DAILY Hydrocodone/APAP 10/325 mg [[place] 10/325 MG Tablet] 1 tab PO Q4H PRN PRN #30 tablet MDD 6 PRN Reason: Pain Hydroxyzine Pamoate [Vistaril] 25 mg PO HS Ipratropium/Albuterol Sulfate [Combivent Respimat 20-100 Mcg] 4 gm IH BID PRN PRN PRN Reason: Shortness Of Breath Follow up with: ALPHONSE PEREZ MD [Primary Care Provider] - 1 Week
[2018-05-03] MEDS: Sodium Chloride 0.9% 1000 ML 1,000 ML IV SCH (10:34)
[2018-05-03 12:11] VITALS: BP 149/67; PULSE 84
== END 2018-05-03 14:15 ==
LOC: ED 12:22 → MED SURG 15:49
PROVIDERS: ADMIT Family Medicine; ATTEND Family Medicine
DX: J44.1 Chronic obstructive pulmonary disease with (acute) exacerbation (principal); L89.322 Pressure ulcer of left buttock, stage 2; L89.312 Pressure ulcer of right buttock, stage 2; M19.90 Unspecified osteoarthritis, unspecified site; D64.9 Anemia, unspecified; I25.10 Atherosclerotic heart disease of native coronary artery without angina pectoris; Z99.81 Dependence on supplemental oxygen; R07.9 Chest pain, unspecified; R29.6 Repeated falls; S51.819A Laceration without foreign body of unspecified forearm, initial encounter; R53.81 Other malaise; Z79.899 Other long term (current) drug therapy; E11.9 Type 2 diabetes mellitus without complications; Z95.1 Presence of aortocoronary bypass graft; R29.898 Other symptoms and signs involving the musculoskeletal system; Z79.01 Long term (current) use of anticoagulants
CPT/HCPCS: 36000; 36415; 36430; 36600; 71045; 71046; 72170; 73552; 80048; 80053; 81001; 82375; 82803; 82962; 83605; 83735; 83880; 84484; 85014; 85018; 85025; 85610; 86850; 86900; 86901; 86922; 87040; 87631; 93005; 93268; 94150; 94640; 94667; 94668; 94760; 94762; 96360; 96361; 96365; 97161; 99285; G0378; P9016; 96374; A6457; J0696; J1956; J2930; J3010; A9270-GY

== ENCOUNTER 2018-05-29 09:03 | Inpatient (IN) | payer MEDICARE ==
--- NOTE | 2018-05-29 09:19 | ERPHSYRPT ---
- History of Present Illness Time Seen by Provider: 05/29/18 09:14 Source: EMS, intermediate records, old records Exam Limitations: clinical condition Physician History: 78 y/o oxygen dependent copd white female resident of [facility] with h/o chronic lymphedema, found slumped over in chair and unresponsive without her oxygen on her. found this am. unknown amt of time pt slumped over and unresponsive. pt arrives via ems breathng on her own with bilat upper arm skin tears. no known injuries. poa states 2 days ago pt and her conversing at lunch. Timing/Duration: today Severity: moderate Character of Deficits: other (unresponsive) Deficits: cannot stand, cannot walk Baseline/Normal Cognition: alert oriented x 3 Current Cognition: poor alertness Associated Symptoms: other (unresponsive. not following commands) Allergies/Adverse Reactions: Penicillins Allergy (Verified 10/05/17 11:23) Home Medications: Bumetanide 1 mg [Bumex 1 mg] 1 mg PO DAILY 06/20/14 [History] Fluticasone/Salmeterol [Advair 250-50 Diskus] 1 puff IH BID 06/20/14 [History] Multivitamin [Multivitamins] 1 each PO DAILY 06/20/14 [History] Prednisone 10 mg [Deltasone 10 mg] 10 mg PO DAILY 06/20/14 [History] Gabapentin 600 mg PO BID 10/05/17 [History] Aspirin 81 mg PO DAILY 10/06/17 [History] Calcium Carbonate/Vitamin D3 [Calcium 600 + Vit D Caplet] 1 tab PO DAILY [History] Clopidogrel Bisulfate [Clopidogrel] 75 mg PO DAILY 10/06/17 [History] Cyanocobalamin (Vitamin B-12) [Vitamin B-12] 500 mcg PO DAILY 10/06/17 [History] Metformin HCl [Metformin ER Osmotic] 500 mg PO DAILY 10/06/17 [History] Nitroglycerin 0.4 mg Tablet [Nitrostat 0.4 MG Tablet] 0.4 mg PO Q5MIN PRN MR X 3 PRN 10/06/17 [History] Potassium Chloride 20 Meq [Klor-Con 20 MEQ] 20 meq PO DAILY 10/06/17 [History] Vitamin E 400 unit PO DAILY 10/06/17 [History] Hydroxyzine Pamoate [Vistaril] 25 mg PO HS 03/14/18 [History] Ipratropium/Albuterol Sulfate [Combivent Respimat 20-100 Mcg] 4 gm IH BID PRN PRN 03/14/18 [History] Hx Tetanus, Diphtheria Vaccination/Date Given: Yes Hx Influenza Vaccination/Date Given: Yes Hx Pneumococcal Vaccination/Date Given: Yes - Review of Systems Constitutional: Lethargy, Weakness Eyes: No Symptoms Ears, Nose, & Throat: No Symptoms Respiratory: No Symptoms Cardiac: No Symptoms Abdominal/Gastrointestinal: No Symptoms Genitourinary Symptoms: No Symptoms Musculoskeletal: No Symptoms Skin: Other (bruises easily; multiple skin tears) Neurological: Lethargy, Other (unresponsive) Endocrine: No Symptoms Hematologic/Lymphatic: No Symptoms Immunological/Allergic: No Symptoms All Other Systems: Unable due to condition - Past Medical History Pertinent Past Medical History: Yes Neurological History: No Pertinent History ENT History: No Pertinent History Cardiac History: Coronary Artery Disease Respiratory History: COPD Endocrine Medical History: Diabetes Type II Musculoskeletal History: Arthritis GI Medical History: Other History: No Pertinent History Psycho-Social History: No Pertinent History Female Reproductive Disorders: No Pertinent History Other Medical History: 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, 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 - Past Surgical History Past Surgical History: Yes Neuro Surgical History: No Pertinent History Cardiac: CABG, Cardiac Stent, Valve Replacement Respiratory: No Pertinent History Gastrointestinal: Other Genitourinary: No Pertinent History Musculoskeletal: Orthopedic Surgery Female Surgical History: Hysterectomy Other Surgical History: beverly knees replaced, beverly wrist, beverly ankles, colostomy - Social History Smoking Status: Former smoker Exposure to second hand smoke: Yes Drug Use: none Patient Lives Alone: Yes - Nursing Vital Signs Nursing Vital Signs: Initial Vital Signs Pulse Rate 100 H 05/29/18 09:10 Respiratory Rate 30 H 05/29/18 09:10 Blood Pressure 145/70 05/29/18 09:10 O2 Sat by Pulse Oximetry 87 L 05/29/18 09:10 Pain Scale Pain Intensity 0 - [place] Coma Scale Best Eye Response ([place]): (2) open to pain Best Verbal Response (Traci): (1) no verbal response Best Motor Response ([place]): (5) localizes to pain Traci Total: 8 - Physical Exam General Appearance: lethargy Eye Exam: bilateral eye: normal inspection Ears, Nose, Throat Exam: dry mucous membranes Neck Exam: normal inspection, non-tender, supple, full range of motion Respiratory: airway intact, crackles/rales, rhonchi, wheezing Cardiovascular: normal peripheral pulses Gastrointestinal: soft, normal bowel sounds, No tenderness Pelvic Exam: not done Rectal Exam: not done Back Exam: normal inspection, normal range of motion, No CVA tenderness, No vertebral tenderness Extremity Exam: pelvis stable, other (bilat upper ext skin tears. bilat lower ext lymphedema with ecchymosis) - Course Nursing assessment & vital signs reviewed: Yes EKG Interpreted by Me: RATE (95), Sinus Rhythm, Left [place] Deviation, Right Bundle Branch Block, Other (compared to ekg dated 04/30/18 bew complete rbbb.otherwise no change) Ordered Tests: Active Orders 24 hr Category Date Time Status Evp Managing Director STAT Care 05/29/18 09:27 Active Cath for Specimen-Straight STAT Care 05/29/18 09:28 Active EKG-ER Only STAT Care 05/29/18 09:26 Active Fisher [Catheter-[place] Fisher] STAT Care 05/29/18 09:28 Active IV Insertion STAT Care 05/29/18 09:26 Active Pulse Oximetry (ED) STAT Care 05/29/18 09:26 Active CHEST 1 VIEW (PORTABLE) Stat Exams 05/29/18 09:27 Taken HEAD WITHOUT CONTRAST [CT] Stat Exams 05/29/18 09:27 Taken ABG [ARTERIAL BLOOD GASES] Urgent Lab 05/29/18 09:15 Completed ARTERIAL BLOOD GASES Urgent Lab 05/29/18 09:26 Ordered BLOOD CULTURE Stat Lab 05/29/18 11:54 Received CBC W DIFF Stat Lab 05/29/18 09:38 Completed CMP Stat Lab 05/29/18 09:38 Completed Lactic Acid Stat Lab 05/29/18 09:26 Ordered Lactic Acid Urgent Lab 05/29/18 09:15 Completed Manual Differential NC Stat Lab 05/29/18 09:38 Completed PROTIME WITH INR Stat Lab 05/29/18 09:38 Completed UA W/RFX UR CULTURE Stat Lab 05/29/18 09:38 Completed Transfer Order Routine Transfer 05/29/18 Ordered Lab/Rad Data: Laboratory Result Diagrams 05/29/18 09:38 05/29/18 09:38 Laboratory Results 05/29/18 05/29/18 05/29/18 Range/Units 09:38 09:38 09:38 WBC (4.0-10.5) K/mm3 RBC (4.1-5.4) M/mm3 Hgb (12.0-16.0) gm/dl Hct (35-47) % MCV (78-100) fl MCH (26-32) pg MCHC (32-36) g/dl RDW (11.5-14.0) % Plt Count (150-450) K/mm3 MPV (6-9.5) fl Segmented Neutrophils (36.0-66.0) % Band Neutrophils (0.0-2.0) % Lymphocytes (Manual) (24-44) % Monocytes (Manual) (0.0-12.0) % Hypochromia Platelet Estimate (NORMAL) RBC Morphology Polychromasia Poikilocytosis Anisocytosis PT 13.2 H (9.95-12.35) SECONDS INR 1.13 (0.8-3.0) Puncture Site pCO2 (35-45) mmHg pO2 (75-100) mmHg Base Excess (-2.0-2.0) O2 Saturation (94-100) g/dF ABG pH (7.35-7.45) ABG HCO3 (22-28) ABG O2 Sat (Measured) (95-100) % Charli Test A-a Gradient a/A Ratio Hemoglobin Carboxyhemoglobin (0.0-6.9) % THgb Methemoglobin (1.4-1.5) % Potassium 4.8 (3.5-5.1) Temperature C POC O2 Flow Rate % Sodium 138 (137-145) mmol/L Chloride 91 L (98-107) mmol/L Carbon Dioxide 40 H (22-30) mmol/L Anion Gap 11.8 (5-15) MEQ/L BUN 24 H (7-17) mg/dL Creatinine 0.88 (0.52-1.04) mg/dL Estimated GFR > 60.0 ML/MIN Glucose 107 H (74-106) mg/dL Lactic Acid (0.4-2.0) Calcium 9.6 (8.4-10.2) mg/dL Total Bilirubin 0.40 (0.2-1.3) mg/dL AST 967 H (14-36) U/L ALT 987 H (0-35) U/L Alkaline Phosphatase 99 (38-126) U/L Serum Total Protein 6.7 (6.3-8.2) g/dL Albumin 3.4 L (3.5-5.0) g/dL Urine Color YELLOW (YELLOW) Urine Appearance SLIGHTLY CLOUDY (CLEAR) Urine pH 6.0 (5-6) Ur Specific [place] 1.016 (1.005-1.025) Urine Protein NEGATIVE (Negative) Urine Ketones TRACE (NEGATIVE) Urine Blood NEGATIVE (0-5) Paul/ul Urine Nitrite NEGATIVE (NEGATIVE) Urine Bilirubin NEGATIVE (NEGATIVE) Urine Urobilinogen NEGATIVE (0-1) mg/dL Ur Leukocyte Esterase NEGATIVE (NEGATIVE) Urine WBC (Auto) NONE (0-5) /HPF Urine RBC (Auto) NONE (0-2) /HPF U Epithel Cells (Auto) NONE (FEW) /HPF Urine Bacteria (Auto) NONE (NEGATIVE) /HPF Urine Mucus (Auto) SLIGHT (NEGATIVE) /HPF Urine Culture Reflexed NO (NO) Urine Glucose NEGATIVE (NEGATIVE) mg/dL 05/29/18 05/29/18 05/29/18 Range/Units 09:38 09:15 09:15 WBC 9.6 (4.0-10.5) K/mm3 RBC 3.78 L (4.1-5.4) M/mm3 Hgb 10.6 L (12.0-16.0) gm/dl Hct 36.3 (35-47) % MCV 96.0 (78-100) fl MCH 28.0 (26-32) pg MCHC 29.2 L (32-36) g/dl RDW 18.7 H (11.5-14.0) % Plt Count 258 (150-450) K/mm3 MPV 9.7 H (6-9.5) fl Segmented Neutrophils 76 H (36.0-66.0) % Band Neutrophils 4 H (0.0-2.0) % Lymphocytes (Manual) 13 L (24-44) % Monocytes (Manual) 7 (0.0-12.0) % Hypochromia 1+ Platelet Estimate NORMAL (NORMAL) RBC Morphology ABNORMAL Polychromasia 1+ Poikilocytosis 1+ Anisocytosis 1+ PT (9.95-12.35) SECONDS INR (0.8-3.0) Puncture Site RIGHT BRACHIAL pCO2 65 H* (35-45) mmHg pO2 85 (75-100) mmHg Base Excess 15.3 H (-2.0-2.0) O2 Saturation 94.7 (94-100) g/dF ABG pH 7.42 (7.35-7.45) ABG HCO3 42.2 H* (22-28) ABG O2 Sat (Measured) 97.2 (95-100) % Charli Test NOT APPLICABLE A-a Gradient 119 a/A Ratio 0.42 Hemoglobin 10.2 Carboxyhemoglobin 1.8 (0.0-6.9) % THgb Methemoglobin 0.8 L (1.4-1.5) % Potassium 4.4 (3.5-5.1) Temperature 37.0 C POC O2 Flow Rate 40 % Sodium (137-145) mmol/L Chloride (98-107) mmol/L Carbon Dioxide (22-30) mmol/L Anion Gap (5-15) MEQ/L BUN (7-17) mg/dL Creatinine (0.52-1.04) mg/dL Estimated GFR ML/MIN Glucose (74-106) mg/dL Lactic Acid 0.7 (0.4-2.0) Calcium (8.4-10.2) mg/dL Total Bilirubin (0.2-1.3) mg/dL AST (14-36) U/L ALT (0-35) U/L Alkaline Phosphatase (38-126) U/L Serum Total Protein (6.3-8.2) g/dL Albumin (3.5-5.0) g/dL Urine Color (YELLOW) Urine Appearance (CLEAR) Urine pH (5-6) Ur Specific [place] (1.005-1.025) Urine Protein (Negative) Urine Ketones (NEGATIVE) Urine Blood (0-5) Paul/ul Urine Nitrite (NEGATIVE) Urine Bilirubin (NEGATIVE) Urine Urobilinogen (0-1) mg/dL Ur Leukocyte Esterase (NEGATIVE) Urine WBC (Auto) (0-5) /HPF Urine RBC (Auto) (0-2) /HPF U Epithel Cells (Auto) (FEW) /HPF Urine Bacteria (Auto) (NEGATIVE) /HPF Urine Mucus (Auto) (NEGATIVE) /HPF Urine Culture Reflexed (NO) Urine Glucose (NEGATIVE) mg/dL - Progress Progress: improved Progress Note: 05/29/18 11:42 ct head-no acute intracranial process. 05/29/18 11:51 pt now opening eyes looking around. spoke with dr. edmonds. i reviewed pt hx, condition, labs ekg and ct head results. he accepts pt for admission. Discussed with : Deshawn Counseled pt/family regarding: lab results, diagnosis, need for follow-up, rad results - Departure Departure Disposition: In-patient Admission Clinical Impression: Hypercarbia, Hypoxia, Altered mental status Condition: Fair Critical Care Time: No Referrals: ALPHONSE PEREZ MD [Primary Care Provider] -
[2018-05-29 09:21] LABS: A-aADO2 119; ABG HEMOGLOBIN 10.2; ABG POTASSIUM 4.4 (3.5-5.1); ARTERIAL BLD GAS O2 SATURATION 97.2 % (95-100); ARTERIAL BLOOD GAS BASE EXCESS 15.3 (-2.0-2.0); ARTERIAL BLOOD GAS FIO2 40 %; ARTERIAL BLOOD GAS PO2 85 mmHg (75-100); ARTERIAL BLOOD GAS pH 7.42 (7.35-7.45); CARBOXYHEMOGLOBIN 1.8 % THgb (0.0-6.9); HCO3- 42.2 (22-28); HGB O2 SAT 94.7 g/dF (94-100); Methhemoglobin 0.8 % (1.4-1.5); paO2 pAO1 0.42
[2018-05-29 09:22] LABS: ABG SITE RIGHT BRACHIAL; ARTERIAL BLOOD GAS PCO2 65 mmHg (35-45)
[2018-05-29 09:47] LABS: Appearance SLIGHTLY CLOUDY (CLEAR); Bilirubin NEGATIVE (NEGATIVE); Blood NEGATIVE Ery/ul (0-5); Glucose NEGATIVE (NEGATIVE); Ketones TRACE (NEGATIVE); Leukocyte Esterase NEGATIVE (NEGATIVE); Mucus SLIGHT /HPF (NEGATIVE); Nitrite NEGATIVE (NEGATIVE); Protein,Urine Dip NEGATIVE (Negative); Specific Gravity 1.016 (1.005-1.025); Urobilinogen NEGATIVE mg/dL (0-1)
[2018-05-29 09:50] LABS: Hematocrit 36.3 % (35-47); Hemoglobin 10.6 gm/dl (12.0-16.0); INR 1.13 (0.8-3.0); Mean Corpuscular Hgb Concent. 29.2 g/dl (32-36); Mean Platelet Volume 9.7 fl (6-9.5); PROTIME 13.2 SECONDS (9.95-12.35); Platelet Count 258 K/mm3 (150-450); Red Blood Count 3.78 M/mm3 (4.1-5.4); Red Cell Distribution Width 18.7 % (11.5-14.0); White Blood Count 9.6 K/mm3 (4.0-10.5)
[2018-05-29 09:55] LABS: ALBUMIN 3.4 g/dL (3.5-5.0); ALKALINE PHOSPHATASE 99 U/L (38-126); BLOOD UREA NITROGEN 24 mg/dL (7-17); CHLORIDE 91 mmol/L (98-107); Calcium 9.6 mg/dL (8.4-10.2); Creatinine 1 0.88 mg/dL (0.52-1.04); Glucose 107 mg/dL (74-106); Potassium 4.8 mmol/L (3.5-5.1); SODIUM 138 mmol/L (137-145); Total Protein 6.7 g/dL (6.3-8.2)
[2018-05-29 10:02] LABS: Carbon Dioxide 40 mmol/L (22-30); SGPT/ALT 987 U/L (0-35)
[2018-05-29 10:03] LABS: ANION GAP 11.8 MEQ/L (5-15); SGOT/AST 967 U/L (14-36)
[2018-05-29 10:12] LABS: BAND 4 % (0.0-2.0); Lymphocytes 13 % (24-44); Monocyte 7 % (0.0-12.0); Neutrophils 76 % (36.0-66.0); Platelet Estimate NORMAL (NORMAL); Total Cells Counted 100
[2018-05-29 10:13] LABS: ANISOCYTOSIS 1+; Hypochromia 1+; Poikilocytosis 1+; Polychromasia 1+
[2018-05-29] MEDS ORDERED: FEVERALL 650 MG PR PRN (12:36)
[2018-05-29] MEDS ORDERED: Sodium Chloride 0.9% 1000 ML 1,000 ML IV SCH (12:36)
[2018-05-29] MEDS: DUONEB 0.5-3 MG/3 ml Neb IH SCH ×2 (14:39→19:08)
[2018-05-29] MEDS ORDERED: Nitrostat 0.4 MG Tablet SL PRN (15:02)
[2018-05-29] MEDS ORDERED: NON-FORMULARY ITEM (Insulin Lispro 100 UNIT) SQ SCH (15:15)
[2018-05-29] MEDS: DELTASONE 10 MG PO SCH (15:47)
[2018-05-29] MEDS ORDERED: D50W 50 ml Abboject IV PRN (15:57)
[2018-05-29] MEDS: Norco 10/325 MG Tablet PO PRN ×3 (17:20→23:33)
[2018-05-29] MEDS: Advair Hfa 115/21 Common canister IH SCH (19:18)
[2018-05-29] MEDS: Dextrose 5% -0.45 NaCl 1000 ML 1,000 ML IV SCH (21:00)
[2018-05-29] MEDS: NEURONTIN 300 MG PO SCH ×2 (21:02→23:35)
--- NOTE | 2018-05-29 21:15 | XRAY ---
Indication: Hypoxia. Comparison: May 01, 2018. Portable chest again hyperinflated with mediastinal/right lung calcified granulomas. No focal infiltrate, consolidation, or large effusion. Heart and mediastinal structures within normal limits. Bony thorax intact again with mild osteopenia and degenerative changes. Impression: Stable nonacute hyperinflated chest with chronic features.
--- NOTE | 2018-05-29 21:17 | XRAY ---
Indication: Acute mental status change. Multiple contiguous axial images obtained through the head without contrast. Comparison: None Study slightly degraded by motion artifact even with repeat CT. Age-appropriate global atrophy and mild periventricular degenerative micro-ischemia. No acute intracranial hemorrhage, abnormal extra-axial fluid collection, or mass effect. Fourth ventricle is midline without hydrocephalus. Bony calvarium intact. Visualized paranasal sinuses and mastoid air cells are clear. Impression: Motion artifact. Atrophy and degenerative micro-ischemia within normal limits for patient's age. No gross acute intracranial abnormalities. Comment: Preliminary interpretation was made by [facility]. No discrepancy. CTDI 64.95
[2018-05-29] MEDS ORDERED: NON-FORMULARY ITEM (Gabapentin [Neurontin] 600 MG) PO SCH (22:00)
[2018-05-29] MEDS ORDERED: DUONEB 0.5-3 MG/3 ml Neb IH PRN (23:26)
[2018-05-30] MEDS: Norco 10/325 MG Tablet PO PRN ×2 (03:46→20:17)
[2018-05-30 04:33] LABS: Granulocyte Absolute (ANC) 6.04 (1.4-6.9); Hematocrit 29.1 % (35-47); Hemoglobin 8.7 gm/dl (12.0-16.0); Mean Corpuscular Hemoglobin 28.7 pg (26-32); Mean Corpuscular Hgb Concent. 29.9 g/dl (32-36); Mean Platelet Volume 9.8 fl (6-9.5); Platelet Count 245 K/mm3 (150-450); Red Blood Count 3.03 M/mm3 (4.1-5.4); Red Cell Distribution Width 18.4 % (11.5-14.0); White Blood Count 7.1 K/mm3 (4.0-10.5)
[2018-05-30 04:36] LABS: A-aADO2 107; ABG HEMOGLOBIN 9.1; ABG POTASSIUM 3.7 (3.5-5.1); ARTERIAL BLOOD GAS BASE EXCESS 14.9 (-2.0-2.0); ARTERIAL BLOOD GAS FIO2 36 %; ARTERIAL BLOOD GAS PO2 72 mmHg (75-100); ARTERIAL BLOOD GAS pH 7.43 (7.35-7.45); CARBOXYHEMOGLOBIN 3.8 % THgb (0.0-6.9); HCO3- 41.2 (22-28); HGB O2 SAT 91.7 g/dF (94-100); Methhemoglobin 0.7 % (1.4-1.5)
[2018-05-30 04:37] LABS: ABG SITE lr; ALLEN TEST OK? y; ARTERIAL BLOOD GAS PCO2 62 mmHg (35-45)
[2018-05-30 05:36] LABS: ANION GAP 6.5 MEQ/L (5-15); BLOOD UREA NITROGEN 18 mg/dL (7-17); CHLORIDE 95 mmol/L (98-107); Calcium 8.7 mg/dL (8.4-10.2); Carbon Dioxide 40 mmol/L (22-30); Creatinine 1 0.67 mg/dL (0.52-1.04); Glucose 130 mg/dL (74-106); NT PRO BNP 1850 pg/mL (0-1800); Potassium 3.9 mmol/L (3.5-5.1); SODIUM 137 mmol/L (137-145)
[2018-05-30 06:09] LABS: BAND 1 % (0.0-2.0); Basophil 1 % (0.0-1.0); Eosinophil 2 % (0.00-3.0); Lymphocytes 10 % (24-44); Monocyte 3 % (0.0-12.0); Neutrophils 83 % (36.0-66.0); Platelet Estimate NORMAL (NORMAL); Total Cells Counted 100
[2018-05-30 06:10] LABS: ANISOCYTOSIS 1+; Basophilic Stippling 1+; Hypochromia 1+; Poikilocytosis 1+; Polychromasia 1+
[2018-05-30] MEDS: DUONEB 0.5-3 MG/3 ml Neb IH SCH ×4 (06:58→19:20)
[2018-05-30] MEDS: Advair Hfa 115/21 Common canister IH SCH ×3 (07:00→19:26)
[2018-05-30] MEDS: Dextrose 5% -0.45 NaCl 1000 ML 1,000 ML IV SCH ×2 (07:02→19:29)
[2018-05-30 07:37] LABS: SGOT/AST 585 U/L (14-36)
[2018-05-30 07:53] LABS: SGPT/ALT 790 U/L (0-35)
[2018-05-30] MEDS ORDERED: POTASSIUM CHLORIDE 20 MEQ POWDER FOR ORAL SOL PO SCH (10:00)
[2018-05-30] MEDS ORDERED: CALCIUM CARBONATE PO SCH (10:00)
[2018-05-30] MEDS ORDERED: ECOTRIN 81 MG PO SCH (10:00)
[2018-05-30] MEDS ORDERED: HYDROXYZINE PAMOATE 25 MG PO SCH (10:00)
[2018-05-30] MEDS ORDERED: VITAMIN E ACID SUCCINATE 400 UNIT PO SCH (10:00)
[2018-05-30] MEDS ORDERED: PLAVIX 75 MG Tablet PO SCH (10:00)
[2018-05-30] MEDS ORDERED: VITAMIN D3 PO SCH (10:00)
[2018-05-30] MEDS ORDERED: NON-FORMULARY ITEM (Multivitamin [Multiple Vitamins] 1 EACH) PO SCH (10:00)
[2018-05-30] MEDS: ROCEPHIN 1 Gm-D5w 50 ml Bag** 1 G/50 ML IVPB IV SCH (10:18)
[2018-05-30] MEDS: ATARAX 25 MG PO SCH (10:30)
[2018-05-30] MEDS: Calcium 500MG W/Vit D Tablet PO SCH (10:30)
[2018-05-30] MEDS: Klor Con 10 MEQ PO SCH (10:31)
[2018-05-30] MEDS: NEURONTIN 300 MG PO SCH ×2 (10:31→20:48)
[2018-05-30] MEDS: Glucophage 500 MG PO SCH (10:31)
[2018-05-30] MEDS: Vitamin E 400 UNIT SOFTGEL PO SCH (10:31)
[2018-05-30] MEDS: THERAGRAN MULTIVITAMIN PO SCH (10:31)
[2018-05-30] MEDS: Vitamin B-12 500 MCG PO SCH (10:31)
[2018-05-30] MEDS ORDERED: Lasix 20 MG/2 ML IV ONE (11:30)
[2018-05-30] MEDS: Zithromax 500 MG/ 250 ML NaCl Premix 500 MG/250 ML IVPB IV SCH (11:30)
[2018-05-30] MEDS: DELTASONE 10 MG PO SCH (11:57)
[2018-05-30] MEDS: BUMEX 1 MG PO SCH (11:57)
[2018-05-30] MEDS: ENOXAPARIN SODIUM SQ SCH (12:08)
[2018-05-30] MEDS: solu-MEDROL 40 MG IV SCH ×2 (12:08→20:17)
[2018-05-30 12:12] LABS: INFLUENZA A NEGATIVE (NEGATIVE); INFLUENZA B NEGATIVE (NEGATIVE); RESPIRATORY SYNCTIAL VIRUS NEGATIVE (Negative)
[2018-05-30] MEDS ORDERED: TORAdol 30 mg Injection IV PRN (17:25)
[2018-05-30] MEDS ORDERED: TORAdol 30 mg Injection ONE (17:33)
[2018-05-30] MEDS: NovoLOG Insulin SQ PRN (22:30)
[2018-05-31] MEDS: solu-MEDROL 40 MG IV SCH (04:13)
[2018-05-31] MEDS: Dextrose 5% -0.45 NaCl 1000 ML 1,000 ML IV SCH ×2 (04:13→17:18)
[2018-05-31 05:52] LABS: BASOPHIL % 0.1 % (0.0-0.4); Basophil (Absolute #) 0.01 (0-0.4); Eosinophil (Absolute #) 0 (0-0.5); Hematocrit 31.7 % (35-47); Hemoglobin 9.5 gm/dl (12.0-16.0); Lymphocyte (Absolute #) 0.43 (1.0-4.6); Lymphocytes % 4.3 % (24.0-44.0); Mean Cell Volume 94.3 fl (78-100); Mean Platelet Volume 9.8 fl (6-9.5); Monocyte (Absolute #) 0.16 (0.0-1.3); Monocytes % 1.6 % (0.0-12.0); Platelet Count 242 K/mm3 (150-450); Red Blood Count 3.36 M/mm3 (4.1-5.4); Red Cell Distribution Width 17.7 % (11.5-14.0); White Blood Count 9.9 K/mm3 (4.0-10.5)
[2018-05-31 06:15] LABS: Mean Corpuscular Hemoglobin 28.2 pg (26-32)
[2018-05-31 06:30] LABS: ALBUMIN 3.1 g/dL (3.5-5.0); ALKALINE PHOSPHATASE 88 U/L (38-126); BLOOD UREA NITROGEN 17 mg/dL (7-17); CHLORIDE 93 mmol/L (98-107); Calcium 8.8 mg/dL (8.4-10.2); Carbon Dioxide 40 mmol/L (22-30); Creatinine 1 0.79 mg/dL (0.52-1.04); Glucose 189 mg/dL (74-106); Potassium 4.5 mmol/L (3.5-5.1); SGOT/AST 285 U/L (14-36); SGPT/ALT 736 U/L (0-35); SODIUM 138 mmol/L (137-145); Total Protein 6.3 g/dL (6.3-8.2)
[2018-05-31] MEDS: ADVAIR 250-50 DISKUS 14 DOSE IH SCH ×2 (07:49→19:34)
[2018-05-31] MEDS: DUONEB 0.5-3 MG/3 ml Neb IH SCH ×4 (07:49→19:34)
[2018-05-31 07:56] LABS: Slide Review 1 YES
--- NOTE | 2018-05-31 08:12 | PCM.NOTE ---
Date and Time: 05/31/18806 Subjective Assessment: patient is alert and appears back to her baseline this morning, complains of chronic leg pain but nothing acute. she denies any numbness, tingling, weakness etc. no focal complaints. no vomiting or diarrhea, no abdominal pain. Objective Exam General Appearance: no apparent distress Neurologic Exam: alert, oriented x 3 Skin Exam: normal color, other (multiple skin tears beverly forearms) Respiratory Exam: normal breath sounds, lungs clear, No respiratory distress Cardiovascular Exam: regular rate/rhythm, normal heart sounds Gastrointestinal/Abdomen Exam: soft, No tenderness, No mass Extremity Exam: normal inspection, normal range of motion OBJECTIVE DATA Vital Signs: Vital Signs - 24 hr Temp Pulse Resp BP Pulse Ox 05/31/18 04:00 97.0 F 73 22 134/57 98 05/30/18 23:14 70 05/30/18 23:12 97.3 F 73 16 123/54 97 05/30/18 19:56 97.9 F 94 H 22 124/67 93 L 05/30/18 19:27 91 H 22 93 L 05/30/18 15:58 99.9 F 95 H 21 123/62 95 05/30/18 15:48 99 H 05/30/18 14:35 90 20 97 05/30/18 11:52 107 H 05/30/18 11:42 100.2 F 103 H 30 H 122/64 94 L 05/30/18 10:59 93 H 18 95 Oxygen-Last 24 hours O2 Percentage 4 Liters = 36% O2 Percentage 4 Liters = 36% O2 Percentage 4 Liters = 36% O2 Percentage 4 Liters = 36% O2 Percentage 4 Liters = 36% Oxygen Flowrate (L/min)-RT 4 Pain Assessment - Last Documented Pain Intensity 0 Pain Scale Used All [place],FLACC Intake and Output: Intake & Output 05/28/18 05/29/18 05/30/18 05/31/18 11:59 11:59 11:59 11:59 Intake Total 1099 2568 Output Total 901 2438 3023 Balance -275 -551 -282 Weight 63.503 kg 63.9 kg 64 kg Lab Results: Accuchecks Date 05/30/18 Time 21:45 Accucheck Value: 201 Accucheck Value: 194 Accucheck Value: 134 Lab Results-Last 24 Hours 05/30/18 05/30/18 05/31/18 Range/Units 09:50 09:50 05:12 WBC 9.9 (4.0-10.5) K/mm3 RBC 3.36 L (4.1-5.4) M/mm3 Hgb 9.5 L (12.0-16.0) gm/dl Hct 31.7 L (35-47) % MCV 94.3 (78-100) fl MCH 28.2 (26-32) pg MCHC 30.0 L (32-36) g/dl RDW 17.7 H (11.5-14.0) % Plt Count 242 (150-450) K/mm3 MPV 9.8 H (6-9.5) fl Gran % 94.0 H (36.0-66.0) % Eos # (Auto) 0 (0-0.5) Absolute Lymphs (auto) 0.43 L (1.0-4.6) Absolute Monos (auto) 0.16 (0.0-1.3) Lymphocytes % 4.3 L (24.0-44.0) % Monocytes % 1.6 (0.0-12.0) % Eosinophils % 0.0 (0.00-5.0) % Basophils % 0.1 (0.0-0.4) % Absolute Granulocytes 9.30 H (1.4-6.9) Basophils # 0.01 (0-0.4) Sodium (137-145) mmol/L Potassium (3.5-5.1) mmol/L Chloride (98-107) mmol/L Carbon Dioxide (22-30) mmol/L Anion Gap (5-15) MEQ/L BUN (7-17) mg/dL Creatinine (0.52-1.04) mg/dL Estimated GFR ML/MIN Glucose (74-106) mg/dL Calcium (8.4-10.2) mg/dL Total Bilirubin (0.2-1.3) mg/dL AST (14-36) U/L ALT (0-35) U/L Alkaline Phosphatase (38-126) U/L Ammonia 13 (9-30) umol/L Serum Total Protein (6.3-8.2) g/dL Albumin (3.5-5.0) g/dL Influenza Type A Ag NEGATIVE (NEGATIVE) Influenza Type B Ag NEGATIVE (NEGATIVE) RSV (PCR) NEGATIVE (Negative) Slides for Path Review YES 05/31/18 Range/Units 05:12 WBC (4.0-10.5) K/mm3 RBC (4.1-5.4) M/mm3 Hgb (12.0-16.0) gm/dl Hct (35-47) % MCV (78-100) fl MCH (26-32) pg MCHC (32-36) g/dl RDW (11.5-14.0) % Plt Count (150-450) K/mm3 MPV (6-9.5) fl Gran % (36.0-66.0) % Eos # (Auto) (0-0.5) Absolute Lymphs (auto) (1.0-4.6) Absolute Monos (auto) (0.0-1.3) Lymphocytes % (24.0-44.0) % Monocytes % (0.0-12.0) % Eosinophils % (0.00-5.0) % Basophils % (0.0-0.4) % Absolute Granulocytes (1.4-6.9) Basophils # (0-0.4) Sodium 138 (137-145) mmol/L Potassium 4.5 (3.5-5.1) mmol/L Chloride 93 L (98-107) mmol/L Carbon Dioxide 40 H (22-30) mmol/L Anion Gap 10.0 (5-15) MEQ/L BUN 17 (7-17) mg/dL Creatinine 0.79 (0.52-1.04) mg/dL Estimated GFR > 60.0 ML/MIN Glucose 189 H (74-106) mg/dL Calcium 8.8 (8.4-10.2) mg/dL Total Bilirubin 0.20 (0.2-1.3) mg/dL AST 285 H (14-36) U/L ALT 736 H (0-35) U/L Alkaline Phosphatase 88 (38-126) U/L Ammonia (9-30) umol/L Serum Total Protein 6.3 (6.3-8.2) g/dL Albumin 3.1 L (3.5-5.0) g/dL Influenza Type A Ag (NEGATIVE) Influenza Type B Ag (NEGATIVE) RSV (PCR) (Negative) Slides for Path Review Radiology Exams: Radiology Procedures Category Date Time Status CHEST 1 VIEW (PORTABLE) Stat Exams 05/29/18 09:27 Completed HEAD WITHOUT CONTRAST [CT] Stat Exams 05/29/18 09:27 Completed MODIFIED BARIUM SWALLOW EXAM Routine Exams 05/31/18 Ordered Assessment/Plan (1) Altered mental status Current Visit: Yes Status: Acute Assessment & Plan: related to hypoxia and hypercarbia, nothing focal on exam Code(s): R41.82 - ALTERED MENTAL STATUS, UNSPECIFIED (2) Acute hepatitis Current Visit: Yes Status: Acute Assessment & Plan: hepatitis profile pending, likely related to hypoxic process etc. lft's are gradually improving. Code(s): B17.9 - ACUTE VIRAL HEPATITIS, UNSPECIFIED (3) Hypercarbia Current Visit: Yes Status: Acute Code(s): R06.89 - OTHER ABNORMALITIES OF BREATHING (4) COPD exacerbation Current Visit: No Status: Acute Code(s): J44.1 - CHRONIC OBSTRUCTIVE PULMONARY DISEASE W (ACUTE) EXACERBATION
[2018-05-31] MEDS: Vitamin B-12 500 MCG PO SCH (09:32)
[2018-05-31] MEDS: Glucophage 500 MG PO SCH (09:32)
[2018-05-31] MEDS: Klor Con 10 MEQ PO SCH (09:32)
[2018-05-31] MEDS: ATARAX 25 MG PO SCH (09:32)
[2018-05-31] MEDS: ROCEPHIN 1 Gm-D5w 50 ml Bag** 1 G/50 ML IVPB IV SCH (09:33)
[2018-05-31] MEDS: NEURONTIN 300 MG PO SCH ×2 (09:33→22:23)
[2018-05-31] MEDS: Calcium 500MG W/Vit D Tablet PO SCH (09:33)
[2018-05-31] MEDS: THERAGRAN MULTIVITAMIN PO SCH (09:33)
[2018-05-31] MEDS: BUMEX 1 MG PO SCH (09:33)
[2018-05-31] MEDS: DELTASONE 10 MG PO SCH (09:33)
[2018-05-31] MEDS: ENOXAPARIN SODIUM SQ SCH (09:33)
--- NOTE | 2018-05-31 09:45 | HP ---
CHIEF COMPLAINT: Decreased level of consciousness. HISTORY OF PRESENT ILLNESS: The patient is a 78 year-old white female who lives in a local alf. The patient was found slumped over in her chair and unresponsive without oxygen on. She was found with an unknown amount of time down. She was brought to the emergency room and placed on oxygen and CPAP initially. The patient apparently was normally awake, alert and oriented x3. PAST MEDICAL/SURGICAL HISTORY: Significant for coronary artery disease, chronic obstructive pulmonary disease, diabetes mellitus type 2, arthritis. 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 She also appears to have had hysterectomy. HOME MEDICATIONS: Bumex 1 mg daily, Advair inhaler, prednisone 10 mg a day, gabapentin 600 mg b.i.d., aspirin 81 mg a day, Plavix 75 mg a day, Metformin 500 mg twice a day, potassium 20 mEq daily, hydroxyzine 25 mg at night/albuterol sulfate/ipratropium (Combivent inhaler). ALLERGIES: PENICILLIN. PHYSICAL EXAMINATION: The patient's vital signs in the emergency room showed a pulse of 100, respiratory rate 30, blood pressure 145/70. O2 saturation 87%. HEENT: Normocephalic, atraumatic. Pupils appear to be equal round reactive to light. Extraocular movements appear to be intact. NECK: Supple without lymphadenopathy, thyromegaly or JVD. CHEST: Revealed some rales in the left side. Right is more clear. HEART: Regular rate and rhythm without significant murmurs heard. ABDOMEN: Soft with no palpable masses and colostomy bag in place. No palpable masses. EXTREMITIES: Without cyanosis, clubbing or edema. NEUROLOGIC: The patient awakens with little stimuli and answers short questions and back to being lethargic. LAB DATA AND TESTS: In the emergency room revealed a lactic acid of 0.7. She had a pro-time 1.13. UA was essentially normal, slightly cloudy, specific gravity 1.016. Her white count was 9,600, hemoglobin 10.6, PLT count 258,000. Sugar 107, BUN 24, creatinine 0.88. Bicarb was elevated at 40. It was also noted significant elevations in her AST 967 and ALT 987. Her bilirubin was normal. Her pH was 7.42 with pCO2 65 on admission and O2 saturation 85% on undocumented amount of supplemental oxygen. She had x-rays performed of the brain with motion artifact, atrophy, degenerative microischemia, within normal limits, no gross acute intracranial abnormalities were seen. Chest x-ray was reported as stable nonacute hyperinflated chest with chronic features. ASSESSMENT: 1) A patient with respiratory collapse with elevated pCO2 and hypoxia, this is resolving with respiratory treatments. 2) Elevation of the patient's liver enzymes for unknown reason. We are having episodes of hepatitis A in the area presently and we will check her hepatitis panel. The patient had normal bilirubin level. We will check her ammonia level to see if it has anything to do with her level of consciousness still being somewhat diminished. She will remain on IV fluids and otherwise will check swabs for respiratory syncytial virus and influenza as well since this has not been checked yet. Presently she will continue on IV fluids and will be placed on empiric IV antibiotics of Rocephin and Zithromax.
[2018-05-31] MEDS: Zithromax 500 MG/ 250 ML NaCl Premix 500 MG/250 ML IVPB IV SCH (10:39)
[2018-05-31] MEDS: Vitamin E 400 UNIT SOFTGEL PO SCH (10:39)
[2018-05-31] MEDS: NovoLOG Insulin SQ PRN ×2 (17:18→22:24)
[2018-05-31] MEDS: Norco 10/325 MG Tablet PO PRN (22:23)
[2018-06-01] MEDS: Dextrose 5% -0.45 NaCl 1000 ML 1,000 ML IV SCH ×2 (03:13→15:59)
[2018-06-01 04:18] LABS: HEPATITIS B VIRUS CORE TOT AB Non Reactive (Non Reactive); HEPATITIS C VIRUS ANTIBODY Non Reactive (Non Reactive); Hepatitis B Surface Antigen Non Reactive (Non Reactive)
[2018-06-01 06:17] LABS: BASOPHIL % 0.1 % (0.0-0.4); Basophil (Absolute #) 0.01 (0-0.4); Eosinophil % 0.1 % (0.00-5.0); Eosinophil (Absolute #) 0.01 (0-0.5); Granulocyte Absolute (ANC) 13.07 (1.4-6.9); Granulocytes % 91.3 % (36.0-66.0); Hematocrit 25.4 % (35-47); Hemoglobin 7.5 gm/dl (12.0-16.0); Lymphocyte (Absolute #) 0.57 (1.0-4.6); Mean Cell Volume 94.1 fl (78-100); Mean Corpuscular Hgb Concent. 29.5 g/dl (32-36); Mean Platelet Volume 10.2 fl (6-9.5); Monocyte (Absolute #) 0.65 (0.0-1.3); Monocytes % 4.5 % (0.0-12.0); Platelet Count 242 K/mm3 (150-450); Red Cell Distribution Width 17.6 % (11.5-14.0); White Blood Count 14.3 K/mm3 (4.0-10.5)
[2018-06-01 06:29] LABS: ALBUMIN 2.6 g/dL (3.5-5.0); ALKALINE PHOSPHATASE 73 U/L (38-126); ANION GAP 10.1 MEQ/L (5-15); BILIRUBIN,TOTAL < 0.10 mg/dL (0.2-1.3); BLOOD UREA NITROGEN 18 mg/dL (7-17); CHLORIDE 95 mmol/L (98-107); Calcium 8.3 mg/dL (8.4-10.2); Carbon Dioxide 36 mmol/L (22-30); Creatinine 1 0.66 mg/dL (0.52-1.04); Glucose 152 mg/dL (74-106); Potassium 4.1 mmol/L (3.5-5.1); SGOT/AST 172 U/L (14-36); SGPT/ALT 602 U/L (0-35); SODIUM 137 mmol/L (137-145); Total Protein 5.4 g/dL (6.3-8.2)
[2018-06-01 06:37] LABS: Mean Corpuscular Hemoglobin 27.7 pg (26-32)
[2018-06-01] MEDS: DUONEB 0.5-3 MG/3 ml Neb IH SCH ×4 (07:11→19:58)
[2018-06-01] MEDS: ADVAIR 250-50 DISKUS 14 DOSE IH SCH ×2 (07:12→20:04)
--- NOTE | 2018-06-01 09:05 | PCM.NOTE ---
Date and Time: 06/01/18901 Subjective Assessment: Pt is feeling better this morning. AAO x 3. [place] po. Breathing is better. Hgb 7.5 this morning. - Review of Systems Constitutional: No Fever Respiratory: Cough, Short Of Breath Objective Exam General Appearance: no apparent distress, alert Neurologic Exam: oriented x 3, cooperative Skin Exam: normal color, warm, dry, No rash Respiratory Exam: lungs clear, diminished breath sounds, No crackles/rales, No rhonchi, No wheezing Cardiovascular Exam: regular rate/rhythm, normal heart sounds, No murmur Gastrointestinal/Abdomen Exam: soft, No normal bowel sounds (hypoactive but present), No tenderness, No distention, No mass, No guarding, No rebound Extremity Exam: No pedal edema, No swelling OBJECTIVE DATA Vital Signs: Vital Signs - 24 hr Temp Pulse Resp BP Pulse Ox 06/01/18 07:31 58 L 20 100 06/01/18 07:06 97.2 F 67 20 119/53 100 06/01/18 04:00 97.3 F 54 L 14 119/53 100 06/01/18 00:00 97.9 F 62 16 106/60 100 05/31/18 20:00 84 27 H 124/64 100 05/31/18 19:49 83 26 H 100 05/31/18 16:00 98.4 F 86 24 115/63 99 05/31/18 15:18 62 22 100 05/31/18 11:40 98.1 F 79 18 105/53 100 05/31/18 11:17 85 22 95 Oxygen-Last 24 hours O2 Percentage 4 Liters = 36% O2 Percentage 4 Liters = 36% O2 Percentage 4 Liters = 36% O2 Percentage 4 Liters = 36% O2 Percentage 4 Liters = 36% O2 Percentage 4 Liters = 36% Oxygen Flowrate (L/min)-RT 4 Oxygen Flowrate (L/min)-RT 4 Pain Assessment - Last Documented Pain Intensity 7 Pain Scale Used [facility] Intake and Output: Intake & Output 05/29/18 05/30/18 05/31/18 06/01/18 11:59 11:59 11:59 11:59 Intake Total 1098 5020 7469 Output Total 970 4735 6317 7331 Balance -710 -366 -004 1298 Weight 63.503 kg 63.9 kg 64 kg 65 kg Lab Results: Accuchecks Date 06/01/18 Date 05/31/18 Time 07:22 Time 22:00 Accucheck Value: 257 Accucheck Value: 205 Accucheck Value: 161 Lab Results-Last 24 Hours 05/30/18 06/01/18 06/01/18 Range/Units 09:50 05:15 05:15 WBC 14.3 H (4.0-10.5) K/mm3 RBC 2.70 L (4.1-5.4) M/mm3 Hgb 7.5 L D (12.0-16.0) gm/dl Hct 25.4 L (35-47) % MCV 94.1 (78-100) fl MCH 27.7 (26-32) pg MCHC 29.5 L (32-36) g/dl RDW 17.6 H (11.5-14.0) % Plt Count 242 (150-450) K/mm3 MPV 10.2 H (6-9.5) fl Gran % 91.3 H (36.0-66.0) % Eos # (Auto) 0.01 (0-0.5) Absolute Lymphs (auto) 0.57 L (1.0-4.6) Absolute Monos (auto) 0.65 (0.0-1.3) Lymphocytes % 4.0 L (24.0-44.0) % Monocytes % 4.5 (0.0-12.0) % Eosinophils % 0.1 (0.00-5.0) % Basophils % 0.1 (0.0-0.4) % Absolute Granulocytes 13.07 H (1.4-6.9) Basophils # 0.01 (0-0.4) Sodium 137 (137-145) mmol/L Potassium 4.1 (3.5-5.1) mmol/L Chloride 95 L (98-107) mmol/L Carbon Dioxide 36 H (22-30) mmol/L Anion Gap 10.1 (5-15) MEQ/L BUN 18 H (7-17) mg/dL Creatinine 0.66 (0.52-1.04) mg/dL Estimated GFR > 60.0 ML/MIN Glucose 152 H (74-106) mg/dL Calcium 8.3 L (8.4-10.2) mg/dL Total Bilirubin < 0.10 L (0.2-1.3) mg/dL AST 172 H (14-36) U/L ALT 602 H (0-35) U/L Alkaline Phosphatase 73 (38-126) U/L Serum Total Protein 5.4 L (6.3-8.2) g/dL Albumin 2.6 L (3.5-5.0) g/dL Hepatitis A IgM Ab Non Reactive (Non Reactive) Hep Bs Antigen Non Reactive (Non Reactive) Hep Bs Antibody, Quant <3.50 (0.00-8.49) mIU/mL Hep B Core Total Ab Non Reactive (Non Reactive) Hepatitis C Antibody Non Reactive (Non Reactive) Assessment/Plan (1) Acute hepatitis Current Visit: Yes Status: Acute Assessment & Plan: Her LFTs are improved this morning - AST 172 (down from 967 at admission and 285 yesterday). ALT is 602 (was 987 on admission, 736 yesterday). Tbili < 0.1. Code(s): B17.9 - ACUTE VIRAL HEPATITIS, UNSPECIFIED (2) Anemia Current Visit: No Status: Chronic Qualifiers: Anemia type: iron deficiency Iron deficiency anemia type: unspecified iron deficiency Qualified Code(s): D50.9 - Iron deficiency anemia, unspecified Assessment & Plan: Has hx GI bleed, so check hemoccult. With her CAD, will transfuse 2 units PRBC now at hgb 7.5. Code(s): D64.9 - ANEMIA, UNSPECIFIED (3) COPD exacerbation Current Visit: Yes Status: Acute Assessment & Plan: On IV rocephin and zithromax. Prednisone 30mg/d. Code(s): J44.1 - CHRONIC OBSTRUCTIVE PULMONARY DISEASE W (ACUTE) EXACERBATION (4) CAD (coronary artery disease) Current Visit: No Status: Chronic Qualifiers: Coronary Disease-Associated Artery/Lesion type: bypass graft [place] vs. transplanted heart: [place] heart Associated angina: with unstable angina Qualified Code(s): I25.700 - Atherosclerosis of coronary artery bypass graft(s) , unspecified, with unstable angina pectoris Assessment & Plan: On lovenox 30mg/d. Will continue this for now. Code(s): I25.10 - ATHSCL HEART DISEASE OF [place] CORONARY ARTERY W/O ANG PCTRS (5) Physical deconditioning Current Visit: No Status: Chronic Code(s): R53.81 - OTHER MALAISE
[2018-06-01] MEDS: ROCEPHIN 1 Gm-D5w 50 ml Bag** 1 G/50 ML IVPB IV SCH (09:52)
[2018-06-01] MEDS: DELTASONE 10 MG PO SCH (10:02)
[2018-06-01] MEDS: BUMEX 1 MG PO SCH (10:02)
[2018-06-01] MEDS: Vitamin B-12 500 MCG PO SCH (10:02)
[2018-06-01] MEDS: THERAGRAN MULTIVITAMIN PO SCH (10:02)
[2018-06-01] MEDS: Calcium 500MG W/Vit D Tablet PO SCH (10:02)
[2018-06-01] MEDS: Klor Con 10 MEQ PO SCH (10:02)
[2018-06-01] MEDS: Glucophage 500 MG PO SCH (10:02)
[2018-06-01] MEDS: ATARAX 25 MG PO SCH (10:03)
[2018-06-01] MEDS: Norco 10/325 MG Tablet PO PRN ×3 (10:03→23:24)
[2018-06-01] MEDS: Vitamin E 400 UNIT SOFTGEL PO SCH (10:03)
[2018-06-01] MEDS: NEURONTIN 300 MG PO SCH ×2 (10:05→21:27)
[2018-06-01] MEDS: ENOXAPARIN SODIUM SQ SCH (10:16)
[2018-06-01 10:25] LABS: ABO TYPING O; Antibody Screen NEGATIVE (NEGATIVE); RH TYPING POSITIVE
[2018-06-01 10:26] LABS: CROSS MATCH (PRBC) COMPATIBLE (COMPATIBLE)
[2018-06-01 10:31] LABS: Slide Review 1 YES
[2018-06-01] MEDS: Zithromax 500 MG/ 250 ML NaCl Premix 500 MG/250 ML IVPB IV SCH (10:43)
[2018-06-01] MEDS ORDERED: Sodium Chloride 0.9% 500 ML 500 ML IV SCH (11:00)
[2018-06-01] MEDS: NovoLOG Insulin SQ PRN ×2 (12:04→21:27)
[2018-06-01] MEDS: Lasix 20 MG/2 ML IV SCH (14:36)
[2018-06-01 19:30] LABS: Hematocrit 36.6 % (35-47); Hemoglobin 11.3 gm/dl (12.0-16.0)
[2018-06-02] MEDS: Dextrose 5% -0.45 NaCl 1000 ML 1,000 ML IV SCH (02:03)
[2018-06-02] MEDS: DUONEB 0.5-3 MG/3 ml Neb IH SCH ×4 (07:11→19:47)
[2018-06-02] MEDS: ADVAIR 250-50 DISKUS 14 DOSE IH SCH ×2 (07:11→19:50)
[2018-06-02] MEDS: ROCEPHIN 1 Gm-D5w 50 ml Bag** 1 G/50 ML IVPB IV SCH (08:28)
--- NOTE | 2018-06-02 09:17 | PCM.DS ---
Discharge Summary Date of Admission: 05/29/18 12:20 Admitting Physician: MARIA LUISA RODRIGUEZ Primary Care Provider: ALPHONSE PEREZ FLO Allergies Allergies Penicillins Allergy (Verified 05/29/18 12:07) Hospital Summary - Hospital Course Hospital Course: patient was admitted from [facility], was found slumped over in a chair without her oxygen on, was obtunded but improved rapidly after admission. was given blood for hgb 7.5, overall feels much better. also had liver functions elevated but are improving, likely related to hypoxia etc. hepatitis profile was negative - Vitals & Intake/Output Vital Signs: Vital Signs Temperature 97.5 F 06/02/18 07:40 Pulse Rate 70 06/02/18 07:40 Respiratory Rate 18 06/02/18 07:40 Blood Pressure 138/76 06/02/18 07:40 O2 Sat by Pulse Oximetry 100 06/02/18 07:40 Oxygen-Last Documented O2 Percentage 4 Liters = 36% Intake & Output: Intake & Output 05/30/18 05/31/18 06/01/18 06/02/18 11:59 11:59 11:59 11:59 Intake Total 1099 2568 3467 3960 Output Total 1650 2850 2175 4550 Balance -551 -282 1292 -590 Weight 63.9 kg 64 kg 65 kg 64 kg - Lab Result Diagrams: 06/01/18 19:04 06/01/18 05:15 Lab Results-Last 24 Hrs: Accuchecks Date 06/02/18 Time 07:30 Accucheck Value: 115 Accucheck Value: 241 Accucheck Value: 110 Accucheck Value: 224 Lab Results-Last 24 Hours 06/01/18 06/01/18 06/01/18 Range/Units 00:06 05:15 09:10 Hgb (12.0-16.0) gm/dl Hct (35-47) % Stool Occult Bld Scrn NEGATIVE (NEGATIVE) Slides for Path Review YES ABO Group Rh Factor Antibody Screen (NEGATIVE) Crossmatch COMPATIBLE (COMPATIBLE) 06/01/18 06/01/18 Range/Units 09:23 19:04 Hgb 11.3 L D (12.0-16.0) gm/dl Hct 36.6 (35-47) % Stool Occult Bld Scrn (NEGATIVE) Slides for Path Review ABO Group O Rh Factor POSITIVE Antibody Screen NEGATIVE (NEGATIVE) Crossmatch COMPATIBLE (COMPATIBLE) Micro Results-Entire Visit: Microbiology 05/29/18 11:54 Blood Culture - Preliminary Blood NO GROWTH TO DATE 05/29/18 09:30 Blood Culture - Preliminary Blood NO GROWTH TO DATE Accuchecks Date 06/02/18 Time 07:30 Accucheck Value: 115 Accucheck Value: 241 Accucheck Value: 110 Accucheck Value: 224 - Procedures and Test Procedures and Tests throughout Hospitalization: Therapy Orders & Screens 05/29/18 12:36 EKG REPEAT IN AM Comment: 05/29/18 14:35 Oxygen Nasal Cannula 2 lpm Comment: Diagnosis: hypercapnia Peak Expiratory Flow Rate ONCE Comment: Reason For Exam: Diagnosis: hypercapnia Respiratory Therapy Assessment DAILY Comment: Diagnosis: hypercapnia 05/29/18 14:36 BiPap/CPAP ROUTINE Comment: Diagnosis: hypercapnia 05/29/18 16:05 OT Screen per Nursing Assess ONCE Comment: Protocol Order Physician Instructions: Greater than 3 points order OT Admission Screening Reason For Exam: Triggered on Admission Diagnosis: hypercapnia Open Wound/Cellutlitis/Pressure Ulcers: Yes Acute Fx/ORIF/Change in wt bearing status: No Severe MUSCULOSKELETAL pain: No ADL Dysfunction: Yes Acute CVA w/Hemiparesis/Hemiplegia: No Decreased Functional Mobility/Strength: Yes Sprain/Strain: No Acute Post-op Mobility Dysfunction: No Total Points: 9 PT Screen per Nursing Assess ROUTINE Comment: Protocol Order Physician Instructions: Greater than 3 points order PT Admission Screenin Reason For Exam: Triggered on Admission Diagnosis: hypercapnia Open Wound/Cellutlitis/Pressure Ulcers: Yes Acute Fx/ORIF/Change in wt bearing status: No Severe MUSCULOSKELETAL pain: No ADL Dysfunction: Yes Acute CVA w/Hemiparesis/Hemiplegia: No Decreased Functional Mobility/Strength: Yes Sprain/Strain: No Acute Post-op Mobility Dysfunction: No Total Points: 9 ST Screen per Nursing Assess once Comment: Protocol Order Physician Instructions: Greater than [address] Admission Screening Reason For Exam: Triggered on Admission Diagnosis: hypercapnia CVA/Dyshpagia/Aphasia: No Cognitive Deficits: Yes Dehydration/Nutrition Deficit: No Reflux: No Oral-Motor Difficulties: No Pneumonia: No Residential Resident: Yes Total Points: 8 05/30/18 10:21 Modified Barium Swallow Eval .as ordered Comment: Physician Instructions: Reason For Exam: 05/31/18 07:00 Respiratory MDI BID Comment: Diagnosis: hypercapnia Discharge Exam General Appearance: no apparent distress, alert, thin Neurologic Exam: alert Skin Exam: normal color, warm, dry Respiratory Exam: diminished breath sounds, prolonged expirations Cardiovascular Exam: regular rate/rhythm, normal heart sounds Gastrointestinal/Abdomen Exam: soft, No tenderness, No mass Extremity Exam: other (skin tears to [place]ver[place] forearms and ecchymosis to legs) Final Diagnosis/Problem List - Final Discharge Diagnosis/Problem (1) Altered mental status Current Visit: Yes Status: Acute Assessment & Plan: related to hypoxia, stressed need for compliance with oxygen at all times. Code(s): R41.82 - ALTERED MENTAL STATUS, UNSPECIFIED (2) Acute hepatitis Current Visit: Yes Status: Acute Assessment & Plan: improving, related to hypoxia/hypercarbia and resolving. Code(s): B17.9 - ACUTE VIRAL HEPATITIS, UNSPECIFIED (3) Hypercarbia Current Visit: Yes Status: Acute Code(s): R06.89 - OTHER ABNORMALITIES OF BREATHING (4) COPD exacerbation Current Visit: Yes Status: Acute Code(s): J44.1 - CHRONIC OBSTRUCTIVE PULMONARY DISEASE W (ACUTE) EXACERBATION - Discharge Disposition: Skilled Care @ [facility] Condition: Fair Prescriptions: Continue Clopidogrel Bisulfate 75 mg [PLAVIX 75 MG Tablet] 75 mg PO DAILY Aspirin EC 81 mg [Ecotrin 81 mg] 81 mg PO DAILY predniSONE [Prednisone] 30 mg PO DAILY Vitamin E Acid Succinate [Vitamin E] 400 unit PO DAILY Potassium Chloride [Klor-Con] 20 meq PO DAILY Nitroglycerin 0.4 mg Tablet [Nitrostat 0.4 MG Tablet] 0.4 mg SL Q5MIN PRN MR X 3 PRN PRN Reason: Chest Pain Multivitamin [Multiple Vitamins] 1 each PO DAILY Metformin HCl 500 mg [Glucophage 500 MG] 500 mg PO DAILY Ipratropium/Albuterol Sulfate [Combivent Inhaler] 2 puff IH BID PRN PRN PRN Reason: Shortness Of Breath Insulin Lispro [Humalog] 100 unit SQ UD Hydroxyzine Pamoate [Vistaril] 25 mg PO DAILY Hydrocodone/Acetaminophen [[place] 10-325 Tablet] 1 each PO Q4HPRN PRN MDD 6 PRN Reason: Pain Gabapentin [Neurontin] 600 mg PO BID Fluticasone/Salmeterol [Advair 250-50 Diskus] 1 each IH BID Cyanocobalamin (Vitamin B-12) [Vitamin B-12] 500 mcg PO DAILY Calcium Carbonate/Vitamin D3 [Calcium 600 + Vit D Tablet] 1 each PO DAILY Bumetanide 1 mg [Bumex 1 mg] 1 mg PO DAILY
[2018-06-02 09:22] LABS: Hematocrit 36.8 % (35-47); Hemoglobin 11.5 gm/dl (12.0-16.0); Mean Cell Volume 94.1 fl (78-100); Mean Corpuscular Hemoglobin 29.4 pg (26-32); Mean Corpuscular Hgb Concent. 31.3 g/dl (32-36); Mean Platelet Volume 9.8 fl (6-9.5); Platelet Count 216 K/mm3 (150-450); Red Blood Count 3.91 M/mm3 (4.1-5.4); Red Cell Distribution Width 17.6 % (11.5-14.0)
[2018-06-02 10:00] LABS: ANISOCYTOSIS 2+; Lymphocytes 16 % (24-44); Monocyte 6 % (0.0-12.0); Neutrophils 78 % (36.0-66.0); Platelet Estimate NORMAL (NORMAL); Poikilocytosis 1+; Total Cells Counted 100; Toxic Granulation 1+
[2018-06-02 10:11] LABS: ALKALINE PHOSPHATASE 77 U/L (38-126); BLOOD UREA NITROGEN 14 mg/dL (7-17); CHLORIDE 97 mmol/L (98-107); Calcium 8.9 mg/dL (8.4-10.2); Carbon Dioxide 37 mmol/L (22-30); Creatinine 1 0.64 mg/dL (0.52-1.04); Glucose 105 mg/dL (74-106); SGOT/AST 93 U/L (14-36); SGPT/ALT 535 U/L (0-35); SODIUM 142 mmol/L (137-145)
[2018-06-02] MEDS: Vitamin B-12 500 MCG PO SCH (10:18)
[2018-06-02] MEDS: Zithromax 500 MG/ 250 ML NaCl Premix 500 MG/250 ML IVPB IV SCH (10:18)
[2018-06-02] MEDS: ENOXAPARIN SODIUM SQ SCH (10:18)
[2018-06-02] MEDS: Glucophage 500 MG PO SCH (10:18)
[2018-06-02] MEDS: DELTASONE 10 MG PO SCH (10:18)
[2018-06-02] MEDS: Klor Con 10 MEQ PO SCH (10:18)
[2018-06-02] MEDS: Calcium 500MG W/Vit D Tablet PO SCH (10:18)
[2018-06-02] MEDS: ATARAX 25 MG PO SCH (10:18)
[2018-06-02] MEDS: THERAGRAN MULTIVITAMIN PO SCH (10:18)
[2018-06-02] MEDS: NEURONTIN 300 MG PO SCH ×2 (10:18→22:07)
[2018-06-02] MEDS: Lasix 20 MG/2 ML IV SCH (10:18)
[2018-06-02] MEDS: BUMEX 1 MG PO SCH (10:19)
[2018-06-02] MEDS: Vitamin E 400 UNIT SOFTGEL PO SCH (10:19)
[2018-06-02] MEDS: Norco 10/325 MG Tablet PO PRN ×3 (10:20→22:11)
[2018-06-03] MEDS: Norco 10/325 MG Tablet PO PRN ×2 (06:24→13:32)
[2018-06-03] MEDS: ADVAIR 250-50 DISKUS 14 DOSE IH SCH (06:40)
[2018-06-03] MEDS: DUONEB 0.5-3 MG/3 ml Neb IH SCH ×3 (06:40→14:32)
[2018-06-03] MEDS: ROCEPHIN 1 Gm-D5w 50 ml Bag** 1 G/50 ML IVPB IV SCH (09:05)
--- NOTE | 2018-06-03 09:13 | PCM.DS ---
Discharge Summary Date of Admission: 05/29/18 12:20 Admitting Physician: MARIA LUISA RODRIGUEZ Primary Care Provider: ALPHONSE PEREZ FLO Allergies Allergies Penicillins Allergy (Verified 05/29/18 12:07) Hospital Summary - Hospital Course Hospital Course: patient admitted with hypercarbia and hypoxia, found with oxygen off. doing well now, LFT's are improving, she is back to baseline. discharge was held by awaiting insurance authorization for ECF - Vitals & Intake/Output Vital Signs: Vital Signs Temperature 97.6 F 06/03/18 07:13 Pulse Rate 88 06/03/18 07:13 Respiratory Rate 18 06/03/18 07:13 Blood Pressure 110/56 06/03/18 07:13 O2 Sat by Pulse Oximetry 98 06/03/18 07:13 Oxygen-Last Documented O2 Percentage 4 Liters = 36% Intake & Output: Intake & Output 05/31/18 06/01/18 06/02/18 06/03/18 11:59 11:59 11:59 11:59 Intake Total 2568 3467 3960 720 Output Total 2850 2175 6200 600 Balance -282 1292 -2240 120 Weight 64 kg 65 kg 64 kg - Lab Result Diagrams: 06/02/18 09:10 06/02/18 09:10 Lab Results-Last 24 Hrs: Accuchecks Date 06/03/18 Date 06/02/18 Date 06/02/18 Date 06/02/18 Time 07:30 Time 22:00 Time 16:30 Time 11:30 Accucheck Value: 122 Accucheck Value: 143 Accucheck Value: 141 Accucheck Value: 78 Lab Results-Last 24 Hours 06/02/18 06/02/18 Range/Units 09:10 09:10 WBC 12.0 H (4.0-10.5) K/mm3 RBC 3.91 L (4.1-5.4) M/mm3 Hgb 11.5 L (12.0-16.0) gm/dl Hct 36.8 (35-47) % MCV 94.1 (78-100) fl MCH 29.4 (26-32) pg MCHC 31.3 L (32-36) g/dl RDW 17.6 H (11.5-14.0) % Plt Count 216 (150-450) K/mm3 MPV 9.8 H (6-9.5) fl Segmented Neutrophils 78 H (36.0-66.0) % Lymphocytes (Manual) 16 L (24-44) % Monocytes (Manual) 6 (0.0-12.0) % Toxic Granulation 1+ Platelet Estimate NORMAL (NORMAL) RBC Morphology ABNORMAL Poikilocytosis 1+ Anisocytosis 2+ Sodium 142 (137-145) mmol/L Potassium 4.0 (3.5-5.1) mmol/L Chloride 97 L (98-107) mmol/L Carbon Dioxide 37 H (22-30) mmol/L Anion Gap 12.0 (5-15) MEQ/L BUN 14 (7-17) mg/dL Creatinine 0.64 (0.52-1.04) mg/dL Estimated GFR > 60.0 ML/MIN Glucose 105 (74-106) mg/dL Calcium 8.9 (8.4-10.2) mg/dL Total Bilirubin 0.30 (0.2-1.3) mg/dL AST 93 H (14-36) U/L ALT 535 H (0-35) U/L Alkaline Phosphatase 77 (38-126) U/L Serum Total Protein 6.0 L (6.3-8.2) g/dL Albumin 3.0 L (3.5-5.0) g/dL Micro Results-Entire Visit: Microbiology 05/29/18 11:54 Blood Culture Gram Stain - Final Blood Not Reportable Blood Culture - Final NO GROWTH 05/29/18 09:30 Blood Culture Gram Stain - Final Blood Not Reportable Blood Culture - Final NO GROWTH Accuchecks Date 06/03/18 Date 06/02/18 Date 06/02/18 Date 06/02/18 Time 07:30 Time 22:00 Time 16:30 Time 11:30 Accucheck Value: 122 Accucheck Value: 143 Accucheck Value: 141 Accucheck Value: 78 - Procedures and Test Procedures and Tests throughout Hospitalization: Therapy Orders & Screens 05/29/18 12:36 EKG REPEAT IN AM Comment: 05/29/18 14:35 Oxygen Nasal Cannula 2 lpm Comment: Diagnosis: hypercapnia Peak Expiratory Flow Rate ONCE Comment: Reason For Exam: Diagnosis: hypercapnia Respiratory Therapy Assessment DAILY Comment: Diagnosis: hypercapnia 05/29/18 14:36 BiPap/CPAP ROUTINE Comment: Diagnosis: hypercapnia 05/29/18 16:05 OT Screen per Nursing Assess ONCE Comment: Protocol Order Physician Instructions: Greater than 3 points order OT Admission Screening Reason For Exam: Triggered on Admission Diagnosis: hypercapnia Open Wound/Cellutlitis/Pressure Ulcers: Yes Acute Fx/ORIF/Change in wt bearing status: No Severe MUSCULOSKELETAL pain: No ADL Dysfunction: Yes Acute CVA w/Hemiparesis/Hemiplegia: No Decreased Functional Mobility/Strength: Yes Sprain/Strain: No Acute Post-op Mobility Dysfunction: No Total Points: 9 PT Screen per Nursing Assess ROUTINE Comment: Protocol Order Physician Instructions: Greater than 3 points order PT Admission Screenin Reason For Exam: Triggered on Admission Diagnosis: hypercapnia Open Wound/Cellutlitis/Pressure Ulcers: Yes Acute Fx/ORIF/Change in wt bearing status: No Severe MUSCULOSKELETAL pain: No ADL Dysfunction: Yes Acute CVA w/Hemiparesis/Hemiplegia: No Decreased Functional Mobility/Strength: Yes Sprain/Strain: No Acute Post-op Mobility Dysfunction: No Total Points: 9 ST Screen per Nursing Assess once Comment: Protocol Order Physician Instructions: Greater than [address] Admission Screening Reason For Exam: Triggered on Admission Diagnosis: hypercapnia CVA/Dyshpagia/Aphasia: No Cognitive Deficits: Yes Dehydration/Nutrition Deficit: No Reflux: No Oral-Motor Difficulties: No Pneumonia: No Penitentiary Resident: Yes Total Points: 8 05/30/18 10:21 Modified Barium Swallow Eval .as ordered Comment: Physician Instructions: Reason For Exam: 05/31/18 07:00 Respiratory MDI BID Comment: Diagnosis: hypercapnia Discharge Exam General Appearance: no apparent distress, other (frail) Skin Exam: normal color, warm, dry Respiratory Exam: diminished breath sounds, prolonged expirations, No respiratory distress Cardiovascular Exam: regular rate/rhythm, normal heart sounds Gastrointestinal/Abdomen Exam: soft, No tenderness, No mass Extremity Exam: other (bruising and skin tears beverly forearms and lower extremities) Final Diagnosis/Problem List - Final Discharge Diagnosis/Problem (1) Altered mental status Current Visit: Yes Status: Acute Code(s): R41.82 - ALTERED MENTAL STATUS, UNSPECIFIED (2) Acute hepatitis Current Visit: Yes Status: Acute Code(s): B17.9 - ACUTE VIRAL HEPATITIS, UNSPECIFIED (3) Hypercarbia Current Visit: Yes Status: Acute Code(s): R06.89 - OTHER ABNORMALITIES OF BREATHING (4) COPD exacerbation Current Visit: Yes Status: Acute Code(s): J44.1 - CHRONIC OBSTRUCTIVE PULMONARY DISEASE W (ACUTE) EXACERBATION - Discharge Disposition: Skilled Care @ [facility] Condition: Fair Prescriptions: Continue Clopidogrel Bisulfate 75 mg [PLAVIX 75 MG Tablet] 75 mg PO DAILY Aspirin EC 81 mg [Ecotrin 81 mg] 81 mg PO DAILY predniSONE [Prednisone] 30 mg PO DAILY Vitamin E Acid Succinate [Vitamin E] 400 unit PO DAILY Potassium Chloride [Klor-Con] 20 meq PO DAILY Nitroglycerin 0.4 mg Tablet [Nitrostat 0.4 MG Tablet] 0.4 mg SL Q5MIN PRN MR X 3 PRN PRN Reason: Chest Pain Multivitamin [Multiple Vitamins] 1 each PO DAILY Metformin HCl 500 mg [Glucophage 500 MG] 500 mg PO DAILY Ipratropium/Albuterol Sulfate [Combivent Inhaler] 2 puff IH BID PRN PRN PRN Reason: Shortness Of Breath Insulin Lispro [Humalog] 100 unit SQ UD Hydroxyzine Pamoate [Vistaril] 25 mg PO DAILY Hydrocodone/Acetaminophen [[place] 10-325 Tablet] 1 each PO Q4HPRN PRN MDD 6 PRN Reason: Pain Gabapentin [Neurontin] 600 mg PO BID Fluticasone/Salmeterol [Advair 250-50 Diskus] 1 each IH BID Cyanocobalamin (Vitamin B-12) [Vitamin B-12] 500 mcg PO DAILY Calcium Carbonate/Vitamin D3 [Calcium 600 + Vit D Tablet] 1 each PO DAILY Bumetanide 1 mg [Bumex 1 mg] 1 mg PO DAILY Follow up with: ALPHONSE PEREZ MD [Primary Care Provider] - 1 Week
[2018-06-03] MEDS: ENOXAPARIN SODIUM SQ SCH (09:17)
[2018-06-03] MEDS: Lasix 20 MG/2 ML IV SCH (09:19)
[2018-06-03] MEDS: Glucophage 500 MG PO SCH (09:19)
[2018-06-03] MEDS: Calcium 500MG W/Vit D Tablet PO SCH (09:20)
[2018-06-03] MEDS: BUMEX 1 MG PO SCH (09:20)
[2018-06-03] MEDS: Vitamin B-12 500 MCG PO SCH (09:20)
[2018-06-03] MEDS: DELTASONE 10 MG PO SCH (09:21)
[2018-06-03] MEDS: NEURONTIN 300 MG PO SCH (09:22)
[2018-06-03] MEDS: THERAGRAN MULTIVITAMIN PO SCH (09:23)
[2018-06-03] MEDS: ATARAX 25 MG PO SCH (09:24)
[2018-06-03] MEDS: Klor Con 10 MEQ PO SCH (09:24)
[2018-06-03] MEDS: Vitamin E 400 UNIT SOFTGEL PO SCH (09:25)
[2018-06-03] MEDS: Zithromax 500 MG/ 250 ML NaCl Premix 500 MG/250 ML IVPB IV SCH (09:25)
[2018-06-03] MEDS: Dextrose 5% -0.45 NaCl 1000 ML 1,000 ML IV SCH (10:03)
[2018-06-03] MEDS ORDERED: Norco 10/325 MG Tablet PO PRN (15:07)
[2018-06-03 15:57] VITALS: BP 110/57; PULSE 82; O2SAT 94
== END 2018-06-03 15:40 | DRG 948 ==
LOC: ED 09:03 → ICU 12:20
PROVIDERS: ADMIT Family Medicine; ATTEND Family Medicine
DX: R41.82 Altered mental status, unspecified (principal); B17.9 Acute viral hepatitis, unspecified; J44.1 Chronic obstructive pulmonary disease with (acute) exacerbation; R06.89 Other abnormalities of breathing; R09.02 Hypoxemia; E11.9 Type 2 diabetes mellitus without complications; R74.8 Abnormal levels of other serum enzymes; D50.9 Iron deficiency anemia, unspecified; I25.10 Atherosclerotic heart disease of native coronary artery without angina pectoris; Z79.01 Long term (current) use of anticoagulants; Z79.899 Other long term (current) drug therapy; Z99.81 Dependence on supplemental oxygen; Z93.3 Colostomy status; R53.81 Other malaise
CPT/HCPCS: 36000; 36415; 36430; 36600; 51702; 70450; 71045; 80048; 80053; 80074; 81001; 82140; 82270; 82375; 82803; 82962; 83605; 83880; 84450; 84460; 85014; 85018; 85025; 85610; 86850; 86900; 86901; 86922; 87040; 87631; 93005; 93041; 94002; 94003; 94640; 94762; 99285; P9016; P9612; 94760; J0456; J0696; J1650; J1885; J1940; J2920; A9270-GY

== ENCOUNTER 2018-06-28 09:01 | Observation (INO) | payer MEDICARE ==
[2018-06-28] MEDS ORDERED: solu-MEDROL 125 MG IV ONE (09:10)
[2018-06-28] MEDS ORDERED: PROVENTIL 2.5 MG/3 ML NEB IH ONE ×2 (09:10→09:48)
[2018-06-28] MEDS ORDERED: Sodium Chloride 0.9% 1000 ML 1,000 ML IV SCH (09:15)
--- NOTE | 2018-06-28 09:19 | ERPHSYRPT ---
- History of Present Illness Time Seen by Provider: 06/28/18 09:14 Source: EMS, correction records Physician History: This is a 78-year-old white female with history of COPD, coronary disease, diabetes type 2, arthritis, Sent from the correction patient was noted to have decreased oxygen saturation moving air well at the correction this morning patient arrives with shortness of breath she was given a DuoNeb treatment by the medics she denies any pain. 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 Past surgical history includes CABG, cardiac stent, valve replacement, hysterectomy, bilateral knees replacement, bilateral ankle surgery, colostomy. Timing/Duration: today Activities at Onset: none Severity of Dyspnea-Max: moderate Severity of Dyspnea-Current: moderate Possible Cause: occasional episodes Modifying Factors: Improves With: nothing Associated Symptoms: constant, anxiety, wheezing, No intermittent, No cough, No chest pain/discomfort, No edema, No fever, No insomnia, No loss of appetite, No lightheadedness, No weakness, No ankle swelling, No chills, No hemoptysis, No calf pain, No dizziness, No heaviness, No heart racing, No lightheadedness, No leg swelling, No muscle spasms feet, No muscle spasms hands, No painful breathing, No productive cough, No sweating, No tightness, No tingling face International travel in last 2 weeks: No Allergies/Adverse Reactions: Penicillins Allergy (Verified 05/29/18 12:07) Home Medications: Aspirin EC 81 mg [Ecotrin 81 mg] 81 mg PO DAILY 05/29/18 [History] Bumetanide 1 mg [Bumex 1 mg] 1 mg PO DAILY 05/29/18 [History] Calcium Carbonate/Vitamin D3 [Calcium 600 + Vit D Tablet] 1 each PO DAILY [History] Clopidogrel Bisulfate 75 mg [PLAVIX 75 MG Tablet] 75 mg PO DAILY 05/29/18 [History] Cyanocobalamin (Vitamin B-12) [Vitamin B-12] 500 mcg PO DAILY 05/29/18 [History] Fluticasone/Salmeterol [Advair 250-50 Diskus] 1 each IH BID 05/29/18 [History] Gabapentin [Neurontin] 600 mg PO BID 05/29/18 [History] Hydrocodone/Acetaminophen [[place] 10-325 Tablet] 1 each PO Q4HPRN PRN MDD 6 05/29 [History] Hydroxyzine Pamoate [Vistaril] 25 mg PO DAILY 05/29/18 [History] Insulin Lispro [Humalog] 100 unit SQ UD 05/29/18 [History] Ipratropium/Albuterol Sulfate [Combivent Inhaler] 2 puff IH BID PRN PRN [History] Metformin HCl 500 mg [Glucophage 500 MG] 500 mg PO DAILY 05/29/18 [History ] Multivitamin [Multiple Vitamins] 1 each PO DAILY 05/29/18 [History] Nitroglycerin 0.4 mg Tablet [Nitrostat 0.4 MG Tablet] 0.4 mg SL Q5MIN PRN MR X 3 PRN 05/29/18 [History] Potassium Chloride [Klor-Con] 20 meq PO DAILY 05/29/18 [History] Vitamin E Acid Succinate [Vitamin E] 400 unit PO DAILY 05/29/18 [History] predniSONE [Prednisone] 30 mg PO DAILY 05/29/18 [History] Hx Tetanus, Diphtheria Vaccination/Date Given: Yes Hx Influenza Vaccination/Date Given: Yes Hx Pneumococcal Vaccination/Date Given: Yes - Review of Systems Constitutional: No Fever, No Chills Eyes: No Symptoms Ears, Nose, & Throat: No Symptoms Respiratory: Dyspnea, Wheezing, Other (decreased O2 sats and air movement at correction) Cardiac: No Chest Pain, No Edema, No Syncope Abdominal/Gastrointestinal: No Abdominal Pain, No Nausea, No Vomiting, No Diarrhea Genitourinary Symptoms: No Dysuria Musculoskeletal: No Back Pain, No Neck Pain Skin: Other (erythema left lower extremity dressing in place right lower extremity) Neurological: No Dizziness, No Focal Weakness, No Sensory Changes Psychological: No Symptoms Endocrine: No Symptoms All Other Systems: Reviewed and Negative - Past Medical History Pertinent Past Medical History: Yes Neurological History: No Pertinent History ENT History: No Pertinent History Cardiac History: Coronary Artery Disease Respiratory History: COPD Endocrine Medical History: Diabetes Type II Musculoskeletal History: Arthritis GI Medical History: Other History: No Pertinent History Psycho-Social History: No Pertinent History Female Reproductive Disorders: No Pertinent History Other Medical History: 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, 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 - Past Surgical History Past Surgical History: Yes Neuro Surgical History: No Pertinent History Cardiac: CABG, Cardiac Stent, Valve Replacement Respiratory: No Pertinent History Gastrointestinal: Other Genitourinary: No Pertinent History Musculoskeletal: Orthopedic Surgery Female Surgical History: Hysterectomy Other Surgical History: beverly knees replaced, beverly wrist, beverly ankles, colostomy - Social History Smoking Status: Former smoker Exposure to second hand smoke: Yes Drug Use: none Patient Lives Alone: Yes - Nursing Vital Signs Nursing Vital Signs: Initial Vital Signs Temperature 102.4 F 06/28/18 09:05 Pulse Rate 114 H 06/28/18 09:05 Respiratory Rate 32 H 06/28/18 09:05 Blood Pressure 124/72 06/28/18 09:05 O2 Sat by Pulse Oximetry 84 L 06/28/18 09:05 Pain Scale Pain Intensity 0 - Physical Exam General Appearance: moderate distress, alert, anxiety, other (elderly-appearing white female,, anxious in appearance) Eye Exam: PERRL/EOMI Ears, Nose, Throat Exam: hearing grossly normal, normal ENT inspection, normal pharynx Neck Exam: normal inspection, supple Respiratory Exam: diminished breath sounds, rhonchi, wheezing Cardiovascular/Chest Exam: tachycardia, No murmur Abdominal/Gastrointestinal Exam: soft, No tenderness, No distention, No mass Extremity Exam: non-tender, normal range of motion, normal inspection, no calf tenderness, no pedal edema Neurologic Exam: alert, 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, other (patient is alert cranial nerves II through XII are intact) Skin Exam: other (erythema left lower extremity dressing in place right lower extremity) SpO2 Interpretation: hypoxic (84%) - Course Nursing assessment & vital signs reviewed: Yes EKG Interpreted by Me: RATE (108 bpm), Sinus Tach, Left [place] Deviation, Other ( EKG: Sinus tachycardia,, 108 beats per minute, left axis deviation, no acute changes as compared to May 30, 2018) - Radiology Exams Chest X-ray Interpretation: Discussed w/ radiologist (chest x-ray: lless than optimal exam to to patient's head obscuring a portion of the superior mediastinum and right lung apex.. 2.new mixed interstitial/air space infiltrate at the right lung base compared to May 29, 2018 suggestive of pneumonia. Also slight nonspecific increased marking at the left lung base.. 3. Status post aortic valve replacement representing no change.) Ordered Tests: Active Orders 24 hr Category Date Time Status Assembly Mechanic STAT Care 06/28/18 09:10 Active EKG-ER Only STAT Care 06/28/18 09:10 Active Fisher [Catheter-[place] Fisher] STAT Care 06/28/18 09:46 Active IV Insertion STAT Care 06/28/18 09:10 Active Pulse Oximetry (ED) STAT Care 06/28/18 09:10 Active CHEST 1 VIEW (PORTABLE) Stat Exams 06/28/18 09:10 Completed BLOOD CULTURE Stat Lab 06/28/18 09:35 Received CBC W DIFF Stat Lab 06/28/18 09:25 Completed CMP Stat Lab 06/28/18 09:25 Completed CULTURE,SPUTUM Stat Lab 06/28/18 09:10 Uncollected CULTURE,URINE Stat Lab 06/28/18 09:44 Ordered Lactic Acid Stat Lab 06/28/18 09:26 Completed NT PRO BNP Stat Lab 06/28/18 09:25 Completed PROTIME WITH INR Stat Lab 06/28/18 09:25 Completed PTT Stat Lab 06/28/18 09:25 Completed TROPONIN Q3H Lab 06/28/18 09:35 Completed TROPONIN Q3H Lab 06/28/18 12:15 Ordered TROPONIN Q3H Lab 06/28/18 15:15 Ordered TROPONIN Q3H Lab 06/28/18 18:15 Ordered TROPONIN Q3H Lab 06/28/18 21:15 Ordered UA W/RFX UR CULTURE Stat Lab 06/28/18 09:46 Completed VENOUS BLOOD GAS Stat Lab 06/28/18 09:26 Completed BiPap/CPAP ROUTINE RT 06/28/18 09:10 Active Respiratory Therapy Assessment DAILY RT 06/28/18 09:51 Active Transfer Order Routine Transfer 06/28/18 Ordered Medication Summary Generic Name Dose Route Start Last Admin Trade Name Freq PRN Reason Stop Dose Admin Sodium Chloride 1,000 mls @ 999 mls/hr 06/28/18 09:15 06/28/18 09:47 Sodium Chloride 0.9% 1000 Ml IV 07/28/18 09:14 50 mls/hr .Q1H1M LAURENT Administration Sodium Chloride 1,000 mls @ 999 mls/hr 06/28/18 10:07 Sodium Chloride 0.9% 1000 Ml IV 06/28/18 11:07 .Q1H1M STA Discontinued Medications Generic Name Dose Route Start Last Admin Trade Name Chris PRN Reason Stop Dose Admin Acetaminophen 650 mg 06/28/18 09:21 06/28/18 09:47 [place] 650 Mg AL 06/28/18 09:22 650 mg STAT ONE Administration Acetaminophen Confirm 06/28/18 09:46 [place] 650 Mg Administered 06/28/18 09:47 Dose 650 mg .ROUTE .STK-MED ONE Albuterol Sulfate 2.5 mg 06/28/18 09:10 06/28/18 09:49 Proventil 2.5 Mg/3 Ml Neb IH 06/28/18 09:11 2.5 mg STAT ONE Administration Albuterol Sulfate Confirm 06/28/18 09:48 Proventil 2.5 Mg/3 Ml Neb Administered 06/28/18 09:49 Dose 2.5 mg IH .STK-MED ONE Levofloxacin/Dextrose 500 mg in 100 mls @ 100 mls/hr 06/28/18 09:46 06/28/18 10:01 Levofloxacin 500mg/100ml D5w IV 06/28/18 10:45 100 mls/hr STAT STA 100 mls/hr Administration Levofloxacin/Dextrose Confirm 06/28/18 09:59 Levofloxacin 500mg/100ml D5w Administered 06/28/18 10:00 Dose 500 mg in 100 mls @ ud IV .STK-MED ONE Methylprednisolone Sodium Succinate 125 mg 06/28/18 09:10 06/28/18 09:47 Solu-Medrol 125 Mg IV 06/28/18 09:11 125 mg STAT ONE Administration Methylprednisolone Sodium Succinate Confirm 06/28/18 09:46 Solu-Medrol 125 Mg Administered 06/28/18 09:47 Dose 125 mg .ROUTE .STK-MED ONE Lab/Rad Data: Laboratory Result Diagrams 06/28/18 09:25 06/28/18 09:25 Laboratory Results 06/28/18 06/28/18 06/28/18 Range/Units 09:46 09:35 09:26 WBC (4.0-10.5) K/mm3 RBC (4.1-5.4) M/mm3 Hgb (12.0-16.0) gm/dl Hct (35-47) % MCV (78-100) fl MCH (26-32) pg MCHC (32-36) g/dl RDW (11.5-14.0) % Plt Count (150-450) K/mm3 MPV (6-9.5) fl Gran % (36.0-66.0) % Eos # (Auto) (0-0.5) Absolute Lymphs (auto) (1.0-4.6) Absolute Monos (auto) (0.0-1.3) Lymphocytes % (24.0-44.0) % Monocytes % (0.0-12.0) % Eosinophils % (0.00-5.0) % Basophils % (0.0-0.4) % Absolute Granulocytes (1.4-6.9) Basophils # (0-0.4) PT (9.95-12.35) SECONDS INR (0.8-3.0) APTT (25.3-37.0) SECONDS pO2/FiO2 Ratio 100.0 % VBG pH 7.39 (7.32-7.42) VBG pCO2 at Pat Temp 71 H* (42-55) mm/Hg VBG pO2 at Pat Temp 24 L (25-40) mm/Hg VBG HCO3 43.0 H* (22-28) meq/L VBG O2 Sat (Kimo) 46.0 L (95-100) VBG Base Excess 14.6 H (-2.0-2.0) VBG Hemoglobin 13.2 VBG Carboxyhemoglobin 2.3 (0.0-6.9) % T HGB POC Potassium 4.0 (3.5-5.1) Sodium (137-145) mmol/L Potassium (3.5-5.1) mmol/L Chloride (98-107) mmol/L Carbon Dioxide (22-30) mmol/L Anion Gap (5-15) MEQ/L BUN (7-17) mg/dL Creatinine (0.52-1.04) mg/dL Estimated GFR ML/MIN Glucose (74-106) mg/dL Lactic Acid 1.4 (0.4-2.0) Calcium (8.4-10.2) mg/dL Total Bilirubin (0.2-1.3) mg/dL AST (14-36) U/L ALT (0-35) U/L Alkaline Phosphatase (38-126) U/L Troponin I < 0.012 (0.000-0.034) ng/mL NT-Pro-B Natriuret Pep (0-1800) pg/mL Serum Total Protein (6.3-8.2) g/dL Albumin (3.5-5.0) g/dL Urine Color YELLOW (YELLOW) Urine Appearance SLIGHTLY CLOUDY (CLEAR) Urine pH 6.0 (5-6) Ur Specific [place] 1.017 (1.005-1.025) Urine Protein NEGATIVE (Negative) Urine Ketones SMALL (NEGATIVE) Urine Blood NEGATIVE (0-5) Paul/ul Urine Nitrite NEGATIVE (NEGATIVE) Urine Bilirubin NEGATIVE (NEGATIVE) Urine Urobilinogen NEGATIVE (0-1) mg/dL Ur Leukocyte Esterase NEGATIVE (NEGATIVE) Urine WBC (Auto) 26-50 (0-5) /HPF Urine RBC (Auto) 3-5 (0-2) /HPF U Hyaline Cast (Auto) 3-5 (0-2) /LPF U Epithel Cells (Auto) NONE (FEW) /HPF Urine Bacteria (Auto) NONE (NEGATIVE) /HPF Urine Mucus (Auto) SLIGHT (NEGATIVE) /HPF Urine Culture Reflexed ORDERED SEPARATELY (NO) Urine Glucose NEGATIVE (NEGATIVE) mg/dL 06/28/18 06/28/18 06/28/18 Range/Units 09:25 09:25 09:25 WBC 15.7 H (4.0-10.5) K/mm3 RBC 4.34 (4.1-5.4) M/mm3 Hgb 12.7 (12.0-16.0) gm/dl Hct 42.3 (35-47) % MCV 97.5 (78-100) fl MCH 29.3 (26-32) pg MCHC 30.0 L (32-36) g/dl RDW 16.3 H (11.5-14.0) % Plt Count 203 (150-450) K/mm3 MPV 10.0 H (6-9.5) fl Gran % 85.2 H (36.0-66.0) % Eos # (Auto) 0.10 (0-0.5) Absolute Lymphs (auto) 1.29 (1.0-4.6) Absolute Monos (auto) 0.93 (0.0-1.3) Lymphocytes % 8.2 L (24.0-44.0) % Monocytes % 5.9 (0.0-12.0) % Eosinophils % 0.6 (0.00-5.0) % Basophils % 0.1 (0.0-0.4) % Absolute Granulocytes 13.36 H (1.4-6.9) Basophils # 0.02 (0-0.4) PT 12.2 (9.95-12.35) SECONDS INR 1.05 (0.8-3.0) APTT 26.9 (25.3-37.0) SECONDS pO2/FiO2 Ratio % VBG pH (7.32-7.42) VBG pCO2 at Pat Temp (42-55) mm/Hg VBG pO2 at Pat Temp (25-40) mm/Hg VBG HCO3 (22-28) meq/L VBG O2 Sat (Kimo) (95-100) VBG Base Excess (-2.0-2.0) VBG Hemoglobin VBG Carboxyhemoglobin (0.0-6.9) % T HGB POC Potassium (3.5-5.1) Sodium 143 (137-145) mmol/L Potassium 4.2 (3.5-5.1) mmol/L Chloride 90 L (98-107) mmol/L Carbon Dioxide 37 H (22-30) mmol/L Anion Gap 20.2 H (5-15) MEQ/L BUN 22 H (7-17) mg/dL Creatinine 0.84 (0.52-1.04) mg/dL Estimated GFR > 60.0 ML/MIN Glucose 70 L (74-106) mg/dL Lactic Acid (0.4-2.0) Calcium 9.9 (8.4-10.2) mg/dL Total Bilirubin 0.60 (0.2-1.3) mg/dL AST 21 (14-36) U/L ALT 17 (0-35) U/L Alkaline Phosphatase 115 (38-126) U/L Troponin I (0.000-0.034) ng/mL NT-Pro-B Natriuret Pep 514 (0-1800) pg/mL Serum Total Protein 7.2 (6.3-8.2) g/dL Albumin 3.8 (3.5-5.0) g/dL Urine Color (YELLOW) Urine Appearance (CLEAR) Urine pH (5-6) Ur Specific [place] (1.005-1.025) Urine Protein (Negative) Urine Ketones (NEGATIVE) Urine Blood (0-5) Paul/ul Urine Nitrite (NEGATIVE) Urine Bilirubin (NEGATIVE) Urine Urobilinogen (0-1) mg/dL Ur Leukocyte Esterase (NEGATIVE) Urine WBC (Auto) (0-5) /HPF Urine RBC (Auto) (0-2) /HPF U Hyaline Cast (Auto) (0-2) /LPF U Epithel Cells (Auto) (FEW) /HPF Urine Bacteria (Auto) (NEGATIVE) /HPF Urine Mucus (Auto) (NEGATIVE) /HPF Urine Culture Reflexed (NO) Urine Glucose (NEGATIVE) mg/dL - Progress Progress: improved Air Movement: fair Progress Note: 06/28/18 09:47 78-year-old white female arrives via medics with complaint of decreased air movement shortness of breath O2 saturations decreased at the correction. Patient apparently was 77% pulse oximetry ago when medics arrived patient is given a DuoNeb by treatment on arrival patient is given albuterol treatment Solu -Medrol 125 mg IV and placed on BiPAP at 100% oxygen by respiratory. Patient initially with a temperature of 101 now 103.5 patient has been given Tylenol 650 rectal suppositories IV normal saline has been started at 50 mL per hour. Levaquin has been ordered 500 mg IV. Patient's lactate is 1.4. Patient with good perfusion to all extremities. Patient is a no code at the correction. Patient did have bilateral rhonchi and wheezes on arrival patient seems like she is improving. 06/28/18 09:54 Patient with bilateral wet rhonchi and wheezing on auscultation. Chest x-ray does not show effusions but does show a right lower lobe infiltrate. The patient will have her IV normal saline decreased to 100 mL per hour. Patient with good perfusion to all extremities pulse ox is increased with BiPAP and duo neb treatment. Lactate is 1.4. 06/28/18 10:08 The patient's BNP is 514. I've asked the nurses to go ahead and bolus in the first liter and have ordered a second liter of fluids to be run-in as well. 06/28/18 10:15 06/28/18 10:32 Patient's lung sounds are clear patient with 100% pulse oximetry 100% oxygen by BiPAP. Patient is discussed with Dr. Perez will place on observation telemetry. Diagnosis: 1. Hypoxia 2. Shortness of breath 3. COPD with exacerbation 4. Pneumonia. Will continue with IV Solu-Medrol, IV Levaquin, duo neb treatments, BiPAP, IV normal saline. - Departure Departure Disposition: Observation Clinical Impression: Hypoxia, Shortness of breath, COPD with exacerbation Pneumonia Qualifiers: Pneumonia type: due to unspecified organism Laterality: right Lung location: lower lobe of lung Qualified Code(s): J18.1 - Lobar pneumonia, unspecified organism UTI (urinary tract infection) Qualifiers: Urinary tract infection type: site unspecified Hematuria presence: without hematuria Qualified Code(s): N39.0 - Urinary tract infection, site not specified Condition: Fair Critical Care Time: No Referrals: ALPHONSE PEREZ MD [Primary Care Provider] - Instructions: Chronic Obstructive Pulmonary Disease
[2018-06-28] MEDS ORDERED: FEVERALL 650 MG PR ONE (09:21)
[2018-06-28 09:29] LABS: Lactic Acid 1.4 (0.4-2.0); VBG BASE EXCESS 14.6 (-2.0-2.0); VBG CARBOXYHEMOGLOBIN 2.3 % T HGB (0.0-6.9); VBG HEMOGLOBIN 13.2; VBG pH 7.39 (7.32-7.42)
[2018-06-28] MEDS ORDERED: Levofloxacin 500MG/100ML D5W 500 MG/100 ML BAG IV STA (09:46)
[2018-06-28] MEDS ORDERED: FEVERALL 650 MG ONE (09:46)
[2018-06-28] MEDS ORDERED: solu-MEDROL 125 MG ONE (09:46)
[2018-06-28 09:48] LABS: BASOPHIL % 0.1 % (0.0-0.4); Basophil (Absolute #) 0.02 (0-0.4); Eosinophil % 0.6 % (0.00-5.0); Granulocyte Absolute (ANC) 13.36 (1.4-6.9); Granulocytes % 85.2 % (36.0-66.0); Hematocrit 42.3 % (35-47); Hemoglobin 12.7 gm/dl (12.0-16.0); INR 1.05 (0.8-3.0); Lymphocyte (Absolute #) 1.29 (1.0-4.6); Lymphocytes % 8.2 % (24.0-44.0); Mean Cell Volume 97.5 fl (78-100); Mean Corpuscular Hemoglobin 29.3 pg (26-32); Monocyte (Absolute #) 0.93 (0.0-1.3); Monocytes % 5.9 % (0.0-12.0); PROTIME 12.2 SECONDS (9.95-12.35); Platelet Count 203 K/mm3 (150-450); Red Blood Count 4.34 M/mm3 (4.1-5.4); Red Cell Distribution Width 16.3 % (11.5-14.0); White Blood Count 15.7 K/mm3 (4.0-10.5)
[2018-06-28 09:49] LABS: Glucose NEGATIVE (NEGATIVE); Nitrite NEGATIVE (NEGATIVE)
[2018-06-28 09:50] LABS: Bilirubin NEGATIVE (NEGATIVE); Blood NEGATIVE Ery/ul (0-5)
[2018-06-28 09:51] LABS: PTT 26.9 SECONDS (25.3-37.0)
[2018-06-28] MEDS ORDERED: Levofloxacin 500MG/100ML D5W 500 MG/100 ML BAG IV ONE (09:59)
--- NOTE | 2018-06-28 09:59 | XRAY ---
Exam: AP upright portable chest film from 0933 hours on 06/28/2018. Comparison: AP portable chest film from 05/29/2018 and two-view chest from 05/01/2018. Indication: 78-year-old female with shortness of breath and difficulty breathing. Findings: The transverse heart size appears within normal limits. There appears to be an aortic valve replacement in place representing no change. A prominent subcarinal lymph node calcification is seen. The lower aspect of the patient's head partially obscures the superior mediastinum and right lung apex. The patient has a respiratory mask in place. Ventilatory tubing is seen on the left. There is hyperinflation of the lungs. Mild mixed interstitial/airspace infiltrate is seen at the right lung base. This is new from 05/29/2018. I also note more subtle interstitial markings behind the heart at the medial left lung base and adjacent to the left hemidiaphragm. The remainder of the lung arias appears essentially clear. No definite pneumothorax or pleural effusion is seen. Degenerative changes are seen within both shoulders, left greater than right, and the right acromioclavicular joint. Impression: 1. The exam is less than optimal due to the patient's head obscuring a portion of the superior mediastinum and right lung apex. Also, there is some overlying respiratory tubing and mask within the upper chest. 2. Nevertheless, there appears to be a new mixed interstitial/airspace infiltrate at the right lung base as compared to 05/29/2018 suggestive of pneumonia. I also note slight nonspecific increased markings at the left lung base, as discussed above. 3. Status post aortic valve replacement representing no change. 4. Hyperinflation of the lungs with some central old healed granulomatous disease, no change.
[2018-06-28 10:03] LABS: ALBUMIN 3.8 g/dL (3.5-5.0); ALKALINE PHOSPHATASE 115 U/L (38-126); ANION GAP 20.2 MEQ/L (5-15); BLOOD UREA NITROGEN 22 mg/dL (7-17); CHLORIDE 90 mmol/L (98-107); Calcium 9.9 mg/dL (8.4-10.2); Carbon Dioxide 37 mmol/L (22-30); Creatinine 1 0.84 mg/dL (0.52-1.04); Glucose 70 mg/dL (74-106); NT PRO BNP 514 pg/mL (0-1800); Potassium 4.2 mmol/L (3.5-5.1); SGOT/AST 21 U/L (14-36); SGPT/ALT 17 U/L (0-35); SODIUM 143 mmol/L (137-145); Total Protein 7.2 g/dL (6.3-8.2)
[2018-06-28] MEDS ORDERED: Sodium Chloride 0.9% 1000 ML 1,000 ML IV STA (10:07)
[2018-06-28 10:42] LABS: Mucus SLIGHT /HPF (NEGATIVE); WBC 26-50 /HPF (0-5)
[2018-06-28 10:43] LABS: Appearance SLIGHTLY CLOUDY (CLEAR); Specific Gravity 1.017 (1.005-1.025)
[2018-06-28 10:44] LABS: Ketones SMALL (NEGATIVE); Leukocyte Esterase NEGATIVE (NEGATIVE); Protein,Urine Dip NEGATIVE (Negative); Urobilinogen NEGATIVE mg/dL (0-1)
[2018-06-28] MEDS ORDERED: DUONEB 0.5-3 MG/3 ml Neb IH PRN (11:17)
[2018-06-28] MEDS ORDERED: PROVENTIL 2.5 MG/3 ML NEB IH PRN (11:25)
[2018-06-28] MEDS ORDERED: TYLENOL 325 MG PO PRN (11:33)
[2018-06-28] MEDS ORDERED: FEVERALL 650 MG RC PRN (11:34)
[2018-06-28] MEDS: Sodium Chloride 0.9% 1000 ML 1,000 ML IV SCH ×2 (13:00→21:58)
[2018-06-28] MEDS: Ativan 2 MG/1 ML VIAL IV PRN ×2 (13:00→20:13)
[2018-06-28] MEDS: DUONEB 0.5-3 MG/3 ml Neb IH SCH ×3 (14:15→23:26)
[2018-06-28 14:37] LABS: A-aADO2 180; ABG HEMOGLOBIN 12.9; ABG POTASSIUM 3.9 (3.5-5.1); ARTERIAL BLD GAS O2 SATURATION 98.7 % (95-100); ARTERIAL BLOOD GAS BASE EXCESS 7.1 (-2.0-2.0); ARTERIAL BLOOD GAS FIO2 60 %; ARTERIAL BLOOD GAS PO2 164 mmHg (75-100); ARTERIAL BLOOD GAS VENT MODE BiPAP; ARTERIAL BLOOD GAS pH 7.33 (7.35-7.45); HCO3- 35.3 (22-28); HGB O2 SAT 96.8 g/dF (94-100); Methhemoglobin 0.9 % (1.4-1.5); paO2 pAO1 0.48
[2018-06-28 14:38] LABS: ABG SITE RIGHT RADIAL; ARTERIAL BLOOD GAS PCO2 67 mmHg (35-45)
[2018-06-28] MEDS: ECOTRIN 81 MG PO SCH (14:38)
[2018-06-28] MEDS: PLAVIX 75 MG Tablet PO SCH (14:38)
[2018-06-28] MEDS: BUMEX 1 MG PO SCH (14:38)
[2018-06-28] MEDS: Norco 10/325 MG Tablet PO PRN ×2 (16:00→21:41)
[2018-06-28] MEDS: Advair Hfa 115/21 Common canister IH SCH (17:34)
[2018-06-28] MEDS: solu-MEDROL 125 MG IV SCH ×2 (17:38→23:33)
[2018-06-28] MEDS: NEURONTIN 300 MG PO SCH (21:41)
[2018-06-28] MEDS: NovoLOG Insulin SQ PRN (21:42)
[2018-06-28] MEDS ORDERED: NON-FORMULARY ITEM (Gabapentin [Neurontin] 600 MG) PO SCH (22:00)
[2018-06-28] MEDS ORDERED: ADVAIR 250-50 DISKUS 14 DOSE IH SCH (22:00)
--- NOTE | 2018-06-28 22:37 | PCM.HP ---
History of Present Illness - Chief Complaint Chief Complaint: pneumonia History of Present Illness: is a 78 year old female with advanced copd, was found to have difficulty breathing and decreased oxygen saturation this morning at [facility] so was sent for evaluation, she has advanced copd, weakness and is SCO code status. found to have pneumonia in the ER and elevated co2 level, she is weak and reports she feels poorly generally. (late entry, patient was seen around 17:00) - Review of Systems Constitutional: Weakness, No Fever, No Chills Respiratory: Cough, Short Of Breath Cardiac: No Chest Pain, No Edema, No Syncope Skin: No Rash All Other Systems: Reviewed and Negative Medications & Allergies Home Medications: Home Medication List Aspirin EC 81 mg [Ecotrin 81 mg] 81 mg PO DAILY 05/29/18 [History Confirmed 06/28/18] Bumetanide 1 mg [Bumex 1 mg] 1 mg PO DAILY 05/29/18 [History Confirmed ] Calcium Carbonate/Vitamin D3 [Calcium 600 + Vit D Tablet] 1 each PO DAILY [History Confirmed 06/28/18] Clopidogrel Bisulfate 75 mg [PLAVIX 75 MG Tablet] 75 mg PO DAILY 05/29/18 [History Confirmed 06/28/18] Cyanocobalamin (Vitamin B-12) [Vitamin B-12] 500 mcg PO DAILY 05/29/18 [History Confirmed 06/28/18] Fluticasone/Salmeterol [Advair 250-50 Diskus] 1 each IH BID 05/29/18 [History Confirmed 06/28/18] Gabapentin [Neurontin] 600 mg PO BID 05/29/18 [History Confirmed 06/28/18] Hydrocodone/Acetaminophen [[place] 10-325 Tablet] 1 each PO Q4HPRN PRN MDD 6 05/29 [History Confirmed 06/28/18] Hydroxyzine Pamoate [Vistaril] 25 mg PO HS 05/29/18 [History Confirmed 06/28/18] Insulin Lispro [Humalog] 100 unit SQ UD 05/29/18 [History Confirmed 06/28/18] Ipratropium/Albuterol Sulfate [Combivent Inhaler] 2 puff IH BID PRN PRN [History Confirmed 06/28/18] Metformin HCl 500 mg [Glucophage 500 MG] 500 mg PO DAILY 05/29/18 [ History Confirmed 06/28/18] Multivitamin [Multiple Vitamins] 1 each PO DAILY 05/29/18 [History Confirmed ] Nitroglycerin 0.4 mg Tablet [Nitrostat 0.4 MG Tablet] 0.4 mg SL Q5MIN PRN MR X 3 PRN 05/29/18 [History Confirmed 06/28/18] Potassium Chloride [Klor-Con] 20 meq PO DAILY 05/29/18 [History Confirmed ] Vitamin E Acid Succinate [Vitamin E] 400 unit PO DAILY 05/29/18 [History Confirmed 06/28/18] predniSONE [Prednisone] 10 mg PO DAILY 05/29/18 [History Confirmed 06/28/18] Albuterol 2.5 mg/3 ml Neb [Proventil 2.5 mg/3 ml Neb] 1 vial IH Q4H [History Confirmed 06/28/18] Allergies/Adverse Reactions: Allergies Allergy/AdvReac Type Severity Reaction Status Date / Time Penicillins Allergy Verified 06/28/18 12:26 - Past Medical History Past Medical History: Yes Neurological History: No Pertinent History ENT History: No Pertinent History Cardiac History: Coronary Artery Disease Respiratory History: COPD Endocrine Medical History: Diabetes Type II Musculoskelatal History: Arthritis GI Medical History: Other History: No Pertinent History Pyscho-Social History: No Pertinent History Reproductive Disorders: No Pertinent History Comment: 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, 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 - Female History Are you now?: No - Past Surgical History Past Surgical History: Yes Neuro Surgical History: No Pertinent History Cardiac History: CABG, Cardiac Stent, Valve Replacement Respiratory Surgery: No Pertinent History GI Surgical History: Other Genitourinary Surgical Hx: No Pertinent History Musculskeletal Surgical Hx: Orthopedic Surgery Female Surgical History: Hysterectomy Other Surgical History: beverly knees replaced, beverly wrist, beverly ankles, colostomy - Social History Smoking Status: Former smoker Exposure to second hand smoke: Yes Alcohol: None Drug Use: none - Physical Exam Vital Signs: Vital Signs - 24 hr Temp Pulse Resp BP BP Pulse Ox 06/28/18 20:00 97.9 F 91 H 24 94/53 95 06/28/18 17:58 22 06/28/18 17:37 94 H 22 98 06/28/18 16:18 95 06/28/18 16:00 97.5 F 95 H 18 121/58 96 06/28/18 14:21 97 H 18 97 06/28/18 14:00 22 06/28/18 13:05 99 06/28/18 11:30 114 H 22 99 06/28/18 11:17 99.1 F 119 H 24 96/53 99 06/28/18 11:08 99.1 F 119 H 24 96/53 99 06/28/18 10:35 102.2 F 136 H 28 H 112/48 98 06/28/18 09:52 102.9 F 106 H 23 109/56 100 06/28/18 09:44 97 06/28/18 09:05 102.4 F 114 H 28 H 124/72 97 Oxygen-Last 24 hours O2 Percentage 4 Liters = 36% O2 Percentage 80% O2 Percentage 100% O2 Percentage 100% O2 Percentage 100% O2 Percentage 100% O2 Percentage 6 Liters = 44% General Appearance: no apparent distress Neurologic Exam: alert Respiratory Exam: prolonged expirations, rhonchi, wheezing Cardiovascular Exam: regular rate/rhythm, normal heart sounds, normal peripheral pulses Gastrointestinal/Abdomen Exam: soft, normal bowel sounds, No tenderness, No mass Extremity Exam: normal inspection, normal range of motion, pelvis stable Wound Assessment: Skin/Wound Assessment Wound/Incision Assessment Start: 06/28/18 12: 12 Text: Status: Active Freq: Q6H Protocol: Document 06/28/18 18:00 CCA (Rec: 06/28/18 18:26 CCA [id number]) Wound/Incision Assessment Right Lower Calf Wound Assessment Shift Assessment Drainage Amount None Packing Type Gauze Roll Primary Dressing Non-Adherent Gauze Pads Comment Dressing clean dry and intact. Dressing changed 06/28/18 Wound Photo Photo Taken Yes Date: 06/28/18 Time: 12:00 Results - Labs Lab/Micro Results: Accuchecks Date 06/28/18 Date 06/28/18 Time 16:21 Time 11:30 Accucheck Value: 117 Accucheck Value: 105 Lab Results-Last 24 Hours 05/20/19 05/20/19 05/20/19 Range/Units 09:25 09:25 09:25 WBC 15.7 H (4.0-10.5) K/mm3 RBC 4.34 (4.1-5.4) M/mm3 Hgb 12.7 (12.0-16.0) gm/dl Hct 42.3 (35-47) % MCV 97.5 (78-100) fl MCH 29.3 (26-32) pg MCHC 30.0 L (32-36) g/dl RDW 16.3 H (11.5-14.0) % Plt Count 203 (150-450) K/mm3 MPV 10.0 H (6-9.5) fl Gran % 85.2 H (36.0-66.0) % Eos # (Auto) 0.10 (0-0.5) Absolute Lymphs (auto) 1.29 (1.0-4.6) Absolute Monos (auto) 0.93 (0.0-1.3) Lymphocytes % 8.2 L (24.0-44.0) % Monocytes % 5.9 (0.0-12.0) % Eosinophils % 0.6 (0.00-5.0) % Basophils % 0.1 (0.0-0.4) % Absolute Granulocytes 13.36 H (1.4-6.9) Basophils # 0.02 (0-0.4) PT 12.2 (9.95-12.35) SECONDS INR 1.05 (0.8-3.0) APTT 26.9 (25.3-37.0) SECONDS Puncture Site pCO2 (35-45) mmHg pO2 (75-100) mmHg pO2/FiO2 Ratio % Base Excess (-2.0-2.0) O2 Saturation (94-100) g/dF ABG pH (7.35-7.45) ABG HCO3 (22-28) ABG O2 Sat (Measured) (95-100) % Charli Test VBG pH (7.32-7.42) VBG pCO2 at Pat Temp (42-55) mm/Hg VBG pO2 at Pat Temp (25-40) mm/Hg VBG HCO3 (22-28) meq/L VBG O2 Sat (Kimo) (95-100) VBG Base Excess (-2.0-2.0) VBG Hemoglobin VBG Carboxyhemoglobin (0.0-6.9) % T HGB A-a Gradient a/A Ratio Hemoglobin Carboxyhemoglobin (0.0-6.9) % THgb Methemoglobin (1.4-1.5) % POC Potassium (3.5-5.1) Temperature C POC O2 Flow Rate % Vent Mode Inspiratory BiPAP Expiratory BiPAP Sodium 143 (137-145) mmol/L Potassium 4.2 (3.5-5.1) mmol/L Chloride 90 L (98-107) mmol/L Carbon Dioxide 37 H (22-30) mmol/L Anion Gap 20.2 H (5-15) MEQ/L BUN 22 H (7-17) mg/dL Creatinine 0.84 (0.52-1.04) mg/dL Estimated GFR > 60.0 ML/MIN Glucose 70 L (74-106) mg/dL Lactic Acid (0.4-2.0) Calcium 9.9 (8.4-10.2) mg/dL Total Bilirubin 0.60 (0.2-1.3) mg/dL AST 21 (14-36) U/L ALT 17 (0-35) U/L Alkaline Phosphatase 115 (38-126) U/L Troponin I (0.000-0.034) ng/mL NT-Pro-B Natriuret Pep 514 (0-1800) pg/mL Serum Total Protein 7.2 (6.3-8.2) g/dL Albumin 3.8 (3.5-5.0) g/dL Urine Color (YELLOW) Urine Appearance (CLEAR) Urine pH (5-6) Ur Specific [place] (1.005-1.025) Urine Protein (Negative) Urine Ketones (NEGATIVE) Urine Blood (0-5) Paul/ul Urine Nitrite (NEGATIVE) Urine Bilirubin (NEGATIVE) Urine Urobilinogen (0-1) mg/dL Ur Leukocyte Esterase (NEGATIVE) Urine WBC (Auto) (0-5) /HPF Urine RBC (Auto) (0-2) /HPF U Hyaline Cast (Auto) (0-2) /LPF U Epithel Cells (Auto) (FEW) /HPF Urine Bacteria (Auto) (NEGATIVE) /HPF Urine Mucus (Auto) (NEGATIVE) /HPF Urine Culture Reflexed (NO) Urine Glucose (NEGATIVE) mg/dL 06/28/18 06/28/18 06/28/18 Range/Units 09:26 09:35 09:46 WBC (4.0-10.5) K/mm3 RBC (4.1-5.4) M/mm3 Hgb (12.0-16.0) gm/dl Hct (35-47) % MCV (78-100) fl MCH (26-32) pg MCHC (32-36) g/dl RDW (11.5-14.0) % Plt Count (150-450) K/mm3 MPV (6-9.5) fl Gran % (36.0-66.0) % Eos # (Auto) (0-0.5) Absolute Lymphs (auto) (1.0-4.6) Absolute Monos (auto) (0.0-1.3) Lymphocytes % (24.0-44.0) % Monocytes % (0.0-12.0) % Eosinophils % (0.00-5.0) % Basophils % (0.0-0.4) % Absolute Granulocytes (1.4-6.9) Basophils # (0-0.4) PT (9.95-12.35) SECONDS INR (0.8-3.0) APTT (25.3-37.0) SECONDS Puncture Site pCO2 (35-45) mmHg pO2 (75-100) mmHg pO2/FiO2 Ratio 100.0 % Base Excess (-2.0-2.0) O2 Saturation (94-100) g/dF ABG pH (7.35-7.45) ABG HCO3 (22-28) ABG O2 Sat (Measured) (95-100) % Charli Test VBG pH 7.39 (7.32-7.42) VBG pCO2 at Pat Temp 71 H* (42-55) mm/Hg VBG pO2 at Pat Temp 24 L (25-40) mm/Hg VBG HCO3 43.0 H* (22-28) meq/L VBG O2 Sat (Kimo) 46.0 L (95-100) VBG Base Excess 14.6 H (-2.0-2.0) VBG Hemoglobin 13.2 VBG Carboxyhemoglobin 2.3 (0.0-6.9) % T HGB A-a Gradient a/A Ratio Hemoglobin Carboxyhemoglobin (0.0-6.9) % THgb Methemoglobin (1.4-1.5) % POC Potassium 4.0 (3.5-5.1) Temperature C POC O2 Flow Rate % Vent Mode Inspiratory BiPAP Expiratory BiPAP Sodium (137-145) mmol/L Potassium (3.5-5.1) mmol/L Chloride (98-107) mmol/L Carbon Dioxide (22-30) mmol/L Anion Gap (5-15) MEQ/L BUN (7-17) mg/dL Creatinine (0.52-1.04) mg/dL Estimated GFR ML/MIN Glucose (74-106) mg/dL Lactic Acid 1.4 (0.4-2.0) Calcium (8.4-10.2) mg/dL Total Bilirubin (0.2-1.3) mg/dL AST (14-36) U/L ALT (0-35) U/L Alkaline Phosphatase (38-126) U/L Troponin I < 0.012 (0.000-0.034) ng/mL NT-Pro-B Natriuret Pep (0-1800) pg/mL Serum Total Protein (6.3-8.2) g/dL Albumin (3.5-5.0) g/dL Urine Color YELLOW (YELLOW) Urine Appearance SLIGHTLY CLOUDY (CLEAR) Urine pH 6.0 (5-6) Ur Specific [place] 1.017 (1.005-1.025) Urine Protein NEGATIVE (Negative) Urine Ketones SMALL (NEGATIVE) Urine Blood NEGATIVE (0-5) Paul/ul Urine Nitrite NEGATIVE (NEGATIVE) Urine Bilirubin NEGATIVE (NEGATIVE) Urine Urobilinogen NEGATIVE (0-1) mg/dL Ur Leukocyte Esterase NEGATIVE (NEGATIVE) Urine WBC (Auto) 26-50 (0-5) /HPF Urine RBC (Auto) 3-5 (0-2) /HPF U Hyaline Cast (Auto) 3-5 (0-2) /LPF U Epithel Cells (Auto) NONE (FEW) /HPF Urine Bacteria (Auto) NONE (NEGATIVE) /HPF Urine Mucus (Auto) SLIGHT (NEGATIVE) /HPF Urine Culture Reflexed ORDERED SEPARATELY (NO) Urine Glucose NEGATIVE (NEGATIVE) mg/dL 06/28/18 06/28/18 06/28/18 Range/Units 12:15 14:32 15:13 WBC (4.0-10.5) K/mm3 RBC (4.1-5.4) M/mm3 Hgb (12.0-16.0) gm/dl Hct (35-47) % MCV (78-100) fl MCH (26-32) pg MCHC (32-36) g/dl RDW (11.5-14.0) % Plt Count (150-450) K/mm3 MPV (6-9.5) fl Gran % (36.0-66.0) % Eos # (Auto) (0-0.5) Absolute Lymphs (auto) (1.0-4.6) Absolute Monos (auto) (0.0-1.3) Lymphocytes % (24.0-44.0) % Monocytes % (0.0-12.0) % Eosinophils % (0.00-5.0) % Basophils % (0.0-0.4) % Absolute Granulocytes (1.4-6.9) Basophils # (0-0.4) PT (9.95-12.35) SECONDS INR (0.8-3.0) APTT (25.3-37.0) SECONDS Puncture Site RIGHT RADIAL pCO2 67 H* (35-45) mmHg pO2 164 H* (75-100) mmHg pO2/FiO2 Ratio % Base Excess 7.1 H (-2.0-2.0) O2 Saturation 96.8 (94-100) g/dF ABG pH 7.33 L (7.35-7.45) ABG HCO3 35.3 H* (22-28) ABG O2 Sat (Measured) 98.7 (95-100) % Charli Test NOT APPLICABLE VBG pH (7.32-7.42) VBG pCO2 at Pat Temp (42-55) mm/Hg VBG pO2 at Pat Temp (25-40) mm/Hg VBG HCO3 (22-28) meq/L VBG O2 Sat (Kimo) (95-100) VBG Base Excess (-2.0-2.0) VBG Hemoglobin VBG Carboxyhemoglobin (0.0-6.9) % T HGB A-a Gradient 180 a/A Ratio 0.48 Hemoglobin 12.9 Carboxyhemoglobin 1.0 (0.0-6.9) % THgb Methemoglobin 0.9 L (1.4-1.5) % POC Potassium (3.5-5.1) Temperature 37.0 C POC O2 Flow Rate 60 % Vent Mode BiPAP Inspiratory BiPAP 14 Expiratory BiPAP 6 Sodium (137-145) mmol/L Potassium 3.9 (3.5-5.1) mmol/L Chloride (98-107) mmol/L Carbon Dioxide (22-30) mmol/L Anion Gap (5-15) MEQ/L BUN (7-17) mg/dL Creatinine (0.52-1.04) mg/dL Estimated GFR ML/MIN Glucose (74-106) mg/dL Lactic Acid (0.4-2.0) Calcium (8.4-10.2) mg/dL Total Bilirubin (0.2-1.3) mg/dL AST (14-36) U/L ALT (0-35) U/L Alkaline Phosphatase (38-126) U/L Troponin I 0.016 0.014 (0.000-0.034) ng/mL NT-Pro-B Natriuret Pep (0-1800) pg/mL Serum Total Protein (6.3-8.2) g/dL Albumin (3.5-5.0) g/dL Urine Color (YELLOW) Urine Appearance (CLEAR) Urine pH (5-6) Ur Specific [place] (1.005-1.025) Urine Protein (Negative) Urine Ketones (NEGATIVE) Urine Blood (0-5) Paul/ul Urine Nitrite (NEGATIVE) Urine Bilirubin (NEGATIVE) Urine Urobilinogen (0-1) mg/dL Ur Leukocyte Esterase (NEGATIVE) Urine WBC (Auto) (0-5) /HPF Urine RBC (Auto) (0-2) /HPF U Hyaline Cast (Auto) (0-2) /LPF U Epithel Cells (Auto) (FEW) /HPF Urine Bacteria (Auto) (NEGATIVE) /HPF Urine Mucus (Auto) (NEGATIVE) /HPF Urine Culture Reflexed (NO) Urine Glucose (NEGATIVE) mg/dL 06/28/18 06/28/18 Range/Units 18:30 21:17 WBC (4.0-10.5) K/mm3 RBC (4.1-5.4) M/mm3 Hgb (12.0-16.0) gm/dl Hct (35-47) % MCV (78-100) fl MCH (26-32) pg MCHC (32-36) g/dl RDW (11.5-14.0) % Plt Count (150-450) K/mm3 MPV (6-9.5) fl Gran % (36.0-66.0) % Eos # (Auto) (0-0.5) Absolute Lymphs (auto) (1.0-4.6) Absolute Monos (auto) (0.0-1.3) Lymphocytes % (24.0-44.0) % Monocytes % (0.0-12.0) % Eosinophils % (0.00-5.0) % Basophils % (0.0-0.4) % Absolute Granulocytes (1.4-6.9) Basophils # (0-0.4) PT (9.95-12.35) SECONDS INR (0.8-3.0) APTT (25.3-37.0) SECONDS Puncture Site pCO2 (35-45) mmHg pO2 (75-100) mmHg pO2/FiO2 Ratio % Base Excess (-2.0-2.0) O2 Saturation (94-100) g/dF ABG pH (7.35-7.45) ABG HCO3 (22-28) ABG O2 Sat (Measured) (95-100) % Charli Test VBG pH (7.32-7.42) VBG pCO2 at Pat Temp (42-55) mm/Hg VBG pO2 at Pat Temp (25-40) mm/Hg VBG HCO3 (22-28) meq/L VBG O2 Sat (Kimo) (95-100) VBG Base Excess (-2.0-2.0) VBG Hemoglobin VBG Carboxyhemoglobin (0.0-6.9) % T HGB A-a Gradient a/A Ratio Hemoglobin Carboxyhemoglobin (0.0-6.9) % THgb Methemoglobin (1.4-1.5) % POC Potassium (3.5-5.1) Temperature C POC O2 Flow Rate % Vent Mode Inspiratory BiPAP Expiratory BiPAP Sodium (137-145) mmol/L Potassium (3.5-5.1) mmol/L Chloride (98-107) mmol/L Carbon Dioxide (22-30) mmol/L Anion Gap (5-15) MEQ/L BUN (7-17) mg/dL Creatinine (0.52-1.04) mg/dL Estimated GFR ML/MIN Glucose (74-106) mg/dL Lactic Acid (0.4-2.0) Calcium (8.4-10.2) mg/dL Total Bilirubin (0.2-1.3) mg/dL AST (14-36) U/L ALT (0-35) U/L Alkaline Phosphatase (38-126) U/L Troponin I 0.013 < 0.012 (0.000-0.034) ng/mL NT-Pro-B Natriuret Pep (0-1800) pg/mL Serum Total Protein (6.3-8.2) g/dL Albumin (3.5-5.0) g/dL Urine Color (YELLOW) Urine Appearance (CLEAR) Urine pH (5-6) Ur Specific [place] (1.005-1.025) Urine Protein (Negative) Urine Ketones (NEGATIVE) Urine Blood (0-5) Paul/ul Urine Nitrite (NEGATIVE) Urine Bilirubin (NEGATIVE) Urine Urobilinogen (0-1) mg/dL Ur Leukocyte Esterase (NEGATIVE) Urine WBC (Auto) (0-5) /HPF Urine RBC (Auto) (0-2) /HPF U Hyaline Cast (Auto) (0-2) /LPF U Epithel Cells (Auto) (FEW) /HPF Urine Bacteria (Auto) (NEGATIVE) /HPF Urine Mucus (Auto) (NEGATIVE) /HPF Urine Culture Reflexed (NO) Urine Glucose (NEGATIVE) mg/dL Accuchecks Date 06/28/18 Date 06/28/18 Time 16:21 Time 11:30 Accucheck Value: 117 Accucheck Value: 105 - Radiology Impressions Radiology Exams & Impressions: Radiology Procedures Category Date Time Status CHEST 1 VIEW (PORTABLE) Stat Exams 06/28/18 09:10 Completed - Other Procedures and Tests Respiratory Therapy 06/28/18 09:10 BiPap/CPAP ROUTINE 06/28/18 09:51 Respiratory Therapy Assessment DAILY 06/28/18 11:28 Oxygen NASAL CANNULA 3 lpm 06/28/18 11:35 Peak Expiratory Flow Rate ONCE Assessment/Plan (1) Pneumonia Current Visit: Yes Status: Acute Qualifiers: Pneumonia type: due to unspecified organism Laterality: right Lung location: lower lobe of lung Qualified Code(s): J18.1 - Lobar pneumonia, unspecified organism Assessment & Plan: levaquin, nebs and supportive care Code(s): J18.9 - PNEUMONIA, UNSPECIFIED ORGANISM (2) COPD with exacerbation Current Visit: Yes Status: Acute Assessment & Plan: levaquin, IV solu medrol and nebs ordered at this time Code(s): J44.1 - CHRONIC OBSTRUCTIVE PULMONARY DISEASE W (ACUTE) EXACERBATION (3) Hypercarbia Current Visit: No Status: Acute Assessment & Plan: on bipap, slight improvement noted on blood gas. Code(s): R06.89 - OTHER ABNORMALITIES OF BREATHING
[2018-06-29] MEDS: DUONEB 0.5-3 MG/3 ml Neb IH SCH ×6 (02:10→23:14)
[2018-06-29 05:28] LABS: Hematocrit 34.3 % (35-47); Hemoglobin 10.4 gm/dl (12.0-16.0); Mean Cell Volume 96.6 fl (78-100); Mean Corpuscular Hgb Concent. 30.3 g/dl (32-36); Mean Platelet Volume 10.1 fl (6-9.5); Platelet Count 195 K/mm3 (150-450); Red Blood Count 3.55 M/mm3 (4.1-5.4); Red Cell Distribution Width 15.6 % (11.5-14.0)
[2018-06-29 05:43] LABS: ALBUMIN 2.8 g/dL (3.5-5.0); ALKALINE PHOSPHATASE 79 U/L (38-126); ANION GAP 10.1 MEQ/L (5-15); BLOOD UREA NITROGEN 21 mg/dL (7-17); CHLORIDE 97 mmol/L (98-107); Calcium 8.8 mg/dL (8.4-10.2); Carbon Dioxide 36 mmol/L (22-30); Glucose 143 mg/dL (74-106); Potassium 4.7 mmol/L (3.5-5.1); SGOT/AST 18 U/L (14-36); SGPT/ALT 15 U/L (0-35); SODIUM 138 mmol/L (137-145); Total Protein 5.5 g/dL (6.3-8.2)
[2018-06-29] MEDS: Advair Hfa 115/21 Common canister IH SCH ×2 (05:43→19:14)
[2018-06-29 05:45] LABS: Mean Corpuscular Hemoglobin 29.2 pg (26-32)
[2018-06-29] MEDS: solu-MEDROL 125 MG IV SCH ×4 (06:10→23:56)
[2018-06-29 06:17] LABS: BAND 9 % (0.0-2.0); Lymphocytes 1 % (24-44); Monocyte 4 % (0.0-12.0); Neutrophils 86 % (36.0-66.0); Total Cells Counted 100
[2018-06-29 06:18] LABS: ANISOCYTOSIS 1+; Poikilocytosis 1+
[2018-06-29 06:19] LABS: Platelet Estimate NORMAL (NORMAL)
[2018-06-29] MEDS: Sodium Chloride 0.9% 1000 ML 1,000 ML IV SCH ×2 (08:06→18:44)
--- NOTE | 2018-06-29 09:05 | PCM.NOTE ---
Date and Time: 06/29/18 0857 Subjective Assessment: Pt indicates she is feeling better, "much better" than when she came in. She is hungry. Has been on bipap; currently on bipap. - Review of Systems Constitutional: No Fever Respiratory: Cough, Short Of Breath Objective Exam General Appearance: no apparent distress, alert Neurologic Exam: oriented x 3, cooperative Skin Exam: normal color, warm, dry, No rash Wound Assessment: Skin/Wound Assessment Wound/Incision Assessment Start: 06/28/18 12: 12 Text: Status: Active Freq: Q6H Protocol: Document 06/29/18 06:00 BW (Rec: 06/29/18 06:05 BW [id number]) Wound/Incision Assessment Right Lower Calf Wound Assessment Shift Assessment Wound Type open blister Wound Stage Stage II Dressing Status Dry & Intact Drainage Amount Minimal Drainage Description Serous Drainage Odor None/Absent General Appearance Unapproximated Wound Bed Greatest Portion Red (Granulation) Wound Bed Lesser Portion Pale [place] Yellow (Slough) Surrounding Tissue [place] Primary Dressing Non-Adherent Gauze Pads Secondary Dressing Gauze Roll/Wrap Comment Dressing clean dry and intact. Dressing changed 06/28/18 Wound Photo Photo Taken Yes Date: 06/28/18 Time: 12:00 Distance from Wound: bedside Respiratory Exam: diminished breath sounds, prolonged expirations, rhonchi ( scattered), wheezing, No crackles/rales Cardiovascular Exam: regular rate/rhythm, normal heart sounds, No murmur Extremity Exam: normal inspection, No pedal edema, No swelling OBJECTIVE DATA Vital Signs: Vital Signs - 24 hr Temp Pulse Resp BP BP Pulse Ox 06/29/18 07:29 97.4 F 75 18 115/58 96 06/29/18 06:00 20 06/29/18 05:46 64 19 98 06/29/18 04:00 97.5 F 65 20 115/59 100 06/29/18 02:11 71 17 99 06/29/18 01:41 16 06/28/18 23:40 97.0 F 57 L 16 123/62 99 06/28/18 23:29 67 16 98 06/28/18 22:00 24 06/28/18 20:00 97.9 F 91 H 24 94/53 95 06/28/18 17:58 22 06/28/18 17:37 94 H 22 98 06/28/18 16:18 95 06/28/18 16:00 97.5 F 95 H 18 121/58 96 06/28/18 14:21 97 H 18 97 06/28/18 14:00 22 06/28/18 13:05 99 06/28/18 11:30 114 H 22 99 06/28/18 11:17 99.1 F 119 H 24 96/53 99 06/28/18 11:08 99.1 F 119 H 24 96/53 99 06/28/18 10:35 102.2 F 136 H 28 H 112/48 98 06/28/18 09:52 102.9 F 106 H 23 109/56 100 06/28/18 09:44 97 06/28/18 09:05 102.4 F 114 H 28 H 124/72 97 Oxygen-Last 24 hours O2 Percentage 80% O2 Percentage 50% O2 Percentage 50% O2 Percentage 50% O2 Percentage 4 Liters = 36% O2 Percentage 80% O2 Percentage 100% O2 Percentage 100% O2 Percentage 100% O2 Percentage 100% O2 Percentage 6 Liters = 44% Pain Assessment - Last Documented Pain Intensity 5 Pain Scale Used 0-10 Pain Scale,FLACC Intake and Output: Intake & Output 06/26/18 06/27/18 06/28/18 06/29/18 11:59 11:59 11:59 11:59 Intake Total 1968 Output Total 100 750 Balance -100 1218 Weight 60.5 kg 64.8 kg Lab Results: Accuchecks Date 06/28/18 Date 06/28/18 Date 06/28/18 Time 22:00 Time 16:21 Time 11:30 Accucheck Value: 448 Accucheck Value: 117 Accucheck Value: 105 Lab Results-Last 24 Hours 06/28/18 06/28/18 06/28/18 Range/Units 09:25 09:25 09:25 WBC 15.7 H (4.0-10.5) K/mm3 RBC 4.34 (4.1-5.4) M/mm3 Hgb 12.7 (12.0-16.0) gm/dl Hct 42.3 (35-47) % MCV 97.5 (78-100) fl MCH 29.3 (26-32) pg MCHC 30.0 L (32-36) g/dl RDW 16.3 H (11.5-14.0) % Plt Count 203 (150-450) K/mm3 MPV 10.0 H (6-9.5) fl Gran % 85.2 H (36.0-66.0) % Eos # (Auto) 0.10 (0-0.5) Absolute Lymphs (auto) 1.29 (1.0-4.6) Absolute Monos (auto) 0.93 (0.0-1.3) Lymphocytes % 8.2 L (24.0-44.0) % Monocytes % 5.9 (0.0-12.0) % Eosinophils % 0.6 (0.00-5.0) % Basophils % 0.1 (0.0-0.4) % Absolute Granulocytes 13.36 H (1.4-6.9) Segmented Neutrophils (36.0-66.0) % Band Neutrophils (0.0-2.0) % Lymphocytes (Manual) (24-44) % Monocytes (Manual) (0.0-12.0) % Basophils # 0.02 (0-0.4) Platelet Estimate (NORMAL) RBC Morphology Poikilocytosis Anisocytosis PT 12.2 (9.95-12.35) SECONDS INR 1.05 (0.8-3.0) APTT 26.9 (25.3-37.0) SECONDS Puncture Site pCO2 (35-45) mmHg pO2 (75-100) mmHg pO2/FiO2 Ratio % Base Excess (-2.0-2.0) O2 Saturation (94-100) g/dF ABG pH (7.35-7.45) ABG HCO3 (22-28) ABG O2 Sat (Measured) (95-100) % Charli Test VBG pH (7.32-7.42) VBG pCO2 at Pat Temp (42-55) mm/Hg VBG pO2 at Pat Temp (25-40) mm/Hg VBG HCO3 (22-28) meq/L VBG O2 Sat (Kimo) (95-100) VBG Base Excess (-2.0-2.0) VBG Hemoglobin VBG Carboxyhemoglobin (0.0-6.9) % T HGB A-a Gradient a/A Ratio Hemoglobin Carboxyhemoglobin (0.0-6.9) % THgb Methemoglobin (1.4-1.5) % POC Potassium (3.5-5.1) Temperature C POC O2 Flow Rate % Vent Mode Inspiratory BiPAP Expiratory BiPAP Sodium 143 (137-145) mmol/L Potassium 4.2 (3.5-5.1) mmol/L Chloride 90 L (98-107) mmol/L Carbon Dioxide 37 H (22-30) mmol/L Anion Gap 20.2 H (5-15) MEQ/L BUN 22 H (7-17) mg/dL Creatinine 0.84 (0.52-1.04) mg/dL Estimated GFR > 60.0 ML/MIN Glucose 70 L (74-106) mg/dL Lactic Acid (0.4-2.0) Calcium 9.9 (8.4-10.2) mg/dL Total Bilirubin 0.60 (0.2-1.3) mg/dL AST 21 (14-36) U/L ALT 17 (0-35) U/L Alkaline Phosphatase 115 (38-126) U/L Troponin I (0.000-0.034) ng/mL NT-Pro-B Natriuret Pep 514 (0-1800) pg/mL Serum Total Protein 7.2 (6.3-8.2) g/dL Albumin 3.8 (3.5-5.0) g/dL Prealbumin (17.6-36.0) mg/dL Urine Color (YELLOW) Urine Appearance (CLEAR) Urine pH (5-6) Ur Specific [place] (1.005-1.025) Urine Protein (Negative) Urine Ketones (NEGATIVE) Urine Blood (0-5) Paul/ul Urine Nitrite (NEGATIVE) Urine Bilirubin (NEGATIVE) Urine Urobilinogen (0-1) mg/dL Ur Leukocyte Esterase (NEGATIVE) Urine WBC (Auto) (0-5) /HPF Urine RBC (Auto) (0-2) /HPF U Hyaline Cast (Auto) (0-2) /LPF U Epithel Cells (Auto) (FEW) /HPF Urine Bacteria (Auto) (NEGATIVE) /HPF Urine Mucus (Auto) (NEGATIVE) /HPF Urine Culture Reflexed (NO) Urine Glucose (NEGATIVE) mg/dL 06/28/18 06/28/18 06/28/18 Range/Units 09:26 09:35 09:46 WBC (4.0-10.5) K/mm3 RBC (4.1-5.4) M/mm3 Hgb (12.0-16.0) gm/dl Hct (35-47) % MCV (78-100) fl MCH (26-32) pg MCHC (32-36) g/dl RDW (11.5-14.0) % Plt Count (150-450) K/mm3 MPV (6-9.5) fl Gran % (36.0-66.0) % Eos # (Auto) (0-0.5) Absolute Lymphs (auto) (1.0-4.6) Absolute Monos (auto) (0.0-1.3) Lymphocytes % (24.0-44.0) % Monocytes % (0.0-12.0) % Eosinophils % (0.00-5.0) % Basophils % (0.0-0.4) % Absolute Granulocytes (1.4-6.9) Segmented Neutrophils (36.0-66.0) % Band Neutrophils (0.0-2.0) % Lymphocytes (Manual) (24-44) % Monocytes (Manual) (0.0-12.0) % Basophils # (0-0.4) Platelet Estimate (NORMAL) RBC Morphology Poikilocytosis Anisocytosis PT (9.95-12.35) SECONDS INR (0.8-3.0) APTT (25.3-37.0) SECONDS Puncture Site pCO2 (35-45) mmHg pO2 (75-100) mmHg pO2/FiO2 Ratio 100.0 % Base Excess (-2.0-2.0) O2 Saturation (94-100) g/dF ABG pH (7.35-7.45) ABG HCO3 (22-28) ABG O2 Sat (Measured) (95-100) % Charli Test VBG pH 7.39 (7.32-7.42) VBG pCO2 at Pat Temp 71 H* (42-55) mm/Hg VBG pO2 at Pat Temp 24 L (25-40) mm/Hg VBG HCO3 43.0 H* (22-28) meq/L VBG O2 Sat (Kimo) 46.0 L (95-100) VBG Base Excess 14.6 H (-2.0-2.0) VBG Hemoglobin 13.2 VBG Carboxyhemoglobin 2.3 (0.0-6.9) % T HGB A-a Gradient a/A Ratio Hemoglobin Carboxyhemoglobin (0.0-6.9) % THgb Methemoglobin (1.4-1.5) % POC Potassium 4.0 (3.5-5.1) Temperature C POC O2 Flow Rate % Vent Mode Inspiratory BiPAP Expiratory BiPAP Sodium (137-145) mmol/L Potassium (3.5-5.1) mmol/L Chloride (98-107) mmol/L Carbon Dioxide (22-30) mmol/L Anion Gap (5-15) MEQ/L BUN (7-17) mg/dL Creatinine (0.52-1.04) mg/dL Estimated GFR ML/MIN Glucose (74-106) mg/dL Lactic Acid 1.4 (0.4-2.0) Calcium (8.4-10.2) mg/dL Total Bilirubin (0.2-1.3) mg/dL AST (14-36) U/L ALT (0-35) U/L Alkaline Phosphatase (38-126) U/L Troponin I < 0.012 (0.000-0.034) ng/mL NT-Pro-B Natriuret Pep (0-1800) pg/mL Serum Total Protein (6.3-8.2) g/dL Albumin (3.5-5.0) g/dL Prealbumin (17.6-36.0) mg/dL Urine Color YELLOW (YELLOW) Urine Appearance SLIGHTLY CLOUDY (CLEAR) Urine pH 6.0 (5-6) Ur Specific [place] 1.017 (1.005-1.025) Urine Protein NEGATIVE (Negative) Urine Ketones SMALL (NEGATIVE) Urine Blood NEGATIVE (0-5) Paul/ul Urine Nitrite NEGATIVE (NEGATIVE) Urine Bilirubin NEGATIVE (NEGATIVE) Urine Urobilinogen NEGATIVE (0-1) mg/dL Ur Leukocyte Esterase NEGATIVE (NEGATIVE) Urine WBC (Auto) 26-50 (0-5) /HPF Urine RBC (Auto) 3-5 (0-2) /HPF U Hyaline Cast (Auto) 3-5 (0-2) /LPF U Epithel Cells (Auto) NONE (FEW) /HPF Urine Bacteria (Auto) NONE (NEGATIVE) /HPF Urine Mucus (Auto) SLIGHT (NEGATIVE) /HPF Urine Culture Reflexed ORDERED SEPARATELY (NO) Urine Glucose NEGATIVE (NEGATIVE) mg/dL 06/28/18 06/28/18 06/28/18 Range/Units 12:15 14:32 15:13 WBC (4.0-10.5) K/mm3 RBC (4.1-5.4) M/mm3 Hgb (12.0-16.0) gm/dl Hct (35-47) % MCV (78-100) fl MCH (26-32) pg MCHC (32-36) g/dl RDW (11.5-14.0) % Plt Count (150-450) K/mm3 MPV (6-9.5) fl Gran % (36.0-66.0) % Eos # (Auto) (0-0.5) Absolute Lymphs (auto) (1.0-4.6) Absolute Monos (auto) (0.0-1.3) Lymphocytes % (24.0-44.0) % Monocytes % (0.0-12.0) % Eosinophils % (0.00-5.0) % Basophils % (0.0-0.4) % Absolute Granulocytes (1.4-6.9) Segmented Neutrophils (36.0-66.0) % Band Neutrophils (0.0-2.0) % Lymphocytes (Manual) (24-44) % Monocytes (Manual) (0.0-12.0) % Basophils # (0-0.4) Platelet Estimate (NORMAL) RBC Morphology Poikilocytosis Anisocytosis PT (9.95-12.35) SECONDS INR (0.8-3.0) APTT (25.3-37.0) SECONDS Puncture Site RIGHT RADIAL pCO2 67 H* (35-45) mmHg pO2 164 H* (75-100) mmHg pO2/FiO2 Ratio % Base Excess 7.1 H (-2.0-2.0) O2 Saturation 96.8 (94-100) g/dF ABG pH 7.33 L (7.35-7.45) ABG HCO3 35.3 H* (22-28) ABG O2 Sat (Measured) 98.7 (95-100) % Charli Test NOT APPLICABLE VBG pH (7.32-7.42) VBG pCO2 at Pat Temp (42-55) mm/Hg VBG pO2 at Pat Temp (25-40) mm/Hg VBG HCO3 (22-28) meq/L VBG O2 Sat (Kimo) (95-100) VBG Base Excess (-2.0-2.0) VBG Hemoglobin VBG Carboxyhemoglobin (0.0-6.9) % T HGB A-a Gradient 180 a/A Ratio 0.48 Hemoglobin 12.9 Carboxyhemoglobin 1.0 (0.0-6.9) % THgb Methemoglobin 0.9 L (1.4-1.5) % POC Potassium (3.5-5.1) Temperature 37.0 C POC O2 Flow Rate 60 % Vent Mode BiPAP Inspiratory BiPAP 14 Expiratory BiPAP 6 Sodium (137-145) mmol/L Potassium 3.9 (3.5-5.1) mmol/L Chloride (98-107) mmol/L Carbon Dioxide (22-30) mmol/L Anion Gap (5-15) MEQ/L BUN (7-17) mg/dL Creatinine (0.52-1.04) mg/dL Estimated GFR ML/MIN Glucose (74-106) mg/dL Lactic Acid (0.4-2.0) Calcium (8.4-10.2) mg/dL Total Bilirubin (0.2-1.3) mg/dL AST (14-36) U/L ALT (0-35) U/L Alkaline Phosphatase (38-126) U/L Troponin I 0.016 0.014 (0.000-0.034) ng/mL NT-Pro-B Natriuret Pep (0-1800) pg/mL Serum Total Protein (6.3-8.2) g/dL Albumin (3.5-5.0) g/dL Prealbumin (17.6-36.0) mg/dL Urine Color (YELLOW) Urine Appearance (CLEAR) Urine pH (5-6) Ur Specific [place] (1.005-1.025) Urine Protein (Negative) Urine Ketones (NEGATIVE) Urine Blood (0-5) Paul/ul Urine Nitrite (NEGATIVE) Urine Bilirubin (NEGATIVE) Urine Urobilinogen (0-1) mg/dL Ur Leukocyte Esterase (NEGATIVE) Urine WBC (Auto) (0-5) /HPF Urine RBC (Auto) (0-2) /HPF U Hyaline Cast (Auto) (0-2) /LPF U Epithel Cells (Auto) (FEW) /HPF Urine Bacteria (Auto) (NEGATIVE) /HPF Urine Mucus (Auto) (NEGATIVE) /HPF Urine Culture Reflexed (NO) Urine Glucose (NEGATIVE) mg/dL 06/28/18 06/28/18 06/29/18 Range/Units 18:30 21:17 05:15 WBC 18.0 H (4.0-10.5) K/mm3 RBC 3.55 L (4.1-5.4) M/mm3 Hgb 10.4 L (12.0-16.0) gm/dl Hct 34.3 L (35-47) % MCV 96.6 (78-100) fl MCH 29.2 (26-32) pg MCHC 30.3 L (32-36) g/dl RDW 15.6 H (11.5-14.0) % Plt Count 195 (150-450) K/mm3 MPV 10.1 H (6-9.5) fl Gran % (36.0-66.0) % Eos # (Auto) (0-0.5) Absolute Lymphs (auto) (1.0-4.6) Absolute Monos (auto) (0.0-1.3) Lymphocytes % (24.0-44.0) % Monocytes % (0.0-12.0) % Eosinophils % (0.00-5.0) % Basophils % (0.0-0.4) % Absolute Granulocytes (1.4-6.9) Segmented Neutrophils 86 H (36.0-66.0) % Band Neutrophils 9 H (0.0-2.0) % Lymphocytes (Manual) 1 L (24-44) % Monocytes (Manual) 4 (0.0-12.0) % Basophils # (0-0.4) Platelet Estimate NORMAL (NORMAL) RBC Morphology ABNORMAL Poikilocytosis 1+ Anisocytosis 1+ PT (9.95-12.35) SECONDS INR (0.8-3.0) APTT (25.3-37.0) SECONDS Puncture Site pCO2 (35-45) mmHg pO2 (75-100) mmHg pO2/FiO2 Ratio % Base Excess (-2.0-2.0) O2 Saturation (94-100) g/dF ABG pH (7.35-7.45) ABG HCO3 (22-28) ABG O2 Sat (Measured) (95-100) % Charli Test VBG pH (7.32-7.42) VBG pCO2 at Pat Temp (42-55) mm/Hg VBG pO2 at Pat Temp (25-40) mm/Hg VBG HCO3 (22-28) meq/L VBG O2 Sat (Kimo) (95-100) VBG Base Excess (-2.0-2.0) VBG Hemoglobin VBG Carboxyhemoglobin (0.0-6.9) % T HGB A-a Gradient a/A Ratio Hemoglobin Carboxyhemoglobin (0.0-6.9) % THgb Methemoglobin (1.4-1.5) % POC Potassium (3.5-5.1) Temperature C POC O2 Flow Rate % Vent Mode Inspiratory BiPAP Expiratory BiPAP Sodium (137-145) mmol/L Potassium (3.5-5.1) mmol/L Chloride (98-107) mmol/L Carbon Dioxide (22-30) mmol/L Anion Gap (5-15) MEQ/L BUN (7-17) mg/dL Creatinine (0.52-1.04) mg/dL Estimated GFR ML/MIN Glucose (74-106) mg/dL Lactic Acid (0.4-2.0) Calcium (8.4-10.2) mg/dL Total Bilirubin (0.2-1.3) mg/dL AST (14-36) U/L ALT (0-35) U/L Alkaline Phosphatase (38-126) U/L Troponin I 0.013 < 0.012 (0.000-0.034) ng/mL NT-Pro-B Natriuret Pep (0-1800) pg/mL Serum Total Protein (6.3-8.2) g/dL Albumin (3.5-5.0) g/dL Prealbumin (17.6-36.0) mg/dL Urine Color (YELLOW) Urine Appearance (CLEAR) Urine pH (5-6) Ur Specific [place] (1.005-1.025) Urine Protein (Negative) Urine Ketones (NEGATIVE) Urine Blood (0-5) Paul/ul Urine Nitrite (NEGATIVE) Urine Bilirubin (NEGATIVE) Urine Urobilinogen (0-1) mg/dL Ur Leukocyte Esterase (NEGATIVE) Urine WBC (Auto) (0-5) /HPF Urine RBC (Auto) (0-2) /HPF U Hyaline Cast (Auto) (0-2) /LPF U Epithel Cells (Auto) (FEW) /HPF Urine Bacteria (Auto) (NEGATIVE) /HPF Urine Mucus (Auto) (NEGATIVE) /HPF Urine Culture Reflexed (NO) Urine Glucose (NEGATIVE) mg/dL 06/29/18 06/29/18 Range/Units 05:15 05:15 WBC (4.0-10.5) K/mm3 RBC (4.1-5.4) M/mm3 Hgb (12.0-16.0) gm/dl Hct (35-47) % MCV (78-100) fl MCH (26-32) pg MCHC (32-36) g/dl RDW (11.5-14.0) % Plt Count (150-450) K/mm3 MPV (6-9.5) fl Gran % (36.0-66.0) % Eos # (Auto) (0-0.5) Absolute Lymphs (auto) (1.0-4.6) Absolute Monos (auto) (0.0-1.3) Lymphocytes % (24.0-44.0) % Monocytes % (0.0-12.0) % Eosinophils % (0.00-5.0) % Basophils % (0.0-0.4) % Absolute Granulocytes (1.4-6.9) Segmented Neutrophils (36.0-66.0) % Band Neutrophils (0.0-2.0) % Lymphocytes (Manual) (24-44) % Monocytes (Manual) (0.0-12.0) % Basophils # (0-0.4) Platelet Estimate (NORMAL) RBC Morphology Poikilocytosis Anisocytosis PT (9.95-12.35) SECONDS INR (0.8-3.0) APTT (25.3-37.0) SECONDS Puncture Site pCO2 (35-45) mmHg pO2 (75-100) mmHg pO2/FiO2 Ratio % Base Excess (-2.0-2.0) O2 Saturation (94-100) g/dF ABG pH (7.35-7.45) ABG HCO3 (22-28) ABG O2 Sat (Measured) (95-100) % Charli Test VBG pH (7.32-7.42) VBG pCO2 at Pat Temp (42-55) mm/Hg VBG pO2 at Pat Temp (25-40) mm/Hg VBG HCO3 (22-28) meq/L VBG O2 Sat (Kimo) (95-100) VBG Base Excess (-2.0-2.0) VBG Hemoglobin VBG Carboxyhemoglobin (0.0-6.9) % T HGB A-a Gradient a/A Ratio Hemoglobin Carboxyhemoglobin (0.0-6.9) % THgb Methemoglobin (1.4-1.5) % POC Potassium (3.5-5.1) Temperature C POC O2 Flow Rate % Vent Mode Inspiratory BiPAP Expiratory BiPAP Sodium 138 (137-145) mmol/L Potassium 4.7 (3.5-5.1) mmol/L Chloride 97 L (98-107) mmol/L Carbon Dioxide 36 H (22-30) mmol/L Anion Gap 10.1 (5-15) MEQ/L BUN 21 H (7-17) mg/dL Creatinine 0.60 (0.52-1.04) mg/dL Estimated GFR > 60.0 ML/MIN Glucose 143 H (74-106) mg/dL Lactic Acid (0.4-2.0) Calcium 8.8 (8.4-10.2) mg/dL Total Bilirubin 0.20 (0.2-1.3) mg/dL AST 18 (14-36) U/L ALT 15 (0-35) U/L Alkaline Phosphatase 79 (38-126) U/L Troponin I (0.000-0.034) ng/mL NT-Pro-B Natriuret Pep (0-1800) pg/mL Serum Total Protein 5.5 L (6.3-8.2) g/dL Albumin 2.8 L (3.5-5.0) g/dL Prealbumin 8.65 L (17.6-36.0) mg/dL Urine Color (YELLOW) Urine Appearance (CLEAR) Urine pH (5-6) Ur Specific [place] (1.005-1.025) Urine Protein (Negative) Urine Ketones (NEGATIVE) Urine Blood (0-5) Paul/ul Urine Nitrite (NEGATIVE) Urine Bilirubin (NEGATIVE) Urine Urobilinogen (0-1) mg/dL Ur Leukocyte Esterase (NEGATIVE) Urine WBC (Auto) (0-5) /HPF Urine RBC (Auto) (0-2) /HPF U Hyaline Cast (Auto) (0-2) /LPF U Epithel Cells (Auto) (FEW) /HPF Urine Bacteria (Auto) (NEGATIVE) /HPF Urine Mucus (Auto) (NEGATIVE) /HPF Urine Culture Reflexed (NO) Urine Glucose (NEGATIVE) mg/dL Radiology Exams: Radiology Procedures Category Date Time Status CHEST 1 VIEW (PORTABLE) Stat Exams 06/28/18 09:10 Completed Assessment/Plan (1) Pneumonia Current Visit: Yes Status: Acute Qualifiers: Pneumonia type: due to unspecified organism Laterality: right Lung location: lower lobe of lung Qualified Code(s): J18.1 - Lobar pneumonia, unspecified organism Assessment & Plan: On Levaquin day #2 with improvement. Solumedrol 80mg IV q6h. Code(s): J18.9 - PNEUMONIA, UNSPECIFIED ORGANISM (2) DNR no code (do not resuscitate) Current Visit: Yes Status: Acute (3) Aortic valve replaced Current Visit: Yes Status: Acute Assessment & Plan: on ASA and plavix. Code(s): Z95.2 - PRESENCE OF PROSTHETIC HEART VALVE (4) COPD with exacerbation Current Visit: Yes Status: Acute Code(s): J44.1 - CHRONIC OBSTRUCTIVE PULMONARY DISEASE W (ACUTE) EXACERBATION (5) Hypercarbia Current Visit: No Status: Acute Assessment & Plan: slight improvement on bipap Code(s): R06.89 - OTHER ABNORMALITIES OF BREATHING (6) Physical deconditioning Current Visit: No Status: Chronic Code(s): R53.81 - OTHER MALAISE (7) DVT prophylaxis Current Visit: Yes Status: Acute Assessment & Plan: She has a history of GI hemorrhage per EMR. She is on ASA and plavix. Will add SCDs and CRISTHIAN as tolerated. Code(s): Z29.9 - ENCOUNTER FOR PROPHYLACTIC MEASURES, UNSPECIFIED
[2018-06-29] MEDS: NEURONTIN 300 MG PO SCH ×2 (09:23→21:59)
[2018-06-29] MEDS: ECOTRIN 81 MG PO SCH (09:24)
[2018-06-29] MEDS: PLAVIX 75 MG Tablet PO SCH (09:24)
[2018-06-29] MEDS: BUMEX 1 MG PO SCH (09:24)
[2018-06-29] MEDS: THERAGRAN MULTIVITAMIN PO SCH (09:25)
[2018-06-29] MEDS: Vitamin E 400 UNIT SOFTGEL PO SCH (09:25)
[2018-06-29] MEDS: Levaquin 250MG/50ML D5W 250 MG/50 ML BAG IV SCH (09:28)
[2018-06-29] MEDS ORDERED: Levofloxacin 500MG/100ML D5W 500 MG/100 ML BAG IV SCH (10:00)
[2018-06-29] MEDS ORDERED: VITAMIN E ACID SUCCINATE 400 UNIT PO SCH (10:00)
[2018-06-29] MEDS ORDERED: NON-FORMULARY ITEM (Multivitamin [Multiple Vitamins] 1 EACH) PO SCH (10:00)
[2018-06-29] MEDS: Norco 10/325 MG Tablet PO PRN ×2 (13:25→18:43)
[2018-06-29] MEDS: NovoLOG Insulin SQ PRN ×2 (16:52→21:59)
[2018-06-29] MEDS: Ativan 2 MG/1 ML VIAL IV PRN (22:00)
[2018-06-30] MEDS: DUONEB 0.5-3 MG/3 ml Neb IH SCH ×2 (03:16→06:42)
[2018-06-30] MEDS: Sodium Chloride 0.9% 1000 ML 1,000 ML IV SCH (04:35)
[2018-06-30] MEDS: Norco 10/325 MG Tablet PO PRN (05:30)
[2018-06-30] MEDS: solu-MEDROL 125 MG IV SCH (05:30)
[2018-06-30] MEDS: Advair Hfa 115/21 Common canister IH SCH (06:42)
[2018-06-30 07:28] VITALS: BP 131/60; PULSE 83; O2SAT 96
--- NOTE | 2018-06-30 09:11 | PCM.DS ---
Discharge Summary Date of Admission: 06/28/18 10:52 Admitting Physician: ALPHONSE PEREZ Primary Care Provider: ALPHONSE PEREZ Allergies Allergies Penicillins Allergy (Verified 06/28/18 12:26) Hospital Summary - Hospital Course Hospital Course: patient was admitted with shortness of breath/difficulty breathing. found to have a possible infiltrate and copd exacerbation, she is feeling much better today. ready for discharge, has been treated with nebs, IV steroids and levaquin.received bipap for co2 retention, overall back to her baseline which is admittedly poor functional status and endstage copd - Vitals & Intake/Output Vital Signs: Vital Signs Temperature 98.0 F 06/30/18 07:25 Pulse Rate 83 06/30/18 07:25 Respiratory Rate 18 06/30/18 07:25 Blood Pressure 131/60 06/30/18 07:25 O2 Sat by Pulse Oximetry 96 06/30/18 07:25 Oxygen-Last Documented O2 Percentage 3 Liters = 32% Intake & Output: Intake & Output 06/27/18 06/28/18 06/29/18 06/30/18 11:59 11:59 11:59 11:59 Intake Total 2308 3279 Output Total 840 287 9780 Balance -100 1558 1479 Weight 60.5 kg 64.8 kg 64.4 kg - Lab Result Diagrams: 06/29/18 05:15 06/29/18 05:15 Lab Results-Last 24 Hrs: Accuchecks Date 06/29/18 Date 06/29/18 Date 06/29/18 Time 22:00 Time 16:30 Time 11:30 Accucheck Value: 200 Accucheck Value: 274 Accucheck Value: 336 Accucheck Value: 239 Micro Results-Entire Visit: Microbiology 06/28/18 09:44 Urine Culture - Preliminary Catherized GRAM POSITIVE ID AND SENSITIVITY PENDING 06/28/18 09:35 Blood Culture - Preliminary Blood NO GROWTH TO DATE 06/28/18 09:25 Blood Culture - Preliminary Blood NO GROWTH TO DATE Accuchecks Date 06/29/18 Date 06/29/18 Date 06/29/18 Time 22:00 Time 16:30 Time 11:30 Accucheck Value: 200 Accucheck Value: 274 Accucheck Value: 336 Accucheck Value: 239 - Radiology Exams Ordered Rad Exams-Entire Visit: Radiology Procedures Category Date Time Status CHEST 1 VIEW (PORTABLE) Stat Exams 06/28/18 09:10 Completed - Procedures and Test Procedures and Tests throughout Hospitalization: Therapy Orders & Screens 06/28/18 09:10 BiPap/CPAP ROUTINE Comment: 06/28/18 09:51 Respiratory Therapy Assessment DAILY Comment: 06/28/18 11:17 Respiratory Therapy Consult ROUTINE Comment: Reason For Exam: 06/28/18 11:28 Oxygen NASAL CANNULA 3 lpm Comment: 06/28/18 11:35 Peak Expiratory Flow Rate ONCE Comment: Reason For Exam: 06/28/18 12:12 OT Screen per Nursing Assess ONCE Comment: Protocol Order Physician Instructions: Greater than 3 points order OT Admission Screening Reason For Exam: Triggered on Admission Diagnosis: pneumonia Open Wound/Cellutlitis/Pressure Ulcers: Yes Acute Fx/ORIF/Change in wt bearing status: No Severe MUSCULOSKELETAL pain: No ADL Dysfunction: Yes Acute CVA w/Hemiparesis/Hemiplegia: No Decreased Functional Mobility/Strength: Yes Sprain/Strain: No Acute Post-op Mobility Dysfunction: No Total Points: 9 PT Screen per Nursing Assess ONCE Comment: Protocol Order Physician Instructions: Greater than 3 points order PT Admission Screenin Reason For Exam: Triggered on Admission Diagnosis: pneumonia Open Wound/Cellutlitis/Pressure Ulcers: Yes Acute Fx/ORIF/Change in wt bearing status: No Severe MUSCULOSKELETAL pain: No ADL Dysfunction: Yes Acute CVA w/Hemiparesis/Hemiplegia: No Decreased Functional Mobility/Strength: Yes Sprain/Strain: No Acute Post-op Mobility Dysfunction: No Total Points: 9 RT Screen per Nursing Assess ONCE Comment: Protocol Order Physician Instructions: Greater than 3 points order RT Admission Screen Reason For Exam: Triggered on Admission Diagnosis: pneumonia Diagnosis: pneumonia Pneumonia: Yes Home O2: Yes Asthma: No CHF: Yes Home CPAP/BIPAP: No Home Nebs/MDI: Yes Total Points: 16 ST Screen per Nursing Assess Comment: Protocol Order Physician Instructions: Greater than [address] Admission Screening Reason For Exam: Triggered on Admission Diagnosis: pneumonia CVA/Dyshpagia/Aphasia: No Cognitive Deficits: No Dehydration/Nutrition Deficit: No Reflux: No Oral-Motor Difficulties: No Pneumonia: Yes Fpc Resident: Yes: rehab Total Points: 10 Discharge Exam General Appearance: no apparent distress, alert Neurologic Exam: alert, cooperative Respiratory Exam: prolonged expirations, rhonchi Cardiovascular Exam: regular rate/rhythm, normal heart sounds Gastrointestinal/Abdomen Exam: soft, No tenderness, No mass Extremity Exam: normal inspection, normal range of motion Wound Assessment: Skin/Wound Assessment Wound/Incision Assessment Start: 06/28/18 12: 12 Text: Status: Active Freq: Q6H Protocol: Document 06/30/18 04:47 BW (Rec: 06/30/18 04:48 BW [id number]) Wound/Incision Assessment Right Lower Calf Wound Assessment Shift Assessment Wound Type open blister Wound Stage Stage II Dressing Status Dry & Intact Drainage Amount Minimal Drainage Description Serous Drainage Odor None/Absent General Appearance Unapproximated Wound Bed Greatest Portion Red (Granulation) Wound Bed Lesser Portion Pale [place] Yellow (Slough) Surrounding Tissue [place] Primary Dressing Non-Adherent Gauze Pads Secondary Dressing Gauze Roll/Wrap Comment Dressing changed 06/30/18 Wound Photo Photo Taken Yes Date: 06/28/18 Time: 12:00 Distance from Wound: bedside Final Diagnosis/Problem List - Final Discharge Diagnosis/Problem (1) Pneumonia Current Visit: Yes Status: Acute Code(s): J18.9 - PNEUMONIA, UNSPECIFIED ORGANISM (2) COPD with exacerbation Current Visit: Yes Status: Acute Code(s): J44.1 - CHRONIC OBSTRUCTIVE PULMONARY DISEASE W (ACUTE) EXACERBATION (3) Hypercarbia Current Visit: No Status: Acute Code(s): R06.89 - OTHER ABNORMALITIES OF BREATHING - Discharge Disposition: Skilled Care @ [facility] Condition: Fair Prescriptions: New Prednisone 10 mg [Deltasone 10 mg] 10 mg PO UD #18 tablet Levofloxacin [Levaquin] 250 mg PO DAILY #5 tablet Continue Clopidogrel Bisulfate 75 mg [PLAVIX 75 MG Tablet] 75 mg PO DAILY Aspirin EC 81 mg [Ecotrin 81 mg] 81 mg PO DAILY predniSONE [Prednisone] 10 mg PO DAILY Vitamin E Acid Succinate [Vitamin E] 400 unit PO DAILY Potassium Chloride [Klor-Con] 20 meq PO DAILY Nitroglycerin 0.4 mg Tablet [Nitrostat 0.4 MG Tablet] 0.4 mg SL Q5MIN PRN MR X 3 PRN PRN Reason: Chest Pain Multivitamin [Multiple Vitamins] 1 each PO DAILY Metformin HCl 500 mg [Glucophage 500 MG] 500 mg PO DAILY Ipratropium/Albuterol Sulfate [Combivent Inhaler] 2 puff IH BID PRN PRN PRN Reason: Shortness Of Breath Insulin Lispro [Humalog] 100 unit SQ UD Hydroxyzine Pamoate [Vistaril] 25 mg PO HS Hydrocodone/Acetaminophen [[place] 10-325 Tablet] 1 each PO Q4HPRN PRN MDD 6 PRN Reason: Pain Gabapentin [Neurontin] 600 mg PO BID Fluticasone/Salmeterol [Advair 250-50 Diskus] 1 each IH BID Cyanocobalamin (Vitamin B-12) [Vitamin B-12] 500 mcg PO DAILY Calcium Carbonate/Vitamin D3 [Calcium 600 + Vit D Tablet] 1 each PO DAILY Bumetanide 1 mg [Bumex 1 mg] 1 mg PO DAILY Albuterol 2.5 mg/3 ml Neb [Proventil 2.5 mg/3 ml Neb] 1 vial IH Q4H
[2018-06-30] MEDS: THERAGRAN MULTIVITAMIN PO SCH (09:15)
[2018-06-30] MEDS: Levaquin 250MG/50ML D5W 250 MG/50 ML BAG IV SCH (09:15)
[2018-06-30] MEDS: BUMEX 1 MG PO SCH (09:15)
[2018-06-30] MEDS: NEURONTIN 300 MG PO SCH (09:15)
[2018-06-30] MEDS: ECOTRIN 81 MG PO SCH (09:15)
[2018-06-30] MEDS: PLAVIX 75 MG Tablet PO SCH (09:15)
[2018-06-30] MEDS: Vitamin E 400 UNIT SOFTGEL PO SCH (09:15)
== END 2018-06-30 10:45 ==
LOC: ED 09:01 → MED SURG 10:52
PROVIDERS: ADMIT Family Medicine; ATTEND Family Medicine
DX: J18.9 Pneumonia, unspecified organism (principal); J44.1 Chronic obstructive pulmonary disease with (acute) exacerbation; E11.9 Type 2 diabetes mellitus without complications; S80.821A Blister (nonthermal), right lower leg, initial encounter; R06.89 Other abnormalities of breathing; Z79.899 Other long term (current) drug therapy; Z79.01 Long term (current) use of anticoagulants
CPT/HCPCS: 36000; 36415; 36600; 51702; 71045; 80053; 81001; 82375; 82803; 82805; 82962; 83605; 83880; 84134; 84484; 85025; 85610; 85730; 87040; 87070; 87077; 87086; 87186; 93005; 93041; 93268; 94002; 94003; 94640; 94762; 96360; 96365; 96374; 96375; 99284; 99285; J1956; J2060; J2930; J7609; A9270-GY; G0378

== ENCOUNTER 2018-07-13 13:55 | Observation (INO) | payer MEDICARE ==
[2018-07-13] MEDS ORDERED: DUONEB 0.5-3 MG/3 ml Neb IH ONE ×2 (14:11→15:05)
[2018-07-13] MEDS ORDERED: Sodium Chloride 0.9% 1000 ML 1,000 ML IV SCH (14:15)
--- NOTE | 2018-07-13 14:16 | ERPHSYRPT ---
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, pulses normal, denies pain, color normal and dry Physician History: 78-year-old white female sent from [place] with complaint of shortness of breath, elevated lactic acid which was drawn last night at midnight, patient states she just doesn't feel well.patient also noted to be confused at the [facility] Past medical history includes COPD, coronary disease, diabetes type 2, arthritis , vaginal fistula, colostomy Past surgical history includes CABG, cardiac stent, replacement, hysterectomy, bilateral knee surgery, bilateral ankle surgery, colectomy Timing/Duration: today Severity: moderate Modifying Factors: Improves With: nothing Associated Symptoms: shortness of breath, cough, malaise, No nausea, No vomiting , No abdominal pain, No heartburn, No diaphoresis, No chills, No chest pain, No fever, No headaches, No loss of appetite, No rash, No syncope, No seizure, No weakness Allergies/Adverse Reactions: Penicillins Allergy (Verified 07/13/18 14:08) Home Medications: Aspirin EC 81 mg [Ecotrin 81 mg] 81 mg PO DAILY 05/29/18 [History] Bumetanide 1 mg [Bumex 1 mg] 1 mg PO DAILY 05/29/18 [History] Calcium Carbonate/Vitamin D3 [Calcium 600 + Vit D Tablet] 1 each PO DAILY [History] Clopidogrel Bisulfate 75 mg [PLAVIX 75 MG Tablet] 75 mg PO DAILY 05/29/18 [History] Cyanocobalamin (Vitamin B-12) [Vitamin B-12] 500 mcg PO DAILY 05/29/18 [History] Fluticasone/Salmeterol [Advair 250-50 Diskus] 1 each IH BID 05/29/18 [History] Gabapentin [Neurontin] 600 mg PO BID 05/29/18 [History] Hydrocodone/Acetaminophen [[place] 10-325 Tablet] 1 each PO Q4HPRN PRN MDD 6 05/29 [History] Hydroxyzine Pamoate [Vistaril] 25 mg PO HS 05/29/18 [History] Insulin Lispro [Humalog] 100 unit SQ UD 05/29/18 [History] Ipratropium/Albuterol Sulfate [Combivent Inhaler] 2 puff IH BID PRN PRN [History] Metformin HCl 500 mg [Glucophage 500 MG] 500 mg PO DAILY 05/29/18 [History ] Multivitamin [Multiple Vitamins] 1 each PO DAILY 05/29/18 [History] Nitroglycerin 0.4 mg Tablet [Nitrostat 0.4 MG Tablet] 0.4 mg SL Q5MIN PRN MR X 3 PRN 05/29/18 [History] Potassium Chloride [Klor-Con] 20 meq PO DAILY 05/29/18 [History] Vitamin E Acid Succinate [Vitamin E] 400 unit PO DAILY 05/29/18 [History] predniSONE [Prednisone] 10 mg PO DAILY 05/29/18 [History] Hx Tetanus, Diphtheria Vaccination/Date Given: Yes Hx Influenza Vaccination/Date Given: Yes Hx Pneumococcal Vaccination/Date Given: Yes - Review of Systems Constitutional: Malaise, No Fever, No Chills, No Fatigue, No Lethargy, No Night Sweats, No Weakness, No Weight Loss Eyes: No Symptoms Ears, Nose, & Throat: No Ear Pain, No Ear Discharge, No Hearing Changes, No Tinnitus, No Nose Pain, No Nose Congestion, No Nose Discharge, No Sinus Drainage , No Epistaxis, No Mouth Pain, No Mouth Swelling, No Loose Teeth, No Throat Pain , No Throat Swelling, No Hoarse, No Painful Swallowing, No Snoring, No Stridor Respiratory: Cough, Wheezing Cardiac: No Chest Pain, No Edema, No Syncope Abdominal/Gastrointestinal: No Abdominal Pain, No Nausea, No Vomiting, No Diarrhea Genitourinary Symptoms: No Dysuria Musculoskeletal: No Back Pain, No Neck Pain Skin: No Rash Neurological: No Dizziness, No Focal Weakness, No Sensory Changes Psychological: No Symptoms Endocrine: No Symptoms All Other Systems: Reviewed and Negative - Past Medical History Pertinent Past Medical History: Yes Neurological History: No Pertinent History ENT History: No Pertinent History Cardiac History: Coronary Artery Disease Respiratory History: COPD Endocrine Medical History: Diabetes Type II Musculoskeletal History: Arthritis GI Medical History: Other History: No Pertinent History Psycho-Social History: No Pertinent History Female Reproductive Disorders: No Pertinent History Other Medical History: 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, 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 - Past Surgical History Past Surgical History: Yes Neuro Surgical History: No Pertinent History Cardiac: CABG, Cardiac Stent, Valve Replacement Respiratory: No Pertinent History Gastrointestinal: Other Genitourinary: No Pertinent History Musculoskeletal: Orthopedic Surgery Female Surgical History: Hysterectomy Other Surgical History: beverly knees replaced, beverly wrist, beverly ankles, colostomy - Social History Smoking Status: Former smoker Exposure to second hand smoke: No Drug Use: none Patient Lives Alone: No - Female History Hx Now: No - Nursing Vital Signs Nursing Vital Signs: Initial Vital Signs Temperature 98.2 F 07/13/18 13:58 Pulse Rate 99 H 07/13/18 13:58 Respiratory Rate 99 H 07/13/18 13:58 Blood Pressure 130/77 07/13/18 13:58 O2 Sat by Pulse Oximetry 5 L 07/13/18 13:58 Pain Scale Pain Intensity 0 - Physical Exam General Appearance: no apparent distress, alert Ears, Nose, Throat Exam: normal ENT inspection, TMs normal, pharynx normal, moist mucous membranes Neck Exam: normal inspection, non-tender, supple, full range of motion Respiratory Exam: lungs clear, diminished breath sounds, wheezing, No respiratory distress Cardiovascular Exam: regular rate/rhythm, normal heart sounds, normal peripheral pulses, capillary refill <2 sec Gastrointestinal/Abdomen Exam: soft, normal bowel sounds, No tenderness, No mass Back Exam: normal inspection, normal range of motion, No CVA tenderness, No vertebral tenderness Extremity Exam: normal inspection Neurologic Exam: alert, oriented x 3, cooperative, outdoor fitness trainer II-XII nml as tested, normal mood/affect, nml cerebellar function, nml station & gait, sensation nml, No motor deficits Skin Exam: normal color, warm, dry, other (dressing in place right ankle), No rash SpO2 Interpretation: normal SpO2: 5 - Course Nursing assessment & vital signs reviewed: Yes - Radiology Exams Chest X-ray Interpretation: Discussed w/ radiologist (chest x-ray: improving right lung base infiltrate/atelectasis/effusion with residual in stable mediastinal/ right long calcified granulomas. Heart is not enlarged with CABG. Bony thorax demonstrates osteopenia, degenerative changes, and all left lower rib fractures. No new/acute findings) Ordered Tests: Active Orders 24 hr Category Date Time Status EKG-ER Only STAT Care 07/13/18 14:10 Active IV Insertion STAT Care 07/13/18 14:10 Active CHEST 1 VIEW (PORTABLE) Stat Exams 07/13/18 14:11 Completed BLOOD CULTURE Stat Lab 07/13/18 14:35 Received Lactic Acid Stat Lab 07/13/18 14:43 Results VENOUS BLOOD GAS Stat Lab 07/13/18 14:43 Completed Peak Expiratory Flow Rate DAILY RT 07/13/18 07:00 Active Respiratory Therapy Assessment DAILY RT 07/14/18 07:00 Active Medication Summary Generic Name Dose Route Start Last Admin Trade Name Freq PRN Reason Stop Dose Admin Sodium Chloride 1,000 mls @ 100 mls/hr 07/13/18 14:15 07/13/18 15:10 Sodium Chloride 0.9% 1000 Ml IV 08/12/18 14:14 100 mls/hr .Q10H LAURENT Administration Discontinued Medications Generic Name Dose Route Start Last Admin Trade Name Freq PRN Reason Stop Dose Admin Albuterol/Ipratropium 3 ml 07/13/18 14:11 07/13/18 15:10 Duoneb 0.5-3 Mg/3 Ml Neb IH 07/13/18 14:12 3 ml STAT ONE Administration Albuterol/Ipratropium Confirm 07/13/18 15:05 Duoneb 0.5-3 Mg/3 Ml Neb Administered 07/13/18 15:06 Dose 3 ml IH .STK-MED ONE Methylprednisolone Sodium Succinate 125 mg 07/13/18 15:13 Solu-Medrol 125 Mg IV 07/13/18 15:14 STAT ONE Lab/Rad Data: Laboratory Results 07/13/18 07/13/18 Range/Units 14:43 14:43 pO2/FiO2 Ratio 21.0 % VBG pH 7.39 (7.32-7.42) VBG pCO2 at Pat Temp 74 H* (42-55) mm/Hg VBG pO2 at Pat Temp 23 L (25-40) mm/Hg VBG HCO3 44.8 H* (22-28) meq/L VBG O2 Sat (Kimo) 39.4 L (95-100) VBG Base Excess 16.7 H (-2.0-2.0) VBG Hemoglobin 11.1 VBG Carboxyhemoglobin 1.2 (0.0-6.9) % T HGB POC Potassium 5.0 (3.5-5.1) Lactic Acid 1.9 (0.4-2.0) - Progress Progress: improved Progress Note: 07/13/18 14:16 Notified by labs it although laboratory data is which is provided on the patient shows a time of 2353 Labs were apparently obtained at noon Will go ahead and run a lactate blood gases and venous gases. 07/13/18 15:15 Patient's lactate within normal limits at 1.9 Venous gases pH 7.39 PCO2 74 I discussed the patient's case with Dr. cuevas will place patient on normal saline 100 mL per hour give patient Solu-Medrol [address] patient on BiPAP place patient on observation. Transfer techs - Departure Departure Disposition: Observation Clinical Impression: COPD with exacerbation, Confusion Condition: Fair Critical Care Time: No Referrals: AGYLA RICHARDSON [Primary Care Provider] - Instructions: Chronic Obstructive Pulmonary Disease
[2018-07-13] MEDS ORDERED: Sodium Chloride 0.9% 1000 ML 1,000 ML ONE (14:35)
[2018-07-13 14:52] LABS: VBG BASE EXCESS 16.7 (-2.0-2.0); VBG CARBOXYHEMOGLOBIN 1.2 % T HGB (0.0-6.9); VBG HCO3- 44.8 meq/L (22-28); VBG HEMOGLOBIN 11.1; VBG O2 SATURATION 39.4 (95-100); VBG pH 7.39 (7.32-7.42)
--- NOTE | 2018-07-13 14:52 | XRAY ---
Indication: Short of breath. Comparison: June 28, 2018. Portable chest demonstrates improving right lung base infiltrate/atelectasis/effusion with residual and stable mediastinal/right lung calcified granulomas. Heart is not enlarged with CABG. Bony thorax again demonstrates osteopenia, degenerative changes, and old left lower rib fractures. No new/acute findings.
[2018-07-13 14:54] LABS: Lactic Acid 1.9 (0.4-2.0)
[2018-07-13] MEDS ORDERED: solu-MEDROL 125 MG IV ONE ×2 (15:13→15:51)
[2018-07-13] MEDS ORDERED: DUONEB 0.5-3 MG/3 ml Neb IH PRN (15:44)
[2018-07-13] MEDS: Sodium Chloride 0.9% 1000 ML 1,000 ML IV SCH (16:09)
[2018-07-13] MEDS ORDERED: solu-MEDROL 125 MG IV SCH (16:30)
[2018-07-13] MEDS ORDERED: TYLENOL 325 MG PO PRN (17:26)
[2018-07-13] MEDS ORDERED: Tessalon Perles 100 MG PO PRN (17:26)
[2018-07-13] MEDS ORDERED: ALBUTEROL SULFATE IH PRN (17:33)
[2018-07-13] MEDS ORDERED: Nitrostat 0.4 MG Tablet SL PRN (17:33)
[2018-07-13] MEDS ORDERED: IPRATROPIUM IH PRN (17:33)
[2018-07-13] MEDS: VIBRAMYCIN 100 MG*** 100 MG in Dextrose 5%/Water IV Soln. 100ML PLUS BAG 100 ML IV SCH (18:13)
[2018-07-13] MEDS ORDERED: Advair Hfa 115/21 Common canister IH SCH (19:00)
[2018-07-13] MEDS: ADVAIR 250-50 DISKUS 14 DOSE IH SCH (20:42)
[2018-07-13] MEDS ORDERED: NON-FORMULARY ITEM (Gabapentin [Neurontin] 600 MG) PO SCH (22:00)
[2018-07-13] MEDS ORDERED: ADVAIR 250-50 DISKUS 14 DOSE IH SCH (22:00)
[2018-07-13] MEDS: Norco 10/325 MG Tablet PO PRN (22:05)
[2018-07-13] MEDS: NovoLOG Insulin SQ PRN (22:05)
[2018-07-13] MEDS: NEURONTIN 300 MG PO SCH (22:05)
[2018-07-13] MEDS: solu-MEDROL 125 MG IV SCH (23:52)
[2018-07-14] MEDS: solu-MEDROL 125 MG IV SCH ×4 (05:48→23:31)
[2018-07-14 06:04] LABS: BASOPHIL % 0.1 % (0.0-0.4); Basophil (Absolute #) 0.01 (0-0.4); Eosinophil (Absolute #) 0 (0-0.5); Granulocyte Absolute (ANC) 8.21 (1.4-6.9); Hematocrit 37.8 % (35-47); Hemoglobin 11.7 gm/dl (12.0-16.0); Lymphocyte (Absolute #) 0.28 (1.0-4.6); Lymphocytes % 3.3 % (24.0-44.0); Mean Platelet Volume 10.5 fl (6-9.5); Monocyte (Absolute #) 0.05 (0.0-1.3); Monocytes % 0.6 % (0.0-12.0); Platelet Count 248 K/mm3 (150-450); Red Blood Count 3.98 M/mm3 (4.1-5.4); Red Cell Distribution Width 15.6 % (11.5-14.0); White Blood Count 8.6 K/mm3 (4.0-10.5)
[2018-07-14 06:13] LABS: Mean Corpuscular Hemoglobin 29.3 pg (26-32)
[2018-07-14 06:20] LABS: ANION GAP 14.1 MEQ/L (5-15); BLOOD UREA NITROGEN 25 mg/dL (7-17); CHLORIDE 93 mmol/L (98-107); Calcium 9.7 mg/dL (8.4-10.2); Carbon Dioxide 36 mmol/L (22-30); Creatinine 1 0.73 mg/dL (0.52-1.04); Glucose 152 mg/dL (74-106); SODIUM 139 mmol/L (137-145)
[2018-07-14] MEDS: ADVAIR 250-50 DISKUS 14 DOSE IH SCH ×2 (07:25→20:23)
--- NOTE | 2018-07-14 08:24 | HP ---
HISTORY OF PRESENT ILLNESS: This is a 78 year-old patient of Dr. Johnston from [facility]. Apparently the patient had some blood work drawn this morning and then the shelter called and said she was having difficulty breathing so they were instructed to have her brought to the emergency department. The emergency room doctor did a blood gas and found her pCO2 to be 70. She wears 5 liters of oxygen normally at the [facility] and was still on this amount of oxygen. In the emergency room, her lactate was normal. There was some concern that she may have been a little confused as well. When I saw the patient this evening she reported that she had a cough and some difficulty breathing. Her nurse reported that she does not tolerate having the BiPAP on and she wishes to be SCO and this was confirmed with the patient. She was sitting up and eating some supper in no acute distress. She also has a history of methicillin resistant staphylococcus aureus leg wound that has yet to be undressed when she arrived. REVIEW OF SYSTEMS: She reports a little bit of abdominal pain. No nausea. She has some pain in her right big toe, shortness of breath and cough. No chest pain. PAST MEDICAL HISTORY: Includes chronic obstructive pulmonary disease, acute on chronic respiratory failure, hypoxia. She reports she sees Dr. Gurinder Sher. Coronary artery disease. Diabetes mellitus type 2. PAST SURGICAL HISTORY: Noncontributory. MEDICATIONS: Please see the home medication reconciliation form which I have reviewed. ALLERGIES: PENICILLIN. SOCIAL HISTORY: She lives at [place]. She reports she has family that lives in [place]. FAMILY HISTORY: Noncontributory. PHYSICAL EXAMINATION: VITAL SIGNS: Temperature current 98.3F, heart rate 92, respiratory rate 22, blood pressure 125/58, weight 59.4 kg. Oxygen saturation 97% on 5 liters. GENERAL: The patient is a frail looking lady reclining in her bed in no acute distress eating some supper. She had 5 liters of oxygen by [employer]. CHEST: She has a wet sounding cough that is nonproductive. Her lungs are clear to auscultation bilaterally with equal breath sounds. ABDOMEN: Mildly tender, soft with normal bowel sounds. EXTREMITIES: Her right leg was dressed. She has a laceration that is healing by secondary intent to her right toe. It looks like it was lashed or tied back together and dressed wound over her right lower leg. The nurse is going to take pictures and place these in the chart. LABORATORY DATA AND TESTS: She had labs drawn earlier in the day at [place]. Her white blood cell count was 12.6, hemoglobin 11.7, PLT count 264,000. She had a venous blood gas with a pH of 7.39, pCO2 74, pO2 23. Chloride was 91. Glucose 110. Lactic acid in the emergency room was 1.9. UA is negative. She has blood cultures and urine cultures in lab. Chest x-ray was read as right lung base infiltrate/atelectasis/effusion with residual stable mediastinal/right lung calcified granulomas. Please see the radiologist dictation for the full report. ASSESSMENT AND PLAN: 1) CHRONIC OBSTRUCTIVE PULMONARY DISEASE EXACERBATION: She has been started on IV steroids and I started her on doxycycline as well. Respiratory therapy has been consulted. She continues on oxygen. She does not want to be on BiPAP and she is SCO. Overall prognosis is guarded and poor. 2) ACUTE ON CHRONIC RESPIRATORY FAILURE WITH HYPOXIA: Again, she does not tolerate the BiPAP. 3) HISTORY OF CORONARY ARTERY DISEASE: Will continue aspirin and Plavix. 4) DIABETES MELLITUS TYPE 2: Will continue with a low dose sliding scale of NovoLog and Accu-Chek's q.a.c. and q.h.s. 5) CODE STATUS: It was confirmed with the patient that she would like to be SCO and status was signed in her chart.
--- NOTE | 2018-07-14 08:33 | PCM.NOTE ---
Date and Time: 07/14/18 0832 Subjective Assessment: patient feeling better today, breathing is improved. no new complaints. she is alert and tolerating po Objective Exam General Appearance: no apparent distress Neurologic Exam: alert, oriented x 3 Skin Exam: normal color, warm, dry Wound Assessment: Skin/Wound Assessment Wound/Incision Assessment Start: 07/13/18 17: 33 Text: Status: Active Freq: Q6H Protocol: Document 07/14/18 07:31 SARAH (Rec: 07/14/18 07:37 SARAH [id number]) Wound/Incision Assessment Posterior Coccyx Wound Assessment Shift Assessment Wound Type Pressure Ulcer Wound Stage Stage II Drainage Amount None Drainage Odor None/Absent General Appearance Well Approximated Open to air Clean/Dry Length (cm) (cm) 1 Width (cm) (cm) 0.5 Depth (cm) (cm) 0.1 Wound Bed Greatest Portion Pale [place] Wound Bed Lesser Portion Pale [place] % Granulated (Red) 0 % Slough (Yellow) 0 % Eschar (Black) 0 Surrounding Tissue [place] Topical Solution/Irrigant Medicated Ointment Comment barrier cream applied Wound Photo Photo Taken Yes Date: 07/13/18 Time: 17:00 Distance from Wound: bedside Respiratory Exam: prolonged expirations, wheezing, No crackles/rales, No rhonchi Cardiovascular Exam: regular rate/rhythm, normal heart sounds Gastrointestinal/Abdomen Exam: soft, No tenderness, No mass Extremity Exam: normal inspection, normal range of motion OBJECTIVE DATA Vital Signs: Vital Signs - 24 hr Temp Pulse Resp BP Pulse Ox 07/14/18 07:43 96.8 F 74 20 158/70 99 07/14/18 07:27 74 20 99 07/14/18 04:00 97.8 F 68 20 150/73 100 07/14/18 00:00 97.8 F 60 19 118/62 99 07/13/18 20:00 98.7 F 99 H 21 107/65 98 07/13/18 19:56 90 22 97 07/13/18 16:00 98.3 F 92 H 125/58 5 L 07/13/18 15:45 99 07/13/18 15:17 5 L 07/13/18 15:10 95 H 24 99 07/13/18 14:52 20 118/79 07/13/18 13:58 98.2 F 99 H 99 H 130/77 5 L Oxygen-Last 24 hours O2 Percentage 5 Liters = 40% O2 Percentage 5 Liters = 40% O2 Percentage 5 Liters = 40% O2 Percentage 5 Liters = 40% O2 Percentage 5 Liters = 40% O2 Percentage 5 Liters = 40% Oxygen Flowrate (L/min)-RT 5 Pain Assessment - Last Documented Pain Intensity 4 Pain Scale Used 0-10 Pain Scale,FLACC Intake and Output: Intake & Output 07/11/18 07/12/18 07/13/18 07/14/18 11:59 11:59 11:59 11:59 Intake Total 1197 Output Total 500 Balance 697 Weight 59.4 kg Lab Results: Accuchecks Date 07/14/18 Date 07/13/18 Date 07/13/18 Time 07:39 Time 22:00 Time 16:30 Accucheck Value: 217 Accucheck Value: 130 Lab Results-Last 24 Hours 07/13/18 07/13/18 07/14/18 Range/Units 14:43 14:43 05:05 WBC 8.6 (4.0-10.5) K/mm3 RBC 3.98 L (4.1-5.4) M/mm3 Hgb 11.7 L (12.0-16.0) gm/dl Hct 37.8 (35-47) % MCV 95.0 (78-100) fl MCH 29.3 (26-32) pg MCHC 31.0 L (32-36) g/dl RDW 15.6 H (11.5-14.0) % Plt Count 248 (150-450) K/mm3 MPV 10.5 H (6-9.5) fl Gran % 96.0 H (36.0-66.0) % Eos # (Auto) 0 (0-0.5) Absolute Lymphs (auto) 0.28 L (1.0-4.6) Absolute Monos (auto) 0.05 (0.0-1.3) Lymphocytes % 3.3 L (24.0-44.0) % Monocytes % 0.6 (0.0-12.0) % Eosinophils % 0.0 (0.00-5.0) % Basophils % 0.1 (0.0-0.4) % Absolute Granulocytes 8.21 H (1.4-6.9) Basophils # 0.01 (0-0.4) pO2/FiO2 Ratio 21.0 % VBG pH 7.39 (7.32-7.42) VBG pCO2 at Pat Temp 74 H* (42-55) mm/Hg VBG pO2 at Pat Temp 23 L (25-40) mm/Hg VBG HCO3 44.8 H* (22-28) meq/L VBG O2 Sat (Kimo) 39.4 L (95-100) VBG Base Excess 16.7 H (-2.0-2.0) VBG Hemoglobin 11.1 VBG Carboxyhemoglobin 1.2 (0.0-6.9) % T HGB POC Potassium 5.0 (3.5-5.1) Sodium (137-145) mmol/L Potassium (3.5-5.1) mmol/L Chloride (98-107) mmol/L Carbon Dioxide (22-30) mmol/L Anion Gap (5-15) MEQ/L BUN (7-17) mg/dL Creatinine (0.52-1.04) mg/dL Estimated GFR ML/MIN Glucose (74-106) mg/dL Lactic Acid 1.9 (0.4-2.0) Calcium (8.4-10.2) mg/dL 07/14/18 Range/Units 05:05 WBC (4.0-10.5) K/mm3 RBC (4.1-5.4) M/mm3 Hgb (12.0-16.0) gm/dl Hct (35-47) % MCV (78-100) fl MCH (26-32) pg MCHC (32-36) g/dl RDW (11.5-14.0) % Plt Count (150-450) K/mm3 MPV (6-9.5) fl Gran % (36.0-66.0) % Eos # (Auto) (0-0.5) Absolute Lymphs (auto) (1.0-4.6) Absolute Monos (auto) (0.0-1.3) Lymphocytes % (24.0-44.0) % Monocytes % (0.0-12.0) % Eosinophils % (0.00-5.0) % Basophils % (0.0-0.4) % Absolute Granulocytes (1.4-6.9) Basophils # (0-0.4) pO2/FiO2 Ratio % VBG pH (7.32-7.42) VBG pCO2 at Pat Temp (42-55) mm/Hg VBG pO2 at Pat Temp (25-40) mm/Hg VBG HCO3 (22-28) meq/L VBG O2 Sat (Kimo) (95-100) VBG Base Excess (-2.0-2.0) VBG Hemoglobin VBG Carboxyhemoglobin (0.0-6.9) % T HGB POC Potassium (3.5-5.1) Sodium 139 (137-145) mmol/L Potassium 5.0 (3.5-5.1) mmol/L Chloride 93 L (98-107) mmol/L Carbon Dioxide 36 H (22-30) mmol/L Anion Gap 14.1 (5-15) MEQ/L BUN 25 H (7-17) mg/dL Creatinine 0.73 (0.52-1.04) mg/dL Estimated GFR > 60.0 ML/MIN Glucose 152 H (74-106) mg/dL Lactic Acid (0.4-2.0) Calcium 9.7 (8.4-10.2) mg/dL Radiology Exams: Radiology Procedures Category Date Time Status CHEST 1 VIEW (PORTABLE) Stat Exams 07/13/18 14:11 Completed Multi-Disciplinary Progress Notes: Multi-Disciplinary Progress Notes 07/13/18 20:44 Respiratory Note by Ronn Singleton WAS ABLE TO OBTAIN ADV 250/50 FROM PHARMACY, I GAVE PT ONE PUFF. Initialized on 07/13/18 20:44 - END OF NOTE 07/13/18 19:54 Respiratory Note by Ronn Singleton LOOKED AROUND PT RM AND DID NOT FIND ADV 250/50, ASKED KLAUDIA ESPINOSA IF SHE WAS ABLE TO GET IT FROM PHARMACY FOR ME. AFTER CLOSER INSPECTION I SAW THAT PT HAS ADV 115/21 ORDERED AND THE ADV 250/ Addendum entered by Ronn Singleton 07/13/18 19:55: 50 ORDER WAS CANCELLED FOR SOME REASON. I PLACED ANOTHER ORDER FOR THE ADV 250/ 50. I DID THE ASSESSMENT ON PT AND INFORMED HER THAT I WOULD BE BACK ONCE I OBTAINED THE MED TO ADMINISTER IT. Initialized on 07/13/18 19:54 - END OF NOTE Assessment/Plan (1) COPD with exacerbation Current Visit: Yes Status: Acute Assessment & Plan: continue IV solu medrol and vibramycin Code(s): J44.1 - CHRONIC OBSTRUCTIVE PULMONARY DISEASE W (ACUTE) EXACERBATION
[2018-07-14] MEDS ORDERED: VITAMIN D3 PO SCH (10:00)
[2018-07-14] MEDS ORDERED: NON-FORMULARY ITEM (Multivitamin [Multiple Vitamins] 1 EACH) PO SCH (10:00)
[2018-07-14] MEDS ORDERED: CALCIUM CARBONATE PO SCH (10:00)
[2018-07-14] MEDS ORDERED: VITAMIN E ACID SUCCINATE 400 UNIT PO SCH (10:00)
[2018-07-14] MEDS: PLAVIX 75 MG Tablet PO SCH (10:01)
[2018-07-14] MEDS: Calcium 500MG W/Vit D Tablet PO SCH (10:01)
[2018-07-14] MEDS: ECOTRIN 81 MG PO SCH (10:01)
[2018-07-14] MEDS: Vitamin E 400 UNIT SOFTGEL PO SCH (10:01)
[2018-07-14] MEDS: Vitamin B-12 500 MCG PO SCH (10:01)
[2018-07-14] MEDS: NEURONTIN 300 MG PO SCH ×2 (10:01→21:10)
[2018-07-14] MEDS: THERAGRAN MULTIVITAMIN PO SCH (10:01)
[2018-07-14] MEDS: Norco 10/325 MG Tablet PO PRN ×3 (10:01→21:10)
[2018-07-14] MEDS: VIBRAMYCIN 100 MG*** 100 MG in Dextrose 5%/Water IV Soln. 100ML PLUS BAG 100 ML IV SCH ×2 (10:06→21:15)
[2018-07-14] MEDS: Tobrex OPHTH. OINTMENT TOP SCH ×2 (10:45→21:10)
[2018-07-14 10:48] LABS: Slide Review 1 YES
[2018-07-14] MEDS: NovoLOG Insulin SQ PRN ×2 (12:00→21:10)
[2018-07-14] MEDS: Sodium Chloride 0.9% 1000 ML 1,000 ML IV SCH (21:07)
[2018-07-14] MEDS: Zovirax INJ IV SCH (21:07)
[2018-07-15] MEDS: Zovirax INJ IV SCH (04:51)
[2018-07-15] MEDS: solu-MEDROL 125 MG IV SCH ×4 (05:38→17:45)
[2018-07-15 06:10] LABS: BASOPHIL % 0.1 % (0.0-0.4); Basophil (Absolute #) 0.01 (0-0.4); Eosinophil % 0.1 % (0.00-5.0); Eosinophil (Absolute #) 0.02 (0-0.5); Granulocyte Absolute (ANC) 13.01 (1.4-6.9); Granulocytes % 93.9 % (36.0-66.0); Hematocrit 32.8 % (35-47); Lymphocyte (Absolute #) 0.39 (1.0-4.6); Lymphocytes % 2.8 % (24.0-44.0); Mean Cell Volume 94.5 fl (78-100); Mean Corpuscular Hemoglobin 28.8 pg (26-32); Mean Corpuscular Hgb Concent. 30.5 g/dl (32-36); Mean Platelet Volume 9.2 fl (6-9.5); Monocyte (Absolute #) 0.43 (0.0-1.3); Monocytes % 3.1 % (0.0-12.0); Platelet Count 239 K/mm3 (150-450); Red Blood Count 3.47 M/mm3 (4.1-5.4); Red Cell Distribution Width 15.3 % (11.5-14.0); White Blood Count 13.9 K/mm3 (4.0-10.5)
[2018-07-15] MEDS: ADVAIR 250-50 DISKUS 14 DOSE IH SCH ×2 (06:28→19:27)
[2018-07-15 06:30] LABS: ALBUMIN 3.1 g/dL (3.5-5.0); ALKALINE PHOSPHATASE 76 U/L (38-126); ANION GAP 10.4 MEQ/L (5-15); BLOOD UREA NITROGEN 30 mg/dL (7-17); CHLORIDE 98 mmol/L (98-107); Calcium 8.8 mg/dL (8.4-10.2); Carbon Dioxide 34 mmol/L (22-30); Creatinine 1 0.69 mg/dL (0.52-1.04); Glucose 164 mg/dL (74-106); Potassium 3.9 mmol/L (3.5-5.1); SGOT/AST 18 U/L (14-36); SGPT/ALT 16 U/L (0-35); SODIUM 138 mmol/L (137-145); Total Protein 5.8 g/dL (6.3-8.2)
[2018-07-15 09:24] LABS: Slide Review 1 YES
[2018-07-15] MEDS: VIBRAMYCIN 100 MG*** 100 MG in Dextrose 5%/Water IV Soln. 100ML PLUS BAG 100 ML IV SCH ×2 (10:34→23:47)
[2018-07-15] MEDS: Vitamin B-12 500 MCG PO SCH (10:35)
[2018-07-15] MEDS: Calcium 500MG W/Vit D Tablet PO SCH (10:35)
[2018-07-15] MEDS: ECOTRIN 81 MG PO SCH (10:35)
[2018-07-15] MEDS: NEURONTIN 300 MG PO SCH ×2 (10:35→22:37)
[2018-07-15] MEDS: PLAVIX 75 MG Tablet PO SCH (10:37)
[2018-07-15] MEDS: Vitamin E 400 UNIT SOFTGEL PO SCH (10:38)
[2018-07-15] MEDS: THERAGRAN MULTIVITAMIN PO SCH (10:38)
[2018-07-15] MEDS: Norco 10/325 MG Tablet PO PRN ×3 (11:33→22:37)
[2018-07-15] MEDS: NovoLOG Insulin SQ PRN ×2 (11:35→17:47)
[2018-07-15] MEDS: SODIUM CHLORIDE 0.9% IV SCH ×2 (14:53→22:38)
[2018-07-15] MEDS: ZOVIRAX IV SCH ×2 (14:53→22:38)
[2018-07-16] MEDS: solu-MEDROL 125 MG IV SCH ×3 (01:41→13:23)
[2018-07-16] MEDS: ZOVIRAX IV SCH ×2 (06:09→13:23)
[2018-07-16] MEDS: SODIUM CHLORIDE 0.9% IV SCH ×2 (06:09→13:23)
[2018-07-16 06:17] LABS: BASOPHIL % 0.1 % (0.0-0.4); Basophil (Absolute #) 0.01 (0-0.4); Eosinophil (Absolute #) 0 (0-0.5); Granulocyte Absolute (ANC) 13.35 (1.4-6.9); Granulocytes % 93.5 % (36.0-66.0); Hematocrit 32.3 % (35-47); Hemoglobin 10.1 gm/dl (12.0-16.0); Lymphocytes % 2.8 % (24.0-44.0); Mean Cell Volume 94.4 fl (78-100); Mean Corpuscular Hemoglobin 29.5 pg (26-32); Mean Corpuscular Hgb Concent. 31.3 g/dl (32-36); Mean Platelet Volume 9.4 fl (6-9.5); Monocyte (Absolute #) 0.52 (0.0-1.3); Monocytes % 3.6 % (0.0-12.0); Platelet Count 240 K/mm3 (150-450); Red Blood Count 3.42 M/mm3 (4.1-5.4); Red Cell Distribution Width 15.6 % (11.5-14.0); White Blood Count 14.3 K/mm3 (4.0-10.5)
[2018-07-16 06:53] LABS: ALBUMIN 3.1 g/dL (3.5-5.0); ALKALINE PHOSPHATASE 74 U/L (38-126); ANION GAP 11.3 MEQ/L (5-15); BLOOD UREA NITROGEN 30 mg/dL (7-17); CHLORIDE 100 mmol/L (98-107); Calcium 8.8 mg/dL (8.4-10.2); Carbon Dioxide 33 mmol/L (22-30); Creatinine 1 0.71 mg/dL (0.52-1.04); Glucose 134 mg/dL (74-106); Potassium 4.4 mmol/L (3.5-5.1); SGOT/AST 28 U/L (14-36); SGPT/ALT 26 U/L (0-35); SODIUM 140 mmol/L (137-145); Total Protein 5.7 g/dL (6.3-8.2)
[2018-07-16] MEDS: ADVAIR 250-50 DISKUS 14 DOSE IH SCH (07:15)
--- NOTE | 2018-07-16 08:32 | PCM.DS ---
Discharge Summary Date of Admission: 07/13/18 15:42 Admitting Physician: ALPHONSE PEREZ Primary Care Provider: RADHA Allergies Allergies Penicillins Allergy (Verified 07/13/18 14:08) Hospital Summary - Hospital Course Hospital Course: patient was admitted with cough and shortness of breath/copd exacerbation. developing left eye pain and swelling, eventually broke out in rash c/w herpes zoster, no ocular involvement - Vitals & Intake/Output Vital Signs: Vital Signs Temperature 98.0 F 07/16/18 04:00 Pulse Rate 84 07/16/18 07:20 Respiratory Rate 18 07/16/18 07:20 Blood Pressure 158/75 07/16/18 04:00 O2 Sat by Pulse Oximetry 98 07/16/18 07:20 Oxygen-Last Documented O2 Percentage 4 Liters = 36% Intake & Output: Intake & Output 07/13/18 07/14/18 07/15/18 07/16/18 11:59 11:59 11:59 11:59 Intake Total 1437 2890 1792 Output Total 800 1200 300 Balance 637 1690 1492 Weight 59.4 kg 59.8 kg - Lab Result Diagrams: 07/16/18 05:00 07/16/18 05:15 Lab Results-Last 24 Hrs: Accuchecks Date 07/15/18 Date 07/15/18 Time 16:30 Time 11:30 Accucheck Value: 220 Accucheck Value: 265 Lab Results-Last 24 Hours 07/15/18 07/16/18 07/16/18 Range/Units 05:05 05:00 05:15 WBC 14.3 H (4.0-10.5) K/mm3 RBC 3.42 L (4.1-5.4) M/mm3 Hgb 10.1 L (12.0-16.0) gm/dl Hct 32.3 L (35-47) % MCV 94.4 (78-100) fl MCH 29.5 (26-32) pg MCHC 31.3 L (32-36) g/dl RDW 15.6 H (11.5-14.0) % Plt Count 240 (150-450) K/mm3 MPV 9.4 (6-9.5) fl Gran % 93.5 H (36.0-66.0) % Eos # (Auto) 0 (0-0.5) Absolute Lymphs (auto) 0.40 L (1.0-4.6) Absolute Monos (auto) 0.52 (0.0-1.3) Lymphocytes % 2.8 L (24.0-44.0) % Monocytes % 3.6 (0.0-12.0) % Eosinophils % 0.0 (0.00-5.0) % Basophils % 0.1 (0.0-0.4) % Absolute Granulocytes 13.35 H (1.4-6.9) Basophils # 0.01 (0-0.4) Sodium 140 (137-145) mmol/L Potassium 4.4 (3.5-5.1) mmol/L Chloride 100 (98-107) mmol/L Carbon Dioxide 33 H (22-30) mmol/L Anion Gap 11.3 (5-15) MEQ/L BUN 30 H (7-17) mg/dL Creatinine 0.71 (0.52-1.04) mg/dL Estimated GFR > 60.0 ML/MIN Glucose 134 H (74-106) mg/dL Calcium 8.8 (8.4-10.2) mg/dL Total Bilirubin 0.20 (0.2-1.3) mg/dL AST 28 (14-36) U/L ALT 26 (0-35) U/L Alkaline Phosphatase 74 (38-126) U/L Serum Total Protein 5.7 L (6.3-8.2) g/dL Albumin 3.1 L (3.5-5.0) g/dL Slides for Path Review YES Micro Results-Entire Visit: Microbiology 07/13/18 23:20 Wound Culture - Preliminary Leg - Right Lower ORGANISMS ISOLATED ARE CONSISTENT WITH NORMAL SKIN ERNESTO LIGHT GROWTH, NO PREDOMINANT ORGANISM 07/13/18 14:35 Blood Culture - Preliminary Blood NO GROWTH TO DATE 07/13/18 14:35 Blood Culture - Preliminary Blood NO GROWTH TO DATE Accuchecks Date 07/15/18 Date 07/15/18 Time 16:30 Time 11:30 Accucheck Value: 220 Accucheck Value: 265 - Procedures and Test Procedures and Tests throughout Hospitalization: Therapy Orders & Screens 07/13/18 07:00 Peak Expiratory Flow Rate DAILY Comment: Reason For Exam: 07/13/18 15:44 Respiratory Therapy Consult ROUTINE Comment: Reason For Exam: 07/13/18 16:42 PT Screen per Nursing Assess ONCE Comment: Protocol Order Physician Instructions: Greater than 3 points order PT Admission Screenin Reason For Exam: Triggered on Admission Open Wound/Cellutlitis/Pressure Ulcers: Yes: right leg wrapped , MRSA 07/13/18 16:50 Respiratory Therapy Assessment DAILY Comment: 07/13/18 16:52 BiPap/CPAP ROUTINE Comment: Oxygen Nasal Cannula 5 lpm Comment: 07/15/18 07:00 Respiratory MDI UD Comment: Diagnosis: COPD exacerbation ,confusion Discharge Exam General Appearance: no apparent distress, alert Eye Exam: other (vesicular rash, swelling left periorbital region and forehead) Respiratory Exam: normal breath sounds, lungs clear, No respiratory distress Cardiovascular Exam: regular rate/rhythm, normal heart sounds Extremity Exam: normal inspection, normal range of motion Skin Exam: normal color, warm, dry Wound Assessment: Skin/Wound Assessment Wound/Incision Assessment Start: 07/13/18 17: 33 Text: Status: Active Freq: Q6H Protocol: Document 07/15/18 13:25 (Rec: 07/15/18 13:42 [id number]) Wound/Incision Assessment Posterior Coccyx Wound Assessment Shift Assessment Wound Type Pressure Ulcer Wound Stage Stage II Drainage Amount None Drainage Odor None/Absent General Appearance Well Approximated Open to air Clean/Dry Length (cm) (cm) 1 Width (cm) (cm) 0.5 Depth (cm) (cm) 0.1 Wound Bed Greatest Portion Pale [place] Wound Bed Lesser Portion Pale [place] % Granulated (Red) 0 % Slough (Yellow) 0 % Eschar (Black) 0 Surrounding Tissue [place] Topical Solution/Irrigant Medicated Ointment Comment barrier cream applied Wound Photo Photo Taken Yes Date: 07/13/18 Time: 17:00 Distance from Wound: bedside Final Diagnosis/Problem List - Final Discharge Diagnosis/Problem (1) COPD with exacerbation Current Visit: Yes Status: Acute Code(s): J44.1 - CHRONIC OBSTRUCTIVE PULMONARY DISEASE W (ACUTE) EXACERBATION (2) Herpes zoster Current Visit: Yes Status: Acute Code(s): B02.9 - ZOSTER WITHOUT COMPLICATIONS - Discharge Disposition: Skilled Care @ [facility] Condition: Fair Prescriptions: New Prednisone 10 mg [Deltasone 10 mg] 10 mg PO UD #18 tablet Doxycycline Hyclate 100 mg PO BID #10 tablet Acyclovir 800 mg [Zovirax 800 mg] 800 mg PO 5XD #35 tablet Continue Clopidogrel Bisulfate 75 mg [PLAVIX 75 MG Tablet] 75 mg PO DAILY Aspirin EC 81 mg [Ecotrin 81 mg] 81 mg PO DAILY predniSONE [Prednisone] 10 mg PO DAILY Vitamin E Acid Succinate [Vitamin E] 400 unit PO DAILY Potassium Chloride [Klor-Con] 20 meq PO DAILY Nitroglycerin 0.4 mg Tablet [Nitrostat 0.4 MG Tablet] 0.4 mg SL Q5MIN PRN MR X 3 PRN PRN Reason: Chest Pain Multivitamin [Multiple Vitamins] 1 each PO DAILY Metformin HCl 500 mg [Glucophage 500 MG] 500 mg PO DAILY Ipratropium/Albuterol Sulfate [Combivent Inhaler] 2 puff IH BID PRN PRN PRN Reason: Shortness Of Breath Insulin Lispro [Humalog] 100 unit SQ UD Hydroxyzine Pamoate [Vistaril] 25 mg PO HS Hydrocodone/Acetaminophen [[place] 10-325 Tablet] 1 each PO Q4HPRN PRN MDD 6 PRN Reason: Pain Gabapentin [Neurontin] 600 mg PO BID Fluticasone/Salmeterol [Advair 250-50 Diskus] 1 each IH BID Cyanocobalamin (Vitamin B-12) [Vitamin B-12] 500 mcg PO DAILY Calcium Carbonate/Vitamin D3 [Calcium 600 + Vit D Tablet] 1 each PO DAILY Bumetanide 1 mg [Bumex 1 mg] 1 mg PO DAILY Follow up with: GAYLA RICHARDSON [Primary Care Provider] - 1 Week
[2018-07-16] MEDS: NEURONTIN 300 MG PO SCH (10:36)
[2018-07-16] MEDS: PLAVIX 75 MG Tablet PO SCH (10:36)
[2018-07-16] MEDS: Calcium 500MG W/Vit D Tablet PO SCH (10:37)
[2018-07-16] MEDS: Vitamin B-12 500 MCG PO SCH (10:37)
[2018-07-16] MEDS: ECOTRIN 81 MG PO SCH (10:37)
[2018-07-16] MEDS: THERAGRAN MULTIVITAMIN PO SCH (10:37)
[2018-07-16] MEDS: Vitamin E 400 UNIT SOFTGEL PO SCH (10:38)
[2018-07-16] MEDS: VIBRAMYCIN 100 MG*** 100 MG in Dextrose 5%/Water IV Soln. 100ML PLUS BAG 100 ML IV SCH (10:46)
[2018-07-16 13:13] VITALS: BP 138/65; PULSE 100; O2SAT 100
[2018-07-16] MEDS: NovoLOG Insulin SQ PRN (13:24)
[2018-07-16] MEDS: Norco 10/325 MG Tablet PO PRN (15:54)
== END 2018-07-16 15:58 ==
LOC: ED 13:55 → MED SURG 15:42
PROVIDERS: ADMIT Family Medicine; ATTEND Family Medicine
DX: J44.1 Chronic obstructive pulmonary disease with (acute) exacerbation (principal); B02.9 Zoster without complications; J96.20 Acute and chronic respiratory failure, unspecified whether with hypoxia or hypercapnia; L89.152 Pressure ulcer of sacral region, stage 2; E11.9 Type 2 diabetes mellitus without complications; H57.12 Ocular pain, left eye; Z79.01 Long term (current) use of anticoagulants; Z79.899 Other long term (current) drug therapy; Z79.4 Long term (current) use of insulin; Z99.81 Dependence on supplemental oxygen
CPT/HCPCS: 36415; 71045; 80048; 80053; 81001; 82805; 82962; 83036; 83605; 85025; 87040; 87070; 87077; 87086; 87186; 93005; 93268; 94002; 94003; 94640; 94760; 96360; 99285; G0378; J0133; J2930; A9270-GY